=== PATIENT | female | born 1985 ===

== ENCOUNTER 2021-07-24 02:13 | Emergency (ER) | payer OTHER, SELFPAY ==
--- NOTE | ~2021-07-24 | CT_ITS ---
EXAMINATION: CT ABDOMEN AND PELVIS WITH CONTRAST CLINICAL INFORMATION: Abdominal pain. Nausea and vomiting. COMPARISON: None TECHNIQUE: Multidetector volumetric images were obtained from the superior aspect of the liver through the pubic symphysis following administration 85 mL of Omnipaque 350 intravenous contrast. Sagittal and coronal reformatted images were obtained on the technologist's workstation. Oral contrast: No This CT examination was performed using dose optimization techniques as appropriate, variously including the following: *Automated exposure control *Adjustment of mA and/or kV according to patient size (this includes techniques or standardized protocols for targeted exams where dose is matched to indication/reason for exam; i.e. extremities or head) *Use of iterative reconstruction technique DLP: 410 mGy-cm FINDINGS: LUNG BASES: The visualized lung bases are unremarkable. LIVER, GALLBLADDER, AND BILIARY TREE: The liver is normal in size, shape, and attenuation. No biliary ductal dilatation. 0.8 cm hypoattenuating lesion in segment 5 of the liver centrally, too small to fully characterize. The gallbladder is unremarkable with no evidence of radiopaque gallstones, gallbladder wall thickening, or obvious pericholecystic inflammatory changes. PANCREAS: Unremarkable. SPLEEN: Unremarkable. ADRENAL GLANDS: Unremarkable. KIDNEYS AND URETERS: The kidneys are normal in size, shape, and attenuation. No hydronephrosis, hydroureter, or calculi seen. No perinephric stranding. BLADDER: Unremarkable. GASTROINTESTINAL TRACT: The stomach is unremarkable. Normal caliber of the small bowel. There is no obstruction. Normal appendix. No colonic wall thickening or acute inflammation. No free air or free fluid. ABDOMINAL WALL: No significant hernia is appreciated. LYMPH NODES: Normal. VASCULAR: Unremarkable. PELVIC VISCERA: The uterus and adnexa are unremarkable. OSSEOUS STRUCTURES: No acute or suspicious osseous abnormality. CT/CT abdomen pelvis w con IMPRESSION: No acute findings of the abdomen or pelvis. No inflammatory change. Fleischner guidelines were followed.
[2021-07-24 02:15] VITALS: BP 139/85; PULSE 64; RESP 18; TEMP 36.4; O2SAT 100; BMI 21.8
--- NOTE | 2021-07-24 03:08 | ED_ITS ---
HPI - Nausea/Vomiting/Diarrhea General Chief complaint: Nausea/Vomiting/Diarrhea Stated complaint: Vomiting blood, diarrhea Time Seen by Provider: 07/24/21 03:07 Related Data Previous Rx's Medication Instructions Recorded ondansetron 4 mg disintegrating 4 mg PO TID PRN 5 Days #10 tab 07/24/21 tablet pantoprazole 40 mg tablet,delayed 40 mg PO DAILY #14 tab 07/24/21 release (Protonix) Allergies Allergy/AdvReac Type Severity Reaction Status Date / Time acetaminophen [From Allergy Vomiting Verified 07/24/21 02:14 Percocet] oxycodone [From Percocet] Allergy Vomiting Verified 07/24/21 02:14 [facility] Social History Social History Advance Directives: No Advance Directives Information Provided: Yes Patient : No Physical Exam Verdana 4l Vital Signs: Verdana 4d Verdana 4d Vital Signs: Verdana 4d Verdana 4Bd Last Vital Signs Verdana 4d [employer] New 4d [employer] New 4d Temp 97.6 F 07/24/21 02:15 [employer] New 4d Pulse 64 07/24/21 02:15 [employer] New 4d Resp 18 07/24/21 02:15 BP 139/85 07/24/21 02:15 Pulse Ox 100 07/24/21 02:15 BMI result Body Mass Index 21.8 MDM - Nausea/Vomiting/Diarrhea MDM Narrative Medical decision making narrative: Patient given Zofran a droperidol for nausea. test was negative electrolytes unremarkable. CT scan of the abdomen pelvis showed no evidence of obstruction, abscess, perforation. Patient's hemoglobin is normal 13.8 her guaiac was negative. Unlikely she has a major GI bleed question secondary to [place]-Hankins versus from the Gatorade she was ingesting. Will discharge patient home. Will start patient on PPI. In stable condition. Zofran and offered for nausea. Patient's case also referred to the CF secondary to patient having a small child at home. Lab Data Attestation: I reviewed the patient's lab results. Result diagrams: 07/24/21 03:22 07/24/21 03:22 Labs: Lab Results 07/24/21 07/24/21 07/24/21 Range/Units 03:22 03:22 03:22 WBC 15.7 H (4.8-10.8) X10*3/uL RBC 4.55 (4.20-5.50) X10*6/uL Hgb 13.8 (12.0-16.0) g/dl Hct 41.6 (37.0-47.0) % MCV 91.4 (80.0-98.0) fL MCH 30.3 (27.0-33.0) pg MCHC 33.2 (31.0-35.0) g/dl RDW 13.4 (11.0-16.0) % Plt Count 308 (160-400) X10*3/uL MPV 8.7 L (9.4-12.3) fL Immature Gran % (Auto) 0.4 (0.0-0.4) % Neut % (Auto) 87.6 H (45-73) % Lymph % (Auto) 9.1 L (20-40) % Camp % (Auto) 2.8 (2-11) % Eos % (Auto) 0.0 (0-4) % Baso % (Auto) 0.1 (0-2) % Lymph # (Auto) 1.4 (1.2-4.9) X10*3/uL Camp # (Auto) 0.4 (0.1-1.2) X10*3/uL Eos # (Auto) 0.0 (0.0-0.4) X10*3/uL Baso # (Auto) 0.0 (0.0-0.2) X10*3/uL Abs Immat Gran (auto) 0.06 H (0.00-0.03) X10*3/uL Absolute Neuts (auto) 13.8 H (2.0-8.3) x10*3/uL Absolute Nucleated RBC 0.000 (0.0-0.012) X10*3/uL Nucleated RBC % (auto) 0.0 (0.0-0.2) /100WBC Sodium 145 (135-145) mmol/L Potassium 4.0 (3.3-5.1) mmol/L Chloride 108 (96-108) mmol/L Carbon Dioxide 22 (22-29) mmol/L Anion Gap 19 (12-20) BUN 14 (9-16) mg/dL Creatinine 0.83 (0.5-1.4) mg/dL Estim Creat Clear Calc 100.7 Estimated GFR > 60 Random Glucose 127 H (60-115) mg/dL Calcium 9.5 (8.4-10.2) mg/dL Total Bilirubin 0.5 (0.0-1.0) mg/dL Direct Bilirubin 0.2 (0.0-0.5) mg/dL AST 20 (5-31) U/L ALT 14 (0-31) U/L Alkaline Phosphatase 59 (39-117) U/L Total Protein 7.7 (6.5-8.0) g/dL Albumin 4.5 (3.5-5.0) g/dL Lipase 13 (8-78) U/L Beta HCG, Quant < 2 mIU/mL Stool Occult Blood NEGATIVE (NEGATIVE) Ethyl Alcohol mg/dL 07/24/21 Range/Units 03:22 WBC (4.8-10.8) X10*3/uL RBC (4.20-5.50) X10*6/uL Hgb (12.0-16.0) g/dl Hct (37.0-47.0) % MCV (80.0-98.0) fL MCH (27.0-33.0) pg MCHC (31.0-35.0) g/dl RDW (11.0-16.0) % Plt Count (160-400) X10*3/uL MPV (9.4-12.3) fL Immature Gran % (Auto) (0.0-0.4) % Neut % (Auto) (45-73) % Lymph % (Auto) (20-40) % Camp % (Auto) (2-11) % Eos % (Auto) (0-4) % Baso % (Auto) (0-2) % Lymph # (Auto) (1.2-4.9) X10*3/uL Camp # (Auto) (0.1-1.2) X10*3/uL Eos # (Auto) (0.0-0.4) X10*3/uL Baso # (Auto) (0.0-0.2) X10*3/uL Abs Immat Gran (auto) (0.00-0.03) X10*3/uL Absolute Neuts (auto) (2.0-8.3) x10*3/uL Absolute Nucleated RBC (0.0-0.012) X10*3/uL Nucleated RBC % (auto) (0.0-0.2) /100WBC Sodium (135-145) mmol/L Potassium (3.3-5.1) mmol/L Chloride (96-108) mmol/L Carbon Dioxide (22-29) mmol/L Anion Gap (12-20) BUN (9-16) mg/dL Creatinine (0.5-1.4) mg/dL Estim Creat Clear Calc Estimated GFR Random Glucose (60-115) mg/dL Calcium (8.4-10.2) mg/dL Total Bilirubin (0.0-1.0) mg/dL Direct Bilirubin (0.0-0.5) mg/dL AST (5-31) U/L ALT (0-31) U/L Alkaline Phosphatase (39-117) U/L Total Protein (6.5-8.0) g/dL Albumin (3.5-5.0) g/dL Lipase (8-78) U/L Beta HCG, Quant mIU/mL Stool Occult Blood (NEGATIVE) Ethyl Alcohol 55 mg/dL Discharge Plan Discharge Clinical Impression: Alcohol intoxication, Vomiting Patient Disposition: Home, Self-Care Prescriptions: New pantoprazole [Protonix] 40 mg tablet,delayed release (DR/EC) 40 mg PO DAILY Qty: 14 0RF ondansetron 4 mg tablet,disintegrating 4 mg PO TID PRN (Reason: nausea and vomiting) 5 Days Qty: 10 0RF
[2021-07-24] MEDS: 0.9 % Sodium Chloride 1,000 ML 999 ML IV (03:24)
[2021-07-24] MEDS: ondansetron HCL 4 MG/2 ML VIAL IVPUSH (03:24)
[2021-07-24 03:25] LABS: MANUAL DIFF FLAG NO
[2021-07-24 03:26] LABS: Basophils Percent Auto 0.1 % (0-2); Hematocrit 41.6 % (37.0-47.0); Hemoglobin 13.8 g/dl (12.0-16.0); Imm Gran Abs Auto 0.06 X10*3/uL (0.00-0.03); Imm Gran Pct Auto 0.4 % (0.0-0.4); Lymphocytes Absolute Auto 1.4 X10*3/uL (1.2-4.9); Lymphocytes Percent Auto 9.1 % (20-40); Mean Corpuscular HGB Conc 33.2 g/dl (31.0-35.0); Mean Corpuscular Hemoglobin 30.3 pg (27.0-33.0); Mean Corpuscular Volume 91.4 fL (80.0-98.0); Mean Platelet Volume 8.7 fL (9.4-12.3); Monocytes Absolute Auto 0.4 X10*3/uL (0.1-1.2); Monocytes Percent Auto 2.8 % (2-11); Neutrophils Absolute Auto 13.8 x10*3/uL (2.0-8.3); Neutrophils Percent Auto 87.6 % (45-73); OBS Int Ctl Valid YES; OBS1 NEGATIVE (NEGATIVE); Platelet Count 308 X10*3/uL (160-400); Red Blood Count 4.55 X10*6/uL (4.20-5.50); Red Cell Distribution Width 13.4 % (11.0-16.0); White Blood Count 15.7 X10*3/uL (4.8-10.8)
[2021-07-24 03:43] LABS: Ethanol 55 mg/dL
[2021-07-24 03:47] LABS: Alanine Aminotransferase 14 U/L (0-31); Albumin Level 4.5 g/dL (3.5-5.0); Alkaline Phosphatase 59 U/L (39-117); Anion Gap 19 (12-20); Aspartate Amino Transferase 20 U/L (5-31); Bilirubin Direct 0.2 mg/dL (0.0-0.5); Bilirubin Total 0.5 mg/dL (0.0-1.0); Blood Urea Nitrogen 14 mg/dL (9-16); Calcium 9.5 mg/dL (8.4-10.2); Carbon Dioxide 22 mmol/L (22-29); Chloride 108 mmol/L (96-108); Creatinine Clr Calc Pharmacy 100.7; Estimated Glomerular Filt Rate > 60; Glucose Random 127 mg/dL (60-115); Lipase 13 U/L (8-78); Sodium 145 mmol/L (135-145); Total Protein 7.7 g/dL (6.5-8.0)
[2021-07-24 03:53] LABS: HCG Quantitative < 2 mIU/mL
[2021-07-24] MEDS: iohexoL 350 MG/ML 100 ML INFUS..BTL 85 ML IV (04:56)
--- NOTE | 2021-07-24 05:42 | PC.NURSE ---
CONTACTING DCF AND FILING REPORT DUE TO PATIENT REPORTING ALCOHOL ISSUES, IS WILLING TO ACCEPT RESOURCES AND UNDERSTANDING THAT [facility] IS MANDATED REPORTERS. CONTACTING THE PATIENTS BROTHER FOR RHIANNA INFORMATION. PLAN IS FOR DCF TO FOLLOW UP OUT IN THE COMMUNITY.
== END 2021-07-24 06:02 | disposition home or self-care (01) ==
PROVIDERS: Emergency Provider Emergency Medicine Emergency Medical Services
DX: F10.920 Alcohol use, unspecified with intoxication, uncomplicated (principal); Y90.2 Blood alcohol level of 40-59 mg/100 ml; R11.2 Nausea with vomiting, unspecified
CPT/HCPCS: 36415; 74177; 80048; 80076; 82077; 82272; 83690; 84702; 85025; 96361; 96374; 96375; 99283; 99284; J1790; J2405; Q9967

== ENCOUNTER 2022-08-28 13:23 | Emergency (ER) | payer OTHER, SELFPAY ==
--- NOTE | ~2022-08-28 | CT_ITS ---
EXAMINATION: CT ABDOMEN AND PELVIS WITHOUT CONTRAST CLINICAL INFORMATION: Hematuria, dysuria, flank pain, abdominal pain bilaterally. COMPARISON: None TECHNIQUE: Multidetector volumetric imaging was performed from the superior aspect of the liver through the pubic symphysis. Sagittal and coronal reformatted images were obtained on the technologist's workstation. Lack of intravenous and oral contrast limits visceral evaluation. This CT examination was performed using dose optimization techniques as appropriate, variously including the following: *Automated exposure control *Adjustment of mA and/or kV according to patient size (this includes techniques or standardized protocols for targeted exams where dose is matched to indication/reason for exam; i.e. extremities or head) *Use of iterative reconstruction technique DLP: 441 mGy-cm FINDINGS: LUNG BASES: The visualized lung bases are unremarkable. LIVER, GALLBLADDER, AND BILIARY TREE: Unremarkable. PANCREAS: Unremarkable. SPLEEN: Unremarkable. ADRENAL GLANDS: Unremarkable. KIDNEYS AND URETERS: Multiple small calcifications are seen at the medullary level bilaterally. No hydroureteronephrosis bilaterally. BLADDER: Unremarkable. GASTROINTESTINAL TRACT: The stomach, small bowel and appendix are unremarkable. The colon and rectum are unremarkable. ABDOMINAL WALL: Small fat-containing umbilical hernia without surrounding abnormality. LYMPH NODES: No lymphadenopathy. VASCULAR: Unremarkable. PELVIC VISCERA: Unremarkable. OSSEOUS STRUCTURES: Unremarkable. CT/CT abdomen pelvis wo IV con IMPRESSION: 1. Multiple small calcifications at the medullary level bilaterally without associated abnormality. This is nonspecific, but can be seen with medullary nephrocalcinosis. No hydroureteronephrosis. 2. Small fat-containing umbilical hernia without associated abnormality.
--- NOTE | 2022-08-28 13:26 | ED_ITS ---
HPI - Female Genitourinary General Chief complaint: Abdominal Pain <Marry Mariscal CNP - Last Filed: 08/28/22 13:30> Stated complaint: Blood in urine <Marry Mariscal CNP - Last Filed: 08/28/22 13:30> Time Seen by Provider: 08/28/22 15:55 <Marry Mariscal CNP - Last Filed: 08/28/22 13:30> Source: patient <RORY Gerard - Last Filed: 08/28/22 17:45> Mode of arrival: ambulatory <RORY Gerard Last Filed: 08/28/22 17:45> Limitations: no limitations <RORY Gerard Last Filed: 08/28/22 17:45> History of Present Illness HPI Narrative: Patient is a 36 year old assigned female at with no reported medical history presenting to the emergency department today with pain and blood when urinating. Patient states that over the last couple days she has had pain with urination and blood in her urine. Patient denies any dizziness, lightheadedness, abdominal pain, nausea, vomiting, fever, chills, blurry vision, double vision, loss of vision, chest pain, difficulty breathing, shortness of breath, back pain, night sweats, increased urinary frequency, increased urinary urgency, blood in her stool, syncope or a near syncopal episode, recent trauma or falls, bowel incontinence, bladder incontinence, bowel retention, bladder retention, or any other complaints at this time. <RORY Gerard - Last Filed: 08/28/22 17:45> MD elicited complaint: dysuria <RORY Gerard - Last Filed: 08/28/22 17:45> Onset (ago): day(s) <RORY Gerard Last Filed: 08/28/22 17:45> Severity: mild <RORY Gerard Last Filed: 08/28/22 17:45> Severity scale (1-10): 3 <RORY Gerard Last Filed: 08/28/22 17:45> Vaginal discharge: none <RORY Gerard Last Filed: 08/28/22 17:45> Vaginal bleeding: none <RORY Gerard Last Filed: 08/28/22 17:45> Urinary symptoms: Dysuria <RORY Gerard - Last Filed: 08/28/22 17:45> Exacerbating factors: none <RORY Gerard - Last Filed: 08/28/22 17:45> Relieving factors: none <RORY Gerard Last Filed: 08/28/22 17:45> Treatment prior to arrival: none <RORY Gerard Last Filed: 08/28/22 17:45> Related Data Home medications: Previous Rx's Medication Instructions Recorded ondansetron 4 mg disintegrating 4 mg PO TID PRN nausea and 07/24/21 tablet vomiting 5 days #10 tabs pantoprazole 40 mg tablet,delayed 40 mg PO DAILY #14 tabs 07/24/21 release (Protonix) cephalexin 500 mg capsule 500 mg PO Q6H 7 days #28 caps 08/28/22 <Marry Mariscal CNP - Last Filed: 08/28/22 13:30> Allergies/Adverse reactions: Allergies Allergy/AdvReac Type Severity Reaction Status Date / Time acetaminophen [From Percocet] Allergy Vomiting Verified 07/24/21 02:14 oxycodone [From Percocet] Allergy Vomiting Verified 07/24/21 02:14 <Marry Mariscal CNP - Last Filed: 08/28/22 13:30> Review of Systems Constitutional: Constitutional: Reports no additional constitutional complaints, Denies chills, Denies fever(s) and Denies night sweats <RORY Gerard - Last Filed: 08/28/22 17:45> Eyes: Eyes: Reports no additional eye complaints, Denies blurry vision, Denies change in vision, Denies diplopia, Denies eye discharge, Denies loss of vision and Denies eye pain <RORY Gerard Last Filed: 08/28/22 17:45> ENT: Denies dizziness <RORY Gerard - Last Filed: 08/28/22 17:45> Cardiovascular: Cardiovascular: Reports no additional cardiovascular complaints, Denies chest pain, Denies lightheadedness, Denies Loss of Consciousness and Denies dyspnea <RORY Gerard - Last Filed: 08/28/22 17:45> Respiratory: Respiratory: Reports no additional respiratory complaints and Denies dyspnea <RORY Gerard - Last Filed: 08/28/22 17:45> Gastrointestinal: Gastrointestinal: Reports no additional gastrointestinal complaints, Denies abdominal pain, Denies melena, Denies hematochezia, Denies change in bowel habits and Denies change in stool character <RORY Gerard - Last Filed: 08/28/22 17:45> Genitourinary: Genitourinary: Reports hematuria, Denies urinary frequency, Reports dysuria, Denies urinary incontinence, Denies urinary hesitancy and Denies urinary urgency <RORY Gerard - Last Filed: 08/28/22 17:45> Musculoskeletal: Musculoskeletal: Reports no additional musculoskeletal co mplaints, Denies numbness and Denies tingling <RORY Gerard - Last Filed: 08/28/22 17:45> Neurologic: Denies dizziness, Denies loss of vision, Denies numbness and Denies tingling <RORY Gerard - Last Filed: 08/28/22 17:45> Psychiatric: Psychiatric: Reports no additional psychiatric complaints <RORY Gerard - Last Filed: 08/28/22 17:45> Endocrine: Endocrine: Reports no additional endocrine complaints <RORY Gerard - Last Filed: 08/28/22 17:45> Hematologic/Lymphatic: Hematologic/Lymphatic: Reports no additional hematologic/lymphatic complaints <RORY Gerard - Last Filed: 08/28/22 17:45> Allergic/Immunologic: Allergic/Immunologic: Reports no additional allergic/immunologic complaints <RORY Gerard - Last Filed: 08/28/22 17:45> [facility] Past Medical History Attestation statement: The following information was validated with the patient. <RORY Gerard - Last Filed: 08/28/22 17:45> Source: old records reviewed and nursing notes reviewed <RORY Gerard - Last Filed: 08/28/22 17:45> Social History Social History: Social History Advance Directives: No Advance Directives Information Provided: Yes <Marry Mariscal CNP - Last Filed: 08/28/22 13:30> Physical Exam Vital Signs: Vital Signs: Last Vital Signs Temp 98.1 F 08/28/22 13:28 Pulse 84 08/28/22 13:28 Resp 18 08/28/22 13:28 BP 162/99 H 08/28/22 13:28 Pulse Ox 98 08/28/22 13:28 O2 Del Method 08/28/22 13:28 BMI result Body Mass Index 22.0 <Marry Mariscal [facility] - Last Filed: 08/28/22 13:30> Vital Signs: Last Vital Signs Temp 98.1 F 08/28/22 13:28 Pulse 84 08/28/22 13:28 Resp 18 08/28/22 13:28 BP 162/99 H 08/28/22 13:28 Pulse Ox 98 08/28/22 13:28 O2 Del Method 08/28/22 13:28 BMI result Body Mass Index 22.0 <RORY Gerard - Last Filed: 08/28/22 17:45> Const: General: cooperative, no acute distress, alert and awake <RORY Gerard - Last Filed: 08/28/22 17:45> Nutritional Appearance: well nourished <RORY Gerard - Last Filed: 08/28/22 17:45> Orientation/consciousness: patient oriented x3 <RORY Gerard - Last Filed: 08/28/22 17:45> Limitations: no limitations <RORY Gerard - Last Filed: 08/28/22 17:45> HEENT: Head: Yes normal to inspection and Yes atraumatic <RORY Gerard - Last Filed: 08/28/22 17:45> Ears: hearing grossly normal bilaterally and external ears normal <RORY Gerard - Last Filed: 08/28/22 17:45> General nose exam: Normal external nose present, no nasal discharge noted and no epistaxis <RORY Gerard - Last Filed: 08/28/22 17:45> Face and sinus: Yes normal facial exam, No abrasion and No laceration <RORY Gerard - Last Filed: 08/28/22 17:45> Mouth: Normal oral and palatal mucosa present, no drooling and no muffled voice <Barb Stephens NM - Last Filed: 08/28/22 17:45> Eyes: General: appearance normal, both eyes and all related structures <Barb Stephens NM - Last Filed: 08/28/22 17:45> Periorbital: periorbital findings normal <Barb Stephens NM - Last Filed: 08/28/22 17:45> Eyelids: Yes eyelids normal <Barb Stephens NM - Last Filed: 08/28/22 17:45> Conjunctivae: conjunctivae normal <Barb Stephens NM - Last Filed: 08/28/22 17:45> Pupils: Equal, round and reactive pupils present <Barb Stephens NM - Last Filed: 08/28/22 17:45> EOM: EOMs intact bilaterally <Barb Stephens NM - Last Filed: 08/28/22 17:45> Neck: Neck: Yes normal visual inspection, Yes full ROM and Yes no lymphadenopathy <Barb Stephens NM - Last Filed: 08/28/22 17:45> Chest: Chest palpation & inspection: normal inspection of the chest <Barb Stephens NM - Last Filed: 08/28/22 17:45> Resp: Effort & Inspection: normal respiratory effort and able to speak in complete sentences <Barb Stephens NM - Last Filed: 08/28/22 17:45> Auscultation: clear to auscultation bilaterally <Barb Stephens NM - Last Filed: 08/28/22 17:45> Cardio: Rate: regular rate <Barb Stephens NM - Last Filed: 08/28/22 17:45> Rhythm: regular rhythm <Barb Stephens NM - Last Filed: 08/28/22 17:45> GI: Inspection: Yes normal to inspection <Barb MonahanRORY garcia - Last Filed: 08/28/22 17:45> Palpation (GI): Soft to palpation, not firm, nontender, no guarding and not rigid <Barb Stephens PA - Last Filed: 08/28/22 17:45> Neuro: General: patient oriented x3 and moves all extremities <Barb Monahanradha NM - Last Filed: 08/28/22 17:45> Cranial nerves: Yes Equal, round and reactive pupils present <Barb StephensRORY - Last Filed: 08/28/22 17:45> Cognition (Neuro): normal cognition <Barb StephensRORY - Last Filed: 08/28/22 17:45> Motor exam (neuro): 5/5 motor strength present throughout <Barb StephensRORY - Last Filed: 08/28/22 17:45> Sensory Exam: Normal double simultaneous stimulation for sensation <Barb StephensRORY - Last Filed: 08/28/22 17:45> Coordination: [id number] test normal <Barb StephensRORY - Last Filed: 08/28/22 17:45> Extrem: General: Yes normal to inspection, Yes full ROM and Yes capillary refill normal <Barb StephensRORY - Last Filed: 08/28/22 17:45> Psych: Appearance: grossly normal <Barb MonahanRORY garcia - Last Filed: 08/28/22 17:45> Mental Status: mental status grossly normal <Barb StephensRORY - Last Filed: 08/28/22 17:45> Affect: normal affect <Barb MonahanRORY garcia - Last Filed: 08/28/22 17:45> Attitude: cooperative <Barb MonahanRORY garcia - Last Filed: 08/28/22 17:45> Thought process: Normal thought process present <Barb MonahanRORY garcia - Last Filed: 08/28/22 17:45> Thought content: Normal thought content present <Barb MonahanRORY garcia - Last Filed: 08/28/22 17:45> Insight: Good insight present (Psych) <Barb MonahanRORY garcia - Last Filed: 08/28/22 17:45> Course Course Course Narrative: This is an RME: Additional HPI, ROS, PE not included below will be deferred to primary provider. Patient is a 36-year-old female who presents to the emergency department for evaluation of hematuria, dysuria, urinary frequency, diffuse lower abdominal pain, diffuse lower back pain, history of renal calculi. Started yesterday, but symptoms more severe today. Associated nausea, vomiting, diarrhea and chills. Denies fevers. LMP 08/15/22. Plan: labs, urinalysis, hCG, CT abd/pelvis, zofran SL <Marry JeterPIERCE ness - Last Filed: 08/28/22 13:30> Medications Administered Discontinued Medications Generic Name Dose Route Start Last Admin Trade Name Freq PRN Reason Stop Dose Admin Ibuprofen 600 mg 08/28/22 14:33 08/28/22 14:45 Ibuprofen 600 Mg Tablet PO 08/28/22 14:34 600 mg ONCE ONE Administration Ondansetron HCl 4 mg 08/28/22 13:30 08/28/22 13:34 Ondansetron Odt 4 Mg Tab.Rapdis TRANSLINGU 08/28/22 13:31 4 mg ONCE ONE Administration <Marry MariscalPIERCE - Last Filed: 08/28/22 13:30> Medications Administered Discontinued Medications Generic Name Dose Route Start Last Admin Trade Name Freq PRN Reason Stop Dose Admin Ibuprofen 600 mg 08/28/22 14:33 08/28/22 14:45 Ibuprofen 600 Mg Tablet PO 08/28/22 14:34 600 mg ONCE ONE Administration Ondansetron HCl 4 mg 08/28/22 13:30 08/28/22 13:34 Ondansetron Odt 4 Mg Tab.Rapdis TRANSLINGU 08/28/22 13:31 4 mg ONCE ONE Administration <RORY Gerard - Last Filed: 08/28/22 17:45> Medical Decision Making Medical Decision Making MDM Narrative: Patient is a 36 year old assigned female at with no reported medical history presenting to the emergency department today with dysuria and pain her urine. Patient's physical exam was unremarkable. Patient's blood work showed a mildly elevated WBC count but was otherwise unremarkable. Patient's urine showed an acute UTI. Patient's abdomen/pelvis CT showed no acute process. I explained my physical exam findings as well as all test results to the patient. I answered all questions asked by the patient. I stressed the importance of the patient taking her medication as prescribed. I stressed the importance of the patient following up with her primary care provider. I stressed the importance of the patient returning to the emergency department immediately if her symptoms were to worsen or if she were to develop any dizziness, shortness of breath, difficulty breathing, chest pain, blurry vision, loss of vision, nausea, vomiting, abdominal pain, fever, chills, back pain, or any other complaints. Patient verbalized agreement and understanding with this treatment plan and discharge. <RORY Gerard - Last Filed: 08/28/22 17:45> Differential Diagnosis Differential Diagnoses: The differential diagnosis associated with the presentation includes <RORY Gerard - Last Filed: 08/28/22 17:45> UTI <RORY Gerard - Last Filed: 08/28/22 17:45> Lab Data MDM Lab Attestation statement: I reviewed the patient's lab results. <RORY Gerard - Last Filed: 08/28/22 17:45> Result Diagrams: 08/28/22 13:45 08/28/22 13:45 <Marry Mariscal CNP - Last Filed: 08/28/22 13:30> Labs: Lab Results 08/28/22 08/28/22 08/28/22 Range/Units 13:45 13:45 13:45 WBC 13.2 H (4.8-10.8) X10*3/uL RBC 4.29 (4.20-5.50) X10*6/uL Hgb 13.1 (12.0-16.0) g/dl Hct 38.8 (37.0-47.0) % MCV 90.4 (80.0-98.0) fL MCH 30.5 (27.0-33.0) pg MCHC 33.8 (31.0-35.0) g/dl RDW 13.6 (11.0-16.0) % Plt Count 353 (160-400) X10*3/uL MPV 8.6 L (9.4-12.3) fL Immature Gran % (Auto) 0.3 (0.0-0.4) % Neut % (Auto) 73.2 H (45-73) % Lymph % (Auto) 20.3 (20-40) % [place] % (Auto) 5.7 (2-11) % Eos % (Auto) 0.3 (0-4) % Baso % (Auto) 0.2 (0-2) % Lymph # (Auto) 2.7 (1.2-4.9) X10*3/uL [place] # (Auto) 0.8 (0.1-1.2) X10*3/uL Eos # (Auto) 0.0 (0.0-0.4) X10*3/uL Baso # (Auto) 0.0 (0.0-0.2) X10*3/uL Abs Immat Gran (auto) 0.04 H (0.00-0.03) X10*3/uL Absolute Neuts (auto) 9.7 H (2.0-8.3) x10*3/uL Absolute Nucleated RBC 0.000 (0.0-0.012) X10*3/uL Nucleated RBC % (auto) 0.0 (0.0-0.2) /100WBC Sodium 141 (135-145) mmol/L Potassium 4.1 (3.3-5.1) mmol/L Chloride 105 (96-108) mmol/L Carbon Dioxide 27 (22-29) mmol/L Anion Gap 13 (12-20) BUN 9 (9-16) mg/dL Creatinine 0.79 (0.5-1.4) mg/dL Estim Creat Clear Calc 101.2 Estimated GFR > 60 Random Glucose 91 (60-115) mg/dL Calcium 9.0 (8.4-10.2) mg/dL Total Bilirubin 0.5 (0.0-1.0) mg/dL AST 21 (5-31) U/L ALT 16 (0-31) U/L Alkaline Phosphatase 57 (39-117) U/L Total Protein 6.9 (6.5-8.0) g/dL Albumin 4.3 (3.5-5.0) g/dL Lipase 16 (8-78) U/L Urine Color RED Urine Appearance Cloudy Urine pH 6.5 (5.0-9.0) Ur Specific [place] >= 1.030 H (1.005-1.025) Urine Protein 100 (2+) H (Neg-Trace) mg/dL Urine Glucose (UA) Negative (Negative) mg/dL Urine Ketones Negative (Negative) mg/dL Urine Blood Large (3+) H (Negative) Urine Nitrite Negative (Negative) Ur Leukocyte Esterase Small (1+) H (Negative) Urine RBC >20 H (0-2) /HPF Urine WBC >50 H (0-5) /HPF Ur Squamous Epith Cells 11-20 (0-2) /HPF Urine Bacteria 3+ (None Seen) Hyaline Casts 0-2 (0-2) /LPF Urine Test (NEGATIVE) 08/28/22 Range/Units 13:45 WBC (4.8-10.8) X10*3/uL RBC (4.20-5.50) X10*6/uL Hgb (12.0-16.0) g/dl Hct (37.0-47.0) % MCV (80.0-98.0) fL MCH (27.0-33.0) pg MCHC (31.0-35.0) g/dl RDW (11.0-16.0) % Plt Count (160-400) X10*3/uL MPV (9.4-12.3) fL Immature Gran % (Auto) (0.0-0.4) % Neut % (Auto) (45-73) % Lymph % (Auto) (20-40) % [place] % (Auto) (2-11) % Eos % (Auto) (0-4) % Baso % (Auto) (0-2) % Lymph # (Auto) (1.2-4.9) X10*3/uL [place] # (Auto) (0.1-1.2) X10*3/uL Eos # (Auto) (0.0-0.4) X10*3/uL Baso # (Auto) (0.0-0.2) X10*3/uL Abs Immat Gran (auto) (0.00-0.03) X10*3/uL Absolute Neuts (auto) (2.0-8.3) x10*3/uL Absolute Nucleated RBC (0.0-0.012) X10*3/uL Nucleated RBC % (auto) (0.0-0.2) /100WBC Sodium (135-145) mmol/L Potassium (3.3-5.1) mmol/L Chloride (96-108) mmol/L Carbon Dioxide (22-29) mmol/L Anion Gap (12-20) BUN (9-16) mg/dL Creatinine (0.5-1.4) mg/dL Estim Creat Clear Calc Estimated GFR Random Glucose (60-115) mg/dL Calcium (8.4-10.2) mg/dL Total Bilirubin (0.0-1.0) mg/dL AST (5-31) U/L ALT (0-31) U/L Alkaline Phosphatase (39-117) U/L Total Protein (6.5-8.0) g/dL Albumin (3.5-5.0) g/dL Lipase (8-78) U/L Urine Color Urine Appearance Urine pH (5.0-9.0) Ur Specific [place] (1.005-1.025) Urine Protein (Neg-Trace) mg/dL Urine Glucose (UA) (Negative) mg/dL Urine Ketones (Negative) mg/dL Urine Blood (Negative) Urine Nitrite (Negative) Ur Leukocyte Esterase (Negative) Urine RBC (0-2) /HPF Urine WBC (0-5) /HPF Ur Squamous Epith Cells (0-2) /HPF Urine Bacteria (None Seen) Hyaline Casts (0-2) /LPF Urine Test NEGATIVE (NEGATIVE) <Marry Mariscal CNP - Last Filed: 08/28/22 13:30> Lab Results 08/28/22 08/28/22 08/28/22 Range/Units 13:45 13:45 13:45 WBC 13.2 H (4.8-10.8) X10*3/uL RBC 4.29 (4.20-5.50) X10*6/uL Hgb 13.1 (12.0-16.0) g/dl Hct 38.8 (37.0-47.0) % MCV 90.4 (80.0-98.0) fL MCH 30.5 (27.0-33.0) pg MCHC 33.8 (31.0-35.0) g/dl RDW 13.6 (11.0-16.0) % Plt Count 353 (160-400) X10*3/uL MPV 8.6 L (9.4-12.3) fL Immature Gran % (Auto) 0.3 (0.0-0.4) % Neut % (Auto) 73.2 H (45-73) % Lymph % (Auto) 20.3 (20-40) % [place] % (Auto) 5.7 (2-11) % Eos % (Auto) 0.3 (0-4) % Baso % (Auto) 0.2 (0-2) % Lymph # (Auto) 2.7 (1.2-4.9) X10*3/uL [place] # (Auto) 0.8 (0.1-1.2) X10*3/uL Eos # (Auto) 0.0 (0.0-0.4) X10*3/uL Baso # (Auto) 0.0 (0.0-0.2) X10*3/uL Abs Immat Gran (auto) 0.04 H (0.00-0.03) X10*3/uL Absolute Neuts (auto) 9.7 H (2.0-8.3) x10*3/uL Absolute Nucleated RBC 0.000 (0.0-0.012) X10*3/uL Nucleated RBC % (auto) 0.0 (0.0-0.2) /100WBC Sodium 141 (135-145) mmol/L Potassium 4.1 (3.3-5.1) mmol/L Chloride 105 (96-108) mmol/L Carbon Dioxide 27 (22-29) mmol/L Anion Gap 13 (12-20) BUN 9 (9-16) mg/dL Creatinine 0.79 (0.5-1.4) mg/dL Estim Creat Clear Calc 101.2 Estimated GFR > 60 Random Glucose 91 (60-115) mg/dL Calcium 9.0 (8.4-10.2) mg/dL Total Bilirubin 0.5 (0.0-1.0) mg/dL AST 21 (5-31) U/L ALT 16 (0-31) U/L Alkaline Phosphatase 57 (39-117) U/L Total Protein 6.9 (6.5-8.0) g/dL Albumin 4.3 (3.5-5.0) g/dL Lipase 16 (8-78) U/L Urine Color RED Urine Appearance Cloudy Urine pH 6.5 (5.0-9.0) Ur Specific [place] >= 1.030 H (1.005-1.025) Urine Protein 100 (2+) H (Neg-Trace) mg/dL Urine Glucose (UA) Negative (Negative) mg/dL Urine Ketones Negative (Negative) mg/dL Urine Blood Large (3+) H (Negative) Urine Nitrite Negative (Negative) Ur Leukocyte Esterase Small (1+) H (Negative) Urine RBC >20 H (0-2) /HPF Urine WBC >50 H (0-5) /HPF Ur Squamous Epith Cells 11-20 (0-2) /HPF Urine Bacteria 3+ (None Seen) Hyaline Casts 0-2 (0-2) /LPF Urine Test (NEGATIVE) 08/28/22 Range/Units 13:45 WBC (4.8-10.8) X10*3/uL RBC (4.20-5.50) X10*6/uL Hgb (12.0-16.0) g/dl Hct (37.0-47.0) % MCV (80.0-98.0) fL MCH (27.0-33.0) pg MCHC (31.0-35.0) g/dl RDW (11.0-16.0) % Plt Count (160-400) X10*3/uL MPV (9.4-12.3) fL Immature Gran % (Auto) (0.0-0.4) % Neut % (Auto) (45-73) % Lymph % (Auto) (20-40) % [place] % (Auto) (2-11) % Eos % (Auto) (0-4) % Baso % (Auto) (0-2) % Lymph # (Auto) (1.2-4.9) X10*3/uL [place] # (Auto) (0.1-1.2) X10*3/uL Eos # (Auto) (0.0-0.4) X10*3/uL Baso # (Auto) (0.0-0.2) X10*3/uL Abs Immat Gran (auto) (0.00-0.03) X10*3/uL Absolute Neuts (auto) (2.0-8.3) x10*3/uL Absolute Nucleated RBC (0.0-0.012) X10*3/uL Nucleated RBC % (auto) (0.0-0.2) /100WBC Sodium (135-145) mmol/L Potassium (3.3-5.1) mmol/L Chloride (96-108) mmol/L Carbon Dioxide (22-29) mmol/L Anion Gap (12-20) BUN (9-16) mg/dL Creatinine (0.5-1.4) mg/dL Estim Creat Clear Calc Estimated GFR Random Glucose (60-115) mg/dL Calcium (8.4-10.2) mg/dL Total Bilirubin (0.0-1.0) mg/dL AST (5-31) U/L ALT (0-31) U/L Alkaline Phosphatase (39-117) U/L Total Protein (6.5-8.0) g/dL Albumin (3.5-5.0) g/dL Lipase (8-78) U/L Urine Color Urine Appearance Urine pH (5.0-9.0) Ur Specific [place] (1.005-1.025) Urine Protein (Neg-Trace) mg/dL Urine Glucose (UA) (Negative) mg/dL Urine Ketones (Negative) mg/dL Urine Blood (Negative) Urine Nitrite (Negative) Ur Leukocyte Esterase (Negative) Urine RBC (0-2) /HPF Urine WBC (0-5) /HPF Ur Squamous Epith Cells (0-2) /HPF Urine Bacteria (None Seen) Hyaline Casts (0-2) /LPF Urine Test NEGATIVE (NEGATIVE) <RORY Gerard - Last Filed: 08/28/22 17:45> Independent Interpretation I performed an independent interpretation of an: CT Scan <RORY Gerard - Last Filed: 08/28/22 17:45> Interpretation: My interpretation is in agreement with the radiologist's impression of this imaging study. -- EXAMINATION: CT ABDOMEN AND PELVIS WITHOUT CONTRAST? CLINICAL INFORMATION: Hematuria, dysuria, flank pain, abdominal pain bilaterally.? COMPARISON: None? TECHNIQUE: Multidetector volumetric imaging was performed from the superior aspect of the liver through the pubic symphysis. Sagittal and coronal reformatted images were obtained on the technologist's workstation. Lack of intravenous and oral contrast limits visceral evaluation. This CT examination was performed using dose optimization techniques as appropriate, variously including the following: *Automated exposure control *Adjustment of mA and/or kV according to patient size (this includes techniques or standardized protocols for targeted exams where dose is matched to indication/reason for exam; i.e. extremities or head) *Use of iterative reconstruction technique DLP: 441 mGy-cm FINDINGS: LUNG BASES: The visualized lung bases are unremarkable.? LIVER, GALLBLADDER, AND BILIARY TREE: Unremarkable. PANCREAS: Unremarkable.? SPLEEN: Unremarkable.? ADRENAL GLANDS: Unremarkable.? KIDNEYS AND URETERS: Multiple small calcifications are seen at the medullary level bilaterally. No hydroureteronephrosis bilaterally. BLADDER: Unremarkable.? GASTROINTESTINAL TRACT: The stomach, small bowel and appendix are unremarkable. The colon and rectum are unremarkable.? ABDOMINAL WALL: Small fat-containing umbilical hernia without surrounding abnormality.? LYMPH NODES: No lymphadenopathy. VASCULAR: Unremarkable. PELVIC VISCERA: Unremarkable.? OSSEOUS STRUCTURES: Unremarkable.? CT/CT abdomen pelvis wo IV con IMPRESSION: 1.? Multiple small calcifications at the medullary level bilaterally without associated abnormality. This is nonspecific, but can be seen with medullary nephrocalcinosis. No hydroureteronephrosis. 2.? Small fat-containing umbilical hernia without associated abnormality. Dictated By: Coy Pérez MD Signed By: Electronically signed by Coy Pérez MD 08/28/22 1537 <RORY Gerard - Last Filed: 08/28/22 17:45> Discharge Plan Discharge Clinical Impression: Urinary tract infection <Marry Mariscal CNP - Last Filed: 08/28/22 13:30> Patient Disposition: Home, Self-Care <Marry Mariscal CNP - Last Filed: 08/28/22 13:30> Instructions: Urinary Tract Infection in Women (ED) <Marry Mariscal CNP - Last Filed: 08/28/22 13:30> Additional Instructions: Follow up with your primary care provider. Return to the emergency department immediately if your symptoms worsen or if you develop any dizziness, shortness of breath, difficulty breathing, chest pain, blurry vision, loss of vision, nausea, vomiting, abdominal pain, fever, chills, back pain, or any other complaints. <aMrry Mariscal CNP - Last Filed: 08/28/22 13:30> Prescriptions: New cephalexin 500 mg capsule 500 mg PO Q6H 7 Days Qty: 28 0RF No Action pantoprazole [Protonix] 40 mg tablet,delayed release (DR/EC) 40 mg PO DAILY Qty: 14 0RF ondansetron 4 mg tablet,disintegrating 4 mg PO TID PRN (Reason: nausea and vomiting) 5 Days Qty: 10 0RF <Marry Mariscal CNP - Last Filed: 08/28/22 13:30> [place] [facility] [place] (Call to establish and follow up with a primary care provider. If you already have a primary care provider, please follow up with them.) [facility] [place]Provider Group] (Call to establish and follow up with a primary care provider. If you already have a primary care provider, please follow up with them.) [facility]Provider Group] (Call to establish and follow up with a primary care provider. If you already have a primary care provider, please follow up with them.) <Marry Mariscal CNP - Last Filed: 08/28/22 13:30> Stand Alone Forms: Work/School Release <Marry Mariscal CNP - Last Filed: 08/28/22 13:30> Interventions: ED Discharge Assessment Last Done: 08/28/22 16:06 <Marry Mariscal CNP - Last Filed: 08/28/22 13:30> Discharge Date/Time: 08/28/22 16:06 <Marry Mariscal CNP - Last Filed: 08/28/22 13:30> Print Language: Turkmen <Marry Mariscal CNP - Last Filed: 08/28/22 13:30>
[2022-08-28 13:28] VITALS: BP 162/99; PULSE 84; RESP 18; TEMP 36.7; O2SAT 98; BMI 22.0
[2022-08-28] MEDS: Ondansetron ODT 4 MG TAB.RAPDIS TRANSLINGU (13:34)
[2022-08-28 13:56] LABS: MANUAL DIFF FLAG NO
[2022-08-28 13:58] LABS: Appearance Urine Cloudy; Color Urine RED; Glucose Urine UA Negative (Negative); Leukocyte Esterase Urine Small (1+) (Negative); Nitrite Urine Negative (Negative); PH 6.5 (5.0-9.0); Specific Gravity - Urine >= 1.030 (1.005-1.025); UMIC TRIGGER UACC YES; Urine Blood Large (3+) (Negative); Urine Ketones Negative (Negative); Urine Protein 100 (2+) mg/dL (Neg-Trace)
[2022-08-28 13:59] LABS: Basophils Percent Auto 0.2 % (0-2); Eosinophils Percent Auto 0.3 % (0-4); Hematocrit 38.8 % (37.0-47.0); Hemoglobin 13.1 g/dl (12.0-16.0); Imm Gran Abs Auto 0.04 X10*3/uL (0.00-0.03); Imm Gran Pct Auto 0.3 % (0.0-0.4); Lymphocytes Absolute Auto 2.7 X10*3/uL (1.2-4.9); Lymphocytes Percent Auto 20.3 % (20-40); Mean Corpuscular HGB Conc 33.8 g/dl (31.0-35.0); Mean Corpuscular Hemoglobin 30.5 pg (27.0-33.0); Mean Corpuscular Volume 90.4 fL (80.0-98.0); Mean Platelet Volume 8.6 fL (9.4-12.3); Monocytes Absolute Auto 0.8 X10*3/uL (0.1-1.2); Monocytes Percent Auto 5.7 % (2-11); Neutrophils Absolute Auto 9.7 x10*3/uL (2.0-8.3); Neutrophils Percent Auto 73.2 % (45-73); Platelet Count 353 X10*3/uL (160-400); Red Blood Count 4.29 X10*6/uL (4.20-5.50); Red Cell Distribution Width 13.6 % (11.0-16.0); White Blood Count 13.2 X10*3/uL (4.8-10.8)
[2022-08-28 14:03] LABS: UPreg QC Valid YES; Urine Pregnancy NEGATIVE (NEGATIVE)
[2022-08-28 14:14] LABS: Bacteria Urine 3+ (None Seen); Hyaline Casts Urine 0-2 /LPF (0-2); RBC Urine >20 /HPF (0-2); UACC Culture Trigger YES; WBC Urine >50 /HPF (0-5)
[2022-08-28 14:31] LABS: Alanine Aminotransferase 16 U/L (0-31); Albumin Level 4.3 g/dL (3.5-5.0); Alkaline Phosphatase 57 U/L (39-117); Anion Gap 13 (12-20); Aspartate Amino Transferase 21 U/L (5-31); Bilirubin Total 0.5 mg/dL (0.0-1.0); Blood Urea Nitrogen 9 mg/dL (9-16); Carbon Dioxide 27 mmol/L (22-29); Chloride 105 mmol/L (96-108); Creatinine Clr Calc Pharmacy 101.2; Estimated Glomerular Filt Rate > 60; Glucose Random 91 mg/dL (60-115); Lipase 16 U/L (8-78); Potassium 4.1 mmol/L (3.3-5.1); Sodium 141 mmol/L (135-145); Total Protein 6.9 g/dL (6.5-8.0)
[2022-08-28] MEDS: Ibuprofen 600 MG TABLET PO (14:45)
== END 2022-08-28 16:06 | disposition home or self-care (01) ==
LOC: HO.ED 16:05
PROVIDERS: Nurse Practitioner Family; Emergency Provider Student in an Organized Health Care Education/Training Program
DX: N39.0 Urinary tract infection, site not specified (principal); R31.9 Hematuria, unspecified; R30.0 Dysuria; R10.9 Unspecified abdominal pain; Z79.899 Other long term (current) drug therapy
CPT/HCPCS: 36415; 74176; 80053; 81001; 81003; 81025; 83690; 85025; 87086; 87088; 87186; 99283; 99284

== ENCOUNTER 2022-10-07 13:11 | Emergency (ER) | payer OTHER, SELFPAY ==
--- NOTE | ~2022-10-07 | CT_ITS ---
EXAMINATION: CT ABDOMEN AND PELVIS WITHOUT CONTRAST CLINICAL INFORMATION: A 67-year-old female with vaginal bleeding and abdominal pain COMPARISON: Pelvic ultrasound from same day and an abdominal CT scan from 08/28/2022 TECHNIQUE: Multidetector volumetric imaging was performed from the superior aspect of the liver through the pubic symphysis. Sagittal and coronal reformatted images were obtained on the technologist's workstation. This CT examination was performed using dose optimization techniques as appropriate, variously including the following: *Automated exposure control *Adjustment of mA and/or kV according to patient size (this includes techniques or standardized protocols for targeted exams where dose is matched to indication/reason for exam; i.e. extremities or head) *Use of iterative reconstruction technique DLP: 433 mGy-cm FINDINGS: LUNG BASES: The visualized lung bases are unremarkable. LIVER, GALLBLADDER, AND BILIARY TREE: The liver is normal in size, shape, and attenuation. No focal hepatic lesion or biliary ductal dilatation is present. The gallbladder is unremarkable with no evidence of radiopaque gallstones, gallbladder wall thickening, or obvious pericholecystic inflammatory changes. PANCREAS: Unremarkable. SPLEEN: Unremarkable. ADRENAL GLANDS: Unremarkable. KIDNEYS AND URETERS: There is stable punctate calcifications seen in the medullary bilaterally. No evidence of hydroureteronephrosis. The largest calculus seen in the right lower kidney, measured 0.2 cm. BLADDER: Unremarkable. GASTROINTESTINAL TRACT: The small and large bowel are unremarkable. The appendix is unremarkable. ABDOMINAL WALL: No significant hernia is appreciated. LYMPH NODES: Normal. VASCULAR: Unremarkable. PELVIC VISCERA: Unremarkable. OSSEOUS STRUCTURES: Unremarkable. CT/CT abdomen pelvis wo IV con IMPRESSION: Bilateral nephrolithiasis without evidence of hydroureteronephrosis. Fleischner guidelines were followed.
--- NOTE | ~2022-10-07 | US_ITS ---
EXAMINATION: US OBSTETRICAL ULTRASOUND CLINICAL INFORMATION: Positive home test, bleeding and lower abdominal pain. Rule out torsion COMPARISON: None available.. LMP: 09/04/2022. Gestational age by maternal dates is 4 weeks and 5 days. Estimated date of delivery by maternal dates is 06/11/2023. TECHNIQUE: Transabdominal and transvaginal imaging of pelvis is performed. FINDINGS: There is no intrauterine dose sac, pole or heartbeat. MATERNAL ADNEXA: The right maternal ovary measures 2.6 x 1.4 x 1.4 cm. cm. There is normal arterial and venous flow seen on Doppler exam. The left maternal ovary measures 2.5 x 2.1 x 2.2 cm. There is normal arterial and venous flow seen on Doppler exam there is a simple anechoic cyst left adnexa measuring 1.5 x 1.3 x 1.8 cm likely paraovarian cyst. Retrospectively it is visualized on CT abdomen and pelvis exam 08/28/2022. There is no solid adnexal mass seen. No maternal pelvic ascites. US/US OB pelvic and transvaginal IMPRESSION: No extrauterine gestational sac, pole or yolk sac. Left adnexal small simple cysts likely paraovarian measuring 1.8 cm. Retrospectively it is visualized on CT abdomen and pelvis exam.
--- NOTE | ~2022-10-07 | US_ITS ---
EXAMINATION: US OBSTETRICAL ULTRASOUND CLINICAL INFORMATION: Positive home test, bleeding and lower abdominal pain. Rule out torsion COMPARISON: None available.. LMP: 09/04/2022. Gestational age by maternal dates is 4 weeks and 5 days. Estimated date of delivery by maternal dates is 06/11/2023. TECHNIQUE: Transabdominal and transvaginal imaging of pelvis is performed. FINDINGS: There is no intrauterine dose sac, pole or heartbeat. MATERNAL ADNEXA: The right maternal ovary measures 2.6 x 1.4 x 1.4 cm. cm. There is normal arterial and venous flow seen on Doppler exam. The left maternal ovary measures 2.5 x 2.1 x 2.2 cm. There is normal arterial and venous flow seen on Doppler exam there is a simple anechoic cyst left adnexa measuring 1.5 x 1.3 x 1.8 cm likely paraovarian cyst. Retrospectively it is visualized on CT abdomen and pelvis exam 08/28/2022. There is no solid adnexal mass seen. No maternal pelvic ascites. US/US pelvic ovarian doppler IMPRESSION: No extrauterine gestational sac, pole or yolk sac. Left adnexal small simple cysts likely paraovarian measuring 1.8 cm. Retrospectively it is visualized on CT abdomen and pelvis exam.
[2022-10-07 13:31] VITALS: BP 145/95; PULSE 73; RESP 18; TEMP 35.9; O2SAT 98; BMI 21.4
--- NOTE | 2022-10-07 13:35 | ED.PREGNANCY ---
HPI - General Chief complaint: Vaginal Bleeding <RORY Vo - Last Filed: 10/07/22 13:40> Stated complaint: / bleeding / abd pain <RORY Vo - Last Filed: 10/07/22 13:40> Time Seen by Provider: 10/07/22 18:03 <RORY Vo - Last Filed: 10/07/22 13:40> Source: patient, RN notes reviewed and old records reviewed <Estiven Licona - Last Filed: 10/07/22 18:17> Mode of arrival: ambulatory <Estiven Licona - Last Filed: 10/07/22 18:17> Limitations: no limitations <Estiven Licona - Last Filed: 10/07/22 18:17> History of Present Illness HPI Narrative: 37-year-old female presents for evaluation of vaginal bleeding Patient states that she took a home test yesterday that was positive She states that she is very emotional because ?I lost my 17-year-old daughter 2 months ago. ? Denies any lower abdominal pain. She was recently treated for a UTI Patient states her last menstrual cycle was 09/04/2022 and she states that she usually has a quite regular 25 day cycle She is not on control. Patient reports that she has had her cervix surgically removed but still has her uterus and ovaries. She has no other complaints or concerns at this time <Estiven Licona - Last Filed: 10/07/22 18:17> Related Data Home medications: Previous Rx's Medication Instructions Recorded ondansetron 4 mg disintegrating 4 mg PO TID PRN nausea and 07/24/21 tablet vomiting 5 days #10 tabs pantoprazole 40 mg tablet,delayed 40 mg PO DAILY #14 tabs 07/24/21 release (Protonix) cephalexin 500 mg capsule 500 mg PO Q6H 7 days #28 caps 08/28/22 <RORY Vo - Last Filed: 10/07/22 13:40> Allergies/Adverse reactions: Allergies Allergy/AdvReac Type Severity Reaction Status Date / Time acetaminophen [From Percocet] Allergy Vomiting Verified 10/07/22 13:38 oxycodone [From Percocet] Allergy Vomiting Verified 10/07/22 13:38 <RORY Vo - Last Filed: 10/07/22 13:40> Review of Systems Constitutional: Constitutional: Reports as per HPI, Denies chills, Denies fatigue, Denies fever(s) and Denies headache(s) <Estiven Licona - Last Filed: 10/07/22 18:17> ENT: Denies headache(s) <Estiven [place] - Last Filed: 10/07/22 18:17> Cardiovascular: Cardiovascular: Denies chest pain and Denies dyspnea <Estiven Wilksy - Last Filed: 10/07/22 18:17> Respiratory: Respiratory: Denies cough and Denies dyspnea <Estiven OCortes - Last Filed: 10/07/22 18:17> Gastrointestinal: Gastrointestinal: Denies abdominal pain, Denies constipation and Denies vomiting <Estiven [place] - Last Filed: 10/07/22 18:17> Genitourinary: Genitourinary: Reports abnormal vaginal bleeding and Denies dysuria <Estiven Wilksy - Last Filed: 10/07/22 18:17> Neurologic: Denies headache(s) and Denies focal weakness <Estivengildardo Wilksy - Last Filed: 10/07/22 18:17> Endocrine: Endocrine: Denies fatigue <Estiven [place] - Last Filed: 10/07/22 18:17> [facility] Social History Social History: Social History Advance Directives: No Advance Directives Information Provided: No <RORY Vo - Last Filed: 10/07/22 13:40> Physical Exam Vital Signs: Vital Signs: Last Vital Signs Temp 96.7 F L 10/07/22 13:31 Pulse 73 10/07/22 13:31 Resp 18 10/07/22 13:31 BP 145/95 H 10/07/22 13:31 Pulse Ox 98 10/07/22 13:31 O2 Del Method Room Air 10/07/22 13:31 BMI result Body Mass Index 21.4 <RORY Vo - Last Filed: 10/07/22 13:40> Vital Signs: Last Vital Signs Temp 96.7 F L 10/07/22 13:31 Pulse 73 10/07/22 13:31 Resp 18 10/07/22 13:31 BP 145/95 H 10/07/22 13:31 Pulse Ox 98 10/07/22 13:31 O2 Del Method Room Air 10/07/22 13:31 BMI result Body Mass Index 21.4 < - Last Filed: 10/07/22 18:17> Const: General: healthy appearing, comfortable, no acute distress, alert and awake < - Last Filed: 10/07/22 18:17> Nutritional Appearance: well nourished < - Last Filed: 10/07/22 18:17> Orientation/consciousness: patient oriented x3 < - Last Filed: 10/07/22 18:17> HEENT: Head: Yes normocephalic and Yes atraumatic < - Last Filed: 10/07/22 18:17> Throat: Yes posterior oropharynx normal < - Last Filed: 10/07/22 18:17> Eyes: Eyelids: Yes eyelids normal < Last Filed: 10/07/22 18:17> Conjunctivae: conjunctivae normal < Last Filed: 10/07/22 18:17> Sclerae: sclerae normal < - Last Filed: 10/07/22 18:17> Corneas: corneas normal < - Last Filed: 10/07/22 18:17> Pupils: Equal, round and reactive pupils present < - Last Filed: 10/07/22 18:17> EOM: EOMs intact bilaterally < - Last Filed: 10/07/22 18:17> Neck: Neck: Yes full ROM < - Last Filed: 10/07/22 18:17> Resp: Effort & Inspection: normal respiratory effort, able to speak in complete sentences, no audible wheezes and not labored < - Last Filed: 10/07/22 18:17> Auscultation: clear to auscultation bilaterally < - Last Filed: 10/07/22 18:17> Cardio: Rate: regular rate < Last Filed: 10/07/22 18:17> Rhythm: regular rhythm < Last Filed: 10/07/22 18:17> GI: Inspection: No distended < - Last Filed: 10/07/22 18:17> Palpation (GI): Soft to palpation, not firm, nontender, no guarding and not rigid < - Last Filed: 10/07/22 18:17> Auscultation: normoactive bowel sounds <[place] - Last Filed: 10/07/22 18:17> Skin: General skin exam: no rashes or lesions noted and elasticity normal < Last Filed: 10/07/22 18:17> Neuro: General: patient oriented x3 <Estiven Lisbeth - Last Filed: 10/07/22 18:17> Cranial nerves: Yes CN's II-XII intact bilaterally, Yes Equal, round and reactive pupils present and Yes Bilaterally intact EOM present <Estiven Lisbeth - Last Filed: 10/07/22 18:17> Cognition (Neuro): normal cognition <Estiven O Last Filed: 10/07/22 18:17> Course Course Course Narrative: JAYMIE-13:40pm -37yoF [id number] who LMP was September 04, 2022 who took a home test yesterday and came out positive who is presenting to the ER with complaints of 2 episodes of dark blood vaginal bleeding that started last night with lower suprapubic abdominal pain worse on the left. Reports she has never had an ectopic . Reports pain 7/10. Reports that she was diagnosed with UTI recently and when she found out she was she stopped taking the antibiotics and is unsure if this is a UTI. She denies any fevers or chills. Reports the pain is radiating to her back. Denies any other symptoms complaints or concerns at this time. Plan: Labs, UA, UHCG, ultrasound of ovarian and transvaginal/pelvic will be ordered at this time patient will be sent back to the waiting room to be evaluated the ED. <RORY Vo - Last Filed: 10/07/22 13:40> Medical Decision Making Medical Decision Making [facility] Narrative: 37-year-old female presents for evaluation of vaginal bleeding. She had negative test by urine and serum in the ER today. She was not . Ultrasound of the pelvis demonstrates a left ovarian cyst, but no evidence of or ectopic . Patient's labs are without any significant worrisome abnormality. CT scan of the abdomen pelvis showed nonobstructing renal calculi. All this workup was discussed with the patient. She will follow-up with her PCP <Estiven Licona - Last Filed: 10/07/22 18:17> Differential Diagnosis Dysmenorrhea Ectopic Miscarriage Threatened miscarriage UTI <Estiven Licona - Last Filed: 10/07/22 18:17> Lab Data [facility] Lab Attestation statement: I reviewed the patient's lab results. <Estiven Licona - Last Filed: 10/07/22 18:17> Result Diagrams: 10/07/22 16:26 10/07/22 16:26 <RORY Vo - Last Filed: 10/07/22 13:40> Labs: Lab Results 10/07/22 10/07/22 10/07/22 Range/Units 16:26 16:26 16:26 WBC 8.1 (4.8-10.8) X10*3/uL RBC 4.10 L (4.20-5.50) X10*6/uL Hgb 12.7 (12.0-16.0) g/dl Hct 37.9 (37.0-47.0) % MCV 92.4 (80.0-98.0) fL MCH 31.0 (27.0-33.0) pg MCHC 33.5 (31.0-35.0) g/dl RDW 13.1 (11.0-16.0) % Plt Count 270 (160-400) X10*3/uL MPV 8.7 L (9.4-12.3) fL Immature Gran % (Auto) 0.2 (0.0-0.4) % Neut % (Auto) 73.6 H (45-73) % Lymph % (Auto) 19.0 L (20-40) % Larue % (Auto) 5.9 (2-11) % Eos % (Auto) 1.1 (0-4) % Baso % (Auto) 0.2 (0-2) % Lymph # (Auto) 1.6 (1.2-4.9) X10*3/uL Larue # (Auto) 0.5 (0.1-1.2) X10*3/uL Eos # (Auto) 0.1 (0.0-0.4) X10*3/uL Baso # (Auto) 0.0 (0.0-0.2) X10*3/uL Abs Immat Gran (auto) 0.02 (0.00-0.03) X10*3/uL Absolute Neuts (auto) 6.0 (2.0-8.3) x10*3/uL Absolute Nucleated RBC 0.000 (0.0-0.012) X10*3/uL Nucleated RBC % (auto) 0.0 (0.0-0.2) /100WBC PT 11.0 (10.0-13.1) SEC INR 1.0 (0.9-1.1) Sodium 139 (135-145) mmol/L Potassium 3.8 (3.3-5.1) mmol/L Chloride 108 (96-108) mmol/L Carbon Dioxide 26 (22-29) mmol/L Anion Gap 9 L (12-20) BUN 9 (9-16) mg/dL Creatinine 0.82 (0.5-1.4) mg/dL Estim Creat Clear Calc 99.4 Estimated GFR > 60 Random Glucose 117 H (60-115) mg/dL Calcium 8.9 (8.4-10.2) mg/dL Magnesium 2.1 (1.6-2.6) mg/dL Total Bilirubin 0.9 (0.0-1.0) mg/dL AST 16 (5-31) U/L ALT 10 (0-31) U/L Alkaline Phosphatase 47 (39-117) U/L Total Protein 6.1 L (6.5-8.0) g/dL Albumin 3.8 (3.5-5.0) g/dL Lipase 44 (8-78) U/L Beta HCG, Quant < 2 mIU/mL Urine Color Urine Appearance Urine pH (5.0-9.0) Ur Specific [place] (1.005-1.025) Urine Protein (Neg-Trace) mg/dL Urine Glucose (UA) (Negative) mg/dL Urine Ketones (Negative) mg/dL Urine Blood (Negative) Urine Nitrite (Negative) Ur Leukocyte Esterase (Negative) Urine RBC (0-2) /HPF Urine WBC (0-5) /HPF Ur Squamous Epith Cells (0-2) /HPF Urine Bacteria (None Seen) Hyaline Casts (0-2) /LPF Urine Test (NEGATIVE) 10/07/22 10/07/22 Range/Units 16:27 16:27 WBC (4.8-10.8) X10*3/uL RBC (4.20-5.50) X10*6/uL Hgb (12.0-16.0) g/dl Hct (37.0-47.0) % MCV (80.0-98.0) fL MCH (27.0-33.0) pg MCHC (31.0-35.0) g/dl RDW (11.0-16.0) % Plt Count (160-400) X10*3/uL MPV (9.4-12.3) fL Immature Gran % (Auto) (0.0-0.4) % Neut % (Auto) (45-73) % Lymph % (Auto) (20-40) % Larue % (Auto) (2-11) % Eos % (Auto) (0-4) % Baso % (Auto) (0-2) % Lymph # (Auto) (1.2-4.9) X10*3/uL Larue # (Auto) (0.1-1.2) X10*3/uL Eos # (Auto) (0.0-0.4) X10*3/uL Baso # (Auto) (0.0-0.2) X10*3/uL Abs Immat Gran (auto) (0.00-0.03) X10*3/uL Absolute Neuts (auto) (2.0-8.3) x10*3/uL Absolute Nucleated RBC (0.0-0.012) X10*3/uL Nucleated RBC % (auto) (0.0-0.2) /100WBC PT (10.0-13.1) SEC INR (0.9-1.1) Sodium (135-145) mmol/L Potassium (3.3-5.1) mmol/L Chloride (96-108) mmol/L Carbon Dioxide (22-29) mmol/L Anion Gap (12-20) BUN (9-16) mg/dL Creatinine (0.5-1.4) mg/dL Estim Creat Clear Calc Estimated GFR Random Glucose (60-115) mg/dL Calcium (8.4-10.2) mg/dL Magnesium (1.6-2.6) mg/dL Total Bilirubin (0.0-1.0) mg/dL AST (5-31) U/L ALT (0-31) U/L Alkaline Phosphatase (39-117) U/L Total Protein (6.5-8.0) g/dL Albumin (3.5-5.0) g/dL Lipase (8-78) U/L Beta HCG, Quant mIU/mL Urine Color Yellow Urine Appearance Clear Urine pH 6.5 (5.0-9.0) Ur Specific [place] 1.010 (1.005-1.025) Urine Protein Negative (Neg-Trace) mg/dL Urine Glucose (UA) Negative (Negative) mg/dL Urine Ketones Negative (Negative) mg/dL Urine Blood Moderate (2+) H (Negative) Urine Nitrite Negative (Negative) Ur Leukocyte Esterase Negative (Negative) Urine RBC 11-20 H (0-2) /HPF Urine WBC 0-5 (0-5) /HPF Ur Squamous Epith Cells 0-2 (0-2) /HPF Urine Bacteria None Seen (None Seen) Hyaline Casts 0-2 (0-2) /LPF Urine Test NEGATIVE (NEGATIVE) <RORY Vo - Last Filed: 10/07/22 13:40> Lab Results 10/07/22 10/07/22 10/07/22 Range/Units 16:26 16:26 16:26 WBC 8.1 (4.8-10.8) X10*3/uL RBC 4.10 L (4.20-5.50) X10*6/uL Hgb 12.7 (12.0-16.0) g/dl Hct 37.9 (37.0-47.0) % MCV 92.4 (80.0-98.0) fL MCH 31.0 (27.0-33.0) pg MCHC 33.5 (31.0-35.0) g/dl RDW 13.1 (11.0-16.0) % Plt Count 270 (160-400) X10*3/uL MPV 8.7 L (9.4-12.3) fL Immature Gran % (Auto) 0.2 (0.0-0.4) % Neut % (Auto) 73.6 H (45-73) % Lymph % (Auto) 19.0 L (20-40) % Larue % (Auto) 5.9 (2-11) % Eos % (Auto) 1.1 (0-4) % Baso % (Auto) 0.2 (0-2) % Lymph # (Auto) 1.6 (1.2-4.9) X10*3/uL Larue # (Auto) 0.5 (0.1-1.2) X10*3/uL Eos # (Auto) 0.1 (0.0-0.4) X10*3/uL Baso # (Auto) 0.0 (0.0-0.2) X10*3/uL Abs Immat Gran (auto) 0.02 (0.00-0.03) X10*3/uL Absolute Neuts (auto) 6.0 (2.0-8.3) x10*3/uL Absolute Nucleated RBC 0.000 (0.0-0.012) X10*3/uL Nucleated RBC % (auto) 0.0 (0.0-0.2) /100WBC PT 11.0 (10.0-13.1) SEC INR 1.0 (0.9-1.1) Sodium 139 (135-145) mmol/L Potassium 3.8 (3.3-5.1) mmol/L Chloride 108 (96-108) mmol/L Carbon Dioxide 26 (22-29) mmol/L Anion Gap 9 L (12-20) BUN 9 (9-16) mg/dL Creatinine 0.82 (0.5-1.4) mg/dL Estim Creat Clear Calc 99.4 Estimated GFR > 60 Random Glucose 117 H (60-115) mg/dL Calcium 8.9 (8.4-10.2) mg/dL Magnesium 2.1 (1.6-2.6) mg/dL Total Bilirubin 0.9 (0.0-1.0) mg/dL AST 16 (5-31) U/L ALT 10 (0-31) U/L Alkaline Phosphatase 47 (39-117) U/L Total Protein 6.1 L (6.5-8.0) g/dL Albumin 3.8 (3.5-5.0) g/dL Lipase 44 (8-78) U/L Beta HCG, Quant < 2 mIU/mL Urine Color Urine Appearance Urine pH (5.0-9.0) Ur Specific [place] (1.005-1.025) Urine Protein (Neg-Trace) mg/dL Urine Glucose (UA) (Negative) mg/dL Urine Ketones (Negative) mg/dL Urine Blood (Negative) Urine Nitrite (Negative) Ur Leukocyte Esterase (Negative) Urine RBC (0-2) /HPF Urine WBC (0-5) /HPF Ur Squamous Epith Cells (0-2) /HPF Urine Bacteria (None Seen) Hyaline Casts (0-2) /LPF Urine Test (NEGATIVE) 10/07/22 10/07/22 Range/Units 16:27 16:27 WBC (4.8-10.8) X10*3/uL RBC (4.20-5.50) X10*6/uL Hgb (12.0-16.0) g/dl Hct (37.0-47.0) % MCV (80.0-98.0) fL MCH (27.0-33.0) pg MCHC (31.0-35.0) g/dl RDW (11.0-16.0) % Plt Count (160-400) X10*3/uL MPV (9.4-12.3) fL Immature Gran % (Auto) (0.0-0.4) % Neut % (Auto) (45-73) % Lymph % (Auto) (20-40) % Larue % (Auto) (2-11) % Eos % (Auto) (0-4) % Baso % (Auto) (0-2) % Lymph # (Auto) (1.2-4.9) X10*3/uL Larue # (Auto) (0.1-1.2) X10*3/uL Eos # (Auto) (0.0-0.4) X10*3/uL Baso # (Auto) (0.0-0.2) X10*3/uL Abs Immat Gran (auto) (0.00-0.03) X10*3/uL Absolute Neuts (auto) (2.0-8.3) x10*3/uL Absolute Nucleated RBC (0.0-0.012) X10*3/uL Nucleated RBC % (auto) (0.0-0.2) /100WBC PT (10.0-13.1) SEC INR (0.9-1.1) Sodium (135-145) mmol/L Potassium (3.3-5.1) mmol/L Chloride (96-108) mmol/L Carbon Dioxide (22-29) mmol/L Anion Gap (12-20) BUN (9-16) mg/dL Creatinine (0.5-1.4) mg/dL Estim Creat Clear Calc Estimated GFR Random Glucose (60-115) mg/dL Calcium (8.4-10.2) mg/dL Magnesium (1.6-2.6) mg/dL Total Bilirubin (0.0-1.0) mg/dL AST (5-31) U/L ALT (0-31) U/L Alkaline Phosphatase (39-117) U/L Total Protein (6.5-8.0) g/dL Albumin (3.5-5.0) g/dL Lipase (8-78) U/L Beta HCG, Quant mIU/mL Urine Color Yellow Urine Appearance Clear Urine pH 6.5 (5.0-9.0) Ur Specific [place] 1.010 (1.005-1.025) Urine Protein Negative (Neg-Trace) mg/dL Urine Glucose (UA) Negative (Negative) mg/dL Urine Ketones Negative (Negative) mg/dL Urine Blood Moderate (2+) H (Negative) Urine Nitrite Negative (Negative) Ur Leukocyte Esterase Negative (Negative) Urine RBC 11-20 H (0-2) /HPF Urine WBC 0-5 (0-5) /HPF Ur Squamous Epith Cells 0-2 (0-2) /HPF Urine Bacteria None Seen (None Seen) Hyaline Casts 0-2 (0-2) /LPF Urine Test NEGATIVE (NEGATIVE) <Estiven Licona - Last Filed: 10/07/22 18:17> Discharge Plan Discharge Clinical Impression: Vaginal bleeding <RORY Vo - Last Filed: 10/07/22 13:40> Patient Disposition: Home, Self-Care <RORY Vo - Last Filed: 10/07/22 13:40> Instructions: Menorrhagia (ED) <RORY Vo - Last Filed: 10/07/22 13:40> Additional Instructions: Your workup in the emergency department today showed that you are not . Your ultrasound did show a left ovarian cyst You do not have any evidence of a UTI Your CT scan showed nonobstructing kidney stones <RORY Vo - Last Filed: 10/07/22 13:40> Prescriptions: No Action cephalexin 500 mg capsule 500 mg PO Q6H 7 Days Qty: 28 0RF pantoprazole [Protonix] 40 mg tablet,delayed release (DR/EC) 40 mg PO DAILY Qty: 14 0RF ondansetron 4 mg tablet,disintegrating 4 mg PO TID PRN (Reason: nausea and vomiting) 5 Days Qty: 10 0RF <RORY Vo - Last Filed: 10/07/22 13:40>
[2022-10-07 16:41] LABS: Basophils Percent Auto 0.2 % (0-2); Eosinophils Absolute Auto 0.1 X10*3/uL (0.0-0.4); Eosinophils Percent Auto 1.1 % (0-4); Hematocrit 37.9 % (37.0-47.0); Hemoglobin 12.7 g/dl (12.0-16.0); Imm Gran Abs Auto 0.02 X10*3/uL (0.00-0.03); Imm Gran Pct Auto 0.2 % (0.0-0.4); Lymphocytes Absolute Auto 1.6 X10*3/uL (1.2-4.9); MANUAL DIFF FLAG NO; Mean Corpuscular HGB Conc 33.5 g/dl (31.0-35.0); Mean Corpuscular Volume 92.4 fL (80.0-98.0); Mean Platelet Volume 8.7 fL (9.4-12.3); Monocytes Absolute Auto 0.5 X10*3/uL (0.1-1.2); Monocytes Percent Auto 5.9 % (2-11); Neutrophils Percent Auto 73.6 % (45-73); Platelet Count 270 X10*3/uL (160-400); Red Cell Distribution Width 13.1 % (11.0-16.0); White Blood Count 8.1 X10*3/uL (4.8-10.8)
[2022-10-07 16:42] LABS: Appearance Urine Clear; Color Urine Yellow; Glucose Urine UA Negative (Negative); Leukocyte Esterase Urine Negative (Negative); Nitrite Urine Negative (Negative); PH 6.5 (5.0-9.0); UMIC TRIGGER UACC YES; Urine Blood Moderate (2+) (Negative); Urine Ketones Negative (Negative); Urine Protein Negative (Neg-Trace)
[2022-10-07 16:51] LABS: Bacteria Urine None Seen (None Seen); Hyaline Casts Urine 0-2 /LPF (0-2); Squamous Epithelial Cell Urine 0-2 /HPF (0-2); WBC Urine 0-5 /HPF (0-5)
[2022-10-07 17:03] LABS: UPreg QC Valid YES
[2022-10-07 17:04] LABS: Urine Pregnancy NEGATIVE (NEGATIVE)
[2022-10-07 17:06] LABS: Alanine Aminotransferase 10 U/L (0-31); Albumin Level 3.8 g/dL (3.5-5.0); Alkaline Phosphatase 47 U/L (39-117); Anion Gap 9 (12-20); Aspartate Amino Transferase 16 U/L (5-31); Bilirubin Total 0.9 mg/dL (0.0-1.0); Blood Urea Nitrogen 9 mg/dL (9-16); Calcium 8.9 mg/dL (8.4-10.2); Carbon Dioxide 26 mmol/L (22-29); Chloride 108 mmol/L (96-108); Creatinine Clr Calc Pharmacy 99.4; Estimated Glomerular Filt Rate > 60; Glucose Random 117 mg/dL (60-115); Lipase 44 U/L (8-78); Magnesium 2.1 mg/dL (1.6-2.6); Potassium 3.8 mmol/L (3.3-5.1); Sodium 139 mmol/L (135-145); Total Protein 6.1 g/dL (6.5-8.0)
[2022-10-07 17:09] LABS: HCG Quantitative < 2 mIU/mL
== END 2022-10-07 18:32 | disposition home or self-care (01) ==
PROVIDERS: Physician Assistant Medical; Emergency Provider Internal Medicine
DX: N93.9 Abnormal uterine and vaginal bleeding, unspecified (principal); R10.2 Pelvic and perineal pain; R10.30 Lower abdominal pain, unspecified; Z79.899 Other long term (current) drug therapy
CPT/HCPCS: 36415; 74176; 76801; 76817; 80053; 81001; 81025; 83690; 83735; 84702; 85025; 85610; 93975; 99282; 99284

== ENCOUNTER 2022-12-05 23:00 | Emergency (ER) | payer OTHER, SELFPAY ==
[2022-12-05 23:07] VITALS: BP 142/83; PULSE 84; RESP 18; TEMP 36.8; O2SAT 99; BMI 22.0
[2022-12-06] MEDS: dexAMETHasone 2 MG TABLET 10 MG PO (00:45)
[2022-12-06] MEDS: diphenhydrAMINE HCL 25 MG CAPSULE 50 MG PO (00:45)
--- NOTE | 2022-12-06 00:45 | ED_ITS ---
HPI - General Adult General Chief complaint: General Medical Stated complaint: allergic reaction Time Seen by Provider: 12/06/22 00:21 Source: patient Mode of arrival: ambulatory Limitations: no limitations History of Present Illness HPI narrative: Patient allergic to fish when she was young had fish yesterday at 16:00 and since midnight having hives and itching took Benadryl with partial relief no shortness of breath no tongue or lip swelling Related Data Previous Rx's Medication Instructions Recorded ondansetron 4 mg disintegrating 4 mg PO TID PRN nausea and 07/24/21 tablet vomiting 5 days #10 tabs pantoprazole 40 mg tablet,delayed 40 mg PO DAILY #14 tabs 07/24/21 release (Protonix) cephalexin 500 mg capsule 500 mg PO Q6H 7 days #28 caps 08/28/22 diphenhydramine HCl 25 mg capsule 50 mg PO TID PRN allergic reaction 12/06/22 (Benadryl) #20 caps prednisone 20 mg tablet 40 mg PO DAILY #10 tabs 12/06/22 Allergies Allergy/AdvReac Type Severity Reaction Status Date / Time amoxicillin Allergy Rash Verified 12/05/22 23:06 oxycodone [From Percocet] Allergy Vomiting Verified 10/07/22 13:38 Review of Systems Review of Systems: Yes all other systems are reviewed and are negative [facility] Social History Social History Alcohol intake: current Alcohol intake frequency: a few times a week Smoked in Last 30 Days: Yes Use of substances other than those prescribed or required for medical reasons: No Advance Directives: No Advance Directives Information Provided: Yes Physical Exam ED Vital Signs: Vital Signs - 24 hr 12/05/22 23:07 12/06/22 00:46 Temperature 98.2 F Pulse Rate 84 77 Respiratory Rate 18 16 Blood Pressure 142/83 H 127/81 Pulse Oximetry 99 98 Oxygen Delivery Method Room Air Room Air BMI result Body Mass Index 22.0 Appearance: Alert. Oriented X3. No acute distress. Eyes: PERRLA, No Nystagmus ENT: Pharynx normal. Oral Mucosa moist normal uvula normal tongue and lips Neck: Normal inspection. Neck supple. CVS: Normal heart rate and rhythm. Pulses normal. Respiratory: No respiratory distress. Equal air entry bilateral, Abdomen: Soft and nontender. Bowel sounds are present, no mass palpable, no CVA tenderness Skin: Skin warm and dry. Normal skin color. Normal skin turgor. Hives all over the body Neuro: Oriented X 3. Medications Administered Discontinued Medications Generic Name Dose Route Start Last Admin Trade Name Freq PRN Reason Stop Dose Admin Dexamethasone 10 mg 12/06/22 00:30 12/06/22 00:45 Dexamethasone 2 Mg Tablet PO 12/06/22 00:31 10 mg ONCE ONE Administration Diphenhydramine HCl 50 mg 12/06/22 00:30 12/06/22 00:45 Diphenhydramine Hcl 25 Mg Capsule PO 12/06/22 00:31 50 mg ONCE ONE Administration Medical Decision Making Medical Decision Making MDM Narrative: Patient allergic to seafood/fish at same foot last night vitals are stable which are patient home on Benadryl and prednisone Discharge Plan Discharge Clinical Impression: Allergic reaction to food Patient Disposition: Home, Self-Care Instructions: Food Allergy (ED) Additional Instructions: Do not eat food allergic to> seafood and fish Take Benadryl and prednisone as prescribed Report to the ER/PCP if does not get better Prescriptions: New diphenhydramine HCl [Benadryl] 25 mg capsule 50 mg PO TID PRN (Reason: allergic reaction) Qty: 20 0RF prednisone 20 mg tablet 40 mg PO DAILY Qty: 10 0RF No Action cephalexin 500 mg capsule 500 mg PO Q6H 7 Days Qty: 28 0RF pantoprazole [Protonix] 40 mg tablet,delayed release (DR/EC) 40 mg PO DAILY Qty: 14 0RF ondansetron 4 mg tablet,disintegrating 4 mg PO TID PRN (Reason: nausea and vomiting) 5 Days Qty: 10 0RF Interventions: ED Discharge Assessment Last Done: 12/06/22 01:05 Discharge Date/Time: 12/06/22 01:05
[2022-12-06 00:46] VITALS: BP 127/81; PULSE 77; RESP 16; O2SAT 98
== END 2022-12-06 01:05 | disposition home or self-care (01) ==
PROVIDERS: Emergency Provider Internal Medicine
DX: T78.1XXA Other adverse food reactions, not elsewhere classified, initial encounter (principal); T78.49XA Other allergy, initial encounter; X58.XXXA Exposure to other specified factors, initial encounter; Z79.899 Other long term (current) drug therapy
CPT/HCPCS: 99283; 99284; J8540

== ENCOUNTER 2022-12-26 08:19 | Emergency (ER) | payer OTHER, SELFPAY ==
[2022-12-26 08:21] VITALS: BP 133/86; PULSE 85; RESP 20; TEMP 36.8; O2SAT 97; BMI 22.8
--- NOTE | 2022-12-26 08:33 | ED.GENADULT ---
HPI - General Adult General Chief complaint: General Medical Stated complaint: Multiple Complaints Time Seen by Provider: 12/26/22 08:32 Source: patient Mode of arrival: ambulatory Limitations: no limitations History of Present Illness HPI narrative: weakness and chest pain and depression for the past week. Patient had her daughter of suicide and her was murdered. Patient denies suicidal thoughts, she has a daughter and a therapist is coming to her house today. Patient denies . Patient does not feel like she can go back to work. In addition patient has an earlobe infection for 2 days. Onset (ago): week(s) Severity: mild Related Data Previous Rx's Medication Instructions Recorded ondansetron 4 mg disintegrating 4 mg PO TID PRN nausea and 07/24/21 tablet vomiting 5 days #10 tabs pantoprazole 40 mg tablet,delayed 40 mg PO DAILY #14 tabs 07/24/21 release (Protonix) cephalexin 500 mg capsule 500 mg PO Q6H 7 days #28 caps 08/28/22 diphenhydramine HCl 25 mg capsule 50 mg PO TID PRN allergic reaction 12/06/22 (Benadryl) #20 caps prednisone 20 mg tablet 40 mg PO DAILY #10 tabs 12/06/22 cephalexin 500 mg capsule 500 mg PO Q6H 10 days #40 caps 12/26/22 Allergies Allergy/AdvReac Type Severity Reaction Status Date / Time amoxicillin Allergy Rash Verified 12/26/22 08:25 oxycodone [From Percocet] Allergy Vomiting Verified 12/26/22 08:25 Review of Systems Review of Systems: Yes all other systems are reviewed and are negative [facility] Social History Social History Alcohol intake: current Alcohol intake frequency: 0-2 drinks per day Alcohol type: hard liquor Smoked in Last 30 Days: Yes Use of substances other than those prescribed or required for medical reasons: Yes Substance Use Type: Marijuana Advance Directives: No Advance Directives Information Provided: Yes Physical Exam ED Vital Signs: Vital Signs - 24 hr 12/26/22 08:21 12/26/22 08:41 12/26/22 10:21 Temperature 98.2 F 98.1 F 97.4 F Pulse Rate 85 84 71 Respiratory Rate 20 16 16 Blood Pressure 133/86 145/94 H 117/81 Pulse Oximetry 97 98 98 Oxygen Delivery Method Room Air Room Air Room Air BMI result Body Mass Index 22.8 Const Other: tearful sad General: healthy appearing Nutritional Appearance: average body habitus Orientation/consciousness: oriented to person and patient oriented x3 Limitations: no limitations HENMT Other: left earlobe with erythema and swelling Head: Yes normal to inspection Ears: external ears normal General nose exam: Normal external nose present Mouth: Normal oral and palatal mucosa present and oropharynx normal Throat: Yes posterior oropharynx normal Eyes General: appearance normal, both eyes and all related structures Neck Neck: Yes normal visual inspection Chest Chest palpation & inspection: normal inspection of the chest Resp Auscultation: clear to auscultation bilaterally Cardio Jugular venous distension: no JVD Rate: regular rate Rhythm: regular rhythm Heart sounds: S1 normal heart sound present and S2 normal heart sound present GI Inspection: Yes normal to inspection Palpation (GI): Soft to palpation, nontender and No hepatosplenomegaly present Auscultation: normal bowel sounds General: Yes no CVA tenderness Back/Spine/Pelvis Back: no CVA tenderness Skin General skin exam: no rashes or lesions noted Neuro General: oriented to person and patient oriented x3 Cranial nerves: Yes CN's II-XII intact bilaterally Motor exam (neuro): 5/5 motor strength present throughout Extrem General: Yes normal to inspection Psych Appearance: grossly normal Course Reevaluation(s) Reevaluation #1: will treat for cellulitis of earlobe and dc home. Patient is not currently suicidal Time: 10:59 Medical Decision Making Differential Diagnosis Differential Diagnoses: The differential diagnosis associated with the presentation includes (CAD, cellulitis, electrolyte abnormality, suicidal ideation, major depression were all considered) Admission/Observation Consideration of admission/observation: Escalation of care including admission/observation considered (37yo female with multiple complaints, cellulitis of left earlobe and depression was considered for admission) Lab Data MDM Lab Attestation statement: I reviewed the patient's lab results. (labs were significant for anemia, no no UTI) 12/26/22 08:59 12/26/22 08:59 Labs: Lab Results 12/26/22 12/26/22 12/26/22 Range/Units 08:59 08:59 09:08 WBC 3.6 L (4.8-10.8) X10*3/uL RBC 3.75 L (4.20-5.50) X10*6/uL Hgb 11.4 L (12.0-16.0) g/dl Hct 34.4 L (37.0-47.0) % MCV 91.7 (80.0-98.0) fL MCH 30.4 (27.0-33.0) pg MCHC 33.1 (31.0-35.0) g/dl RDW 13.2 (11.0-16.0) % Plt Count 231 (160-400) X10*3/uL MPV 8.7 L (9.4-12.3) fL Immature Gran % (Auto) 0.3 (0.0-0.4) % Neut % (Auto) 40.8 L (45-73) % Lymph % (Auto) 46.1 H (20-40) % [place] % (Auto) 11.1 H (2-11) % Eos % (Auto) 1.4 (0-4) % Baso % (Auto) 0.3 (0-2) % Lymph # (Auto) 1.7 (1.2-4.9) X10*3/uL [place] # (Auto) 0.4 (0.1-1.2) X10*3/uL Eos # (Auto) 0.1 (0.0-0.4) X10*3/uL Baso # (Auto) 0.0 (0.0-0.2) X10*3/uL Abs Immat Gran (auto) 0.01 (0.00-0.03) X10*3/uL Absolute Neuts (auto) 1.5 L (2.0-8.3) x10*3/uL Absolute Nucleated RBC 0.000 (0.0-0.012) X10*3/uL Nucleated RBC % (auto) 0.0 (0.0-0.2) /100WBC Sodium 140 (135-145) mmol/L Potassium 3.9 (3.3-5.1) mmol/L Chloride 110 H (96-108) mmol/L Carbon Dioxide 23 (22-29) mmol/L Anion Gap 11 L (12-20) BUN 11 (9-16) mg/dL Creatinine 0.78 (0.5-1.4) mg/dL Estim Creat Clear Calc 101.5 Estimated GFR > 60 Random Glucose 104 (60-115) mg/dL Calcium 8.4 (8.4-10.2) mg/dL Urine Color Yellow Urine Appearance Clear Urine pH 6.5 (5.0-9.0) Ur Specific [place] 1.025 (1.005-1.025) Urine Protein Trace (Neg-Trace) mg/dL Urine Glucose (UA) Negative (Negative) mg/dL Urine Ketones Negative (Negative) mg/dL Urine Blood Moderate (2+) H (Negative) Urine Nitrite Negative (Negative) Ur Leukocyte Esterase Negative (Negative) Urine RBC 0-2 (0-2) /HPF Urine WBC 0-5 (0-5) /HPF Ur Squamous Epith Cells 11-20 (0-2) /HPF Urine Bacteria 3+ (None Seen) Hyaline Casts 0-2 (0-2) /LPF Urine Test (NEGATIVE) 12/26/22 Range/Units 09:08 WBC (4.8-10.8) X10*3/uL RBC (4.20-5.50) X10*6/uL Hgb (12.0-16.0) g/dl Hct (37.0-47.0) % MCV (80.0-98.0) fL MCH (27.0-33.0) pg MCHC (31.0-35.0) g/dl RDW (11.0-16.0) % Plt Count (160-400) X10*3/uL MPV (9.4-12.3) fL Immature Gran % (Auto) (0.0-0.4) % Neut % (Auto) (45-73) % Lymph % (Auto) (20-40) % [place] % (Auto) (2-11) % Eos % (Auto) (0-4) % Baso % (Auto) (0-2) % Lymph # (Auto) (1.2-4.9) X10*3/uL [place] # (Auto) (0.1-1.2) X10*3/uL Eos # (Auto) (0.0-0.4) X10*3/uL Baso # (Auto) (0.0-0.2) X10*3/uL Abs Immat Gran (auto) (0.00-0.03) X10*3/uL Absolute Neuts (auto) (2.0-8.3) x10*3/uL Absolute Nucleated RBC (0.0-0.012) X10*3/uL Nucleated RBC % (auto) (0.0-0.2) /100WBC Sodium (135-145) mmol/L Potassium (3.3-5.1) mmol/L Chloride (96-108) mmol/L Carbon Dioxide (22-29) mmol/L Anion Gap (12-20) BUN (9-16) mg/dL Creatinine (0.5-1.4) mg/dL Estim Creat Clear Calc Estimated GFR Random Glucose (60-115) mg/dL Calcium (8.4-10.2) mg/dL Urine Color Urine Appearance Urine pH (5.0-9.0) Ur Specific [place] (1.005-1.025) Urine Protein (Neg-Trace) mg/dL Urine Glucose (UA) (Negative) mg/dL Urine Ketones (Negative) mg/dL Urine Blood (Negative) Urine Nitrite (Negative) Ur Leukocyte Esterase (Negative) Urine RBC (0-2) /HPF Urine WBC (0-5) /HPF Ur Squamous Epith Cells (0-2) /HPF Urine Bacteria (None Seen) Hyaline Casts (0-2) /LPF Urine Test NEGATIVE (NEGATIVE) Independent Interpretation I performed an independent interpretation of an: EKG (sinus 70, no st or twave changes) Tests considered The following testing was considered but not selected: Considered getting a CXR but patient with no shortness of breath, normal oxygen Chronic Conditions Patient?s care impacted by: Other (depression) Discharge Plan Discharge Clinical Impression: Cellulitis Patient Disposition: Home, Self-Care Instructions: Cellulitis (ED) Prescriptions: New cephalexin 500 mg capsule 500 mg PO Q6H 10 Days Qty: 40 0RF No Action cephalexin 500 mg capsule 500 mg PO Q6H 7 Days Qty: 28 0RF pantoprazole [Protonix] 40 mg tablet,delayed release (DR/EC) 40 mg PO DAILY Qty: 14 0RF ondansetron 4 mg tablet,disintegrating 4 mg PO TID PRN (Reason: nausea and vomiting) 5 Days Qty: 10 0RF diphenhydramine HCl [Benadryl] 25 mg capsule 50 mg PO TID PRN (Reason: allergic reaction) Qty: 20 0RF prednisone 20 mg tablet 40 mg PO DAILY Qty: 10 0RF Referrals: Physician,Nonstaff [Primary Care Provider] - 5 days
[2022-12-26 08:41] VITALS: BP 145/94; PULSE 84; RESP 16; TEMP 36.7; O2SAT 98
--- NOTE | 2022-12-26 08:56 | PC.NURSE ---
Addendum entered by Anastasiia Braswell 12/26/22 09:00: pt does report increased etoh use; trying to cut back. states sx worsen when cutting back. Original Note: pt axox4, VSS, pt reporting cp/weakness intermittently; pt unsure if related to depression, L. ear lobe appears red and swollen. skin warm and dry, breathing even and unlabored. pt does report persistent depression regarding recent loss of daughter and ; denies SI. pt states therapist support. tearful but calm/cooperative. plan for labs, urine and ekg.
[2022-12-26 10:21] VITALS: BP 117/81; PULSE 71; RESP 16; TEMP 36.3; O2SAT 98
[2022-12-26 11:24] VITALS: BP 131/93; PULSE 75; RESP 16; TEMP 36.8; O2SAT 98
== END 2022-12-26 11:28 | disposition home or self-care (01) ==
PROVIDERS: Emergency Provider Emergency Medicine
DX: H60.12 Cellulitis of left external ear (principal); Z72.89 Other problems related to lifestyle; Z63.4 Disappearance and death of family member; Z79.899 Other long term (current) drug therapy
CPT/HCPCS: 36415; 80048; 81001; 81025; 85025; 93005; 99283; 99284

== ENCOUNTER 2023-03-12 10:01 | Outpatient (REF) | payer MEDICAID, SELFPAY ==
[2023-03-12 12:41] LABS: Folate 14.4 ng/mL (> or = 4.0)
[2023-03-12 13:25] LABS: CT PCR NOT DETECTED (Not Detect.); NG PCR NOT DETECTED (Not Detect.)
[2023-03-13 08:30] LABS: Hepatitis A Antibody IgG Nonreactive (Nonreactive); ~Hepatitis A Antibody IgG 0.31 S/CO (0.00-0.99)
[2023-03-13 08:40] LABS: Syphilis Screen Nonreactive (Nonreactive)
[2023-03-13 09:03] LABS: HBS Num1 > 1000.00 mIU/mL (0-7.99); HBc Num1 0.07 S/CO (0.00-0.79); HBsAGNum1 0.47 S/CO (0.00-0.99); HIV AB/AG Nonreactive (Nonreactive); HIV Num 1 0.05 S/CO (0.00-0.99); Hepatitis B Core Antibody Nonreactive (Nonreactive); Hepatitis B Surface Antigen Negative (Negative); ~HepC Num1 0.08 S/CO (0.00-0.79); ~Hepatitis B Surface Antibody REACTIVE (Nonreactive); ~Hepatitis C Antibody Nonreactive (Nonreactive)
[2023-03-14 20:15] LABS: TS Negative Control Passed; TS Panel A 0; TS Panel B 0; TS Positive Control Passed; TSpotTB Negative (Negative)
[2023-03-18 00:44] LABS: FIB-ALT 12 U/L (6-29); FIB-Alpha-2-Macroglobulin 130 mg/dL (106-279); FIB-Apolipoprotein A1 185 mg/dL (101-198); FIB-GGT 15 U/L (3-50); FIB-Haptoglobin 113 mg/dL (43-212); FIB-Total Bilirubin 0.2 mg/dL (0.2-1.2); Liver Fibrosis Score 0.02; Liver Fibrosis Stage F0; Nec Inflam Act Grade A0; Nec Inflam Act Score 0.02
== END 2023-03-12 10:02 | disposition home or self-care (01) ==
LOC: HO.HHCL 10:01
PROVIDERS: Visit Provider Emergency Medicine
DX: F10.20 Alcohol dependence, uncomplicated (principal)
CPT/HCPCS: 0353U; 81596; 82746; 86481; 86704; 86706; 86708; 86780; 86803; 87340; 87389

== ENCOUNTER 2023-03-13 16:18 | Outpatient (REF) | payer OTHER, SELFPAY ==
[2023-03-22 05:59] LABS: Vitamin B1 15 nmol/L (8-30)
== END 2023-03-13 16:19 | disposition home or self-care (01) ==
LOC: HO.HHCL 16:18
PROVIDERS: Visit Provider Emergency Medicine
DX: F10.20 Alcohol dependence, uncomplicated (principal)
CPT/HCPCS: 36415; 84425

== ENCOUNTER 2023-04-19 18:03 | Outpatient (REF) | payer MEDICAID, SELFPAY ==
[2023-04-20 06:56] LABS: CT PCR NOT DETECTED (Not Detect.); NG PCR NOT DETECTED (Not Detect.)
[2023-04-20 11:23] LABS: BV Int Neg Control Negative (Negative); BV Int Pos Control Positive (Positive)
== END 2023-04-19 18:04 | disposition home or self-care (01) ==
LOC: HO.LNP 18:03
PROVIDERS: Visit Provider Emergency Medicine
DX: N94.9 Unspecified condition associated with female genital organs and menstrual cycle (principal); Z11.3 Encounter for screening for infections with a predominantly sexual mode of transmission
CPT/HCPCS: 0353U; 87480; 87510; 87660

== ENCOUNTER 2023-06-07 10:41 | Outpatient (REF) | payer MEDICAID, SELFPAY ==
[2023-06-07 12:17] LABS: Anion Gap 12 (12-20); Blood Urea Nitrogen 11 mg/dL (9-16); Calcium 9.4 mg/dL (8.4-10.2); Carbon Dioxide 24 mmol/L (22-29); Chloride 106 mmol/L (96-108); Cholesterol 185 mg/dL (<200); Estimated Glomerular Filt Rate > 60; Glucose Random 105 mg/dL (60-115); HDL Cholesterol 55 mg/dL (>40); LDL Cholesterol Calculated 117 mg/dL (<100); Potassium 3.7 mmol/L (3.3-5.1); Sodium 138 mmol/L (135-145); Triglycerides 65 mg/dL (<150)
[2023-06-07 12:34] LABS: TSH reflex Free T4 0.81 uIU/mL (0.32-4.0)
== END 2023-06-07 10:42 | disposition home or self-care (01) ==
LOC: HO.HHCL 10:41
PROVIDERS: Visit Provider Nurse Practitioner Primary Care
DX: Z00.00 Encounter for general adult medical examination without abnormal findings (principal); Z13.220 Encounter for screening for lipoid disorders; R12 Heartburn
CPT/HCPCS: 80048; 80061; 84443; 87338

== ENCOUNTER 2023-07-23 12:31 | Outpatient (REF) | payer MEDICAID, SELFPAY ==
--- NOTE | ~2023-07-23 | CT_ITS ---
EXAMINATION: CT ABDOMEN AND PELVIS WITHOUT CONTRAST CLINICAL INFORMATION: Flank pain. Rule out kidney stones. COMPARISON: CT abdomen pelvis October 07, 2022 TECHNIQUE: Multidetector volumetric imaging was performed from the superior aspect of the liver through the pubic symphysis. Sagittal and coronal reformatted images were obtained on the technologist's workstation. Today's examination is limited secondary to lack of IV contrast and paucity of intra-abdominal fat. This CT examination was performed using dose optimization techniques as appropriate, variously including the following: *Automated exposure control *Adjustment of mA and/or kV according to patient size (this includes techniques or standardized protocols for targeted exams where dose is matched to indication/reason for exam; i.e. extremities or head) *Use of iterative reconstruction technique DLP: 364 mGy-cm FINDINGS: Visualized lung bases are well aerated. The liver is normal in size. The gallbladder is normal in appearance. The pancreas, spleen and adrenal glands are unremarkable. The kidneys are symmetric in size. Tiny 1 to 3 mm nonobstructing renal calculi are noted bilaterally. There is no hydronephrosis of either kidney. Normal caliber loops of small and large bowel. Mild colonic stool burden. There is extensive soft tissue stranding within the right lower quadrant with some associated ill-defined fluid. The appendix is not clearly visualized, however, there is a 4 mm calcification centered within the inflammatory changes concerning for an appendicolith (image [id number], series 6). Normal caliber abdominal aorta. Small fat-containing umbilical hernia. The bladder is underdistended and therefore not accurately evaluated, however, no gross bladder abnormality is identified. Unremarkable CT appearance of the uterus. Small amount of free pelvic fluid, possibly physiologic. No gross inguinal lymphadenopathy. No acute osseous abnormality. Soft tissue stranding with some ill-defined fluid and coarse calcifications are noted within the subcutaneous tissues of the right buttocks, nonspecific but possibly injection related. CT/CT abdomen pelvis wo IV con IMPRESSION: Extensive soft tissue stranding within the right lower quadrant with some associated ill-defined fluid. The appendix is not clearly visualized, however, there is a 4 mm calcification centered within the inflammatory changes concerning for an appendicolith. Findings are concerning for acute appendicitis, with possible appendiceal perforation. Clinical correlation is recommended. Surgical consultation is likely warranted. Fleischner guidelines were followed. This Critical Result was discussed with Ana Garcia RN at 2:41 PM on July 23, 2023 and it was ascertained that the content and urgency of the report was understood at the time of direct communication.
== END 2023-07-23 12:32 | disposition home or self-care (01) ==
LOC: HO.CT 12:31
PROVIDERS: Visit Provider Nurse Practitioner Family
DX: R10.9 Unspecified abdominal pain (principal)
CPT/HCPCS: 74176

== ENCOUNTER 2023-07-23 15:20 | Inpatient (IN) | payer MEDICAID, SELFPAY ==
[2023-07-23] VITALS (11 sets, daily range): BP systolic 112–142; BP diastolic 56–81; PULSE 72–90; RESP 16–20; TEMP 36.6–37.5; O2SAT 96–99; BMI 22.2
--- NOTE | 2023-07-23 15:27 | ECG_ITS ---
Test Reason : pain Blood Pressure : / mmHG Vent. Rate : 080 BPM Atrial Rate : 080 BPM P-R Int : 166 ms QRS Dur : 078 ms QT Int : 370 ms P-R-T Axes : 069 067 046 degrees QTc Int : 426 ms Normal sinus rhythm Possible Left atrial enlargement Borderline ECG When compared with ECG of 26-DEC-2022 08:48, No significant change was found Referred By: Estiven Licona Electronically Signed By:MASON KELLY MD
--- NOTE | 2023-07-23 15:27 | ED.GENADULT ---
HPI - General Adult General Chief complaint: General Medical Stated complaint: pt states ruptured appendix Time Seen by Provider: 07/23/23 15:27 Source: patient and RN notes reviewed Mode of arrival: ambulatory Limitations: no limitations History of Present Illness HPI narrative: This is a 37-year-old female, with no known medical problems, presenting to the emergency department complaints of right lower quadrant pain which started SaturdayJuly 20. Patient states that she felt gassy ?uncomfortable? and had frequent diarrhea Saturday night. She thought this was attributed to the dinner that she ate. She then developed chills, fevers, nausea and worsening abdominal pain starting yesterday. She states that her pain was not as severe until yesterday. She states constant sharp right lower quadrant pain that worsens with palpation. She also endorses nausea and black stool which started yesterday. She was seen by her primary care physician who ordered a CT scan, the CT scan returned revealing a ruptured appendix and was told to report to the emergency room given findings. Denies vomiting, chest pain or shortness of breath. Denies taking any medications at home to treat her current symptoms. Denies any urinary symptoms. No other complaints or concerns at this time. MD complaint: Right lower quadrant pain Onset (ago): day(s) Severity: severe Quality: stabbing and aching Pain Consistency: constant Relieving factors: none Exacerbating factors: none Treatments prior to arrival: none Related Data Home Medications Medication Instructions Recorded Confirmed bupropion HCl 100 mg tablet,12 hr 100 mg PO QAM 07/23/23 07/23/23 sustained-release doxepin 25 mg capsule 25 mg PO BEDTIME 07/23/23 07/23/23 famotidine 20 mg tablet 20 mg PO DAILY acid reflux 07/23/23 07/23/23 multivitamin 1 tab PO QAM 07/23/23 07/23/23 sertraline 50 mg tablet 50 mg PO DAILY 07/23/23 07/23/23 Allergies Allergy/AdvReac Type Severity Reaction Status Date / Time amoxicillin Allergy Rash Verified 12/26/22 08:25 oxycodone [From Percocet] Allergy Vomiting Verified 12/26/22 08:25 Review of Systems Review of Systems: Yes all other systems are reviewed and are negative Constitutional: Constitutional: Reports as per [facility] Social History Social History Household Members: Children Housing: Other Housing Other:: intermediate Do you presently have visiting nurse or other home services: No Alcohol intake: current Alcohol intake frequency: 0-2 drinks per day Alcohol type: hard liquor Patient Tobacco Use Status: Never used Tobacco Substance Use Type: Marijuana Substance Use Frequency: Daily Last Used Substance: Days (ago) Last Used Substance Other:: 1day Currently Displaying Signs/Symptoms of Drug Intoxication Withdrawal: No Any prior treatment program specific to substance use: No Have you been hit, kicked, punched, or otherwise hurt by someone within the past year? If so, by whom?: No Do you feel safe in your current relationship?: No Current Relationship Is there a partner from a previous relationship who is making you feel unsafe now?: No Advance Directives: No Advance Directives Information Provided: No Do you have thoughts of harming others: None Do you have a plan to hurt others: No Plan Nutrition Risks: No Nutritional Risk Patient : No : No Physical Exam ED Vital Signs: Vital Signs - 24 hr 07/23/23 15:22 07/23/23 17:25 07/23/23 17:36 Temperature 98 F 98 F Pulse Rate 90 72 Respiratory Rate 18 16 16 Blood Pressure 142/81 H 117/71 Pulse Oximetry 98 97 Oxygen Delivery Method Room Air Room Air BMI result Body Mass Index 22.2 Const General: cooperative and other (Appears slightly uncomfortable secondary to pain.) Orientation/consciousness: patient oriented x3 Limitations: no limitations [facility] Head: Yes normal to inspection, Yes normocephalic and Yes atraumatic Ears: hearing grossly normal bilaterally General nose exam: Normal external nose present Face and sinus: Yes normal facial exam Mouth: Normal oral and palatal mucosa present, oropharynx normal and moist mucous membranes Throat: Yes posterior oropharynx normal Eyes General: appearance normal, both eyes and all related structures Eyelids: Yes eyelids normal Conjunctivae: conjunctivae normal Sclerae: sclerae normal Pupils: Equal, round and reactive pupils present EOM: EOMs intact bilaterally Neck Neck: Yes normal visual inspection, Yes full ROM and Yes no lymphadenopathy Lymphatic: no lymphadenopathy noted Chest Chest palpation & inspection: normal inspection of the chest Resp Effort & Inspection: normal respiratory effort and able to speak in complete sentences Auscultation: clear to auscultation bilaterally, no crackles, no rales, no rhonchi and no wheezes Cardio Rate: regular rate Rhythm: regular rhythm Heart sounds: S1 normal heart sound present and S2 normal heart sound present GI Other: Exquisite pain overlying McBurney's point. Positive Rovsing's, positive rebound, with guarding. Hyperactive bowel sounds present in all 4 quadrants. Rectal examination performed with ground water pump installer present. No bloody or black stool noted. Normal rectal tone. Brown stool noted at rectum. Inspection: Yes normal to inspection Skin General skin exam: no rashes or lesions noted Trauma: no lacerations or abrasions Wounds: no wounds Neuro General: patient oriented x3 and moves all extremities Cranial nerves: Yes Equal, round and reactive pupils present Extrem General: Yes normal to inspection Right upper extremity: normal to inspection Left upper extremity: normal to inspection Right lower extremity: normal to inspection Left lower extremity: normal to inspection Course Reevaluation(s) Reevaluation #1: Labs return slight leukocytosis at 10.9 with slight left shift, lactic acid 0.6 liver enzymes within normal limits, beta quant less than 2. Urine unremarkable. Rectal examination performed, no black or bloody stool noted. Stool occult sent to lab pending type and screen. Sent message to Dr. Lee who will come and evaluate patient. Time: 17:19 Reevaluation #2: Dr Lee came and evaluated patient will be sent to the OR. Patient's pain is under control after receiving morphine. Will continue to monitor until sent to the operating room. Time: 18:46 Medications Administered Generic Name Dose Route Start Last Admin Trade Name Billyq PRN Reason Stop Dose Admin Bupropion HCl 100 mg 07/24/23 07:30 07/24/23 06:16 Bupropion Hcl 100 Mg Tablet PO 100 mg DAILY@0730 KAYLEY Administration Famotidine 20 mg 07/24/23 09:00 07/24/23 08:11 Famotidine 20 Mg Tablet PO 20 mg DAILY KAYLEY Administration Levofloxacin 500 mg in 100 mls @ 100 mls/hr 07/23/23 23:00 07/24/23 00:22 Levaquin IV Infused Q24H KAYLEY Infusion Metronidazole 500 mg in 100 mls @ 100 mls/hr 07/23/23 23:00 07/24/23 07:38 Flagyl IV Infused Q8H KAYLEY Infusion Sodium Chloride 1,000 mls @ 100 mls/hr 07/23/23 22:30 07/24/23 09:53 Ns IVCONT Not Given .Q10H KAYLEY Morphine Sulfate 3 mg 07/23/23 22:22 07/23/23 23:19 Morphine Sulfate 4 Mg/Ml Cartridge IVPUSH 3 mg Q4H PRN Administration Pain, Severe (Pain Scale 7-10) Protocol Ondansetron HCl 4 mg 07/23/23 22:22 07/24/23 09:51 Ondansetron Hcl 4 Mg/2 Ml Vial IVPUSH 4 mg Q8H PRN Administration Nausea and Vomiting Sertraline HCl 50 mg 07/24/23 09:00 07/24/23 08:10 Sertraline Hcl 50 Mg Tablet PO 50 mg DAILY KAYLEY Administration Sodium Chloride 3 ml 07/24/23 00:00 07/24/23 08:10 0.9 % Sodium Chloride Flush 3 Ml Syringe IVFLUSH Not Given QSHIFT KAYLEY Discontinued Medications Generic Name Dose Route Start Last Admin Trade Name Freq PRN Reason Stop Dose Admin Sodium Chloride 1,000 mls @ 999 mls/hr 07/23/23 15:30 07/23/23 17:44 Ns IV 07/23/23 16:30 Infused .Q1H1M KALYEY Infusion Metronidazole 500 mg in 100 mls @ 100 mls/hr 07/23/23 15:27 07/23/23 17:39 Flagyl IV 07/23/23 16:26 Infused ONCE ONE Infusion Levofloxacin 750 mg in 150 mls @ 100 mls/hr 07/23/23 15:27 07/23/23 19:09 Levaquin IV 07/23/23 16:56 Infused ONCE ONE Infusion Morphine Sulfate 4 mg 07/23/23 17:15 07/23/23 17:36 Morphine Sulfate 4 Mg/Ml Cartridge IVPUSH 07/23/23 17:16 4 mg ONCE ONE Administration Protocol Ondansetron HCl 4 mg 07/23/23 19:40 07/23/23 23:05 Ondansetron Hcl 4 Mg/2 Ml Vial IVPUSH 07/23/23 19:41 Not Given ONCE ONE Medical Decision Making Medical Decision Making MDM Narrative: This is a 37-year-old female presenting to emergency department with complaints of exquisite right lower quadrant pain which started on Saturday. She states that her pain was not as severe until yesterday. She was seen by outpatient clinic where they ordered a CT scan which revealed extensive soft tissue stranding within the right lower quadrant with some associated ill-defined fluid. The appendix is not clearly visualized there is a 4 mm calcification centered within the inflammatory changes, starting for an appendicolith. Findings concerning for acute appendicitis with possible appendiceal perforation. Patient immediately brought back to room, labs, cultures, IV fluids, Levaquin, Flagyl ordered. Type and screen, EKG, lactic, cultures will be obtained, hCG quant also ordered. I paged Dr. Lee at 4:11 p.m. Differential Diagnosis Differential Diagnoses: The differential diagnosis associated with the presentation includes Appendicitis, appendiceal perforation, acute abdomen, ectopic Admission/Observation Consideration of admission/observation: Escalation of care including admission/observation considered Patient requiring higher level of care including surgical intervention. Consult Healthcare Provider Management of the patient was discussed with: Translator And Interpreter Dr. Lee, surgeon Lab Data MDM Lab Attestation statement: I reviewed the patient's lab results. Slight leukocytosis at 10.5k, with slight left shift. stable H&H at 12.6/36.7. Chemistry within normal limits, liver enzymes normal. Negative COVID 07/24/23 06:23 07/23/23 16:25 Labs: Lab Results 07/23/23 07/23/23 07/23/23 Range/Units 16:25 16:33 17:02 WBC 10.9 H (4.8-10.8) X10*3/uL RBC 4.19 L (4.20-5.50) X10*6/uL Hgb 12.6 (12.0-16.0) g/dl Hct 36.7 L (37.0-47.0) % MCV 87.6 (80.0-98.0) fL MCH 30.1 (27.0-33.0) pg MCHC 34.3 (31.0-35.0) g/dl RDW 13.1 (11.0-16.0) % Plt Count 280 (160-400) X10*3/uL MPV 8.9 L (9.4-12.3) fL Immature Gran % (Auto) 0.5 H (0.0-0.4) % Neut % (Auto) 79.2 H (45-73) % Lymph % (Auto) 14.0 L (20-40) % [place] % (Auto) 5.8 (2-11) % Eos % (Auto) 0.4 (0-4) % Baso % (Auto) 0.1 (0-2) % Lymph # (Auto) 1.5 (1.2-4.9) X10*3/uL [place] # (Auto) 0.6 (0.1-1.2) X10*3/uL Eos # (Auto) 0.0 (0.0-0.4) X10*3/uL Baso # (Auto) 0.0 (0.0-0.2) X10*3/uL Abs Immat Gran (auto) 0.06 H (0.00-0.03) X10*3/uL Absolute Neuts (auto) 8.6 H (2.0-8.3) x10*3/uL Absolute Nucleated RBC 0.000 (0.0-0.012) X10*3/uL Nucleated RBC % (auto) 0.0 (0.0-0.2) /100WBC PT 15.1 H (11.1-13.3) SEC INR 1.2 H (0.9-1.1) APTT 36.8 (26.0-36.8) SEC Sodium 138 (135-145) mmol/L Potassium 3.6 (3.3-5.1) mmol/L Chloride 106 (96-108) mmol/L Carbon Dioxide 24 (22-29) mmol/L Anion Gap 12 (12-20) BUN 6 L (9-16) mg/dL Creatinine 0.72 (0.5-1.4) mg/dL Estim Creat Clear Calc 110.0 Estimated GFR > 60 Random Glucose 98 (60-115) mg/dL Lactic Acid 0.6 (0.5-2.0) mmol/L Calcium 9.6 (8.4-10.2) mg/dL Total Bilirubin 0.4 (0.0-1.0) mg/dL AST 11 (5-31) U/L ALT 8 (0-31) U/L Alkaline Phosphatase 64 (39-117) U/L Total Protein 7.6 (6.5-8.0) g/dL Albumin 4.1 (3.5-5.0) g/dL Lipase 10 (8-78) U/L Beta HCG, Quant < 2 mIU/mL Urine Color Yellow Urine Appearance Clear Urine pH 7.0 (5.0-9.0) Ur Specific [place] 1.010 (1.005-1.025) Urine Protein Negative (Neg-Trace) mg/dL Urine Glucose (UA) Negative (Negative) mg/dL Urine Ketones Negative (Negative) mg/dL Urine Blood Negative (Negative) Urine Nitrite Negative (Negative) Ur Leukocyte Esterase Negative (Negative) Urine RBC 0-2 (0-2) /HPF Urine WBC 0-5 (0-5) /HPF Ur Squamous Epith Cells 0-2 (0-2) /HPF Urine Bacteria None Seen (None Seen) Hyaline Casts 0-2 (0-2) /LPF COVID-19 (GABRIEL) Negative (Negative) COVID-19 Clin Com See Note Blood Type O Positive Antibody Screen NEGATIVE Radiology Impression Discussion of test interpretation with radiology: I have reviewed the radiologist's reading. Radiologist Impression: EXAMINATION: CT ABDOMEN AND PELVIS WITHOUT CONTRAST CLINICAL INFORMATION: Flank pain. Rule out kidney stones. COMPARISON: CT abdomen pelvis October 07, 2022 TECHNIQUE: Multidetector volumetric imaging was performed from the superior aspect of the liver through the pubic symphysis. Sagittal and coronal reformatted images were obtained on the technologist's workstation. Today's examination is limited secondary to lack of IV contrast and paucity of intra-abdominal fat. This CT examination was performed using dose optimization techniques as appropriate, variously including the following: *Automated exposure control *Adjustment of mA and/or kV according to patient size (this includes techniques or standardized protocols for targeted exams where dose is matched to indication/reason for exam; i.e. extremities or head) *Use of iterative reconstruction technique DLP: 364 mGy-cm FINDINGS: Visualized lung bases are well aerated. The liver is normal in size. The gallbladder is normal in appearance. The pancreas, spleen and adrenal glands are unremarkable. The kidneys are symmetric in size. Tiny 1 to 3 mm nonobstructing renal calculi are noted bilaterally. There is no hydronephrosis of either kidney. Normal caliber loops of small and large bowel. Mild colonic stool burden. There is extensive soft tissue stranding within the right lower quadrant with some associated ill-defined fluid. The appendix is not clearly visualized, however, there is a 4 mm calcification centered within the inflammatory changes concerning for an appendicolith (image [id number], series 6). Normal caliber abdominal aorta. Small fat-containing umbilical hernia. The bladder is underdistended and therefore not accurately evaluated, however, no gross bladder abnormality is identified. Unremarkable CT appearance of the uterus. Small amount of free pelvic fluid, possibly physiologic. No gross inguinal lymphadenopathy. No acute osseous abnormality. Soft tissue stranding with some ill-defined fluid and coarse calcifications are noted within the subcutaneous tissues of the right buttocks, nonspecific but possibly injection related. CT/CT abdomen pelvis wo IV con IMPRESSION: Extensive soft tissue stranding within the right lower quadrant with some associated ill-defined fluid. The appendix is not clearly visualized, however, there is a 4 mm calcification centered within the inflammatory changes concerning for an appendicolith. Findings are concerning for acute appendicitis, with possible appendiceal perforation. Clinical correlation is recommended. Surgical consultation is likely warranted. Fleischner guidelines were followed. This Critical Result was discussed with Ana Garcia RN at 2:41 PM on July 23, 2023 and it was ascertained that the content and urgency of the report was understood at the time of direct communication. Dictated By: Ahmet Ambrocio MD Critical Care Time Critical Care Time Critical Care Time: Yes Total Critical Care Time: 35 Attestation: I have personally provided critical care time exclusive of time spent on separately billable procedures. Time includes review of lab data, radiology results, discussion with consultants, and monitoring for potential decompensation. Intervention performed as documented. Discharge Plan Discharge Clinical Impression: Acute appendicitis with rupture Patient Disposition: Admitted As Inpatient Interventions: Admission Worksheet (ED) Last Done: 07/23/23 20:31 Discharge Date/Time: 07/23/23 19:40
--- NOTE | 2023-07-23 16:31 | PC.NURSE ---
2 sets bc's obtained by mariano and rn. sending to lab. pt walked well to bathroom w/o issues. breathing well.
[2023-07-23] MEDS: metroNIDAZOLE/NS 500 MG/100 ML PIGGYBACK 100 MG IV (16:39)
[2023-07-23] MEDS: 0.9 % Sodium Chloride 1,000 ML 999 ML IV (16:40)
[2023-07-23 16:41] LABS: MANUAL DIFF FLAG NO
[2023-07-23 16:44] LABS: Basophils Percent Auto 0.1 % (0-2); Eosinophils Percent Auto 0.4 % (0-4); Hematocrit 36.7 % (37.0-47.0); Hemoglobin 12.6 g/dl (12.0-16.0); Imm Gran Abs Auto 0.06 X10*3/uL (0.00-0.03); Imm Gran Pct Auto 0.5 % (0.0-0.4); Lymphocytes Absolute Auto 1.5 X10*3/uL (1.2-4.9); Mean Corpuscular HGB Conc 34.3 g/dl (31.0-35.0); Mean Corpuscular Hemoglobin 30.1 pg (27.0-33.0); Mean Corpuscular Volume 87.6 fL (80.0-98.0); Mean Platelet Volume 8.9 fL (9.4-12.3); Monocytes Absolute Auto 0.6 X10*3/uL (0.1-1.2); Monocytes Percent Auto 5.8 % (2-11); Neutrophils Absolute Auto 8.6 x10*3/uL (2.0-8.3); Neutrophils Percent Auto 79.2 % (45-73); Platelet Count 280 X10*3/uL (160-400); Red Blood Count 4.19 X10*6/uL (4.20-5.50); Red Cell Distribution Width 13.1 % (11.0-16.0); White Blood Count 10.9 X10*3/uL (4.8-10.8)
[2023-07-23 16:45] LABS: Appearance Urine Clear; Color Urine Yellow; Glucose Urine UA Negative (Negative); Leukocyte Esterase Urine Negative (Negative); Nitrite Urine Negative (Negative); Urine Blood Negative (Negative); Urine Ketones Negative (Negative); Urine Protein Negative (Neg-Trace)
[2023-07-23 16:51] LABS: INTERNATIONAL NORM RATIO 1.2 (0.9-1.1); Prothrombin Time 15.1 SEC (11.1-13.3)
[2023-07-23 16:51] LABS: Bacteria Urine None Seen (None Seen); Hyaline Casts Urine 0-2 /LPF (0-2); RBC Urine 0-2 /HPF (0-2); Squamous Epithelial Cell Urine 0-2 /HPF (0-2); WBC Urine 0-5 /HPF (0-5)
[2023-07-23 16:52] LABS: Lactic Acid 0.6 mmol/L (0.5-2.0)
[2023-07-23 16:53] LABS: Partial Thromboplastin Time 36.8 SEC (26.0-36.8)
[2023-07-23 16:56] LABS: Alanine Aminotransferase 8 U/L (0-31); Albumin Level 4.1 g/dL (3.5-5.0); Alkaline Phosphatase 64 U/L (39-117); Anion Gap 12 (12-20); Aspartate Amino Transferase 11 U/L (5-31); Bilirubin Total 0.4 mg/dL (0.0-1.0); Blood Urea Nitrogen 6 mg/dL (9-16); Calcium 9.6 mg/dL (8.4-10.2); Carbon Dioxide 24 mmol/L (22-29); Chloride 106 mmol/L (96-108); Estimated Glomerular Filt Rate > 60; Glucose Random 98 mg/dL (60-115); Lipase 10 U/L (8-78); Potassium 3.6 mmol/L (3.3-5.1); Sodium 138 mmol/L (135-145); Total Protein 7.6 g/dL (6.5-8.0)
[2023-07-23 17:07] LABS: COVID-19 Test Negative (Negative); IDNOW Serial# 08D9AD1C
[2023-07-23 17:10] LABS: HCG Quantitative < 2 mIU/mL
--- NOTE | 2023-07-23 17:20 | PHA.MEDREC ---
Pharmacy Consult ? Medication Reconciliation Pharmacy has completed the medication reconciliation. Patient confirmed medications based on claim history. Reports not taking acamprosate or getting vivtrol injection as she no longer drinks. Reports not using nicotine since she quit smoking and no longer needs. Ann Marie Santana, PharmD
[2023-07-23] MEDS: Morphine Sulfate 4 MG/ML CARTRIDGE IVPUSH (17:36)
[2023-07-23] MEDS: levoFLOXacin/D5W 750 MG/150 ML PIGGYBACK 100 MG IV (17:36)
--- NOTE | 2023-07-23 19:00 | PC.NURSE ---
tenzin maher to d/c extra blood culture order- it is a duplicate- lab confirmed on phone that they already received the two sets of bc's.
--- NOTE | 2023-07-23 19:01 | P.HPGS_ITS ---
History of Present Illness History of Present Illness Date of Service: 07/23/23 Chief complaint: pt states ruptured appendix Narrative: Evonne Zapata is a 37 year old female who has for the last 3 days been having abdominal pain nausea vomiting and some diarrhea and then fevers and chills. The pain was generalized but now isolated to the right lower quadrant and she came to the emergency room where workup revealed inflammatory changes in the right lower quadrant consistent with appendicitis maybe perforated appendicitis with appendicolith present. White count is normal at 10 but she is very tender in the right lower quadrant. She has never had pain like this before no sick contacts. Generally she has been relatively healthy. Her previous surgery has consisted of some cervical procedure of her uterus. She has had issues with alcohol abuse in the past but has been sober now for the last 5 months she says. Review of Systems Review of Systems: Yes all other systems are reviewed and are negative [facility] Social History Social History Alcohol intake: current Alcohol intake frequency: 0-2 drinks per day Alcohol type: hard liquor Substance Use Type: Marijuana Advance Directives: No Advance Directives Information Provided: No Meds Allergies Allergy/AdvReac Type Severity Reaction Status Date / Time amoxicillin Allergy Rash Verified 12/26/22 08:25 oxycodone [From Percocet] Allergy Vomiting Verified 12/26/22 08:25 Home Medications Medication Instructions Recorded Confirmed Last Taken Type bupropion HCl 100 mg tablet,12 hr 100 mg PO QAM 07/23/23 07/23/23 07/23/23 History sustained-release doxepin 25 mg capsule 25 mg PO BEDTIME 07/23/23 07/23/23 07/22/23 History famotidine 20 mg tablet 20 mg PO DAILY acid reflux 07/23/23 07/23/23 07/23/23 History multivitamin 1 tab PO QAM 07/23/23 07/23/23 07/23/23 History sertraline 50 mg tablet 50 mg PO DAILY 07/23/23 07/23/23 07/23/23 History Physical Exam Vital Signs: Vital Signs: Last Vital Signs Temp 98 F 07/23/23 17:25 Pulse 72 07/23/23 17:25 Resp 16 07/23/23 17:36 BP 117/71 07/23/23 17:25 Pulse Ox 97 07/23/23 17:25 O2 Del Method Room Air 07/23/23 17:25 BMI result Body Mass Index 22.2 Const: General: cooperative, healthy appearing and acute distress mild Nutritional Appearance: average body habitus Orientation/consciousness: oriented to person, oriented to place and oriented to time HEENT: Head: Yes normal to inspection Resp: Effort & Inspection: normal respiratory effort and able to speak in complete sentences Auscultation: clear to auscultation bilaterally Cardio: Rate: regular rate Rhythm: regular rhythm GI: Other: Abdomen is soft tender in the right lower quadrant with guarding and rebound no peritoneal signs active bowel sounds Inspection: Yes normal to inspection Skin: Other: Nonicteric Neuro: General: oriented to person, oriented to place and oriented to time Extrem: General: Yes normal to inspection Psych: Appearance: grossly normal Mental Status: mental status grossly normal Speech and movement: Normal speech and movement present Affect: normal affect Attitude: cooperative Thought process: Normal thought process present Thought content: Normal thought content present Insight: Good insight present (Psych) Results Results Labs: Short CBC 07/23/23 Range/Units 16:25 WBC 10.9 H (4.8-10.8) X10*3/uL Hgb 12.6 (12.0-16.0) g/dl Hct 36.7 L (37.0-47.0) % Plt Count 280 (160-400) X10*3/uL BMP 07/23/23 16:25 Sodium 138 Potassium 3.6 Chloride 106 Carbon Dioxide 24 BUN 6 L Creatinine 0.72 Calcium 9.6 Liver Function 07/23/23 Range/Units 16:25 Total Bilirubin 0.4 (0.0-1.0) mg/dL AST 11 (5-31) U/L ALT 8 (0-31) U/L Alkaline Phosphatase 64 (39-117) U/L Albumin 4.1 (3.5-5.0) g/dL Urine 07/23/23 Range/Units 16:33 Urine Color Yellow Urine Appearance Clear Urine pH 7.0 (5.0-9.0) Ur Specific [place] 1.010 (1.005-1.025) Urine Protein Negative (Neg-Trace) mg/dL Urine Glucose (UA) Negative (Negative) mg/dL Abdomen CT scan report/results: report reviewed and image reviewed CT scan - pelvis: report reviewed and image reviewed Assessment and Plan (1) Acute appendicitis with rupture: Status: Acute Plan 37-year-old female with acute appendicitis potentially ruptured. Stable. Plan to go to the OR and carry out laparoscopic possible open procedure. Risks benefits discussed with the patient including but not limited to bleeding infection possible bowel injury possible stump leak possible open procedure possible bowel resection and despite this she wishes to proceed. She is already received antibiotics and will take her to the OR tonight. Quality Stroke Does the patient have a stroke diagnosis?: No VTE Prior VTE?: No VTE Risk Level:: Surgical - low VTE Device Contraindication: N/A - Device Ordered VTE Drug Contraindication: Treatment Not Indicated Procedures Date of Service Date of Service: 07/23/23
[2023-07-23 19:13] LABS: OBS Int Ctl Valid YES; OBS1 NEGATIVE (NEGATIVE)
--- NOTE | 2023-07-23 19:40 | PC.NURSE ---
OR staff in room, bringing pt. OR staff states will do belongings sheet and emc not need to do. OR nurse in person notified c/o nausea and md was ordering zofran if needed. calling charge account authorizer to see if she is coming back after OR.
--- NOTE | 2023-07-23 22:21 | HO.ANESPROP2 ---
[facility] Active Problems Active Problems: All Active Problems (Updated 07/23/23 @ 15:31 by Estiven Licona) Acute appendicitis with rupture (Acute) Family History Family history of problems with anesthesia: No Surgical History History of Problems with Anesthesia: No Social History Social History Alcohol intake: current Alcohol intake frequency: 0-2 drinks per day Alcohol type: hard liquor Substance Use Type: Marijuana Advance Directives: No Advance Directives Information Provided: No Meds Allergies Allergy/AdvReac Type Severity Reaction Status Date / Time amoxicillin Allergy Rash Verified 12/26/22 08:25 oxycodone [From Percocet] Allergy Vomiting Verified 12/26/22 08:25 Home Medications Medication Instructions Recorded Confirmed Last Taken Type bupropion HCl 100 mg tablet,12 hr 100 mg PO QAM 07/23/23 07/23/23 07/23/23 History sustained-release doxepin 25 mg capsule 25 mg PO BEDTIME 07/23/23 07/23/23 07/22/23 History famotidine 20 mg tablet 20 mg PO DAILY acid reflux 07/23/23 07/23/23 07/23/23 History multivitamin 1 tab PO QAM 07/23/23 07/23/23 07/23/23 History sertraline 50 mg tablet 50 mg PO DAILY 07/23/23 07/23/23 07/23/23 History Exam Height,Weight and Vital Signs: Height 5 ft 8 in Weight 66.3 kg Last Vital Signs Temp 99.5 F 07/23/23 20:03 Pulse 73 07/23/23 20:03 Resp 20 07/23/23 20:03 BP 125/72 07/23/23 20:03 Pulse Ox 99 07/23/23 20:03 O2 Del Method Room Air 07/23/23 20:03 Pertinent Lab Results Pertinent Lab Results: Laboratory Tests 07/23/23 07/23/23 07/23/23 16:25 16:33 17:02 WBC 10.9 H RBC 4.19 L Hgb 12.6 Hct 36.7 L MCV 87.6 MCH 30.1 MCHC 34.3 RDW 13.1 Plt Count 280 MPV 8.9 L Immature Gran % (Auto) 0.5 H Neut % (Auto) 79.2 H Lymph % (Auto) 14.[address] [place] % (Auto) 5.8 Eos % (Auto) 0.4 Baso % (Auto) 0.1 Lymph # (Auto) 1.5 [place] # (Auto) 0.6 Eos # (Auto) 0.0 Baso # (Auto) 0.0 Abs Immat Gran (auto) 0.06 H Absolute Neuts (auto) 8.6 H Absolute Nucleated RBC 0.000 Nucleated RBC % (auto) 0.0 PT 15.1 H INR 1.2 H APTT 36.8 Sodium 138 Potassium 3.6 Chloride 106 Carbon Dioxide 24 Anion Gap 12 BUN 6 L Creatinine 0.72 Estim Creat Clear Calc 110.0 Estimated GFR > 60 Random Glucose 98 Lactic Acid 0.6 Calcium 9.6 Total Bilirubin 0.4 AST 11 ALT 8 Alkaline Phosphatase 64 Total Protein 7.6 Albumin 4.1 Lipase 10 Beta HCG, Quant < 2 Urine Color Yellow Urine Appearance Clear Urine pH 7.0 Ur Specific [place] 1.010 Urine Protein Negative Urine Glucose (UA) Negative Urine Ketones Negative Urine Blood Negative Urine Nitrite Negative Ur Leukocyte Esterase Negative Urine RBC 0-2 Urine WBC 0-5 Ur Squamous Epith Cells 0-2 Urine Bacteria None Seen Hyaline Casts 0-2 Stool Occult Blood COVID-19 (GABREIL) Negative COVID-19 Clin Com See Note Blood Type O Positive Antibody Screen NEGATIVE 07/23/23 19:01 WBC RBC Hgb Hct MCV MCH MCHC RDW Plt Count MPV Immature Gran % (Auto) Neut % (Auto) Lymph % (Auto) [place] % (Auto) Eos % (Auto) Baso % (Auto) Lymph # (Auto) [place] # (Auto) Eos # (Auto) Baso # (Auto) Abs Immat Gran (auto) Absolute Neuts (auto) Absolute Nucleated RBC Nucleated RBC % (auto) PT INR APTT Sodium Potassium Chloride Carbon Dioxide Anion Gap BUN Creatinine Estim Creat Clear Calc Estimated GFR Random Glucose Lactic Acid Calcium Total Bilirubin AST ALT Alkaline Phosphatase Total Protein Albumin Lipase Beta HCG, Quant Urine Color Urine Appearance Urine pH Ur Specific [place] Urine Protein Urine Glucose (UA) Urine Ketones Urine Blood Urine Nitrite Ur Leukocyte Esterase Urine RBC Urine WBC Ur Squamous Epith Cells Urine Bacteria Hyaline Casts Stool Occult Blood NEGATIVE COVID-19 (GABRIEL) COVID-19 Clin Com Blood Type Antibody Screen Airway Mallampati Class: I TM Dist: >3cm Neck ROM: Full Assessment and Plan Assessment Anesthesia Assessment: Anesthesia Plan Discussed and Chart Reviewed Final Anesthetic Review Family History of Problems with Anesthesia: No History of Problems with Anesthesia: No NPO: Yes ASA Class: II and Emergency Final Preanesthetic Review: No Changes in Pt Med Stat, Meds/Allgs Chart Reviewed, Consent Obtained/Reviewed and Anes Risks/Benef Reviewed Patient Risk: Intermediate Procedure Risk: Intermediate Anesthetic Plan Anesthetic Plan: GA Disposition: Standard PACU
--- NOTE | 2023-07-23 22:37 | P.OP_ITS ---
Operative Note Operative Note Date of Service: 07/23/23 Narrative: Preop diagnosis-- acute perforated appendicitis Postop diagnosis-- appendicitis perforated Procedure- laparoscopic appendectomy Surgeon-- Rosa Anesthesia-- general endotracheal tube anesthesia The patient is a 37-year-old female who presents to the emergency room after a 3 4 day history of right lower quadrant pain which got worse and having fevers and chills. White count was relatively normal but CT scan revealed significant inflammatory changes in the right lower quadrant appendix not well visualized but calcification noted in this central area of inflammatory changes. Patient was tender in the right lower quadrant and as a result plan was to carry out laparoscopic appendectomy Findings-- the appendix was noted to be in a retrocecal location surrounded with significant inflammatory fibrous changes of the lateral abdominal wall and surrounding tissue. It was carefully dissected out to the base of the cecum which also had some moderate inflammation and stapler fired across some softer tissue at the base. The appendix itself did not seem very inflamed just long and not very dilated. It was examined extracorporeally and possible small slit was noted near the base. The appendicolith that was described in the CT scan was not confidently identified. Procedure-- patient was brought to the operative room under Anesthesia guidance was intubated. She had compression stockings placed before induction received preoperative antibiotics when she was in the emergency room. Her abdomen was prepped and draped in standard surgical fashion and a [place] catheter was placed. Patient had a small umbilical hernia and local was used in the infraumbilical area and the infraumbilical incision carried out. She did not have a lot of fat in her anterior abdominal wall and the umbilical stalk was circumferentially isolated and transected such that we were able to see the hernia defect which just had some fat in it. Some of this fat was dissected off and removed and then a 5 mm ports placed snugly. Pneumoperitoneum was established in the camera placed 5 mm 0 camera. Then a suprapubic 5 mm port was then placed using local and under direct visualization. The camera was then positioned here and the infraumbilical port area examined. Now the incision was made little bit bigger here to get into the peritoneal cavity and a 10 Garner trocar introduced. Camera was then brought back up to the infraumbilical port and then a left lower quadrant 5 mm port was placed under direct visualization using local. Patient was then positioned with the head up left side down and dissection was carried out in the right lower quadrant. The small bowel going to terminal ileum and into the cecum was well identified and looked fine. The lateral wall and attachments of the cecum and a little bit of the small bowel were taken down using the LigaSure so that we were able to rotate the cecum a little more medially and work on the dissection here. Here was where the inflammatory changes were noted and we were expecting to find the appendix. It was difficult actually finding the true appendix as it was lot of fibrous and scarring changes here. There was no note of any purulent material. Dissection was also taken from the entrance of the terminal ileum into the cecum and then working directly on the cecum laterally such that we were going from known to more unknown tissue. Slow dissection was carried out using the [place] dissector will suction irrigation and the LigaSure. Eventually we were able to find the appendix tubular structure. This was encased in some surrounding significant fibrous tissue and scar tissue of the lateral wall going towards the lateral cecum. From here we were able to bluntly dissect out the appendix as it traversed retrocecal course going up towards the kidney area here it also was noted to not be very inflamed. There were finally able to get to the tip of it and elevate this. Then using more blunt dissection little bit of the LigaSure we were able to trace it down to the base of the cecum. The LigaSure was used to come across what probably was the appendiceal artery aspect. Now with elevating the long tubular structure of the appendix variable to discern its entrance into the cecum which actually looked pretty good. The terminal ileum was once again noted and traced and this was observed to be significantly more medial. The Endo SOPHIA stapler was then placed into the intra-abdominal cavity and 45 load was used to fire across the base of the appendix onto the cecum. The area was suctioned and irrigated and hemostasis was good. The appendix was then brought out in the 10 mm infraumbilical port and removed from in the port and sent off for pathology. This was examined and it did not look terribly inflamed are dilated but there was a small opening close to the base of the appendix. Pneumoperitoneum was then reestablished and the area suctioned and irrigated. The small bowel was run proximally there was no evidence of any infl ammatory changes no Meckel's diverticulum. The left ovary and right ovary in particular and fallopian tube was examined and this all looked within normal limits. The cecum itself looked fine the transverse colon looked fine. There was significant inflammatory changes in the retrocecal area but the appendix itself did not look as remarkable. Question of whether the patient has been having some degree of chronic appendicitis and with a localized perforation and now improved acute inflammation but old chronic scarring here. The staple line looked good and the tissue surrounding it healthy. The ports were then removed under direct visualization and the infraumbilical hernia and port site closed with a 0 Vicryl [id number] pursestring suture the umbilical skin was then imbricated and then 5 0 Monocryl was used in an interrupted subcuticular fashion to approximate all skin edges and Steri-Strips placed At the end of the case all sponge instrument needle counts were correct. Estim ated blood loss was about 20 cc. Specimen sent was the appendix. Patient was extubated returned stable to recovery room.
[2023-07-23] MEDS: levoFLOXacin/D5W 500 MG/100 ML PIGGYBACK 100 MG IV (23:07)
[2023-07-23] MEDS: 0.9 % Sodium Chloride 1,000 ML 100 ML IVCONT (23:07)
[2023-07-23] MEDS: 0.9 % Sodium Chloride Flush 3 ML SYRINGE IVFLUSH (23:12)
[2023-07-23] MEDS: Morphine Sulfate 4 MG/ML CARTRIDGE 3 MG IVPUSH (23:19)
[2023-07-24] MEDS: metroNIDAZOLE/NS 500 MG/100 ML PIGGYBACK 100 MG IV ×2 (00:18→06:16)
[2023-07-24 03:24] VITALS: BP 105/60; PULSE 70; RESP 18; TEMP 35.9; O2SAT 96
[2023-07-24] MEDS: buPROPion HCL 100 MG TABLET PO (06:16)
[2023-07-24 06:53] LABS: Basophils Percent Auto 0.2 % (0-2); Hematocrit 35.1 % (37.0-47.0); Hemoglobin 11.6 g/dl (12.0-16.0); Imm Gran Abs Auto 0.04 X10*3/uL (0.00-0.03); Imm Gran Pct Auto 0.3 % (0.0-0.4); Lymphocytes Absolute Auto 0.5 X10*3/uL (1.2-4.9); Lymphocytes Percent Auto 4.4 % (20-40); MANUAL DIFF FLAG SCAN; Mean Corpuscular Hemoglobin 29.7 pg (27.0-33.0); Mean Platelet Volume 8.9 fL (9.4-12.3); Monocytes Absolute Auto 0.6 X10*3/uL (0.1-1.2); Monocytes Percent Auto 4.9 % (2-11); Neutrophils Percent Auto 90.2 % (45-73); Platelet Count 242 X10*3/uL (160-400); Red Cell Distribution Width 13.2 % (11.0-16.0); SCAN SMEAR FLAG 1; White Blood Count 12.2 X10*3/uL (4.8-10.8)
[2023-07-24 07:24] VITALS: BP 126/67; PULSE 67; RESP 18; TEMP 36.1; O2SAT 97
[2023-07-24 07:51] LABS: SLIDE REVIEW VERIFIED
[2023-07-24] MEDS: Sertraline HCL 50 MG TABLET PO (08:10)
[2023-07-24] MEDS: Famotidine 20 MG TABLET PO (08:11)
--- NOTE | 2023-07-24 09:05 | P.PNGS_ITS ---
Subjective Subjective Date of Service: 07/24/23 Interval history: Feels well this morning Seems to have adequate pain control No events reported Physical Exam 2 Vital Signs: Vital Signs: Last Vital Signs Temp 96.9 F 07/24/23 07:24 Pulse 67 07/24/23 07:24 Resp 18 07/24/23 07:24 BP 126/67 07/24/23 07:24 Pulse Ox 97 07/24/23 07:24 O2 Del Method Room Air 07/24/23 07:24 BMI result Body Mass Index 22.2 Const: General: comfortable and no acute distress O rientation/consciousness: patient oriented x3 Neck: Neck: Yes no lymphadenopathy Resp: Auscultation: clear to auscultation bilaterally Cardio: Rhythm: regular rhythm GI: Other: Dressings dry on all incisions Palpation (GI): Soft to palpation, Tenderness to palpation present (GI) (Tenderness appropriate to postop course) and no guarding Neuro: General: patient oriented x3 Objective Data Active Medications Acetaminophen/Codeine Phosphate (Acetaminophen With Codeine # 3 Tablet) 2 tab PO Q4H PRN PRN Reason: Pain, Moderate(Pain Scale 4-6) Bupropion HCl (Bupropion Hcl 100 Mg Tablet) 100 mg PO DAILY@0730 [facility] Last Admin: 07/24/23 06:16 Dose: 100 mg Documented By: DANNA Famotidine (Famotidine 20 Mg Tablet) 20 mg PO DAILY [facility] Last Admin: 07/24/23 08:11 Dose: 20 mg Documented By: LEANNE Fentanyl (Fentanyl Citrate/Pf 100 Mcg/2 Ml Vial) 50 mcg IVPUSH Q5M PRN; Protocol PRN Reason: Pain, Severe (Pain Scale 7-10) Levofloxacin (Levaquin) 500 mg in 100 mls @ 100 mls/hr IV Q24H [facility] Last Infusion: 07/24/23 00:22 Dose: Infused Documented By: DANNA Metronidazole (Flagyl) 500 mg in 100 mls @ 100 mls/hr IV Q8H [facility] Last Infusion: 07/24/23 07:38 Dose: Infused Documented By: LEANNE Sodium Chloride (Ns) 1,000 mls @ 100 mls/hr IVCONT .Q10H [facility] Last Admin: 07/23/23 23:07 Dose: 100 mls/hr Documented By: DANNA Morphine Sulfate (Morphine Sulfate 4 Mg/Ml Cartridge) 3 mg IVPUSH Q4H PRN; Protocol PRN Reason: Pain, Severe (Pain Scale 7-10) Last Admin: 07/23/23 23:19 Dose: 3 mg Documented By: DANNA Ondansetron HCl (Ondansetron Hcl 4 Mg/2 Ml Vial) 4 mg IVPUSH ONCE PRN PRN Reason: Nausea and Vomiting Ondansetron HCl (Ondansetron Hcl 4 Mg/2 Ml Vial) 4 mg IVPUSH Q8H PRN PRN Reason: Nausea and Vomiting Sertraline HCl (Sertraline Hcl 50 Mg Tablet) 50 mg PO DAILY [facility] Last Admin: 07/24/23 08:10 Dose: 50 mg Documented By: LEANNE Sodium Chloride (0.9 % Sodium Chloride Flush 3 Ml Syringe) 3 ml IVFLUSH QSHIFT [facility] Last Admin: 07/24/23 08:10 Dose: Not Given Documented By: LEANNE Non-Admin Reason: IV Running Labs 07/24/23 06:23 07/23/23 16:25 Labs: Laboratory Results - last 24 hr 07/23/23 07/23/23 07/23/23 16:25 16:33 17:02 MCV 87.6 MCH 30.1 MCHC 34.3 RDW 13.1 Plt Count 280 MPV 8.9 L Immature Gran % (Auto) 0.5 H Neut % (Auto) 79.2 H Lymph % (Auto) 14.0 L [place] % (Auto) 5.8 Eos % (Auto) 0.4 Baso % (Auto) 0.1 Lymph # (Auto) 1.5 [place] # (Auto) 0.6 Eos # (Auto) 0.0 Baso # (Auto) 0.0 Abs Immat Gran (auto) 0.06 H Absolute Neuts (auto) 8.6 H Absolute Nucleated RBC 0.000 Nucleated RBC % (auto) 0.0 Smear Tech's Comments PT 15.1 H INR 1.2 H APTT 36.8 Anion Gap 12 Estim Creat Clear Calc 110.0 Estimated GFR > 60 Random Glucose 98 Lactic Acid 0.6 Calcium 9.6 Total Bilirubin 0.4 AST 11 ALT 8 Alkaline Phosphatase 64 Total Protein 7.6 Albumin 4.1 Lipase 10 Beta HCG, Quant < 2 Urine Color Yellow Urine Appearance Clear Urine pH 7.0 Ur Specific [place] 1.010 Urine Protein Negative Urine Glucose (UA) Negative Urine Ketones Negative Urine Blood Negative Urine Nitrite Negative Ur Leukocyte Esterase Negative Urine RBC 0-2 Urine WBC 0-5 Ur Squamous Epith Cells 0-2 Urine Bacteria None Seen Hyaline Casts 0-2 Stool Occult Blood COVID-19 (GABRIEL) Negative COVID-19 Clin Com See Note Blood Type O Positive Antibody Screen NEGATIVE 07/23/23 07/24/23 19:01 06:23 MCV 90.0 MCH 29.7 MCHC 33.0 RDW 13.2 Plt Count 242 MPV 8.9 L Immature Gran % (Auto) 0.3 Neut % (Auto) 90.2 H Lymph % (Auto) 4.4 L [place] % (Auto) 4.9 Eos % (Auto) 0.0 Baso % (Auto) 0.2 Lymph # (Auto) 0.5 L [place] # (Auto) 0.6 Eos # (Auto) 0.0 Baso # (Auto) 0.0 Abs Immat Gran (auto) 0.04 H Absolute Neuts (auto) 11.0 H Absolute Nucleated RBC 0.000 Nucleated RBC % (auto) 0.0 Smear Tech's Comments VERIFIED PT INR APTT Anion Gap Estim Creat Clear Calc Estimated GFR Random Glucose Lactic Acid Calcium Total Bilirubin AST ALT Alkaline Phosphatase Total Protein Albumin Lipase Beta HCG, Quant Urine Color Urine Appearance Urine pH Ur Specific [place] Urine Protein Urine Glucose (UA) Urine Ketones Urine Blood Urine Nitrite Ur Leukocyte Esterase Urine RBC Urine WBC Ur Squamous Epith Cells Urine Bacteria Hyaline Casts Stool Occult Blood NEGATIVE COVID-19 (GABRIEL) COVID-19 Clin Com Blood Type Antibody Screen Microbiology Microbiology Results: Microbiology 07/23/23 11:22 Urine Culture - Preliminary Urine clean catch Culture too young to evaluate. 07/23/23 16:25 Blood Culture - Final Blood - Venous Procedures Date of Service Date of Service: 07/24/23 Progress Note: A&P Assessment and plan (1) Acute appendicitis with rupture: Status: Acute Assessment and Plan: Status post laparoscopic appendectomy Clinically doing well No fever WBC elevated, likely postop physiologic stress Diet advanced Possible DC home later today once tolerating diet Will get immigration case worker involved - patient apparently homeless Time Spent With Patient Time: Total time managing care of this patient today ____ minutes. Quality Stroke Does the patient have a stroke diagnosis?: No VTE Prior VTE?: No VTE Risk Level:: Surgical - low VTE Device Contraindication: N/A - Device Ordered VTE Drug Contraindication: Treatment Not Indicated
[2023-07-24] MEDS: ondansetron HCL 4 MG/2 ML VIAL IVPUSH (09:51)
--- NOTE | 2023-07-24 11:28 | MHC.CM.PN ---
Addendum entered by Anjali oS RN 07/24/23 15:02: Correction - ride was not accepted by any screw driver operator. Patient will take shuttle home at 3:20pm. Addendum entered by Anjali So RN 07/24/23 14:39: Patient is medically cleared for dc home self care. Lyft ride scheduled for transportation home. Addendum entered by Anjali So RN 07/24/23 11:34: +[employer] - resource guide provided Original Note: CM met with patient at bedside. Patient's girlfriend present, verbal consent received to speak in front of girlfriend. Patient reports she resides at [facility] in [place] with her 4 year old daughter, where she has her own apartment and a case consultant is available to her. Functionally independent. No DME. PCP: [facility], cannot recall provider's name HCP: CM provided education and assisted in completing. Patient named agents 1) Syed Winston (brother) [phone] 2) Chary Mcdaniel (mother) [phone] Patient requesting note from surgery allowing her girlfriend to stay in alf with her to assist while recovering from lap appy. Per Dr. Fisher only restriction is no lifting > 30lbs, and does not feel this is necessary. Patient informed. DP: Home self care, likely later today. Patient will need Lyft home. CM will continue to follow.
--- NOTE | 2023-07-24 14:37 | HO.POSTANES ---
Post Anesthesia Evaluation Post Anesthesia Evaluation Date of Service: 07/24/23 Vital Signs: Vital Signs Temp Pulse Resp BP Pulse Ox O2 Del Method 07/24/23 07:24 96.9 F 67 18 126/67 97 Room Air 07/24/23 03:24 96.6 F L 70 18 105/60 96 Room Air Anesthesia: General Endotracheal-GETA Mental Status: Awake Pain Control: Satisfactory Nausea/Vomiting: None Hydration: Adequate Anesthesia-Related Issues: No Anes. Related Issues
--- NOTE | 2023-07-25 13:18 | P.DS_ITS ---
DS: Providers Provider Date of Service: 07/23/23 Date of admission: 07/23/23 18:59 Date of discharge: 07/24/23 Primary care physician: Fani Calloway NP Attending physician on admission: Luna Lee Attending physician on discharge: Benji Fisher DS: Diagnosis Discharge Diagnosis (1) Acute appendicitis with rupture: Status: Acute DS: Summary Hospital Course Hospital Course: HPI AT ADMISSION: Evonne Zapata is a 37 year old female who has for the last 3 days been having abdominal pain nausea vomiting and some diarrhea and then fevers and chills. The pain was generalized but now isolated to the right lower quadrant and she came to the emergency room where workup revealed inflammatory changes in the right lower quadrant consistent with appendicitis maybe perforated appendicitis with appendicolith present. White count is normal at 10 but she is very tender in the right lower quadrant. She has never had pain like this before no sick contacts. Generally she has been relatively healthy. Her previous surgery has consisted of some cervical procedure of her uterus. She has had issues with alcohol abuse in the past but has been sober now for the last 5 months she says. HOSPITAL COURSE: She was admitted to the surgical service for further treatment of the acute appendicitis. It was recommended to proceed with laparoscopic possible open appendectomy. She was added onto the OR schedule for that day. On 07/23/23, a laparoscopic appendectomy was performed by Dr. Lee without immediate complication. There was significant inflammatory fibrous changes of the lateral abdominal wall and surrounding tissue. She was continued on IV levaquin and flagyl post operatively given the concern for perforation. The patient had an uncomplicated recovery course. On POD #1, she felt well with good pain control. She was tolerating a solid diet. Her abdomen was benign with clean dressings and appropriate post op tenderness. She was ambulating without difficulty. She was reassessed later in the day and felt ready for discharge to home. She was discharged to home on 07/24/23 in stable condition on a PO levaquin/flagyl course. She is to follow up in the office in [address] Harvey galvin. Status at Discharge Functional status at discharge: independent ambulation Time Attestation Discharge coordination time: Less than 30 minutes Quality: Safe Use of Opioids Does Pt have an Active Cancer Diagnosis on the Problem List?: No Quality: Stroke Does the patient have a stroke diagnosis?: No Physical Exam Vital Signs: Vital Signs: Last Vital Signs Temp 96.9 F 07/24/23 07:24 Pulse 67 07/24/23 07:24 Resp 18 07/24/23 07:24 BP 126/67 07/24/23 07:24 Pulse Ox 97 07/24/23 07:24 O2 Del Method Room Air 07/24/23 07:24 BMI result Body Mass Index 22.2 Const: General: comfortable, no acute distress and alert Orientation/c onsciousness: patient oriented x3 GI: Inspection: No distended and Yes incision (dressings intact) Palpation (GI): Soft to palpation and not firm Skin: General skin exam: no rashes or lesions noted Neuro: General: patient oriented x3 DS: Data Data Completed and Pending Pending studies at discharge: Pending at discharge 07/23/23 21:56 Surgical [PTH] Routine Labs on day of discharge: Preliminary micro results at discharge 07/24/23 06:23 Blood Culture - Preliminary Blood - Venous No growth after 24 hours. 07/23/23 16:25 Blood Culture - Preliminary Blood - Venous No growth after 24 hours. 07/23/23 16:25 Blood Culture - Preliminary Blood - Venous No growth after 24 hours. Discharge Plan Discharge Anticipated Discharge Date/Time: 07/24/23 15:01 Patient Disposition: Home, Self-Care Discharge Diagnosis: s/p laparoscopic appendectomy Referrals: [facility] [Physician] - 1 Week Benji Fisher MD [Physician] - 2 Weeks Discharge Medications: New metronidazole 500 mg tablet 500 mg PO TID Qty: 21 0RF levofloxacin 500 mg tablet 500 mg PO DAILY Qty: 7 0RF tramadol 50 mg tablet 50 mg PO Q6H PRN (Reason: pain) Qty: 30 0RF Rx Instructions: 1-2 tabs every 6 hours as needed for pain Continued multivitamin Tablet 1 tab PO QAM doxepin 25 mg capsule 25 mg PO BEDTIME bupropion HCl 100 mg tablet sustained-release 12 hr 100 mg PO QAM famotidine 20 mg tablet 20 mg PO DAILY sertraline 50 mg tablet 50 mg PO DAILY Discharge Orders: Discharge Order (Routine); Ordered 07/24/23 Ordered By: Benji Fisher Diet: Advance to usual diet Activity on Discharge: No heavy lifting Stand Alone Forms: Patient Portal Discharge page Activity Restrictions/Additional Instructions: If the incision area is tender, you may apply an ice pack for short intervals (No more than 20 minutes on, followed by at least 20 minutes off). Do not apply heat. Do not use creams, lotions, or topical antibiotics. These can cause infection or allergic reaction. Ok to shower. Remove clear dressings 3 days following your procedure. You have steri strips (small white cloth strips) covering your incision- these will fall off ~1 week. No heavy lifting (>10lbs) or strenuous activity! Follow up in office with Dr. Fisher in 2 weeks. ([phone]) Call Your Doctor If: -Your temperature exceeds 101.5? F -You experience excessive pain or swelling -You have an unexpected reaction to medication -You have excessive bleeding -You experience continued vomiting/nausea -Your incision begins to separate -Your incision shows signs of infection such as increased redness, swell ing, excessive pain, drainage (light blood or clear fluid is normal) or heat Care Plan Goals: Return to baseline health and resume normal activities following recovery period. Health Concerns: acute perforated appendicitis Plan of Treatment: s/p lap jaimey f/u in office in 2 weeks Assessment: Doing well post op. Discharge Date/Time: 07/24/23 15:00
== END 2023-07-24 15:00 | disposition home or self-care (01) | DRG 233 ==
LOC: HO.ED 18:48 → HO.SSS 19:03 → HO.EDOVER 19:07 → HO.S3 22:19
PROVIDERS: Physician Assistant; Absent Provider Surgery; Admitting Provider Surgery; Emergency Provider Emergency Medicine Emergency Medical Services; PCP Nurse Practitioner Family; Visit Provider Physician Assistant Medical
PROC: 0DTJ4ZZ Resection of Appendix, Percutaneous Endoscopic Approach (ICD-10-PCS; CPT 44970; principal; 2023-07-23 19:30)
DX: K35.32 Acute appendicitis with perforation, localized peritonitis, and gangrene, without abscess (principal); F10.11 Alcohol abuse, in remission; K38.1 Appendicular concretions; Z20.822 Contact with and (suspected) exposure to COVID-19; Z59.01 Sheltered homelessness; Z79.899 Other long term (current) drug therapy
CPT/HCPCS: 44970; 36415; 80053; 81001; 82272; 83605; 83690; 84702; 85025; 85610; 85730; 86850; 86900; 86901; 87040; 87086; 87635; 88304; 93005; 99285; J0131; J1100; J1836; J1885; J1956; J2250; J2270; J2405; J2704; J3010

== ENCOUNTER → 2023-07-23 15:27 | Outpatient (BNV) | payer MEDICAID, SELFPAY | PROVIDERS: Absent Provider Surgery; Admitting Provider Surgery; Emergency Provider Emergency Medicine Emergency Medical Services; Visit Provider Internal Medicine Cardiovascular Disease | DX: K35.32 Acute appendicitis with perforation, localized peritonitis, and gangrene, without abscess (principal); R10.84 Generalized abdominal pain | CPT/HCPCS: 93010 ==

== ENCOUNTER → 2023-07-23 18:46 | Outpatient (BNV) | payer MEDICAID, SELFPAY | PROVIDERS: Emergency Provider Emergency Medicine Emergency Medical Services; Visit Provider Surgery | DX: K35.32 Acute appendicitis with perforation, localized peritonitis, and gangrene, without abscess (principal) | CPT/HCPCS: 44970; 99024; 99222 ==

== ENCOUNTER 2023-08-06 12:47 | Outpatient (AMB) | payer MEDICAID, SELFPAY ==
--- NOTE | 2023-08-06 12:50 | A.OFFVIS_ITS ---
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 She states numbness and pain has been present for years with her left hand being the worse. Her pain is worse at night and difficulty with lifting items, states her hands go numb. 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 Hx of arthritis in hands. No previous tx. 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 While in the office today the patient reports her numbness and pain have been present for years. She states her left hand is worse then her right hand. She reports the pain is worse at night. She states difficultly lifting items and reports this causes her hands to go numb. 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 She confirms a history of arthritis. She denies any prior treatment. [facility] Medical History (Updated 08/06/23 @ 13:12 by Marizol Phelps PA-C) Acute appendicitis with rupture (07/23/23) Surgical History (Updated 08/06/23 @ 12:55 by DILIA Carroll) Hx of appendectomy Social History (Updated 08/06/23 @ 12:57 by DILIA Carroll) Household Members: Children Housing: Other Housing Other:: long-term Do you presently have visiting nurse or other home services: No Alcohol intake: current Alcohol intake frequency: 0-2 drinks per day Alcohol type: hard liquor Patient Tobacco Use Status: Never used Tobacco Substance Use Type: Marijuana service: No Current occupational status: unemployed Current occupation: right hand dominant Review of Systems Const All systems reviewed & are unremarkable except as noted in HPI and below Physical Exam Const General: cooperative and no acute distress Orientation/consciousness: patient oriented x3 Resp Effort & Inspection: normal respiratory effort and able to speak in complete sentences Cardio Peripheral pulses: Peripheral pulses 2+ throughout Skin General skin exam: no rashes or lesions noted Neuro General: patient oriented x3 Extrem Other: Bilateral hands: Normal to inspection. No ecchymosis, erythema, or edema. Able to perform full finger flexion, extension, abduction, adduction, finger cross, okay sign, and thumbs up without deficit. Able to make a closed fist. Negative Tinel?s at the carpal tunnel. Positive Phalen?s. Sensation intact. Capillary refill is brisk. Radial pulse intact. Assessment & Plan Assessment & Plan (1) Bilateral carpal tunnel syndrome: Code(s): G56.03 - Carpal tunnel syndrome, bilateral upper limbs Plan Ms. Zapata is a 37-year-old right hand dominant female who presents in the office today, as a new patient, for an evaluation of bilateral hand numbness. While in the office today the patient reports her numbness and pain have been present for years. She states her left hand is worse then her right hand. She reports the pain is worse at night. She states difficultly lifting items and reports this causes her hands to go numb. 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 She confirms a history of arthritis. She denies any prior treatment. The patient will be referred for an EMG study to further evaluate the numbness in her bilateral hands. Follow up will be after the EMG is obtained with Dr. Evy mcgee to discuss possible surgical intervention, or sooner if needed. Orders: Orders NE electromyogram (EMG) Today G56.03 - Carpal tunnel syndrome, bilateral upper limbs Patient Instructions: Scribed by Dena Pal medical advisor, for Marizol Phelps PA-C on 08/06/2023 at 12:50 pm, EST. Coding Level of Care Code New Pt Level 4 (66108) Diagnoses Bilateral carpal tunnel syndrome G56.03
== END 2023-08-06 13:09 | disposition home or self-care (01) ==
PROVIDERS: Visit Provider Physician Assistant
DX: G56.03 Carpal tunnel syndrome, bilateral upper limbs (principal)
CPT/HCPCS: 99204

== ENCOUNTER → 2023-08-06 12:47 | Outpatient (BNVA) | payer MEDICAID, SELFPAY | PROVIDERS: Visit Provider Physician Assistant | DX: G56.03 Carpal tunnel syndrome, bilateral upper limbs (principal) | CPT/HCPCS: 99212 ==

== ENCOUNTER 2023-08-14 13:58 | Outpatient (AMB) | payer MEDICAID, SELFPAY ==
[2023-08-14 14:06] VITALS: BP 139/79; PULSE 72
--- NOTE | 2023-08-14 14:06 | A.OFFVIS_ITS ---
Intake Vital Signs 08/14/23 14:06 Weight 148 lb BP 139/79 Blood Pressure Location Rt brachial Position Sitting Pulse 72 Intake Visit Reasons: S/p appendectomy-Dr. Lee pt Intake Note: Patient here s/p appendectomy by Dr. Lee on 07-23-23. Reports incisions healing well. Patient c/o: bad odor from right axilla that started after surgery. No longer taking rx pain meds. Store Stock Help Required: No Accompanied by: Self / Same As Patient Allergies amoxicillin Allergy (Verified 08/14/23 14:07) Rash oxycodone [From Percocet] Allergy (Verified 08/14/23 14:07) Vomiting HPI HPI Comments History of Present Illness Details Status post appendectomy by Dr. Lee approximately 2 weeks ago. Patient is tolerating a diet. Having regular bowel habits. She is increasing her activity level. She is minimal incisional discomfort. [facility] Medical History Acute appendicitis with rupture (07/23/23) Surgical History Hx of appendectomy Social History Household Members: Children Housing: Other Housing Other:: [facility]dc Do you presently have visiting nurse or other home services: No Alcohol intake: current Alcohol intake frequency: 0-2 drinks per day Alcohol type: hard liquor Patient Tobacco Use Status: Never used Tobacco Substance Use Type: Marijuana service: No Current occupational status: unemployed Current occupation: right hand dominant Physical Exam Vital Signs: Last Vital Signs Pulse 72 08/14/23 14:06 BP 139/79 08/14/23 14:06 GI Other: Abdomen soft. All wounds clean dry and intact healing uneventfully. Benign abdomen. Assessment & Plan Assessment & Plan (1) Status post appendectomy: Code(s): Z90.49 - Acquired absence of other specified parts of digestive tract Plan Patient has been given local instructions, and will follow-up p.r.n.. All questions answered. Coding Level of Care Code New Pt Level 4 (88805) Diagnoses Status post appendectomy Z90.49
== END 2023-08-14 14:09 | disposition home or self-care (01) ==
PROVIDERS: PCP Nurse Practitioner Family; Visit Provider Surgery
DX: Z90.49 Acquired absence of other specified parts of digestive tract (principal)
CPT/HCPCS: 99024

== ENCOUNTER → 2023-08-14 13:58 | Outpatient (BNVA) | payer MEDICAID, SELFPAY | PROVIDERS: PCP Nurse Practitioner Family; Visit Provider Surgery | DX: Z90.49 Acquired absence of other specified parts of digestive tract (principal) | CPT/HCPCS: 99212 ==

== ENCOUNTER 2023-09-13 14:26 | Outpatient (REF) | payer MEDICAID, SELFPAY ==
--- NOTE | 2023-09-13 14:28 | EMG_ITS ---
Chief complaint: Right worse than left hand numbness, affecting smaller fingers more Reason for referral: Evaluate for ulnar neuropathy versus Carpal Tunnel Syndrome Referred by: Marizol VALADEZ Procedure done: Bilateral upper extremities NCS/EMG Precautions and/or limitations: None The limb temperature was monitored continuously and remained between 32-36 degrees C during the performance of the NCS. Ulnar motor NCS was performed with moderate elbow flexion between 70-90 degrees, with across-elbow distance of 10 cm. Nerve Conduction Studies Anti Sensory Summary Table ?Stim Site NR Onset (ms) Norm Onset (ms) Peak (ms) Norm Peak (ms) O-P Amp (?V) Norm O-P Amp Site1 Site2 Delta-0 (ms) Dist (cm) Aryan (m/s) Norm Aryan (m/s) Left Median Anti Sensory (2nd Digit) Wrist ? 2.2 2.7 <3.6 34.5 >10 Wrist 2nd Digit 2.2 14.0 64 Right Median Anti Sensory (2nd Digit) Wrist ? 2.4 3.3 <3.6 15.1 >10 Wrist 2nd Digit 2.4 14.0 58 Right Radial Anti Sensory (Thumb) Forearm ? 1.5 2.2 <3.1 29.2 Forearm Thumb 1.5 0.0 Left Ulnar Anti Sensory (5th Digit) Wrist ? 2.6 3.2 <3.7 26.1 >15.0 Wrist 5th Digit 2.6 14.0 54 Right Ulnar Anti Sensory (5th Digit) Wrist ? 2.7 3.3 <3.7 17.1 >15.0 Wrist 5th Digit 2.7 14.0 52 Motor Summary Table ?Stim Site NR Onset (ms) Norm Onset (ms) O-P Amp (mV) Norm O-P Amp iAmp (mV) Amp (1st) (%) Site1 Site2 Delta-0 (ms) Dist (cm) Aryan (m/s) Norm Aryan (m/s) Left Median Motor (Abd Poll Brev) Wrist ? 2.9 <3.9 9.1 >4.5 10.6 100.0 Elbow Wrist 3.7 20.0 54 >45 Elbow ? 6.6 8.0 9.3 87.9 Right Median Motor (Abd Poll Brev) Wrist ? 3.4 <3.9 7.6 >4.5 9.4 100.0 Elbow Wrist 3.6 20.0 56 >45 Elbow ? 7.0 7.7 9.6 101.3 Left Ulnar Motor (Abd Dig Minimi) Wrist ? 2.6 <3.0 10.5 >5 12.7 100.0 B Elbow Wrist 3.0 20.0 67 >45 B Elbow ? 5.6 10.5 12.8 100.0 A Elbow B Elbow 1.7 10.0 59 >45 A Elbow ? 7.3 10.3 12.6 98.1 Right Ulnar Motor (Abd Dig Minimi) Wrist ? 3.0 <3.0 12.8 >5 17.4 100.0 B Elbow Wrist 3.4 18.5 54 >45 B Elbow ? 6.4 12.4 17.1 96.9 A Elbow B Elbow 1.3 10.0 77 >45 A Elbow ? 7.7 12.5 16.8 97.7 EMG ?Side Muscle Nerve Root Ins Act Fibs Psw Amp Dur Poly Recrt Int Pat Comment Right 1stDorInt Ulnar C8-T1 Nml Nml Nml Nml Nml 0 Nml Complete Right FlexCarRad Median C6-7 Nml Nml Nml Nml Nml 0 Nml Complete Right Biceps Musculocut C5-6 Nml Nml Nml Nml Nml 0 Nml Complete Right Triceps Radial C6-7-8 Nml Nml Nml Nml Nml 0 Nml Complete Right Deltoid Axillary C5-6 Nml Nml Nml Nml Nml 0 Nml Complete Left 1stDorInt Ulnar C8-T1 Nml Nml Nml Nml Nml 0 Nml Complete Left FlexCarRad Median C6-7 Nml Nml Nml Nml Nml 0 Nml Complete Left Biceps Musculocut C5-6 Nml Nml Nml Nml Nml 0 Nml Complete Left Triceps Radial C6-7-8 Nml Nml Nml Nml Nml 0 Nml Complete Left Deltoid Axillary C5-6 Nml Nml Nml Nml Nml 0 Nml Complete FINDINGS: All motor and sensory nerves tested showed normal latencies, amplitudes and conduction velocities. Concentric needle EMG was performed in selected muscles of the upper extremity. Study did not reveal signs of electric abnormalities as shown in the table below. IMPRESSION: 1. This is a normal study. 2. There is no electrodiagnostic evidence for median neuropathy, ulnar neuropathy, brachial plexopathy, or cervical radiculopathy. Thank you for your kind referral. Linda Venegas MD, ZOE Board Certified, [place] [employer] and Rehabilitation (ABPMR) Board Certified, [place] Board of Electrodiagnostic Medicine (ABEM) CODIN 94648 x 2 MTDD
== END 2023-09-13 14:27 | disposition home or self-care (01) ==
LOC: HO.NEURO 14:26
PROVIDERS: PCP Nurse Practitioner Family; Visit Provider Physician Assistant
DX: G56.03 Carpal tunnel syndrome, bilateral upper limbs (principal)
CPT/HCPCS: 95886; 95911

== ENCOUNTER → 2023-09-13 14:28 | Outpatient (BNV) | payer MEDICAID, SELFPAY | PROVIDERS: PCP Nurse Practitioner Family; Visit Provider Physical Medicine & Rehabilitation | DX: M79.641 Pain in right hand (principal); M79.642 Pain in left hand; R20.2 Paresthesia of skin | CPT/HCPCS: 95886; 95911 ==

== ENCOUNTER 2023-10-18 14:25 | Outpatient (REF) | payer MEDICAID, SELFPAY ==
[2023-10-18 16:10] LABS: MANUAL DIFF FLAG NO
[2023-10-18 16:22] LABS: Basophils Percent Auto 0.3 % (0-2); Eosinophils Absolute Auto 0.1 X10*3/uL (0.0-0.4); Eosinophils Percent Auto 1.2 % (0-4); Hematocrit 41.3 % (37.0-47.0); Hemoglobin 13.9 g/dl (12.0-16.0); Imm Gran Abs Auto 0.02 X10*3/uL (0.00-0.03); Imm Gran Pct Auto 0.3 % (0.0-0.4); Lymphocytes Absolute Auto 2.3 X10*3/uL (1.2-4.9); Lymphocytes Percent Auto 28.8 % (20-40); Mean Corpuscular HGB Conc 33.7 g/dl (31.0-35.0); Mean Platelet Volume 9.3 fL (9.4-12.3); Monocytes Absolute Auto 0.5 X10*3/uL (0.1-1.2); Neutrophils Percent Auto 63.4 % (45-73); Platelet Count 333 X10*3/uL (160-400); Red Blood Count 4.49 X10*6/uL (4.20-5.50); Red Cell Distribution Width 14.1 % (11.0-16.0); White Blood Count 7.8 X10*3/uL (4.8-10.8)
[2023-10-18 17:08] LABS: Ferritin 17 ng/mL (10-122)
== END 2023-10-18 14:26 | disposition home or self-care (01) ==
LOC: HO.HHCL 14:25
PROVIDERS: Visit Provider Registered Nurse
DX: R42 Dizziness and giddiness (principal)
CPT/HCPCS: 36415; 82728; 85025

== ENCOUNTER 2023-11-19 13:41 | Outpatient (REF) | payer MEDICAID, SELFPAY ==
[2023-11-19 16:34] LABS: Anion Gap 10 (12-20); Blood Urea Nitrogen 12 mg/dL (9-16); Calcium 9.6 mg/dL (8.4-10.2); Carbon Dioxide 27 mmol/L (22-29); Chloride 106 mmol/L (96-108); Estimated Glomerular Filt Rate > 60; Glucose Random 95 mg/dL (60-115); Potassium 3.8 mmol/L (3.3-5.1); Sodium 139 mmol/L (135-145)
[2023-11-19 16:44] LABS: HCG Quantitative < 2 mIU/mL; TSH reflex Free T4 0.72 uIU/mL (0.32-4.0)
== END 2023-11-19 13:42 | disposition home or self-care (01) ==
LOC: HO.HHCL 13:41
PROVIDERS: Visit Provider Nurse Practitioner Primary Care
DX: R42 Dizziness and giddiness (principal)
CPT/HCPCS: 36415; 80048; 84443; 84702

== ENCOUNTER 2024-03-16 14:00 | Outpatient (REF) | payer MEDICAID, SELFPAY ==
[2024-03-16 17:36] LABS: HCG Quantitative < 2 mIU/mL
[2024-03-16 18:20] LABS: CT PCR NOT DETECTED (Not Detect.); NG PCR NOT DETECTED (Not Detect.)
[2024-03-17 08:20] LABS: HIV AB/AG Nonreactive (Nonreactive); HIV Num 1 0.04 S/CO (0.00-0.99); ~HepC Num1 0.16 S/CO (0.00-0.79); ~Hepatitis C Antibody Nonreactive (Nonreactive)
[2024-03-17 13:12] LABS: Bacterial Vaginosis PCR POSITIVE (Negative); Candida Group PCR NOT DETECTED (Not Detect); Candida glab krusei PCR NOT DETECTED (Not Detect); Trichomonas vaginalis PCR NOT DETECTED (Not Detect)
[2024-03-18 11:14] LABS: RPR Rapid Plasma Reagin NON-REACTIVE (NON-REACTIVE)
== END 2024-03-16 14:01 | disposition home or self-care (01) ==
LOC: HO.HHCL 14:00
PROVIDERS: Visit Provider Nurse Practitioner Family
DX: N89.8 Other specified noninflammatory disorders of vagina (principal)
CPT/HCPCS: 0352U; 36415; 84702; 86592; 86803; 87389; 87491; 87591

== ENCOUNTER 2024-03-24 16:29 | Outpatient (REF) | payer MEDICAID, SELFPAY ==
[2024-03-27 07:38] LABS: HPV mRNA E6/E7 Not Detected (Not Detected)
== END 2024-03-24 16:30 | disposition home or self-care (01) ==
LOC: HO.HHCLNP 16:29
PROVIDERS: Visit Provider Advanced Practice Midwife
DX: Z12.4 Encounter for screening for malignant neoplasm of cervix (principal)
CPT/HCPCS: 36415; 87624; 88175

== ENCOUNTER 2024-04-09 07:41 | Emergency (ER) | payer MEDICAID, SELFPAY ==
[2024-04-09 07:49] VITALS: BP 106/74; PULSE 83; RESP 16; TEMP 36.5; O2SAT 99; BMI 22.0
--- NOTE | 2024-04-09 08:28 | PC.NURSE ---
Patient reports has been sick x1 week. Reports cough, sob, nasal congestion, coughing up green sputum. Reports body aches, nausea, and chills, and diarrhea
[2024-04-09 08:38] LABS: IDNOW Serial# 08D9AD1C; Strep A Nucleic Acid Negative (Negative)
--- NOTE | 2024-04-09 08:45 | ED.GENADULT ---
HPI - General Adult General Chief complaint: General Medical Stated complaint: Asthma/Fever/Cough/R eye issue Time Seen by Provider: 04/09/24 08:19 Source: patient Mode of arrival: ambulatory Limitations: no limitations History of Present Illness ED Provider: [place] narrative: 38 yo female with PMH of asthma, ETOH disorder in recovery here with c/o cough, congestions, fevers, headaches x 1 week. No travel, no known sick contacts has been using her friends INH with some relief. She has not been on any therapy other than cold medications. MD complaint: URI Onset (ago): week(s) (1) Location: chest Radiation: non-radiation Severity: moderate Pain Consistency: constant Relieving factors: none Exacerbating factors: other (exertion) Associated symptoms: cough, fever/chills, headaches and loss of appetite Related Data Home Medications ?Medication ?Instructions ?Recorded ?Confirmed bupropion HCl 100 mg tablet,12 hr 100 mg PO QAM 07/23/23 07/23/23 sustained-release doxepin 25 mg capsule 25 mg PO BEDTIME 07/23/23 07/23/23 famotidine 20 mg tablet 20 mg PO DAILY acid reflux 07/23/23 07/23/23 multivitamin 1 tab PO QAM 07/23/23 07/23/23 sertraline 50 mg tablet 50 mg PO DAILY 07/23/23 07/23/23 Previous Rx's ?Medication ?Instructions ?Recorded albuterol sulfate 90 mcg/actuation 2 puff inhalation QID PRN 04/09/24 aerosol inhaler shortness of breath or wheezing #6.7 grams azithromycin 250 mg tablet See Rx Instructions PO .COMPLEX #6 04/09/24 tabs prednisone 20 mg tablet 40 mg (2 x 20 mg) PO DAILY 4 days 04/09/24 #8 tabs Allergies Allergy/AdvReac Type Severity Reaction Status Date / Time amoxicillin Allergy Rash Verified 04/09/24 07:51 oxycodone [From Percocet] Allergy Vomiting Verified 04/09/24 07:51 Review of Systems Review of Systems: Constitutional : pos Fever, No Chills ENT/Mouth : No Hoarseness, pos sore throat, pos Rhinorrhea Eyes: No Redness, No Discharge, No Vision Changes Cardiovascular : No Chest Pain, positive SOB, positive Dyspnea on Exertion Respiratory : positive Cough, No Sputum, positive Wheezing, Gastrointestinal : No Nausea, No Vomiting, No Diarrhea, No abdominal Pain Genitourinary : No Dysuria, No Hematuria Musculoskeletal : No joint pain, No Myalgias Skin : No rash Neuro : No Weakness, No Numbness, No Headache Psych : No anxiety, depression All other systems reviewed and are negative [facility] Past Medical History Attestation statement: The following information was validated with the patient. Source: old records reviewed Medical History Acute appendicitis with rupture (07/23/23) Surgical History Hx of appendectomy Social History Social History Household Members: Children Housing: Other Housing Other:: [facility] Do you presently have visiting nurse or other home services: No Alcohol intake: former Patient Tobacco Use Status: Never used Tobacco Smoked in Last 30 Days: Yes Use of substances other than those prescribed or required for medical reasons: No Substance Use Type: Marijuana Advance Directives: No Advance Directives Information Provided: No Do you have a plan to hurt others: No Plan service: No Current occupational status: unemployed Current occupation: right hand dominant Physical Exam ED Vital Signs: Vital Signs - 24 hr 04/09/24 07:49 Temperature 97.7 F Pulse Rate 83 Respiratory Rate 16 Blood Pressure 106/74 Pulse Oximetry 99 Oxygen Delivery Method Room Air BMI result Body Mass Index 22.0 Appearance: Alert. Oriented X3. No acute distress. Eyes: Pupils equal, round and reactive to light. ENT: Pharynx normal. rhonchi noted on exam anteriorly Neck: Normal inspection. Neck supple. CVS: Normal heart rate and rhythm. Pulses normal. Respiratory: No respiratory distress. Breath sounds normal. Abdomen: Soft and nontender. Skin: Skin warm and dry. Normal skin color. Normal skin turgor. Extremities: No lower extremity edema. No calf ttp Neuro: Oriented X 3. No motor deficit. No sensory deficit. Course Course Course Narrative: offered CXR but then patient told radiography technician she might be and then asked for US declined UPT and serum HCG she can follow up with her OBGYN for US this is not necessary today she has not reported pain or vag bleeding she is refusing CXR will have to treat as presumptive with PO abx and steroids/INH Medications Administered Discontinued Medications Generic Name Dose Route Start Last Admin Trade Name Antonella PRN Reason Stop Dose Admin Albuterol Sulfate 2 puff 04/09/24 08:35 04/09/24 08:50 Albuterol Sulfate 90 Mcg 8 Gm Inhaler INHALE 04/09/24 08:36 2 puff ONCE ONE Administration Prednisone 40 mg 04/09/24 08:35 04/09/24 08:49 Prednisone 20 Mg Tablet PO 04/09/24 08:36 40 mg ONCE ONE Administration Medical Decision Making Medical Decision Making [facility] Narrative: 38 yo female with PMH of asthma, ETOH use disorder here with c/o URI symptoms x 1 week just not getting better at this time will obtain viral panel, strep swab, CXR for pneumonia although likely bronchitis - given INH, start on steroids and possible zpak given chronicity of the illness and suspicion of bronchitis Differential Diagnosis Differential Diagnoses: The differential diagnosis associated with the presentation includes URI, bronchitis, viral syndrome, pneumonia Admission/Observation Consideration of admission/observation: Escalation of care including admission/observation considered no hypoxia tolerating PO stable for DC Lab Data [facility] Lab Attestation statement: I reviewed the patient's lab results. Labs: Lab Results 04/09/24 Range/Units 08:07 Influenza Type A (PCR) NEGATIVE (Negative) Influenza Type B (PCR) NEGATIVE (Negative) RSV RNA Qual (PCR) NEGATIVE (Negative) SARS-CoV-2 RNA (RT-PCR) NEGATIVE (Negative) S. pyogenes GrpA WARNER Negative (Negative) Prescription Management I considered prescription management with: Antibiotic and Other Discharge Plan Discharge Clinical Impression: Bronchitis Patient Disposition: Home, Self-Care Instructions: Acute Bronchitis (ED) Additional Instructions: negative for flu, covid, rsv negative for strep will treat as presumed bronchitis start next dose of prednisone tomorrow return for any worsening symptoms or concerns please folllow up with your OBGYN Prescriptions: New azithromycin 250 mg tablet See Rx Instructions .ROUTE .COMPLEX Qty: 6 0RF Rx Instructions: For 250 mg dose pack: take 500 mg today (day 1), then 250 mg for 4 days (days 2-5) prednisone 20 mg tablet 40 mg PO DAILY 4 Days Qty: 8 0RF albuterol sulfate 90 mcg/actuation HFA aerosol inhaler 2 puff inhalation QID PRN (Reason: shortness of breath or wheezing) Qty: 6.7 0RF No Action multivitamin Tablet 1 tab PO QAM doxepin 25 mg capsule 25 mg PO BEDTIME bupropion HCl 100 mg tablet sustained-release 12 hr 100 mg PO QAM famotidine 20 mg tablet 20 mg PO DAILY sertraline 50 mg tablet 50 mg PO DAILY Referrals: [facility] Women's Services [Provider Group] Print Language: Georgian
[2024-04-09] MEDS: predniSONE 20 MG TABLET 40 MG PO (08:49)
[2024-04-09] MEDS: Albuterol Sulfate 90 MCG 8 GM INHALER 2 PUFF INHALE (08:50)
[2024-04-09 08:59] LABS: Influenza A PCR NEGATIVE (Negative); Influenza B PCR NEGATIVE (Negative); Resp Syncy Virus RNA Qual PCR NEGATIVE (Negative); SARS COV2 PCR INHOUSE NEGATIVE (Negative)
[2024-04-09 09:22] VITALS: BP 106/74; PULSE 83; RESP 18; TEMP 36.5; O2SAT 99
== END 2024-04-09 09:22 | disposition home or self-care (01) ==
PROVIDERS: Emergency Provider Emergency Medicine; PCP Nurse Practitioner Family
DX: J40 Bronchitis, not specified as acute or chronic (principal); R50.9 Fever, unspecified; R05.9 Cough, unspecified; R51.9 Headache, unspecified; Z20.818 Contact with and (suspected) exposure to other bacterial communicable diseases
CPT/HCPCS: 0241U; 87651; 99284

== ENCOUNTER 2024-04-24 13:25 | Outpatient (REF) | payer MEDICAID, SELFPAY ==
--- NOTE | ~2024-04-24 | US_ITS ---
EXAMINATION: US PELVIS CLINICAL INFORMATION: Right lower quadrant pain. Ovarian cysts. COMPARISON: Most recent CT abdomen/pelvis dated 07/23/2023 and pelvic ultrasound dated 10/07/2022. TECHNIQUE: Ultrasound of the pelvis is performed using both transabdominal and transvaginal transducers along with Doppler. Transvaginal imaging is performed due to inadequate visualization transabdominally. FINDINGS: UTERUS: The uterus is anteverted and measures 7.2 x 3.1 x 4.6 cm. The double wall endometrial thickness is 0.7 cm. The uterus is smooth in contour and has normal myometrial echogenicity. No visible fibroid. ADNEXA: Both ovaries are visualized. There is normal color flow to the adnexa. There is no ovarian torsion. There is no pelvic ascites or fluid collection. Right ovary measures 2.9 x 1.7 x 1.9 cm. Volume of 5 mL. Left ovary measures 3.3 x 1.6 x 1.6 cm. Volume of 4.3 mL. Simple left ovarian cyst measuring up to 1.8 cm, consistent with a dominant follicle. Findings are not clinically significant and no dedicated follow-up imaging is recommended. US/US pelvic and transvaginal IMPRESSION: Unremarkable examination. Electronically signed by: Rufino Moreno MD 04/24/2024 05:14 PM EDT
== END 2024-04-24 13:26 | disposition home or self-care (01) ==
LOC: HO.US 13:25
PROVIDERS: PCP Nurse Practitioner Family; Visit Provider Advanced Practice Midwife
DX: R10.2 Pelvic and perineal pain (principal)
CPT/HCPCS: 76830; 76856

== ENCOUNTER 2024-05-27 07:01 | Emergency (ER) | payer MEDICAID, SELFPAY ==
--- NOTE | ~2024-05-27 | XR_ITS ---
EXAMINATION: XR CHEST CLINICAL INFORMATION: chest pain COMPARISON: None available. TECHNIQUE: 2 views of the chest were obtained. FINDINGS: No consolidation, pleural effusion or pneumothorax. Hyperinflated lungs. Cardiomediastinal silhouette is normal. Osseous structures are intact. Mild multilevel thoracic spondylosis. XR/XR chest 2V IMPRESSION: No acute airspace disease. Electronically signed by: Miguel Boyer MD 05/27/2024 12:50 PM [facility] [place]
--- NOTE | 2024-05-27 07:02 | ECG_ITS ---
Test Reason : CHEST PAIN Blood Pressure : / mmHG Vent. Rate : 074 BPM Atrial Rate : 074 BPM P-R Int : 160 ms QRS Dur : 084 ms QT Int : 404 ms P-R-T Axes : 074 068 051 degrees QTc Int : 448 ms Normal sinus rhythm with sinus arrhythmia Normal ECG When compared with ECG of 23-JUL-2023 16:10, No significant change was found Referred By: Generic ED Physician Electronically Signed By:Ryan Mishra
[2024-05-27 07:08] VITALS: BP 139/75; PULSE 77; RESP 22; TEMP 35.4; O2SAT 100; BMI 22.2
--- NOTE | 2024-05-27 07:47 | ED_ITS ---
HPI - Chest Pain General Chief Complaint: Chest Pain Stated Complaint: chest pain Time Seen by Provider: 05/27/24 07:40 Source: patient, RN notes reviewed and old records reviewed History of Present Illness ED Provider: Yanira Solorio PA-C HPI narrative: 38-year-old female with a past medical history of ETOH abuse, previously on Vivitrol however self stopped a few weeks ago, presenting to the ED complaining of abdominal pain, nausea, chest burning and inability to tolerate p.o. since last night. Admits to drinking about 7 nips last night, last drink around 22:00. Admits to history of ETOH withdrawal, denies withdrawal seizures. Denies other illicit substance use. Denies diarrhea, fever. patient is not interested in detox at this time Related Data Home Medications ?Medication ?Instructions ?Recorded ?Confirmed bupropion HCl 100 mg tablet,12 hr 100 mg PO QAM 07/23/23 07/23/23 sustained-release doxepin 25 mg capsule 25 mg PO BEDTIME 07/23/23 07/23/23 famotidine 20 mg tablet 20 mg PO DAILY acid reflux 07/23/23 07/23/23 multivitamin 1 tab PO QAM 07/23/23 07/23/23 sertraline 50 mg tablet 50 mg PO DAILY 07/23/23 07/23/23 Previous Rx's ?Medication ?Instructions ?Recorded albuterol sulfate 90 mcg/actuation 2 puff inhalation QID PRN 04/09/24 aerosol inhaler shortness of breath or wheezing #6.7 grams azithromycin 250 mg tablet See Rx Instructions PO .COMPLEX #6 04/09/24 tabs prednisone 20 mg tablet 40 mg (2 x 20 mg) PO DAILY 4 days 04/09/24 #8 tabs ondansetron 4 mg disintegrating 4 mg PO Q8H PRN nausea and 05/27/24 tablet vomiting #10 tabs Allergies Allergy/AdvReac Type Severity Reaction Status Date / Time amoxicillin Allergy Rash Verified 05/27/24 07:14 oxycodone [From Percocet] Allergy Vomiting Verified 05/27/24 07:14 Review of Systems 2 Review of Systems: Yes all other systems are reviewed and are negative Constitutional: Constitutional: Reports as per [facility] Past Medical History Attestation statement: The following information was validated with the patient. Source: old records reviewed Medical History Acute appendicitis with rupture (07/23/23) Surgical History Hx of appendectomy Social History Social History Household Members: Children Housing: Other Housing Other:: residential Do you presently have visiting nurse or other home services: No Alcohol intake: former Patient Tobacco Use Status: Never used Tobacco Substance Use Type: Marijuana Advance Directives: No Advance Directives Information Provided: Yes Do you have a plan to hurt others: No Plan service: No Current occupational status: unemployed Current occupation: right hand dominant Physical Exam 2 Vital Signs: Vital Signs: Last Vital Signs Temp 97.7 F 05/27/24 12:42 Pulse 69 05/27/24 12:42 Resp 16 05/27/24 12:42 BP 147/82 H 05/27/24 12:42 Pulse Ox 100 05/27/24 12:42 O2 Del Method Room Air 05/27/24 12:42 BMI result Body Mass Index 22.2 Const: Other: writhing around in stretcher General: cooperative and no acute distress Orientation/consciousness: p atient oriented x3 Limitations: no limitations HEENT: Head: Yes normal to inspection and Yes atraumatic Ears: hearing grossly normal bilaterally General nose exam: Normal external nose present Face and sinus: Yes normal facial exam Eyes: General: appearance normal, both eyes and all related structures EOM: EOMs intact bilaterally Neck: Neck: Yes normal visual inspection and Yes no meningeal signs Resp: Effort & Inspection: normal respiratory effort and no respiratory distress Auscultation: clear to auscultation bilaterally Cardio: Rate: regular rate Heart sounds: S1 normal heart sound present and S2 normal heart sound present GI: Inspection: Yes normal to inspection Palpation (GI): Soft to palpation, nontender, no guarding and not rigid : General: Yes no CVA tenderness Back/Spine/Pelvis: Back: no CVA tenderness Skin: Rashes: no rashes Wounds: no wounds Neuro: General: patient oriented x3, tone normal, moves all extremities and no meningeal signs Cranial nerves: Yes CN's II-XII intact bilaterally Gait exam (Neuro): Normal gait present Extrem: General: Yes normal to inspection Course Course Course Narrative: - mild leukocytosis of 12.4 > likely reactive from nausea/vomiting. Low suspicion for severe sepsis - labs otherwise reassuring including negative troponin and hCG - tox screen positive for THC. Ethanol negative XR chest 2V IMPRESSION: No acute airspace disease. > patient tolerating p.o. in the ED without difficulty -1309-- on this underwriter's re-evaluation patient was caught with fingers down her throat inducing vomiting. Discussed unremarkable labs/ imaging and plan for discharge home. Recommended / discussed cessation of ETOH and illicit substance use. Patient does not need admission for ETOH withdrawal at this time Results discussed with patient including worrisome signs and symptoms and strict return precautions, and when to return to the emergency department. They verbalized understanding and feel safe for discharge at this time. Medications Administered Discontinued Medications Generic Name Dose Route Start Last Admin Trade Name Freq PRN Reason Stop Dose Admin Sodium Chloride 1,000 mls @ 999 mls/hr 05/27/24 08:00 05/27/24 09:33 Ns IV 05/27/24 09:00 Infused .Q1H1M KAYLEY Infusion Ketorolac Tromethamine 15 mg 05/27/24 12:30 05/27/24 12:37 Ketorolac Tromethamine 15 Mg/Ml Vial IVPUSH 05/27/24 12:31 15 mg ONCE ONE Administration Lorazepam 1 mg 05/27/24 07:52 05/27/24 08:13 Lorazepam 2 Mg/Ml Vial IVPUSH 05/27/24 07:53 1 mg ONCE ONE Administration Ondansetron HCl 4 mg 05/27/24 07:46 05/27/24 07:51 Ondansetron Hcl 4 Mg/2 Ml Vial IVPUSH 05/27/24 07:47 4 mg ONCE ONE Administration Medical Decision Making Medical Decision Making MDM Narrative: 38-year-old female with a past medical history of ETOH abuse, previously on Vivitrol however self stopped a few weeks ago, presenting to the ED complaining of abdominal pain, nausea, chest burning and inability to tolerate p.o. since last night. Admits to drinking about 7 nips last night, last drink around 22:00. On exam tachypneic, writhing on stretcher, appears uncomfortable, abdomen soft /nontender. Concern for ETOH abuse vs dependence vs withdrawal. Concern for metabolic abnormalities vs pancreatitis. Lower suspicion for appendicitis /diverticulitis without tenderness on exam. Plan: Labs, UA, tox screen, CIWA, IV Zofran/Ativan, re-evaluate Please refer to course for remaining clinical decision making, interpretation of labs/imaging results, and discussions with consultants and/or family members. Differential Diagnosis Differential Diagnoses: The differential diagnosis associated with the presentation includes As above Admission/Observation Consideration of admission/observation: Escalation of care including admission/observation considered Lab Data MDM Lab Attestation statement: I reviewed the patient's lab results. 05/27/24 07:50 05/27/24 07:50 Labs: Lab Results 05/27/24 05/27/24 Range/Units 07:50 10:00 WBC 12.4 H (4.8-10.8) X10*3/uL RBC 4.31 (4.20-5.50) X10*6/uL Hgb 13.5 (12.0-16.0) g/dl Hct 39.0 (37.0-47.0) % MCV 90.5 (80.0-98.0) fL MCH 31.3 (27.0-33.0) pg MCHC 34.6 (31.0-35.0) g/dl RDW 14.1 (11.0-16.0) % Plt Count 334 (160-400) X10*3/uL MPV 8.5 L (9.4-12.3) fL Immature Gran % (Auto) 0.4 (0.0-0.4) % Neut % (Auto) 84.6 H (45-73) % Lymph % (Auto) 12.3 L (20-40) % [place] % (Auto) 2.3 (2-11) % Eos % (Auto) 0.2 (0-4) % Baso % (Auto) 0.2 (0-2) % Lymph # (Auto) 1.5 (1.2-4.9) X10*3/uL [place] # (Auto) 0.3 (0.1-1.2) X10*3/uL Eos # (Auto) 0.0 (0.0-0.4) X10*3/uL Baso # (Auto) 0.0 (0.0-0.2) X10*3/uL Abs Immat Gran (auto) 0.05 H (0.00-0.03) X10*3/uL Absolute Neuts (auto) 10.5 H (2.0-8.3) x10*3/uL Absolute Nucleated RBC 0.000 (0.0-0.012) X10*3/uL Nucleated RBC % (auto) 0.0 (0.0-0.2) /100WBC Sodium 142 (135-145) mmol/L Potassium 4.0 (3.3-5.1) mmol/L Chloride 109 H (96-108) mmol/L Carbon Dioxide 20 L (22-29) mmol/L Anion Gap 17 (12-20) BUN 15 (9-16) mg/dL Creatinine 0.81 (0.5-1.4) mg/dL Estim Creat Clear Calc 96.8 Estimated GFR > 60 Random Glucose 167 H (60-115) mg/dL Calcium 9.3 (8.4-10.2) mg/dL Magnesium 2.1 (1.6-2.6) mg/dL Total Bilirubin 0.4 (0.0-1.0) mg/dL Direct Bilirubin 0.1 (0.0-0.5) mg/dL AST 27 (5-31) U/L ALT 10 (0-31) U/L Alkaline Phosphatase 59 (39-117) U/L Troponin I High Sens < 2.7 (<3.5-17.0) ng/L Total Protein 7.4 (6.5-8.0) g/dL Albumin 4.3 (3.5-5.0) g/dL Lipase 16 (8-78) U/L Beta HCG, Quant < 2 mIU/mL Urine Test NEGATIVE (NEGATIVE) Urine Opiates Screen Not Detected (Not Detect) Ur Buprenorphine Scrn Not Detected (Not Detect) ng/mL Ur Oxycodone Screen Not Detected (Not Detect) ng/mL Urine Methadone Screen Not Detected (Not Detect) ng/mL Urine Fentanyl Screen Not Detected (Not Detect) Ur Barbiturates Screen Not Detected (Not Detect) Ur Phencyclidine Scrn Not Detected (Not Detect) Ur Amphetamines Screen Not Detected (Not Detect) U Benzodiazepines Scrn Not Detected (Not Detect) Urine Cocaine Screen Not Detected (Not Detect) U Marijuana (THC) Screen POSITIVE H (Not Detect) Ethyl Alcohol < 10 mg/dL Radiology Impression Discussion of test interpretation with radiology: I have reviewed the radiologist's reading. External Record Review External record reviewed: Inpatient record, Office record, Outpatient record, Prior outpatient labs, Prior outpatient radiology, Primary care record and Outside ED record Tests considered The following testing was considered but not selected: As above Prescription Management I considered prescription management with: Pain Medication Chronic Conditions Patient?s care impacted by: Other Social Determinants Patient?s care significantly limited by Social Determinants of Health including: Inadequate housing, Low income, Alcoholism and drug addiction in family, Problems related to primary support group, Unemployment, Problems related to employment and Other Social Determinant of Health Discharge Plan Discharge Clinical Impression: Nausea & vomiting, Alcohol abuse Patient Disposition: Home, Self-Care Instructions: Abuse of Alcohol (DC), Acute Nausea and Vomiting (ED) Additional Instructions: your blood work and imaging studies are reassuring Please stop alcohol use Please avoid drug use Zofran as an antinausea medication, please take as needed If her symptoms persist or worsen return to the emergency department Prescriptions: New ondansetron 4 mg tablet,disintegrating 4 mg PO Q8H PRN (Reason: nausea and vomiting) Qty: 10 0RF No Action multivitamin Tablet 1 tab PO QAM doxepin 25 mg capsule 25 mg PO BEDTIME bupropion HCl 100 mg tablet sustained-release 12 hr 100 mg PO QAM famotidine 20 mg tablet 20 mg PO DAILY sertraline 50 mg tablet 50 mg PO DAILY azithromycin 250 mg tablet See Rx Instructions .ROUTE .COMPLEX Qty: 6 0RF Rx Instructions: For 250 mg dose pack: take 500 mg today (day 1), then 250 mg for 4 days (days 2-5) prednisone 20 mg tablet 40 mg PO DAILY 4 Days Qty: 8 0RF albuterol sulfate 90 mcg/actuation HFA aerosol inhaler 2 puff inhalation QID PRN (Reason: shortness of breath or wheezing) Qty: 6.7 0RF Referrals: Fani Calloway NP [Primary Care Provider] - Ailyn Borrero CNP [Nurse Practitioner] - Print Language: Bruneian
[2024-05-27] MEDS: ondansetron HCL 4 MG/2 ML VIAL IVPUSH (07:51)
[2024-05-27] MEDS: 0.9 % Sodium Chloride 1,000 ML 999 ML IV (07:56)
[2024-05-27 07:59] LABS: MANUAL DIFF FLAG NO
[2024-05-27 08:00] LABS: Basophils Percent Auto 0.2 % (0-2); Eosinophils Percent Auto 0.2 % (0-4); Hemoglobin 13.5 g/dl (12.0-16.0); Imm Gran Abs Auto 0.05 X10*3/uL (0.00-0.03); Imm Gran Pct Auto 0.4 % (0.0-0.4); Lymphocytes Absolute Auto 1.5 X10*3/uL (1.2-4.9); Lymphocytes Percent Auto 12.3 % (20-40); Mean Corpuscular HGB Conc 34.6 g/dl (31.0-35.0); Mean Corpuscular Hemoglobin 31.3 pg (27.0-33.0); Mean Corpuscular Volume 90.5 fL (80.0-98.0); Mean Platelet Volume 8.5 fL (9.4-12.3); Monocytes Absolute Auto 0.3 X10*3/uL (0.1-1.2); Monocytes Percent Auto 2.3 % (2-11); Neutrophils Absolute Auto 10.5 x10*3/uL (2.0-8.3); Neutrophils Percent Auto 84.6 % (45-73); Platelet Count 334 X10*3/uL (160-400); Red Blood Count 4.31 X10*6/uL (4.20-5.50); Red Cell Distribution Width 14.1 % (11.0-16.0); White Blood Count 12.4 X10*3/uL (4.8-10.8)
[2024-05-27] MEDS: LORazepam 2 MG/ML VIAL 1 MG IVPUSH (08:13)
--- NOTE | 2024-05-27 08:18 | PC.NURSE ---
IV established, medicated per the MAR. patient continues to shove fingers down throat even after multiple times being told not to do so. patient continues to cry out. encouraged to allow the medications time to work and to try to lay still in the bed.
[2024-05-27 08:19] VITALS: PULSE 77
[2024-05-27 08:21] LABS: Alanine Aminotransferase 10 U/L (0-31); Albumin Level 4.3 g/dL (3.5-5.0); Alkaline Phosphatase 59 U/L (39-117); Anion Gap 17 (12-20); Aspartate Amino Transferase 27 U/L (5-31); Bilirubin Direct 0.1 mg/dL (0.0-0.5); Bilirubin Total 0.4 mg/dL (0.0-1.0); Blood Urea Nitrogen 15 mg/dL (9-16); Calcium 9.3 mg/dL (8.4-10.2); Carbon Dioxide 20 mmol/L (22-29); Chloride 109 mmol/L (96-108); Creatinine Clr Calc Pharmacy 96.8; Estimated Glomerular Filt Rate > 60; Ethanol < 10 mg/dL; Glucose Random 167 mg/dL (60-115); Lipase 16 U/L (8-78); Magnesium 2.1 mg/dL (1.6-2.6); Sodium 142 mmol/L (135-145); Total Protein 7.4 g/dL (6.5-8.0)
[2024-05-27 08:27] LABS: Troponin-I High Sensitivity < 2.7 ng/L (<3.5-17.0)
--- NOTE | 2024-05-27 08:34 | PC.NURSE ---
patient appearing much more comfortable at this time with even and unlabored respirations
[2024-05-27 09:53] LABS: HCG Quantitative < 2 mIU/mL
[2024-05-27 10:04] VITALS: BP 131/85; PULSE 73; RESP 16; TEMP 36; O2SAT 99
[2024-05-27 10:12] LABS: UPreg QC Valid YES; Urine Pregnancy NEGATIVE (NEGATIVE)
[2024-05-27 10:16] LABS: Amphetamine Screen Urine Not Detected (Not Detect); Barbiturates, Urine Not Detected (Not Detect); Benzodiazepines Screen Urine Not Detected (Not Detect); Buprenorphine Scr Not Detected (Not Detect); Cannabinoid Screen Urine POSITIVE (Not Detect); Cocaine Screen Urine Not Detected (Not Detect); Fentanyl, urine Not Detected (Not Detect); Methadone Screen, Urine Not Detected (Not Detect); Opiate Screen Urine Not Detected (Not Detect); Oxycodone Screen Urine Not Detected (Not Detect); Phencyclidine Screen Urine Not Detected (Not Detect)
--- NOTE | 2024-05-27 10:38 | PC.NURSE ---
continues to ambulate independently to the bathroom
[2024-05-27] MEDS: Ketorolac Tromethamine 15 MG/ML VIAL IVPUSH (12:37)
[2024-05-27 12:42] VITALS: BP 147/82; PULSE 69; RESP 16; TEMP 36.5; O2SAT 100
[2024-05-27 13:31] VITALS: BP 147/82; PULSE 69; RESP 16; TEMP 36.5; O2SAT 100
== END 2024-05-27 13:32 | disposition home or self-care (01) ==
PROVIDERS: Physician Assistant; Emergency Provider Emergency Medicine; PCP Nurse Practitioner Family
DX: R11.2 Nausea with vomiting, unspecified (principal); F10.10 Alcohol abuse, uncomplicated; Y90.9 Presence of alcohol in blood, level not specified
CPT/HCPCS: 36415; 71046; 80048; 80076; 80307; 81025; 83690; 83735; 84484; 84702; 85025; 93005; 96361; 96374; 96375; 99285; J1885; J2060; J2405

== ENCOUNTER → 2024-05-27 07:02 | Outpatient (BNV) | payer MEDICAID, SELFPAY | PROVIDERS: Emergency Provider Emergency Medicine; PCP Nurse Practitioner Family; Visit Provider Internal Medicine Cardiovascular Disease | DX: R07.9 Chest pain, unspecified (principal) | CPT/HCPCS: 93010 ==

== ENCOUNTER → 2024-05-27 07:17 | Outpatient (BNV) | payer MEDICAID, SELFPAY | PROVIDERS: Emergency Provider Emergency Medicine; PCP Nurse Practitioner Family; Visit Provider Radiology Diagnostic Radiology | DX: R07.9 Chest pain, unspecified (principal) | CPT/HCPCS: 71046 ==

== ENCOUNTER → 2024-07-29 12:51 | Outpatient (REF) | payer MEDICAID, SELFPAY ==
--- NOTE | ~2024-07-29 | MM_ITS ---
EXAMINATION: MM DIAGNOSTIC DIGITAL BREAST TOMOSYNTHESIS, BILATERAL Limited left breast ultrasound. CLINICAL INFORMATION: Left breast pain and of for a year. COMPARISON: Mammography: Comparison is made with relevant prior exams. TECHNIQUE: Digital breast mammography with tomosynthesis is performed in both the craniocaudal and mediolateral oblique views along with computer-aided detection (CAD). Limited left breast ultrasound. FINDINGS: The breasts are heterogeneously dense, which may obscure small masses (ACR BI-RADS breast composition Category c). [place] marker at the site of pain in the central outer left breast without underlying abnormality. There are no significant masses, abnormal calcifications, or other abnormalities. Targeted color Doppler ultrasound scanning in the area of the patient's pain in the left breast from 12-5 o'clock demonstrates normal fibronodular breast tissue. Results are provided to the patient at time of visit by the technologist. MM/MM tomosynthesis diagnostic BI IMPRESSION: Left: No mammographic or sonographic abnormality to account for the patient's left breast pain. Recommend clinical evaluation and follow-up. Recommend yearly mammographic screening at age 40. Right: Negative. ASSESSMENT: BI-RADS BI-RADS 1 - Negative RECOMMENDATION: 1 year F/U This patient's information was entered into a reminder system with a target due date for their next mammogram. Electronically signed by: Wendy Okeefe DO 07/29/2024 01:32 PM SATYA
--- OUTSIDE RECORDS SUMMARY | 2024-07-29 14:14 | XMS_ITS | Encounter Summary ---
Author Organization [employer] Address [address] [place] [address] Care Team Providers Care Windrower Operator Name Role Phone Lucía Crawford Primary Care Provider [phone] Encounter Details Date Type Department Care Team ([facility] st Contact Info) Description 12/24/2023 Orders Only [facility] MEDICINE [address] [place], [place] [phone] Dunia Gee MD [address] [place], [place] [phone] Social History Tobacco Use Types Packs/Day Years Used Date Smoking Tobacco: Every Day Cigarettes Smokeless Tobacco: Never Alcohol Use Standard Drinks/Week Comments Yes 0 (1 standard drink = 0.6 oz pure alcohol) 6-10 Nips daily recently cut down to 3 nips a day Depression Answer Date Recorded Patient Health Questionnaire-9 Score 23 04/05/2023 Housing Stability Answer Date Recorded What is your housing situation today? I have erlin rondon 04/02/[address] you li ve. Do you have problems with any of the following? Pests such as bugs, ants, or mice 04/02/2023 Food Insecurity Answer Date Recorded Within the past 12 months, y ou worried that your food would run out before you got money to buy more: Sometimes True 2022 Within the past 12 months,th e food you bought just didn't last and you didn't have enough money to get more: Sometimes True 04/08/2023 Transportation Answer Date Recorded In the past 12 months, has l ack of transportation kept you from medical appts, meetings, work or from getting things needed for daily living? Yes, it has kept me from medical appointments or getting medications. 04/02/2023 Utilities Answer Date Recorded In the past 12 months, has t he electric, gas, oil or water company threatened to shut off services in your home? Yes 04/02/2023 Depression Answer Date Recorded Patient Health Questionnaire-2 Score 6 04/05/2023 Comments No Sex and Gender Information Value Date Recorded Sex Assigned at Female 03/08/2023 11:33 AM EDT Legal Sex Female 1:42 PM EDT Gender Identity Female 03/08/2023 11:33 AM EDT Sexual Orientation Bisexual 03/08/2023 11 :33 AM EDT documented as of this encounter Plan of Treatment Upcoming Encounters Date Type Department Care Team (Late st Contact Info) Description 08/31/2024 2:30 PM EDT Office Visit [facility] MEDICINE [address] [place] [phone] Lucía Crawford ANP [address] [place] [address] documented as of this encounter Visit Diagnoses Not on filedocumented in this encounter Additional Health Concerns Assessment Noted Time PHQ-9 Depression Total Score: 23 023 1:35 PM EDT documented as of this encounter Care Teams Windrower Operator Relationship Specialty Start Date End Date Lucía Crawford ANP [address] [place] [id number] PCP - General Family Medicine 06/12/23 documented as of this encounter
--- OUTSIDE RECORDS SUMMARY | 2024-07-29 14:14 | XMS_ITS | Clinical Summary ---
Author Organization [employer] Address [address] [facility] [address] [place] [address] Care Team Providers Care Psychologists Name Role Phone Lucía Crawford Primary Care Provider [phone] Allergies Active Allergy Reactions Criticality Noted Date Comments Oxycodone-Acetaminophen 03/08/2023 Nausea, Vomiting Medications * This document contains information received from the source organization and may not represent a complete record from that organization. naltrexone ER (Vivitrol) injection Inject 4 mL (380 mg) into the shoulder, thigh, or buttocks every 28 (twenty-eight ) days for 180 doses. 1.2 each 5 3 11/28/19 37 Active acetaminophen (Tylenol) 500 MG tablet Take 2 tablets (1,000 mg) by mouth every 6 (six) hours if needed for moderate pain or fever for up to 25 doses. 50 tablet 3 Active Multiple Vitamin (multivitamin) tablet Take 1 tablet by mouth in the morning. 90 tablet 3 3 Active nicotine polacrilex (Nicorette) 2 MG gumIndications:Sm oking Chew 1 each (2 mg) if needed for smoking cessation. 100 each 3 3 Active Blood Pressure kitIndications:El evated blood pressure reading without diagnosis of hypertension 1 kit in the morning. 1 kit 3 Active lidocaine (Lidoderm) 5 % patch APPLY 1 PATCH TOPICALLY TO SKIN IN THE MORNING. LEAVE ON FOR 12 HOURS AND OFF FOR 12 HOURS DIRECTED 30 patch 2 4 Active naltrexone (Depade) 50 MG tabletIndications :Alcohol use disorder, severe, in early remission (CMS/HCC) One tablet PO q a.m. May take with food. 30 tablet 5 4 Active sertraline (Zoloft) 50 MG tablet Take 50 mg by mouth Once per day. 4 Active nicotine (Nicoderm CQ) 21 MG/24HR patchIndications: Tobacco use disorder Place 1 patch on the skin 1 (one) time each day at the same time. As reviewed. 42 patch 4 Active ulipristal (Maryam) 30 mg tablet Take one tablet by mouth up to five days after sex. Do not use more than once per menstrual cycle. If repeat dose is needed in same cycle, please contact prescriber. 1 tablet 11 4 Active Drospirenone (Slynd) 4 MG tabletIndications :Family planning Take 1 tab po daily 84 tablet 3 4 Active acetaminophen (Tylenol) 325 MG capsuleIndication s:Other migraine without status migrainosus, not intractable Take 1 capsule (325 mg) by mouth every 8 (eight) hours if needed for moderate pain or fever (headache). 30 capsule 4 07/11/19 25 Active Problems Problem Noted Date Diagnosed Date Bipolar disorder, unspecified 07/07/2024 Cannabis use disorder 06/15/2024 Vaginal discharge 03/16/2024 Assessment & Plan (03/17/2024 6:26 PM EDT): History suggestive of BV. Pt opts for self swab and to treat presumptively. Rx sent, pt is scheduled for nexplanon removal tomorrow. Tobacco dependence 04/19/2023 Cocaine use, unspecified, in remission 3 Alcohol dependence with intoxication 03/08/2023 Assessment & Plan (03/26/2023 10:58 AM EDT): Assessment: Patient with crying spells, racing thoughts, low mood, anxiousness, persistent worry, irritability, intrusive thoughts, stress related to financial as she lost her [place] benefits. (Factors contributing to her sxs are financial struggle, Hx of trauma, alcohol use and homelessness. Patient will benefit from Keeping Ind. Therapy appts. At this time Evonne Zapata meets criteria for Visit Diagnoses: Problem List Items Addressed This Visit Other Alcohol dependence with intoxication (CMS/HCC) Moderate major depression (CMS/HCC) Severe anxiety Cocaine use, unspecified, in remission Patient ready to address current needs Yes Strengths include willing to seek support PLAN: 1. Follow up with [facility]: Recommended for follow-up: during Obat appts 2. Patient goal is improve mental health, and become sober 3. Behavioral Recommendations a. Keeping Ind. Therapy with [facility] b. Keeping AUD appt with Dr. Misty stevenson. Connecting with -[facility] robert. [facility] contact number for extra support Assessment & Plan (03/11/2023 8:36 AM EDT): Assessment: Patient with anhedonia, hopelessness, irritability, poor appetite, fatigue, insomnia, diminished ability to concentrate, anxiousness, persistent worry, irritability, and fearfulness. Started drinking alcohol at 15 y/o, drinking 20 nips per day, withdrawals sxs, last used was 03/03/23. Hx of cocaine used, sniffed, last use 1 year ago. Factors contributing to her symptoms are family deaths, homelessness, alcohol abuse, and Hx of trauma in childhood. Patient will benefit from Ind. therapy (modality/interventions). At this time Evonne Zapata meets criteria for Visit Diagnoses: Problem List Items Addressed This Visit Other Alcohol dependence with intoxication (CMS/HCC) Moderate major depression (CMS/HCC) Severe anxiety Cocaine use, uncomplicated Patient ready to address current needs Yes Strengths include understand the importance of MH and is willing to engage. PLAN: 1. Follow up with [facility]: Recommended for follow-up: during AUD appts 2. Patient goal is to become sober and improve mental health 3. Behavioral Recommendations a. Ind. Therapy, referral will be submitted b. [facility], referral will be submitted c. Use of coping skills as provide d. Engage in AA meetings for support Moderate major depression 03/08/2023 Assessment & Plan (04/09/2023 8:55 AM EDT): Evonne reports anhedonia, depressed mood, sleep disturbances, lack of energy, poor appetite, guilt, trouble concentration, moving or speaking slowly, passive SI. Evonne also reports feeling anxious, not being able to control worry, worrying a lot, trouble relazing, restlessness, irritability, feeling afraid. Evonne is a interested in referral for psychiatric medication. I will discuss with [facility], and make referral. Evonne agrees to follow up with [facility], and continue attending groups. PHQ9: 23 GA7: 21 At this time Evonne Zapata meets criteria for Visit Diagnoses: Problem List Items Addressed This Visit Other Alcohol dependence with intoxication (CMS/HCC) Moderate major depression (CMS/HCC) Severe anxiety Cocaine use, unspecified, in remission Patient ready to address current needs Yes Strengths include willingness to engage, insight PLAN: 1. Follow up with [facility]: Recommended for follow-up: with [facility] for support when needed 2. Patient goal is to manage symptoms of grief, and alcohol use. 3. Behavioral Recommendations a. Keep AUD appointments b. Reach out for support as needed Assessment & Plan (03/12/2023 12:45 PM EDT): Assessment: Patient with low mood, fatigue, anxiousness, persistent worry, irritability, guilt, shame and fearfulness of hurting herself with the amount of alcohol she was consuming. Factors contributing to her symptoms include, recent family member loss, alcohol abuse, Hx of trauma and homelessness. Patient will benefit from Ind. Therapy. At this time Evonne Zapata meets criteria for Visit Diagnoses: Problem List Items Addressed This Visit Other Alcohol dependence with intoxication (CMS/HCC) Moderate major depression (CMS/HCC) Severe anxiety Cocaine use, unspecified, in remission Patient ready to address current needs Yes Strengths include willing to engage in treatment PLAN: 1. Follow up with [facility]: Recommended for follow-up: during OBAT appts 2. Patient goal is become sober and improve mental health 3. Behavioral Recommendations a. Ind. Therapy, referral submitted on 03/08/23 b. Use of coping skills provided as recommended c. Maintain engagement with -[facility]amante [facility] contact number for support Assessment & Plan (03/11/2023 8:36 AM EDT): Assessment: Patient with anhedonia, hopelessness, irritability, poor appetite, fatigue, insomnia, diminished ability to concentrate, anxiousness, persistent worry, irritability, and fearfulness. Started drinking alcohol at 15 y/o, drinking 20 nips per day, withdrawals sxs, last used was 03/03/23. Hx of cocaine used, sniffed, last use 1 year ago. Factors contributing to her symptoms are family deaths, homelessness, alcohol abuse, and Hx of trauma in childhood. Patient will benefit from Ind. therapy (modality/interventions). At this time Evonne Zapata meets criteria for Visit Diagnoses: Problem List Items Addressed This Visit Other Alcohol dependence with intoxication (CMS/HCC) Moderate major depression (CMS/HCC) Severe anxiety Cocaine use, uncomplicated Patient ready to address current needs Yes Strengths include understand the importance of MH and is willing to engage. PLAN: 1. Follow up with [facility]: Recommended for follow-up: during AUD appts 2. Patient goal is to become sober and improve mental health 3. Behavioral Recommendations a. Ind. Therapy, referral will be submitted b. [facility], referral will be submitted c. Use of coping skills as provide d. Engage in AA meetings for support Severe anxiety 03/08/2023 Encounters * This document contains information received from the source organization and may not represent a complete record from that organization. Date Type Department Care Team Description 07/17/2024 Patient Outreach [address] [address] Jamin Montes Recovery Supports 07/16/2024 Patient Outreach [address] [address] Ernesto Romero Recovery Supports 07/14/2024 9:45 AM EST Office Visit [address] [address] Gary Jay MD Alcohol use disorder, severe, dependence (CMS/HCC) (Primary Dx); Tobacco use disorder 07/14/2024 Patient Outreach [address] [address] Williams Fisher Recovery Supports 07/14/2024 Travel 07/07/2024 Patient Outreach [address] [address] Darien Floyd Recovery Supports 07/07/2024 Patient Outreach [address] [address] Jamin Montes Recovery Supports 07/06/2024 Patient Outreach [address] [address] Jamin Montes RC Recovery Supports 06/29/2024 Patient Outreach [address] [address] Darien Floyd RC Recovery Supports 06/22/2024 Patient Outreach [address] [address] Williams Fisher Recovery Supports 06/22/2024 Orders Only [address] [address] Dunia Gee MD Breast pain, left (Primary Dx) 06/22/[address] [address] Charley Bucio MA chart prep 06/22/2024 Telephone [facility] [address] [place] [id number] Dunia Gee MD 06/19/2024 Patient Outreach [address] [address] Walter Prasad Recovery Supports 06/19/2024 Patient Outreach [address] [address] Williams Fisher Recovery Supports 06/18/2024 Travel 06/16/2024 8:30 AM EST Office Visit [address] [address] Gary Jay MD Alcohol use disorder, severe, dependence (CMS/HCC) (Primary Dx); Tobacco use disorder 06/16/2024 Patient Outreach [address] [address] Walter Prasad RC Recovery Supports 06/16/2024 Patient Outreach [address] [address] Williams Fisher RC Recovery Supports 06/16/2024 Travel 06/11/2024 2:00 PM EST Office Visit [facility] [address] [place] [id number] Dunia Gee MD Other migraine without status migrainosus, not intractable (Primary Dx); Family planning; Nausea; Breast pain, left; Other social stressor 06/10/2024 3:00 PM EST Office Visit [address] [address] Gary Jay MD Alcohol use disorder, severe, dependence (CMS/HCC) (Primary Dx); Tobacco use disorder 06/10/2024 Travel 06/09/2024 Patient Outreach [address] [address] Darien Floyd Recovery Supports 05/29/2024 Patient Outreach [address] [address] Ernesto Romero Recovery Supports 05/28/2024 Patient Outreach [address] [address] Jamin Montes Recovery Supports 05/27/2024 Orders Only GENERIC EXTERNAL DATA DEPARTMENT Provider, Generic External Data 05/08/2024 11:15 AM EST Office Visit [address] [address] Gary Jay MD Alcohol use disorder, severe, dependence (CMS/HCC) (Primary Dx); Tobacco use disorder 05/08/2024 Travel 04/29/2024 10:00 AM EST Office Visit [address] [address] Keon Wolf MD Alcohol use disorder, severe, dependence (CMS/HCC) (Primary Dx) 04/29/2024 Travel from Last 3 Months Immunizations Name Administration Dates Next Due Hep A, Adult 03/26/2023 Tdap 06/06/2023 Family History Medical History Relation Name Comments Amblyopia Brother Heart disease Father Hypertension Father Thyroid disease Father Rheum arthritis Maternal Grandmother Amblyopia Mother Hypertension Mother Thyroid disease Mother Breast cancer Other Thyroid cancer Paternal Grandmother Relation Name Status Comments Brother Daughter Father Maternal Grandmother Mother Other Unknown Maternal great aunt Paternal Grandmother Social History Tobacco Use Types Packs/Day Years Used Date Smoking Tobacco: Every Day Cigarettes Smokeless Tobacco: Never Tobacco Cessation:Ready to Q uit: Not Asked; Counseling Given: Not Answered Alcohol Use Standard Drinks/Week Comments Not Currently 0 (1 standard drink = 0.6 oz pure alcohol) 6-10 Nips daily recently cut down to 3 nips a day Alcohol Answer Date Recorded How often do you have a drink containing alcohol ? 4 03/06/2024 How many drinks containing a lcohol do you have on a typical day when you are drinking? 4 03/06/2024 How often do you have six or more drinks on one occasion? 4 03/06/2024 Depression Answer Date Recorded Patient Health Questionnaire-9 Score 17 07/07/2024 Patient Health Questionnaire-9 Score 17 07/07/2024 Last PHQ-9: Questionnaire Data Not on file 0 07/07/2024 Housing Stability Answer Date Recorded What is your housing situation today? I have erlinalex rondon 04/02/[address] you [...] Answer Date Recorded Patient Health Questionnaire-2 Score 5 07/07/2024 Comments No Sex and Gender Information Value Date Recorded Sex Assigned at Female 03/08/2023 11:33 AM EDT Legal Sex Female 1:42 PM EDT Gender Identity Female 03/08/2023 11:33 AM EDT Sexual Orientation Bisexual 03/08/2023 11 :33 AM EDT Last Filed Vital Signs Vital Sign Reading Time Taken Comments Blood Pressure 151/93 06/16/2024 9:36 AM EST Pulse 99 06/16/2024 9:36 AM EST Temperature 36.7 ??C (98.1 ??F) 06/16/2024 9:36 AM ES T Respiratory Rate 20 06/16/2024 9:36 AM EST Oxygen Saturation 98% 06/11/2024 2:04 PM EST Inhaled Oxygen Concentration - - Weight 67.6 kg (149 lb 0.8 oz) 06/16/2024 9:36 A M EST Height 172.7 cm (5' 8 ) 03/24/2024 11:16 AM EDT Body Mass Index 22.66 03/24/2024 11:16 AM EDT Plan of Treatment Upcoming Encounters Date Type Department Care Team (Late st Contact Info) Description 08/31/2024 2:30 PM EDT Office Visit [facility] [address] [place], [place] [phone] Lucía Crawford ANP [address] [place], [place] [phone] Health Maintenance Due Date Last Done Comments Hepatitis B Vaccines (1 of 3 - 19+ 3-dose series) 09/19/2006 Pneumococcal Vaccine: Pediatrics (0 to 5 Years) and At-Risk Patients (6 to 49) Years) (1 of 2 - PCV) 09/19/2006 Hepatitis A Vaccines (2 of 2 - Risk 2-dose series) 09/25/2023 03/26/2023 COVID-19 Vaccine (1 - 2023-2 5 season) 2024 Influenza Vaccine (#1) 2024 SDOH Screening 03/08/2024 03/08/2023 Depression Monitoring (PHQ-9) 01/04/2025, 07/07/2024 Alcohol/Substance Use Screening 03/06/2025 03/06/2024 Cervical Cancer Screening 03/24/2025 Family Planning (PISQ) 03/24/2025 03/24/2024 HPV/Cotest 03/24/2025 03/24/2024 Pap Smear 03/24/2025 03/24/2024 Tobacco Screening 06/11/2025 06/11/2024 Depression Screening 07/07/2025 07/07/2024, 07/07/2024 Lipid Panel 06/07/2028 06/07/2023 DTaP/Tdap/Td Vaccines (2 - T d or Tdap) 06/06/2033 06/06/2023 Zoster Vaccines (1 of 2) 09/19/2037 RSV Patients and Patients Aged 60 years or older (1 - 1-dose 75+ series) 09/19/2062 HIV Screening Completed 03/16/2024, 03/12/2023 Hepatitis C Screening Completed 03/16/2024 , 03/12/2023 HIB Vaccines Aged Out No longer eligi ble based on patient's age to complete this topic HPV Vaccines Aged Out No longer eligi ble based on patient's age to complete this topic IPV Vaccines Aged Out No longer eligi ble based on patient's age to complete this topic Meningococcal Vaccine Aged Out No nilson hitesh eligible based on patient's age to complete this topic RSV under 20 months Aged Out No longe r eligible based on patient's age to complete this topic Rotavirus Vaccines Aged Out No longer eligible based on patient's age to complete this topic Procedures Procedure Name Priority Date/Time Associated Diagnosis Comments BI US BREAST LIMITED LEFT Routine 07/29/2024 1:30 PM EST BI MAMMOGRAM DIAGNOSTIC TOMOSYNTHESIS BILATERAL Routine 07/29/2024 1:00 PM EST Breast pain, left POCT ALCOHOL BREATH TEST Routine 07/14/2024 10:25 AM EST Alcohol use disorder, severe, dependence (CMS/HCC) POCT BHAKTI-14 URINE DRUG SCREEN Routine 07/14/2024 10:25 AM EST Alcohol use disorder, severe, dependence (CMS/HCC) POCT ALCOHOL BREATH TEST Routine 06/16/2024 9:38 AM EST Alcohol use disorder, severe, dependence (CMS/HCC) POCT BHAKTI-14 URINE DRUG SCREEN Routine 06/16/2024 9:37 AM EST Alcohol use disorder, severe, dependence (CMS/HCC) POCT , URINE Routine 06/11/2024 2:37 PM EST Nausea POCT INFLUENZA B (ID NOW RAPID MOLECULAR) Routine 06/11/2024 2:37 PM EST Nausea POCT INFLUENZA A (ID NOW RAPID MOLECULAR) Routine 06/11/2024 2:37 PM EST Nausea POCT RAPID COVID ANTIGEN Routine 06/11/2024 2:37 PM EST Nausea POCT BHAKTI-14 URINE DRUG SCREEN Routine 06/10/2024 3:12 PM EST Alcohol use disorder, severe, dependence (CMS/HCC) POCT ALCOHOL BREATH TEST Routine 06/10/2024 3:12 PM EST Alcohol use disorder, severe, dependence (CMS/HCC) XR CHEST 2 VIEWS Routine 05/27/2024 10:1 0 AM EST DRUG MONITOR, PANEL 1, SCREEN, URINE Routine 05/27/2024 10:00 AM EST HCG, QL, URINE Routine 05/27/2024 10:00 AM EST HCG, TOTAL, QN Routine 05/27/2024 7:50 AM EST HIGH SENSITIVITY TROPONIN I Routine 05/27/2024 7:50 AM EST ETHANOL Routine 05/27/2024 7:50 AM EST LIPASE Routine 05/27/2024 7:50 AM EST MAGNESIUM Routine 05/27/2024 7:50 AM EST BASIC METABOLIC PANEL Routine 05/27/2024 7:50 AM EST HEPATIC FUNCTION PANEL Routine 7:50 AM EST CBC WITH AUTO DIFFERENTIAL Routine 05/27/2024 7:50 AM EST POCT ALCOHOL BREATH TEST Routine 05/08/2024 12:18 PM EST Alcohol use disorder, severe, dependence (CMS/HCC) POCT BHAKTI-14 URINE DRUG SCREEN Routine 05/08/2024 12:17 PM EST Alcohol use disorder, severe, dependence (CMS/HCC) THINPREP IMAGING PAP AND HPV MRNA E6/E7 Routine 03/24/2024 11:39 AM EDT HEPATITIS C AB W/REFL TO HCV RNA, QN, PCR Routine 03/16/2024 2:04 PM EDT Vaginal discharge HIV 1/2 ANTIGEN/ANTIBODY, FOURTH GENERATION W/RFL Routine 03/16/2024 2:04 PM EDT Vaginal discharge LIPID PANEL, STANDARD Routine 06/07/2023 10:45 AM EST Lipid screening from Last 3 Months or Most Recently Relevant to Health Maintenance Results * BI US Breast Limited Left (07/29/2024 1:30 PM EST) Anatomical Region Laterality Modality Breast Left Ultrasound 07/29/2024 1:30 PM EST Narrative 07/29/2024 1:36 PM EST ? [facility] ? [address] ?[place] [address] ? Ultrasound Report ? Signed ? Patient: Evonne Zapata ?MR#: [id number] ? : 1985 ?Acct:[id number] ? Age/Sex: 38 / F ?ADM Date: 07/29/24 ? Loc: HO.MAMMO ? Attending Dr: Dunia Gee MD ? Ordering Physician: Dunia Gee MD ?? Date of Service: 07/29/24 ?? Procedure(s): US breast LT limited mamm only ?? Accession Number(s): [id number] ? cc: Dunia Gee MD ? EXAMINATION: ?? MM DIAGNOSTIC DIGITAL BREAST TOMOSYNTHESIS, BILATERAL ? Limited left breast ultrasound. ? CLINICAL INFORMATION: ? Left breast pain and of for a year. ? COMPARISON: ?? Mammography: Comparison is made with relevant prior exams. ? TECHNIQUE: ?? Digital breast mammography with tomosynthesis is performed in both the ?? craniocaudal and mediolateral oblique views along with computer-aided ?? detection (CAD). ?? Limited left breast ultrasound. ? FINDINGS: ?? The breasts are heterogeneously dense, which may obscure small masses ?? (ACR BI-RADS breast composition Category c). ?? [place] marker at the site of pain in the central outer left breast ?? without underlying abnormality. ?? There are no significant masses, abnormal calcifications, or other ?? abnormalities. ? Targeted color Doppler ultrasound scanning in the area of the patient's ?? pain in the left breast from 12-5 o'clock demonstrates normal ?? fibronodular breast tissue. ? Results are provided to the patient at time of visit by the ?? technologist. ? US/US breast LT limited mamm only ?? IMPRESSION: ?? Left: ?? No mammographic or sonographic abnormality to account for the patient's ?? left breast pain. Recommend clinical evaluation and follow-up. ?? Recommend yearly mammographic screening at age 40. ? Right: Negative. ? ASSESSMENT: ? BI-RADS BI-RADS 1 - Negative ? RECOMMENDATION: ?? 1 year F/U ? This patient's information was entered into a reminder system with a ?? target due date for their next mammogram. ? Electronically signed by: ??Wendy Okeefe DO ??07/29/2024 01:32 PM EST ? Dictated By: ?Wendy Okeefe DO ? Signed By: ?<Electronically signed by Wendy Okeefe, DO in OV> ? 07/29/24 1332 ? DD/ 1330 ? TD/TT: 07/29/24 1331 ? Hr Systems Analyst: ? Procedure Note Ke Mary - 07/29/2024 [facility] [address] [place] [address] [place] [address] Ultrasound Report Signed Patient: Fawad Zapata#: [id number] : 1985Acct:[id number] Age/Sex: 38 / FADM Date: 07/29/24 Loc: HO.MAMMO Attending Dr: Dunia Gee MD Ordering Physician: Dunia Gee MD Date of Service: 07/29/24 Procedure(s): US breast LT limited mamm only Accession Number(s): [id number] cc: Dunia Gee MD EXAMINATION: MM DIAGNOSTIC DIGITAL BREAST TOMOSYNTHESIS, BILATERAL Limited left breast ultrasound. CLINICAL INFORMATION: Left breast pain and of for a year. COMPARISON: Mammography: Comparison is made with relevant prior exams. TECHNIQUE: Digital breast mammography with tomosynthesis is performed in both the craniocaudal and mediolateral oblique views along with computer-aided detection (CAD). Limited left breast ultrasound. FINDINGS: The breasts are heterogeneously dense, which may obscure small masses (ACR BI-RADS breast composition Category c). [place] marker at the site of pain in the central outer left breast without underlying abnormality. There are no significant masses, abnormal calcifications, or other abnormalities. Targeted color Doppler ultrasound scanning in the area of the patient's pain in the left breast from 12-5 o'clock demonstrates normal fibronodular breast tissue. Results are provided to the patient at time of visit by the technologist. US/US breast LT limited mamm only IMPRESSION: Left: No mammographic or sonographic abnormality to account for the patient's left breast pain. Recommend clinical evaluation and follow-up. Recommend yearly mammographic screening at age 40. Right: Negative. ASSESSMENT: BI-RADS BI-RADS 1 - Negative RECOMMENDATION: 1 year F/U This patient's information was entered into a reminder system with a target due date for their next mammogram. Electronically signed by: Wendy Okeefe DO 07/29/2024 01:32 PM EST Dictated By: Wendy Okeefe DO Signed By: <Electronically signed by Wendy Okeefe DO in OV> 07/29/24 1332 DD/ 1330 TD/TT: 07/29/24 1331 Hr Systems Analyst: us Dunia Gee MD IMG US PROCEDURES Edited R esult - Final * BI Mammogram Diagnostic Tomosynthesis Bilateral (07/29/2024 1:00 PM EST) Anatomical Region Laterality Modality Breast Bilateral Mammography 07/29/2024 1:00 PM EST Narrative 07/29/2024 1:36 PM EST ? [facility] ? [address] ?[place] [address] ? Mammography Report ? Signed ? Patient: Jodi,Evonne ?MR#: [id number] ? : 1985 ?Acct:[id number] ? Age/Sex: 38 / F ?ADM Date: 07/29/24 ? Loc: HO.MAMMO ? Attending Dr: Dunia Gee MD ? Ordering Physician: Dunia Gee MD ?Results: 1N ?? egative ? Date of Service: 07/29/24 ?Follow Up: 1 Year From Orig ?? inal Mammogram ? Procedure(s): MM tomosynthesis diagnostic BI ?? Accession Number(s): [id number] ? cc: Dunia Gee MD ? EXAMINATION: ?? MM DIAGNOSTIC DIGITAL BREAST TOMOSYNTHESIS, BILATERAL ? Limited left breast ultrasound. ? CLINICAL INFORMATION: ? Left breast pain and of for a year. ? COMPARISON: ?? Mammography: Comparison is made with relevant prior exams. ? TECHNIQUE: ?? Digital breast mammography with tomosynthesis is performed in both the ?? craniocaudal and mediolateral oblique views along with computer-aided ?? detection (CAD). ?? Limited left breast ultrasound. ? FINDINGS: ?? The breasts are heterogeneously dense, which may obscure small masses ?? (ACR BI-RADS breast composition Category c). ?? [place] marker at the site of pain in the central outer left breast ?? without underlying abnormality. ?? There are no significant masses, abnormal calcifications, or other ?? abnormalities. ? Targeted color Doppler ultrasound scanning in the area of the patient's ?? pain in the left breast from 12-5 o'clock demonstrates normal ?? fibronodular breast tissue. ? Results are provided to the patient at time of visit by the ?? technologist. ? MM/MM tomosynthesis diagnostic BI ?? IMPRESSION: ?? Left: ?? No mammographic or sonographic abnormality to account for the patient's ?? left breast pain. Recommend clinical evaluation and follow-up. ?? Recommend yearly mammographic screening at age 40. ? Right: Negative. ? ASSESSMENT: ? BI-RADS BI-RADS 1 - Negative ? RECOMMENDATION: ?? 1 year F/U ? This patient's information was entered into a reminder system with a ?? target due date for their next mammogram. ? Electronically signed by: ??Wendy Okeefe DO ??07/29/2024 01:32 PM EST ? Dictated By: ?Wendy Okeefe DO ? Signed By: ?<Electronically signed by Wendy Okeefe, DO in OV> ? 07/29/24 1332 ? DD/ 1300 ? TD/TT: 07/29/24 1322 ? Hr Systems Analyst: ? Procedure Note Donann, Image - 07/29/2024 [facility] [address] [place] [address] Mammography Report Signed Patient: Fawad Zapata#: [id number] : 1985Acct:[id number] Age/Sex: 38 / FADM Date: 07/29/24 Loc: [facility] Attending Dr: Dunia Gee MD Ordering Physician: Dunia Gee MDResults: 1N egative Date of Service: 07/29/24Follow Up: 1 Year From Orig inal Mammogram Procedure(s): MM tomosynthesis diagnostic BI Accession Number(s): [id number] cc: Dunia Gee MD EXAMINATION: MM DIAGNOSTIC DIGITAL BREAST TOMOSYNTHESIS, BILATERAL Limited left breast ultrasound. CLINICAL INFORMATION: Left breast pain and of for a year. COMPARISON: Mammography: Comparison is made with relevant prior exams. TECHNIQUE: Digital breast mammography with tomosynthesis is performed in both the craniocaudal and mediolateral oblique views along with computer-aided detection (CAD). Limited left breast ultrasound. FINDINGS: The breasts are heterogeneously dense, which may obscure small masses (ACR BI-RADS breast composition Category c). [place] marker at the site of pain in the central outer left breast without underlying abnormality. There are no significant masses, abnormal calcifications, or other abnormalities. Targeted color Doppler ultrasound scanning in the area of the patient's pain in the left breast from 12-5 o'clock demonstrates normal fibronodular breast tissue. Results are provided to the patient at time of visit by the technologist. MM/MM tomosynthesis diagnostic BI IMPRESSION: Left: No mammographic or sonographic abnormality to account for the patient's left breast pain. Recommend clinical evaluation and follow-up. Recommend yearly mammographic screening at age 42. Right: Negative. ASSESSMENT: BI-RADS BI-RADS 1 - Negative RECOMMENDATION: 1 year F/U This patient's information was entered into a reminder system with a target due date for their next mammogram. Electronically signed by: Wendy Okeefe DO 07/29/2024 01:32 PM EST Dictated By: Wendy Okeefe DO Signed By: <Electronically signed by Wendy Okeefe DO in OV> 07/29/24 1332 DD/ 1300 TD/TT: 07/29/24 1322 Hr Systems Analyst: us Dunia Gee MD [facility] BI PROCEDURES Edited R esult - Final * POCT BHAKTI-14 Urine Drug Screen (07/14/2024 10:25 AM EST) Only the most recent of4 resultswithin the time period is included. THC Positive Cocaine Screen, Urine Negative Opiate Screen, Urine Negative Methamphetamine Screen Urine Negative Amphetamine Screen, Urine Negative Benzodiazepines Screen, Urine Negative Barbiturate Screen, Urine Negative Methadone Screen, Urine Negative Buprenophine Screen, Urine Negative TCA, Urine Negative MDMA Urine Negative ng/mL Oxycodone Screen, Urine Negative Phencyclidine (PCP), Urine Negative Propoxyphene, Urine Negative Fentanyl, Urine Negative Urine Urine specimen obtained by clean catch procedure / Unknown 07/14/2024 10:25 AM EST Result [facility] Gary Jay MD POINT OF CARE TEST ENTER/EDIT ORDERABLES Final Result * POCT alcohol breath test manually resulted (07/14/2024 10:25 AM EST) Only the most recent of4 resultswithin the time period is included. Breath Alcohol 0.00 Breath 07/14/2024 10:2 5 AM EST us Gary Jay MD POINT OF CARE TEST ENTER/EDIT ORDERABLES Final Result * Influenza B (ID NOW Rapid Molecular) (06/11/2024 2:37 PM EST) Influenza B Negative Negative, Indeterminate [facility] Swab 06/11/2024 2:37 PM EST Result [facility] us Dunia Gee MD POINT OF CARE TEST ENTER/E DIT ORDERABLES Final Result Performing Organization Address [facility] Co de Phone Number [facility] [address] [place] [phone] * Influenza A (ID NOW Rapid Molecular) (06/11/2024 2:37 PM EST) Influenza A Negative Negative, Indeterminate [facility] Swab 06/11/2024 2:37 PM EST us Dunia Gee MD POINT OF CARE TEST ENTER/E DIT ORDERABLES Final Result Performing Organization Address [facility] Co de Phone Number [facility] [address] [place] [phone] * POCT Rapid COVID Ag (06/11/2024 2:37 PM EST) Rapid COVID Ag Negative [facility] Swab 06/11/2024 2:37 PM EST us Dunia Gee MD POINT OF CARE TEST ENTER/E DIT ORDERABLES Final Result [facility] [address] [place] [address] [phone] * POCT , urine manually resulted (06/11/2024 2:37 PM EST) Preg Test, Ur Negative Negative, Indeterminate, None Detected, Invalid, Specimen unsatisfactory for evaluation, Weakly Positive Urine 06/11/2024 2:37 PM EST us Dunia Gee MD POINT OF CARE TEST ENTER/E DIT ORDERABLES Final Result * XR Chest 2 Views (05/27/2024 10:10 AM EST) Anatomical Region Laterality Modality Chest Radiographic Bridget ging 05/27/2024 10:1 0 AM EST Narrative 05/27/2024 12:53 PM EST ? [facility] ?[address] ?[place] [address] ?XRay Report ? Signed ? Patient: Evonne Zapata ?MR#: [id number] ? : 1985 ?Acct:[id number] ? Age/Sex: 38 / F ?ADM Date: 05/27/24 ? Loc: HO.ED ? Attending Dr: ? Ordering Physician: Jean Donnelly MD ?? Date of Service: 05/27/24 ?? Procedure(s): XR chest 2V ?? Accession Number(s): [id number] ? cc: Fani Calloway ADVERTISING ACCOUNT MANAGER; Jean Donnelly MD ? EXAMINATION: ?? XR CHEST ? CLINICAL INFORMATION: ?? chest pain ? COMPARISON: ?? None available. ? TECHNIQUE: ?? 2 views of the chest were obtained. ? FINDINGS: ?? No consolidation, pleural effusion or pneumothorax. Hyperinflated lungs. ?? Cardiomediastinal silhouette is normal. ?? Osseous structures are intact. Mild multilevel thoracic spondylosis. ? XR/XR chest 2V ?? IMPRESSION: ?? No acute airspace disease. ? Electronically signed by: ??Miguel Boyer MD ??05/27/2024 12:50 PM ?? EST RP ? Dictated By: ?Miguel Arnett MD ? Signed By: ?<Electronically signed by Miguel Garcia MD in OV> ? 05/27/24 1250 ? DD/ 1010 ? TD/TT: 05/27/24 1015 ? Hr Systems Analyst: ? Procedure Note Donjoseter, Image - 05/27/2024 [place] [address] XRay Report Signed Patient: Evonne ZapataMR#: [id number] : 1985Acct:[id number] Age/Sex: 38 / FADM Date: 05/27/24 Loc: HO.ED Attending Dr: Ordering Physician: Jean Donnelly MD Date of Service: 05/27/24 Procedure(s): XR chest 2V Accession Number(s): [id number] cc: Fani Calloway ADVERTISING ACCOUNT MANAGER; Jean Donnelly MD EXAMINATION: XR CHEST CLINICAL INFORMATION: chest pain COMPARISON: None available. TECHNIQUE: 2 views of the chest were obtained. FINDINGS: No consolidation, pleural effusion or pneumothorax. Hyperinflated lungs. Cardiomediastinal silhouette is normal. Osseous structures are intact. Mild multilevel thoracic spondylosis. XR/XR chest 2V IMPRESSION: No acute airspace disease. Electronically signed by: Miguel Boyer MD 05/27/2024 12:50 PM EST Dictated By: Miguel Arnett MD Signed By: <Electronically signed by Miguel Garcia MDin OV> 05/27/24 1250 DD/ 1010 TD/TT: 05/27/24 1015 Hr Systems Analyst: [facility] External Provider IMG XR PROCEDURES Edited Result - Final * (ABNORMAL) Drug Monitoring, Panel 1, Screen, Urine (05/27/2024 10:00 AM EST) Opiate Screen Urine Not Detected Not Detect [facility] Comment:Opiate cut-off is 30 0 ng/mL.Positive results are unconfirmed and should not be used fornon-medical purposes. Barbiturates, Urine Not Detected Not Detect [facility] Comment:Barbiturate cut-off is 200 ng/mL.Positive results are unconfirmed and should not be used fornon-medical purposes. Phencyclidine Screen Urine Not Detected Not Detect [facility] Comment:Phencyclidine cut-of f is 25 ng/mL.Positive results are unconfirmed and should not be used fornon-medical purposes. Amphetamine Screen Urine Not Detected Not Detect [facility] Comment:Amphetamine cut-off is 1000 ng/mL.Positive results are unconfirmed and should not be used fornon-medical purposes. Benzodiazepines Screen Urine Not Detected Not Detect [facility] Comment:Benzodiazepine cut-o ff is 200 ng/mL.Positive results are unconfirmed and should not be used fornon-medical purposes. Cocaine Screen Urine Not Detected Not Detect [facility] Comment:Cocaine cut-off is 3 00 ng/mL.Positive results are unconfirmed and should not be used fornon-medical purposes. Cannabinoid Screen Urine POSITIVE(A) Not Detect [facility] Comment:Cannabinoid cut-off is 50 ng/mL.Positive results are unconfirmed and should not be used fornon-medical purposes. Methadone Screen, Urine Not Detected Not Detect ng/mL [facility] Comment:Methadone cut-off is 300 ng/mL.Positive results are unconfirmed and should not be used fornon-medical purposes. FENTANYL URINE Not Detected Not Detect [facility] Comment:Fentanyl cut-off is 1 ng/mL.Positive results are unconfirmed and should not be used fornon-medical purposes. Oxycodone Urine Screen Not Detected Not Detect ng/mL [facility] Comment:Oxycodone cut-off is 100 ng/mL.Positive results are unconfirmed and should not be used fornon-medical purposes. Buprenorphine Screen Not Detected Not Detect ng/mL [facility] Comment:Buprenorphine cut-of f is 5 ng/mL.Positive results are unconfirmed and should not be used fornon-medical purposes. 05/27/2024 10:0 0 AM EST 05/27/2024 10:04 AM EST Generic External Data Provider LAB URINE ORDERAB LES Final Result Performing Organization Address [facility] Phone Number [facility] [address] [place] [phone] * HCG, Qualitative, Urine (05/27/2024 10:00 AM EST) Urine NEGATIVE NEGATIVE [facility] Comment:This test was develo ped to detect early . Falsenegative results may occur after the 5th - 7th week ofpregnancy when using this test method. If clinicallyindicated, consider a serum hCG. 05/27/2024 10:0 0 AM EST 05/27/2024 10:04 AM EST Generic External Data Provider LAB URINE ORDERAB LES Final Result Performing Organization Address [facility] Number [facility] [address] [place] [address] [phone] * High Sensitivity Troponin I (05/27/2024 7:50 AM EST) Pathologist [facility] TROPONIN I HIGH SENSITIVITY <2.7 <3.5 - 17.0 ng/L [facility] Comment:The [place] high sens itivity Troponin-I results should beused in conjunction with other diagnostic information suchas ECG, clinical observations and information, and patientsymptoms to aid in the diagnosis of [place]. 05/27/2024 7:50 AM EST 05/27/2024 7:57 AM EST Generic External Data Provider LAB BLOOD ORDERAB LES Final Result Performing Organization Address [facility] Phone Number [facility] [address] [place] [address] [phone] * Ethanol (05/27/2024 7:50 AM EST) ETHANOL (MG/DL) IN SER/PLAS <10 mg/dL [facility] Comment:Serum/plasma ethanol results are to be used formedical/treatment purposes only. 05/27/2024 7:50 AM EST 05/27/2024 7:57 AM EST us Generic External Data Provider LAB BLOOD ORDERAB LES Final Result [facility] [address] [place] [phone] * (ABNORMAL) CBC auto differential (05/27/2024 7:50 AM EST) Pathologist [facility] White Blood Count 12.4(H) 4.8 - 10.8 X10*3/uL [facility] Red Blood Count 4.31 4.20 - 5.50 X10*6/uL [facility] Hemoglobin 13.5 12.0 - 16.0 g/dl [facility] Hematocrit 39.0 37.0 - 47.0 % [facility] Mean Corpuscular Volume 90.5 80.0 - 98.0 fL [facility] Mean Corpuscular Hemoglobin 31.3 27.0 - 33.0 pg [facility] Mean Corpuscular HGB Conc 34.6 31.0 - 35.0 g/dl [facility] Red Cell Distribution Width 14.1 11.0 - 16.0 % [facility] Platelet Count 334 160 - 400 X10*3/uL [facility] Mean Platelet Volume 8.5(L) 9.4 - 12.3 fL [facility] Neutrophils Percent Auto 84.6(H) 45 - 73 % [facility] Imm Gran Pct Auto 0.4 0.0 - 0.4 % [facility] Lymphocytes Percent Auto 12.3(L) 20 - 40 % [facility] Monocytes Percent Auto 2.3 2 - 11 % [facility] Eosinophils Percent Auto 0.2 0 - 4 % [facility] Basophils Percent Auto 0.2 0 - 2 % [facility] NRBC Pct Auto 0.0 0.0 - 0.2 /100WBC [facility] Neutrophils Absolute Auto 10.5(H) 2.0 - 8.3 x10*3/uL [facility] Imm Gran Abs Auto 0.05(H) 0.00 - 0.03 X10*3/uL [facility] Lymphocytes Absolute Auto 1.5 1.2 - 4.9 X10*3/uL [facility] Monocytes Absolute Auto 0.3 0.1 - 1.2 X10*3/uL [facility] Eosinophils Absolute Auto 0.0 0.0 - 0.4 X10*3/uL [facility] Basophils Absolute Auto 0.0 0.0 - 0.2 X10*3/uL [facility] NRBC Abs Auto 0.000 0.0 - 0.012 X10*3/uL [facility] 05/27/2024 7:50 AM EST 05/27/2024 7:57 AM EST us Generic External Data Provider LAB BLOOD ORDERAB LES Final Result [facility] [address] [place] [address] [phone] * hCG, Total, Quantitative (05/27/2024 7:50 AM EST) HCG Quantitative <2 mIU/mL [facility] Comment:Weeks post LMP Appro ximate hCG(Last Menstrual Period) Range (mIU/ml)3 - 4 weeks 9 - 1304 - 5 weeks 75 - 2,6005 - 6 weeks 850 - 20,8006 - 7 weeks 4000 - 100,2007 - 12 weeks 11,500 - 289,54748 - 16 weeks 18,300 - 137,46005 - 29 weeks (2nd trimester) 1,400 - 53,21365 - 41 weeks (3rd trimester) 940 - 60,000The [place]o B- hCG assay is used for the early detection ofpregnancy; it cannot be used to diagnose any conditionunrelated to . If a B-hCG level is not supportedby the clinical evidence, results should be confirmed by analternative method (qualitative urine hCG, for example). 05/27/2024 7:50 AM EST 05/27/2024 7:57 AM EST Generic External Data Provider LAB BLOOD ORDERAB LES Final Result Performing Organization Address [facility] Co ut Phone Number [facility] [address] [place] [address] [phone] * Magnesium (05/27/2024 7:50 AM EST) [facility] Magnesium 2.1 1.6 - 2.6 mg/dL [facility] 05/27/2024 7:50 AM EST 05/27/2024 7:57 AM EST Generic External Data Provider LAB BLOOD ORDERAB LES Final Result Performing Organization Address [facility] Phone Number [facility] [address] [place] [address] [phone] * Lipase (05/27/2024 7:50 AM EST) Lipase 16 8 - 78 U/L [facility] 05/27/2024 7:50 AM EST 05/27/2024 7:57 AM EST Generic External Data Provider LAB BLOOD ORDERAB LES Final Result Performing Organization Address [facility] Phone Number [facility] [address] [place] [address] [phone] * Hepatic Function Panel (05/27/2024 7:50 AM EST) Bilirubin, Total 0.4 0.0 - 1.0 mg/dL [facility] Bilirubin, Direct 0.1 0.0 - 0.5 mg/dL [facility] Aspartate Amino Transferase 27 5 - 31 U/L [facility] Alanine Aminotransferase 10 0 - 31 U/L [facility] Total Protein 7.4 6.5 - 8.0 g/dL [facility] Albumin Level 4.3 3.5 - 5.0 g/dL [facility] Alkaline Phosphatase 59 39 - 117 U/L [facility] 05/27/2024 7:50 AM EST 05/27/2024 7:57 AM EST us Generic External Data Provider LAB BLOOD ORDERAB LES Final Result [facility] [address] [place] [address] [phone] * (ABNORMAL) Basic Metabolic Panel (05/27/2024 7:50 AM EST) Sodium 142 135 - 145 mmol/L [facility] Potassium 4.0 3.3 - 5.1 mmol/L [facility] Chloride 109(H) 96 - 108 mmol/L [facility] Carbon Dioxide 20(L) 22 - 29 mmol/L [facility] Anion Gap 17 12 - 20 [facility] Urea Nitrogen (BUN) 15 9 - 16 mg/dL [facility] Creatinine, Serum 0.81 0.5 - 1.4 mg/dL [facility] Creatinine Clr Calc Pharmacy 96.8 [facility] Comment:Provided height and weight: 172.72 cm,66.2 kg.eGFR (calculated from the MDRD study equation) and eCrCl(calculated from the Cockcroft-Gault equation) are based ondifferent parameters and may not yield comparable results.If eCrCl result is absurd, please check patient'sheight/weight. Estimated Glomerular Filt Rate >60 [facility] Comment:Chronic Kidney Disea se: Estimated GFR < 60 mL/min/1.53b4Sbizvs Kidney Disease: Estimated GFR < 15 mL/min/1.73m2 Glucose 167(H) 60 - 115 mg/dL [facility] Calcium 9.3 8.4 - 10.2 mg/dL [facility] 05/27/2024 7:50 AM EST 05/27/2024 7:57 AM EST us Generic External Data Provider LAB BLOOD ORDERAB LES Final Result [facility] [address] [place] [phone] * ThinPrep Imaging Pap and HPV mRNA E6/E7 (03/24/2024 11:39 AM EDT) HPV nRNA E6/E7 Not Detected Not Detected [facility] Comment:Methodology: Transcr iption-Mediated AmplificationThis assay detects E6/E7 viral messenger RNA (mRNA) from 14high-risk HPV types (16,18,31,33,35,39,45,51,52,56,58,59,66,68).Cervical sources are required for HPV testing.If a vaginal source from a patient who has had atotal hysterectomy with removal of cervix wassubmitted, please contact the testing laboratoryfor alternative testing options.For additional information, please refer [email or web address]/faq/GFJ920d8(This link if provided for information/educational purposes only.)THIS TEST WAS PERFORMED AT:[facility] [place] [phone] REYNOSO MD SOURCE: SEE NOTE [facility] Comment:Cervix Report Status: [facility] Clinical Information: SEE NOTE [facility] Comment:None given LMP: SEE NOTE [facility] Comment:NONE GIVEN Prev. PAP: SEE NOTE [facility] Comment:NONE GIVEN Prev. BX: SEE NOTE [facility] Comment:NONE GIVEN Statement Of Adequacy: SEE NOTE [facility] Comment:Satisfactory for juanita luation.Endocervical/transformation zone component absent. General Categorization: [facility] Interpretation/Result: SEE NOTE [facility] Comment:Cytology Results: Ne gative for intraepitheliallesion or malignancy. Cytology Comment SEE NOTE [facility] Comment:This Pap test has be en evaluated with computerassisted technology. Optical Sales Associate: SEE NOTE [facility] Comment:MSM, CT(ASCP)CT scre ening location: [place] [address] Review Optical Sales Associate: [facility] Pathologist [facility] PAP Infection [facility] See Note SEE NOTE [facility] Comment:EXPLANATORY NOTE:The Pap is a screening test for cervical cancer. It isnot a diagnostic test and is subject to false negativeand false positive results. It is most reliable when asatisfactory sample, regularly obtained, is submittedwith relevant clinical findings and history, and whenthe Pap result is evaluated along with historic andcurrent clinical information. 03/24/2024 11:3 9 AM EDT 03/24/2024 4:30 PM EDT Narrative [facility] - 03/27/2024 2:06 PM EDT SEE SCANNED RESULTS IN EMRCERVIX us Jada PATRICIA LAB PATHOLOGY ORDERABLES Final Result Performing Organization Address [facility]/ZIP Co de Phone Number [facility] [address] [place] [address] [phone] * Hepatitis C Antibody with Reflex to HCV, RNA, Quantitative, Real-Time PCR (03/16/2024 2:04 PM EDT) Hepatitis C Antibody Nonreactive Nonreactive [facility] Comment:Antibodies to HCV no t detected; does not exclude early acuteHCV infection. Blood Venous blood specimen / Unknown 03/16/2024 2:04 PM EDT 03/16/2024 4:53 PM EDT us Martha Sellers NP LAB BLOOD ORDERABLES Final Resul t Performing Organization Address [facility]/ZIP Co de Phone Number [facility] [address] [place] [phone] * HIV-1/2 Antigen and Antibodies, Fourth Generation, with Reflexes (03/16/2024 2:04 PM EDT) HIV AB/AG Nonreactive Nonreactive [facility] Comment:HIV-1 p24 Ag and/or HIV-1/HIV-2 Ab not detected.A test result that is nonreactive does not exclude thepossibility of exposure to or infection with HIV-1 and/orHIV-2. Nonreactive results in this assay for individualswith prior exposure to HIV-1 and/or HIV-2 may be due toantigen and antibody levels that are below the limit ofdetection of this assay.The [employer] HIV Ag/Ab Combo assay result andsupplemental assay results should be interpreted inconjunction with the patient's clinical presentation,history and other laboratory results. If the results areinconsistent with clinical evidence, additional testing issuggested to confirm the result. Blood Venous blood specimen / Unknown 03/16/2024 2:04 PM EDT 03/16/2024 4:53 PM EDT us Martha Sellers ADVERTISING ACCOUNT MANAGER LAB BLOOD ORDERABLES Final Resul t [facility] [address] [place] [address] [phone] * (ABNORMAL) Lipid Panel, Standard (06/07/2023 10:45 AM EST) Triglycerides 65 <150 mg/dL [facility] Comment:Desirable Triglyceri de: less than 150 mg/dLBorderline High Triglyceride 150-199 mg/dLHigh Triglyceride: 200-499 mg/dLVery High Triglyceride: greater than or equal to 5OO mg/dL Cholesterol 185 <200 mg/dL [facility] Comment:Desirable Cholestero l: less than 200 mg/dLBorderline High Cholesterol: 200-239 mg/dLHigh Cholesterol: greater than 239 mg/dL LDL Cholesterol Calculated 117(H) <100 mg/dL [facility] Comment:Desirable LDL: less than 100 mg/dLNear Optimal/Above Optimal LDL: 110- 129 mg/dLBorderline High LDL: 130-159 mg/dLHigh LDL: 160-189 mg/dLVery High LDL: greater than or equal to 190 mg/dL HDL Cholesterol 55 >40 mg/dL [facility] Comment:Desirable HDL: great er than 40 mg/dL Note: This HDL assay may give artificially low results in patients with liver disease. Blood Venous blood specimen / Unknown 06/07/2023 10:45 AM EST 06/07/2023 11:13 AM EST us Lucía SEALS LAB BLOOD ORDERABLES Final Resul t [facility] [address] [place] [address] [phone] from Last 3 Months or Most Recently Relevant to Health Maintenance Insurance [facility] C3 Care Teams Psychologists Relationship Specialty Start Date End Date Lucía Crawford ANP [address] [place] [phone] PCP - General Family Medicine 06/12/23
--- OUTSIDE RECORDS SUMMARY | 2024-07-29 14:14 | XMS_ITS | Encounter Summary ---
Author Organization [employer] Address 75 [facility] 7t [place] [address] Care Team Providers Care Election Judge Name Role Phone Ty Lucía SEALS Primary Care Provider [phone] Reason for Visit * Reason Comments aud f/u Encounter Details Date Type Department Care Team ([facility] st Contact Info) Description 07/14/2024 9:45 AM EST Office Visit [facility] [address] [place], [place] [phone] Gary Jay MD [address] [place], [place] [phone] Alcohol use disorder, severe, dependence (CMS/HCC) (Primary Dx); Tobacco use disorder Social History Tobacco Use Types Packs/Day Years Used Date Smoking Tobacco: Every Day Cigarettes Smokeless Tobacco: Never Alcohol Use Standard Drinks/Week Comments Not Currently [...] AM EDT documented as of this encounter Progress Notes * Gary Jay MD - 07/14/2024 9:45 AM EST Patient ID: Evonne Elizabeth is a 38 year old female here for f/u for AUD. 06/16/24 Utox Benzo, TCA, THC BAL 0 Overall, doing ok. Continues to abstain from alcohol. Daily naltrexone without ADRs-no cravings. Has decided not to start Vivitrol. Did not contact legal services (reviewed last visit) to help with housing and DCF. Keeping up with her goals and organizing herself. Caodaism last Saturday and Saturday, 3 days each. Group @ [facility] which was very good. Reading the bible and got the book, How to Love Yourself Feels things are different this time. Incentive to get her daughter back (now with family members per DCF). Lots of support from her brothers and niece. Stopped lorazepam after last week' visit. Increased sweating x 1 day. Sleep is getting better. Agrees to Hep A # 2. ---- As above. Congratulated on her effort. Reviewed BP-to schedule appointment with PCP, Lucía Crawford. I will also message him (done). Encouraged to contact legal services. Hep A # 2 Met with Jamin Daley, head coach. To call Salomón Jones team therapist, from here. They has an appointment scheduled today-changed to tele-visit. F/U 2 weeks. Tobacco use disorder Today 07/10/24 Utox BUP, THC BAL 0 Overall, doing ok. Taking it a day at a time. Finishing IOP, 3 days left. It's been good. Has made new friends there. Continues naltrexone without ADRs. No alcohol! Appetite is better. Has been checking BP at home, states it's been running ~135/80. F/U with Lucía Crawford, PCP, in August. F/U with a surgeon on Saturday related to her hand pain. She's not sure what it is. Mammogram has been scheduled. She got her 5 y.o. daughter back. DCF involved. Smoking a lot less marijuana. Two inhalations in the evening. Helps her sleep. Smoking down to 1 cigarette daily! Was to meet with Salomón Jones team therapist today. However, Salomón is out and will reschedule. State [facility]om[facility] is helping with referral to a psych Rxer. Objective Physical Exam Constitutional: Appearance: Normal appearance. Neurological: Mental Status: She is alert and oriented to person, place, and time. Psychiatric: Mood and Affect: Mood normal. Behavior: Behavior normal. Thought Content: Thought content normal. Assessment/Plan Alcohol use disorder, severe, dependence (CMS/HCC) Utox BUP, THC BAL 0 Overall, doing ok. Taking it a day at a time. Finishing IOP, 3 days left. It's been good. Has made new friends there. Continues naltrexone without ADRs. No alcohol! Appetite is better. Has been checking BP at home-states it's been running ~135/80. F/U with Lucía Crawford PCP, in August. F/U with a surgeon on Saturday related to her hand pain. She's not sure what it is. Mammogram has been scheduled. She got her 5 y.o. daughter back. DCF involved. Smoking a lot less marijuana. Two inhalations in the evening. Helps her sleep. Smoking down to 1 cigarette daily! Was to meet with Salomón Jones, team therapist today. However, Salomón is out and will reschedule. State Salom[facility] is helping with referral to a psych Rxer. As above. Congratulated on her effort. States she will come to today's support group. Will f/u with Salomón Rowell. F/U 2 weeks. Tobacco use disorder Congratulated on decreasing to 1 cigarette daily. Continue to inquire. F/U 2 weeks. Diagnoses and all orders for this visit: Alcohol use disorder, severe, dependence (CMS/HCC) - POCT BHAKTI-14 Urine Drug Screen - POCT alcohol breath test manually resulted Tobacco use disorder This information has been disclosed to you from records protected by federal confidentiality rules(42 CFR Part 2). The federal rules prohibit you from making any further disclosure of information in this record that identifies a patient as having or having had a substance use disorder either directly, by reference to publicly available information, or through verification of such identificationby another person unless further disclosure is expressly permitted by the written consent of the individual whose information is being disclosed or as otherwise permitted by (see 2.3.1). The federal rules restrict any use of the information to investigate or prosecute with regard to a crime any patient with a substance use disorder, except as provided at 2.12??(5) and 2.65. documented in this encounter Plan of Treatment Upcoming Encounters Date Type Department Care Team (Late st Contact Info) Description 08/31/2024 2:30 PM EDT Office Visit [facility] [address] [place], [place] [phone] Lucía Crawford ANP [address] [place], [place] [phone] documented as of this encounter Procedures Procedure Name Priority Date/Time Associated Diagnosis Comments POCT BHAKTI-14 URINE DRUG SCREEN Routine 07/14/2024 10:25 AM EST Alcohol use disorder, severe, dependence (CMS/HCC) POCT ALCOHOL BREATH TEST Routine 07/14/2024 10:25 AM EST Alcohol use disorder, severe, dependence (CMS/HCC) documented in this encounter Results * POCT alcohol breath test manually resulted (07/14/2024 10:25 AM EST) Breath Alcohol 0.00 Breath 07/14/2024 10:2 5 AM EST Gary Jay MD POINT OF CARE TEST ENTER/EDIT ORDERABLES Final Result * POCT BHAKTI-14 Urine Drug Screen (07/14/2024 10:25 AM EST) THC Positive Cocaine Screen, Urine Negative Opiate [...] procedure / Unknown 07/14/2024 10:25 AM EST us Gary Jay MD POINT OF CARE TEST ENTER/EDIT ORDERABLES Final Result documented in this encounter Visit Diagnoses Diagnosis Alcohol use disorder, severe, dependence (CMS/HCC)- Primary Tobacco use disorder documented in this encounter Additional Health Concerns Assessment Noted Time PHQ-9 Depression Total Score: 17 07/07/ 025 3:06 PM EST documented as of this encounter Care Teams Election Judge Relationship Specialty Start Date End Date Lucía Crawford ANP [address] [place] [id number] PCP - General Family Medicine 06/12/23 documented as of this encounter
--- OUTSIDE RECORDS SUMMARY | 2024-07-29 14:14 | XMS_ITS | Encounter Summary ---
Author Organization [employer] Address [address] [facility] 7t [place] [address] Care Team Providers Care Retread Builder Name Role Phone Ty Lucía SEALS Primary Care Provider [phone] Reason for Visit * Reason Comments Recovery Supports Encounter Details Date Type Department Care Team ([facility] st Contact Info) Description 07/06/2024 Patient Outreach [facility] MED[facility]INE [address] [place], [place] [phone] Jamin Montes Recovery Supports Social History Tobacco Use Types Packs/Day Years [...] got money to buy more: Sometimes True 10/16/ 2023 Within the past 12 months,th e food [...] as of this encounter Progress Notes * Jamin Montes - 07/06/2024 2:13 PM EST I met with Evonne today. Setting: by phone Recovery Wellness Goals worked on: Social Stability Action taken/next steps: Enrolled in educational courses and Offered person centered recovery support Additional comments: I called Evonne to remind her to complete the scholarship application for financial assistance to pay for the college coach training no Answer I left a message. Jamin Montes documented in this encounter Plan of Treatment Upcoming Encounters Date Type Department Care Team (Late st Contact Info) Description 08/31/2024 2:30 PM EDT Office Visit [facility] [address] [place] [address] Lucía Crawford ANP [address] [place] [address] documented as of this encounter Visit Diagnoses Not on filedocumented in this encounter Additional Health Concerns Assessment Noted Time PHQ-9 Depression Total Score: 18 06/15/ 024 9:13 AM EST documented as of this encounter Care Teams Retread Builder Relationship Specialty Start Date End Date Lucía Crawford ANP [address] [place] [id number] PCP - General Family Medicine 06/12/23 documented as of this encounter
--- OUTSIDE RECORDS SUMMARY | 2024-07-29 14:14 | XMS_ITS | Encounter Summary ---
Author Organization [employer] Address 75 [facility] 7t [place] [address] Care Team Providers Care Custody Officer Name Role Phone Ty Lucía SEALS Primary Care Provider [phone] Reason for Visit * Reason Comments Recovery Supports Encounter Details Date Type Department Care Team ([facility] st Contact Info) Description 07/07/2024 Patient Outreach [facility] MEDICINE [address] [place], [place] [phone] Jamin Montes Recovery Supports Social History Tobacco [...] encounter Progress Notes * Jamin Montes - 07/07/2024 11:30 AM EST I met with Evonne today. Setting: in person at [facility] Recovery Wellness Goals worked on: Social Stability Action taken/next steps: Enrolled in educational courses, Offered person centered recovery support, and Attended alcohol anddrug free activity Additional comments: Today we were able to complete the scholarship for the Recovery Training ([facility]). Jamin Montes documented in this encounter Plan of Treatment Upcoming Encounters Date Type Department Care Team (Late st Contact Info) Description 08/31/2024 2:30 PM EDT Office Visit [facility] [address] [place] [address] Lucía Crawford ANP [address] [place] [address] documented as of this encounter Visit Diagnoses Not on filedocumented in this encounter Additional Health Concerns Assessment Noted Time PHQ-9 Depression Total Score: 17 025 3:06 PM EST documented as of this encounter Care Teams Custody Officer Relationship Specialty Start Date End Date Lucía Crawford ANP [address] [place] [id number] PCP - General Family Medicine 06/12/23 documented as of this encounter
--- OUTSIDE RECORDS SUMMARY | 2024-07-29 14:14 | XMS_ITS | Encounter Summary ---
Author Organization [employer] Address 75 [facility] 7t [place] [address] Care Team Providers Care Chef Head Name Role Phone Lucía Crawford Primary Care Provider [phone] Reason for Visit * Reason Comments Med Refill Encounter Details Date Type Department Care Team ([facility] st Contact Info) Description 05/30/2023 Refill [facility] [address] [place], [place] [phone] Gary Jay MD [address] [place], [place] [phone] Social History Tobacco Use Types Packs/Day Years [...] Patient Health Questionnaire-2 Score 6 04/05/2023 Comments Unknown Sex and Gender Information Value Date Recorded Sex Assigned at Female 03/08/2023 11:33 AM EDT Legal Sex Female 1:42 PM EDT Gender Identity Female 03/08/2023 11:33 AM EDT Sexual Orientation Bisexual 03/08/2023 11 :33 AM EDT documented as of this encounter Miscellaneous Notes * Telephone Encounter - Gary Jay MD - 06/14/2023 2:41 PM EST No longer on B1 and Folic acid. Rx was sent for MV. documented in this encounter Plan of Treatment Upcoming Encounters Date Type Department Care Team (Late st Contact Info) Description 08/31/2024 2:30 PM EDT Office Visit [facility]INE [address] [place] [address] Lucía Crawford ANP [address] [place] [address] documented as of this encounter Visit Diagnoses Not on filedocumented in this encounter Additional Health Concerns Assessment Noted Time PHQ-9 Depression Total Score: 23 023 1:35 PM EDT documented as of this encounter Care Teams Chef Head Relationship Specialty Start Date End Date Lucía Crawford ANP [address] [place] [address] PCP - General Family Medicine 06/12/23 documented as of this encounter
--- OUTSIDE RECORDS SUMMARY | 2024-07-29 14:14 | XMS_ITS | Encounter Summary ---
Author Organization [employer] Address [address] [facility] 7t [place] [address] Care Team Providers Care Milk Tester Name Role Phone Ty Lucía SEALS Primary Care Provider Reason for Visit * Reason Comments RC Recovery Supports Encounter Details Date Type Department Care Team ([facility] st Contact Info) Description 07/14/2024 Patient Outreach [facility] MED[facility]INE [address] [place], [place] [phone] Williams Fisher Recovery Supports Social History Tobacco Use Types [...] as of this encounter Progress Notes * Williams Fisher - 07/14/2024 2:45 PM EST I met with Evonne today. Setting: in person at [facility] Recovery Wellness Goals worked on: Social Stability Action taken/next steps: Offered person centered recovery support and Attended alcohol and drug free activity Additional comments: Today, the participant Evonne Zapata was present at the center and engaged in social activities. Williams Fisher documented in this encounter Plan of Treatment Upcoming Encounters Date Type Department Care Team (Late st Contact Info) Description 08/31/2024 2:30 PM EDT Office Visit [facility] MEDICINE [address] [place] [address] Lucía Crawford ANP [address] [place] [address] documented as of this encounter Visit Diagnoses Not on filedocumented in this encounter Additional Health Concerns Assessment Noted Time PHQ-9 Depression Total Score: 17 025 3:06 PM EST documented as of this encounter Care Teams Milk Tester Relationship Specialty Start Date End Date Lucía Crawford ANP [address] [place] [address] PCP - General Family Medicine 06/12/23 documented as of this encounter
--- OUTSIDE RECORDS SUMMARY | 2024-07-29 14:14 | XMS_ITS | Encounter Summary ---
Author Organization [employer] Address 75 [facility] 7t [place] [address] Care Team Providers Care Can Striper Name Role Phone Ty Lucía SEALS Primary Care Provider [phone] Reason for Visit * Reason Comments Recovery Supports Encounter Details Date Type Department Care Team ([facility] st Contact Info) Description 07/17/2024 Patient Outreach [facility] [address] [place], [place] [phone] Jamin Montes Recovery Supports Social History Tobacco [...] encounter Progress Notes * Jamin Montes - 07/17/2024 2:17 PM EST I met with Evonne tillman. Setting: in person at [facility] Recovery Wellness Goals worked on: Personal/Professional Development (Education/Employment) and Social Stability Action taken/next steps: Enrolled in educational courses, Facilitated access to technology resources (computer support), Offered person centered recovery support, and Attended alcohol and drug free activity Additional comments: The participant came to collect the book for the Synthetic Filament Extruder training, which begins on Saturday, July 20, 2024. Jamin Montes documented in this encounter Plan of Treatment Upcoming Encounters Date Type Department Care Team (Late st Contact Info) Description 08/31/2024 2:30 PM EDT Office Visit [facility] [address] [place] [address] Lucía Crawford ANP [address] [place] [address] documented as of this encounter Visit Diagnoses Not on filedocumented in this encounter Additional Health Concerns Assessment Noted Time PHQ-9 Depression Total Score: 17 025 3:06 PM EST documented as of this encounter Care Teams Can Striper Relationship Specialty Start Date End Date Lucía Crawford ANP [address] [place] [address] PCP - General Family Medicine 06/12/23 documented as of this encounter
--- OUTSIDE RECORDS SUMMARY | 2024-07-29 14:14 | XMS_ITS | Encounter Summary ---
Author Organization [employer] Address 75 [facility] 7t [place] [address] Care Team Providers Care Classics Teacher Name Role Phone Ty Lucía SEALS Primary Care Provider [phone] Reason for Visit * Reason Comments RC Recovery Supports Encounter Details Date Type Department Care Team ([facility] st Contact Info) Description 07/07/2024 Patient Outreach [facility] MEDICINE [address] [place], [place] [phone] Darien Floyd [address] [place] [address] Recovery Supports Social History Tobacco Use Types [...] as of this encounter Progress Notes * Darien Floyd - 07/07/2024 4:03 PM EST I met with Evonne today. Setting: in person at [facility] Recovery Wellness Goals worked on: Physical Health/Mental Health and Social Stability Action taken/next steps: Attended recovery support group Additional comments: Participant attended a group session centered on recovery topics, where members engaged in open discussion and offered mutual support Darien Floyd documented in this encounter Plan of Treatment Upcoming Encounters Date Type Department Care Team (Late st Contact Info) Description 08/31/2024 2:30 PM EDT Office Visit [facility] MED[facility]INE [address] [place] [address] Lucía Crawford ANP [address] [place] [address] documented as of this encounter Visit Diagnoses Not on filedocumented in this encounter Additional Health Concerns Assessment Noted Time PHQ-9 Depression Total Score: 17 025 3:06 PM EST documented as of this encounter Care Teams Classics Teacher Relationship Specialty Start Date End Date Lucía Crawford ANP [address] [place] [address] PCP - General Family Medicine 06/12/23 documented as of this encounter
--- OUTSIDE RECORDS SUMMARY | 2024-07-29 14:14 | XMS_ITS | Encounter Summary ---
Author Organization [employer] Address 75 [facility] 7t [place] [address] Care Team Providers Care Anodize Machine Operator Name Role Phone Ty Lucía SEALS Primary Care Provider [phone] Encounter Details Date Type Department Care Team (Latest Contact Info) Description 07/14/2024 Travel Social History Tobacco Use Types Packs/Day Years [...] Description 08/31/2024 2:30 PM EDT Office Visit [facility] [address] [place] [address] Lucía Crawford ANP [address] [place] [address] documented as of this encounter Visit Diagnoses Not on filedocumented in this encounter Additional Health Concerns Assessment Noted Time PHQ-9 Depression Total Score: 17 025 3:06 PM EST documented as of this encounter Care Teams Anodize Machine Operator Relationship Specialty Start Date End Date Lucía Crawford ANP [address] [place] [address] PCP - General Family Medicine 06/12/23 documented as of this encounter
--- OUTSIDE RECORDS SUMMARY | 2024-07-29 14:14 | XMS_ITS | Encounter Summary ---
Author Organization [employer] Address [address] [facility] 7t [place] [address] Care Team Providers Care Manager Audio Name Role Phone Lucía Crawford Primary Care Provider [phone] Reason for Visit * Reason Onset Date Comments Results 07/23/2023 Encounter Details Date Type Department Care Team ([facility] Contact Info) Description 07/23/2023 Telephone [facility] [address] [place], [place] [phone] Lucía Crawford ANP [address] [place], [place] [phone] Results Social History Tobacco Use Types Packs/Day Years [...] t he electric, gas, oil or water [employer] threatened to shut off services in your [...] encounter Miscellaneous Notes * Telephone Encounter - Ana Garcia RN - 07/23/2023 2:51 PM EST Telephone call returned to [place] [facility]. Spoke with Dr Ambrocio, radiologist. He reports pt hadSTAT CT today and it appears that she has a ruptured appendix. Reports diffuse free fluid and that he is unable to see the appendix d/t the changes. Requested they fax results to [facility] team MAIKEL. Tele phone call placed to pt. Informed of possible appendix rupture and that I advise she go to the hospital now. Pt states is currently in CRS for an appt. Will have her brother take her son so she can go. Pt walked up to [facility] corbin a few minutes later requesting uber to [facility] ED. Booked transportation and gave pt a copy of the report to give to the ED. Telephone call placed to [facility] ED to give expect. They stated they can see the CT report in their system. Results scanned in under media * Telephone Encounter - Judy Ybarra - 07/23/2023 2:29 PM EST Tc from [facility]re[facility] with [facility] requesting to speak to PCP engine monitor in regards to STAT clinical results. States radiologist advised pt needs immediate care. Please contact [phone] documented in this encounter Plan of Treatment Upcoming Encounters Date Type Department Care Team (Late st Contact Info) Description 08/31/2024 2:30 PM EDT Office Visit [facility] [address] [place] [address] Lucía Crawford ANP [address] [place] [address] documented as of this encounter Visit Diagnoses Not on filedocumented in this encounter Additional Health Concerns Assessment Noted Time PHQ-9 Depression Total Score: 23 023 1:35 PM EDT documented as of this encounter Care Teams Manager Audio Relationship Specialty Start Date End Date Lucía Crawford ANP [address] [place] [address] PCP - General Family Medicine 06/12/23 documented as of this encounter
--- OUTSIDE RECORDS SUMMARY | 2024-07-29 14:14 | XMS_ITS | Encounter Summary ---
Author Organization [employer] Address 75 [facility] 7t [place] [address] Care Team Providers Care Clinic Assistant Name Role Phone CrawfordLucía Primary Care Provider [phone] Reason for Visit * Reason Comments Recovery Supports Encounter Details Date Type Department Care Team ([facility] st Contact Info) Description 07/16/2024 Patient Outreach [facility] MEDICINE [address] [place], [place] [phone] Ernesto Romero [address] [place], [place] [phone] Recovery Supports Social History Tobacco Use Types [...] the past 12 months, has t he [employer], gas, oil or water [employer] threatened to shut off services in your [...] as of this encounter Progress Notes * Ernesto Romero - 07/16/2024 2:12 PM EST I met with Evonne today. Setting: in person at [facility] Recovery Wellness Goals worked on: Social Stability Action taken/next steps: Offered person centered recovery support, Assisted with relapse prevention planning, and Attended alcohol and drug free activity Additional comments: Ernesto Rmoero documented in this encounter Plan of Treatment Upcoming Encounters Date Type Department Care Team (Late st Contact Info) Description 08/31/2024 2:30 PM EDT Office Visit [facility] MEDICINE [address] [place] [address] Lucía Crawford ANP [address] [place] [address] documented as of this encounter Visit Diagnoses Not on filedocumented in this encounter Additional Health Concerns Assessment Noted Time PHQ-9 Depression Total Score: 17 025 3:06 PM EST documented as of this encounter Care Teams Clinic Assistant Relationship Specialty Start Date End Date Lucía Crawford ANP [address] [place] [address] PCP - General Family Medicine 06/12/23 documented as of this encounter
--- OUTSIDE RECORDS SUMMARY | 2024-07-29 14:14 | XMS_ITS | Encounter Summary ---
Author Organization [employer] Address [address] [place] [address] Care Team Providers Care Pickers Material Handlers Name Role Phone Ty Lucía SEALS Primary Care Provider [phone] Reason for Visit * Reason Comments RC Recovery Supports Encounter Details Date Type Department Care Team ([facility] st Contact Info) Description 06/29/2024 Patient Outreach [facility] MEDICINE [address] [place], [place] [phone] Darien Floyd [address] [place] [address] Recovery Supports Social History Tobacco Use Types [...] Answer Date Recorded Patient Health Questionnaire-9 Score 18 06/15/2024 Patient Health Questionnaire-9 Score 18 06/15/2024 Last PHQ-9: Questionnaire Data Not on file 1 08/16/2023 Housing Stability Answer Date Recorded What is [...] Answer Date Recorded Patient Health Questionnaire-2 Score 3 06/15/2024 Comments No Sex and Gender Information Value Date Recorded Sex Assigned at Female 03/08/2023 11:33 AM EDT Legal Sex Female 1:42 PM EDT Gender Identity Female 03/08/2023 11:33 AM EDT Sexual Orientation Bisexual 03/08/2023 11 :33 AM EDT documented as of this encounter Progress Notes * Darien Floyd - 06/29/2024 4:21 PM EST I met with Evonne today. Setting: in person at [facility] Recovery Wellness Goals worked on: Physical Health/Mental Health, Social Stability, and Spiritual Wellness Action taken/next steps: Attended recovery support group Additional comments: Attended 12-step support group focused on introducing Steps 1, 2, and 3, and discussing their application in our recovery journey. Darien Floyd documented in this encounter Plan of Treatment Upcoming Encounters Date Type Department Care Team (Late st Contact Info) Description 08/31/2024 2:30 PM EDT Office Visit [facility] MEDICINE [address] [place], [place] [phone] Lucía Crawford ANP [address] [place] [address] documented as of this encounter Visit Diagnoses Not on filedocumented in this encounter Additional Health Concerns Assessment Noted Time PHQ-9 Depression Total Score: 18 06/15/ 024 9:13 AM EST documented as of this encounter Care Teams Pickers Material Handlers Relationship Specialty Start Date End Date Lucía Crawford ANP [address] [place] [address] PCP - General Family Medicine 06/12/23 documented as of this encounter
--- OUTSIDE RECORDS SUMMARY | 2024-07-29 14:14 | XMS_ITS | Encounter Summary ---
Author Organization [employer] Address [address] [place] [address] Care Team Providers Care Software Specialist Name Role Phone CrawfordLucía Primary Care Provider [phone] Reason for Visit * Reason Onset Date Comments New Patient 04/23/2023 Encounter Details Date Type Department Care Team ([facility] st Contact Info) Description 04/23/2023 Telephone [facility] MEDICINE [address] [place], [place] [phone] Santo Leon MD [address] [place] [address] New Patient Social History Tobacco Use Types Packs/Day Years [...] encounter Miscellaneous Notes * Telephone Encounter - Chris Mcknight - 04/23/2023 1:10 PM EDT ERNESTO Bain called pt to Offer NEPHROLOGIST appt. Pt demographics and insurance information were verified. Pt states following medical conditions: YES Pt reports taking medications: Yes ( Would speak with provider) Pt given NEPHROLOGIST appt with NEPHROLOGIST Lucía Crawford on 06/06/2023 @ 10:30 am. Pt will be sent appt reminder card and medical release form and agrees to complete and to return to medical records prior to NEPHROLOGIST appt. documented in this encounter Plan of Treatment Upcoming Encounters Date Type Department Care Team (Late st Contact Info) Description 08/31/2024 2:30 PM EDT Office Visit [facility] MEDICINE [address] [place] [address] Lucía Crawford ANP [address] [place] [address] documented as of this encounter Visit Diagnoses Not on filedocumented in this encounter Additional Health Concerns Assessment Noted Time PHQ-9 Depression Total Score: 23 023 1:35 PM EDT documented as of this encounter Care Teams Software Specialist Relationship Specialty Start Date End Date Lucía Crawford ANP [address] [place] [id number] PCP - General Family Medicine 06/12/23 documented as of this encounter
== END | disposition home or self-care (01) ==
LOC: HO.MAMMO 12:51
PROVIDERS: PCP Family Medicine; Visit Provider Family Medicine
DX: N64.4 Mastodynia (principal)
CPT/HCPCS: 76642; 77062; 77066

== ENCOUNTER → 2024-07-29 13:00 | Outpatient (BNV) | payer MEDICAID, SELFPAY | PROVIDERS: PCP Family Medicine; Visit Provider Internal Medicine | DX: N64.4 Mastodynia (principal); R92.333 Mammographic heterogeneous density, bilateral breasts | CPT/HCPCS: 76642; 77062; 77066 ==

== ENCOUNTER 2024-09-15 13:40 | Outpatient (REF) | payer MEDICAID, SELFPAY ==
[2024-09-15 17:18] LABS: TSH reflex Free T4 0.53 uIU/mL (0.32-4.0)
== END 2024-09-15 13:41 | disposition home or self-care (01) ==
LOC: HO.HHCL 13:40
PROVIDERS: Visit Provider Family Medicine
DX: E07.0 Hypersecretion of calcitonin (principal)
CPT/HCPCS: 36415; 84443

== ENCOUNTER 2024-10-17 12:22 | Emergency (ER) | payer MEDICAID, SELFPAY ==
--- NOTE | ~2024-10-17 | CT_ITS ---
CLINICAL HISTORY: back pain AP, hematuria, h.o colic CT ABDOMEN AND PELVIS WITHOUT CONTRAST Comparison: CT/REG/SR - CT ABDOMEN PELVIS WO IV CON - 07/23/23 12:55 EST Findings: No consolidation or effusion. No hydronephrosis or obstructing calculus. Multiple 1-2 mm nonobstructing intrarenal calculi bilaterally. No acute abnormalities in the remaining unenhanced solid organs, gallbladder or abdominal aorta. No bowel obstruction, pneumoperitoneum, or pneumatosis. Appendectomy changes. CT appearance of the uterus and ovaries unremarkable. Mild diffuse wall thickening in the urinary bladder which is incompletely distended. Multiple pelvic phleboliths. No acute fracture. IMPRESSION: 1. No acute obstructive uropathy. Nonobstructing bilateral nephrolithiasis. 2. Wall thickening in the urinary bladder secondary to underdistention versus cystitis. 3. No bowel obstruction or ascites. This document has been electronically signed by: Patricia Schofield DO on 10/17/2024 15:57:19
--- NOTE | ~2024-10-17 | XR_ITS ---
CLINICAL HISTORY: chest pain 2 view chest x-ray Comparison: CR/MO/SR - XR CHEST 2V - 05/27/24 07:34 EST Findings: There is mild bronchial wall thickening. No consolidation, pleural effusion or pneumothorax. Normal size heart. No acute fracture. IMPRESSION: 1. Mild central bronchial wall thickening, which can be seen with asthma, reactive airways process or viral illness. 2. No superimposed infiltrate or consolidation. This document has been electronically signed by: Patricia Schofield DO on 10/17/2024 16:15:08
[2024-10-17 12:39] VITALS: BP 135/91; PULSE 87; RESP 18; TEMP 36.8; O2SAT 98; BMI 22.2
--- NOTE | 2024-10-17 12:45 | ECG_ITS ---
Test Reason : PAIN Blood Pressure : */* mmHG Vent. Rate : 79 BPM Atrial Rate : 79 BPM P-R Int : 150 ms QRS Dur : 84 ms QT Int : 358 ms P-R-T Axes : 75 67 40 degrees QTcB Int : 410 ms Normal sinus rhythm Normal ECG When compared with ECG of 27-May-2024 07:00, No significant change was found Referred By: Estiven Licona Electronically Signed By: REJI VELA
--- NOTE | 2024-10-17 12:45 | ED.GENADULT ---
HPI - General Adult General Chief complaint: Anxiety Stated complaint: chest pain, blood in urine Time Seen by Provider: 10/17/24 13:35 Source: patient Mode of arrival: ambulatory Limitations: no limitations History of Present Illness ED Provider: Jennifer Mccoy APRN HPI narrative: 39 year-old female with PMHx of kidney stones, anxiety, alcohol use disorder in recovery since may 2024 presents to the ED due to concerns of chest pain and painful urination. She states her chest pain has been chronic over the past 2 years and explains it is worsened by anxiety and when she is feeling over emotional due to increased life stressors. She describes the chest pain as a pressure and tightness over the right chest wall and can last for hours. She states she has been seeing a PCP and her next appointment is in november to follow up for chest pain concerns. She states she is sexually active at this time and does have some concerns for STI due to increased milky white vaginal discharge. She denies SOB, fever, cough, nausea, vomiting, diarrhea, Related Data Home Medications ?Medication ?Instructions ?Recorded ?Confirmed bupropion HCl 100 mg tablet,12 hr 100 mg PO QAM 07/23/23 07/23/23 sustained-release doxepin 25 mg capsule 25 mg PO BEDTIME 07/23/23 07/23/23 famotidine 20 mg tablet 20 mg PO DAILY acid reflux 07/23/23 07/23/23 multivitamin 1 tab PO QAM 07/23/23 07/23/23 sertraline 50 mg tablet 50 mg PO DAILY 07/23/23 07/23/23 Previous Rx's ?Medication ?Instructions ?Recorded albuterol sulfate 90 mcg/actuation 2 puff inhalation QID PRN 04/09/24 aerosol inhaler shortness of breath or wheezing #6.7 grams azithromycin 250 mg tablet See Rx Instructions PO .COMPLEX #6 04/09/24 tabs prednisone 20 mg tablet 40 mg (2 x 20 mg) PO DAILY 4 days 04/09/24 #8 tabs ondansetron 4 mg disintegrating 4 mg PO Q8H PRN nausea and 05/27/24 tablet vomiting #10 tabs doxycycline hyclate 100 mg capsule 100 mg PO BID #14 caps 10/17/24 nitrofurantoin 100 mg PO Q12H 5 days #10 caps 10/17/24 monohydrate/macrocrystals 100 mg capsule (Macrobid) Allergies Allergy/AdvReac Type Severity Reaction Status Date / Time amoxicillin Allergy Rash Verified 10/17/24 12:43 oxycodone [From Percocet] Allergy Vomiting Verified 10/17/24 12:43 Review of Systems Review of Systems: Yes all other systems are reviewed and are negative Constitutional: Constitutional: Reports no additional constitutional complaints, Denies body ache(s), Denies chills, Denies fever(s), Denies headache(s) and Denies weakness Eyes: Eyes: Reports no additional eye complaints and Denies change in vision ENT: Reports system reviewed and no additional complaints, except as documented, Denies dizziness, Denies headache(s), Denies nasal congestion, Denies nasal discharge and Denies neck pain Cardiovascular: Cardiovascular: Reports no additional cardiovascular complaints, Reports chest pain, Denies leg edema and Denies dyspnea Respiratory: Respiratory: Reports no additional respiratory complaints, Denies cough and Denies dyspnea Gastrointestinal: Gastrointestinal: Reports no additional gastrointestinal complaints, Denies abdominal pain, Denies diarrhea, Denies nausea and Denies vomiting Genitourinary: Genitourinary: Reports no additional female genitourinary complaints, Reports hematuria, Reports dysuria, Reports pelvic pain, Denies urinary incontinence, Reports urinary urgency, Reports vaginal discharge and Reports vaginal odor Musculoskeletal: Musculoskeletal: Reports no additional musculoskeletal complaints, Reports back pain, Denies arthralgias, Denies joint swelling, Denies neck pain, Denies numbness and Denies tingling Integumentary/Breasts: Skin/Breast: Reports system reviewed and no additional complaints, except as docu and Denies rash Neurologic: Reports system reviewed and no additional complaints, except as documented, Denies Abnormal speech present, Denies dizziness, Denies headache(s), Denies numbness, Denies tingling and Denies weakness PMFSH Past Medical History Attestation statement: The following information was validated with the patient. Source: old records reviewed and nursing notes reviewed Medical History Acute appendicitis with rupture (07/23/23) Surgical History Hx of appendectomy Social History Social History Household Members: Children Housing: Other Housing Other:: senior living Do you presently have visiting nurse or other home services: No Alcohol intake: former Patient Tobacco Use Status: Never used Tobacco Substance Use Type: Marijuana service: No Current occupational status: unemployed Current occupation: right hand dominant Physical Exam ED Vital Signs: Vital Signs - 24 hr 10/17/24 12:39 10/17/24 14:21 10/17/24 16:23 Temperature 98.3 F 98.6 F 97.5 F Pulse Rate 87 71 73 Respiratory Rate 18 18 18 Blood Pressure 135/91 H 149/91 H 140/95 H Pulse Oximetry 98 98 98 Oxygen Delivery Method Room Air Room Air Room Air 10/17/24 16:25 Temperature 97.5 F Pulse Rate 73 Respiratory Rate 18 Blood Pressure 140/95 H Pulse Oximetry 98 Oxygen Delivery Method Room Air BMI result Body Mass Index 22.2 Const General: cooperative, comfortable and no acute distress Orientation/consciousness: patient oriented x3 Limitations: no limitations HENMT Head: Yes normal to inspection Ears: hearing grossly normal bilaterally General nose exam: Normal external nose present Face and sinus: Yes normal facial exam Mouth: Normal oral and palatal mucosa present Throat: Yes posterior oropharynx normal Eyes General: appearance normal, both eyes and all related structures Pupils: Equal, round and reactive pupils present Neck Neck: Yes normal visual inspection Chest Chest palpation & inspection: normal inspection of the chest Resp Effort & Inspection: normal respiratory effort Auscultation: clear to auscultation bilaterally Cardio Rate: regular rate Rhythm: regular rhythm Peripheral pulses: Peripheral pulses 2+ throughout GI Inspection: Yes normal to inspection Palpation (GI): Soft to palpation, nontender, no guarding and No Rebound tenderness present Auscultation: normal bowel sounds 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 General: No CVA tenderness External Female Exam: normal external appearance Speculum Exam - Vagina: normal appearance of the vagina and abnormal vaginal discharge (thin, creamy, white in color) Speculum Exam - Cervix: normal appearance of the cervix Bimanual exam- vagina & uterus: no cervical motion tenderness Bimanual Exam- Adnexa, other: normal adnexae and no tenderness Back/Spine/Pelvis Back: No CVA tenderness Thoracic/Lumbar Spine: thoracic and lumbar spine normal to inspection Skin General skin exam: no rashes or lesions noted Neuro General: patient oriented x3, no focal motor deficits and normal sensation to monofilament Cranial nerves: Yes Equal, round and reactive pupils present Cognition (Neuro): normal cognition Speech: No Abnormal speech present Gait exam (Neuro): Normal gait present Motor exam (neuro): 5/5 motor strength present throughout Extrem General: Yes normal to inspection Course Course Course Narrative: RME, this is a rapid medical exam performed by Darius Licona please refer to primary provider for complete H&P- 39-year-old female presents for evaluation of chest pain and anxiety. She reports history of anxiety and depression and increased life stressors over last few days. The patient is anxious but denies any suicidal ideation. Plan for medical workup. Reevaluation(s) Reevaluation #1: CT shows cystitis with no evidence of pyelo/renal colic. CXR normal. Labs re-assuring. STI panel pending. Patient will be treated with macrobid/doxycycline at home. Reviewed worrisome signs/symptoms with patient and when to seek additional care. Comfortable with plan for discharge home. Medications Administered Discontinued Medications Generic Name Dose Route Start Last Admin Trade Name Billyq PRN Reason Stop Dose Admin Ceftriaxone Sodium 500 mg/ 0 mg 10/17/24 14:20 10/17/24 14:41 Lidocaine HCl 1 ml IM 10/17/24 14:21 1 kit ONCE ONE Administration Doxycycline Monohydrate 100 mg 10/17/24 14:20 10/17/24 14:41 Doxycycline Monohydrate 100 Mg Capsule PO 10/17/24 14:21 100 mg ONCE ONE Administration Metronidazole 2,000 mg 10/17/24 14:20 10/17/24 14:40 Metronidazole 500 Mg Tablet PO 10/17/24 14:21 2,000 mg ONCE ONE Administration Medical Decision Making Medical Decision Making [facility] Narrative: 39 year-old female with PMHx of kidney stones, anxiety, alcohol use disorder in recovery since may 2024 presents to the ED due to concerns of chest pain and painful urination. She states her chest pain has been chronic over the past 2 years and explains it is worsened by anxiety and when she is feeling over emotional due to increased life stressors. She describes the chest pain as a pressure and tightness over the right chest wall and can last for hours. She states she has been seeing a PCP and her next appointment is in november to follow up for chest pain concerns. She states she is sexually active at this time and does have some concerns for STI due to increased milky white vaginal discharge. She denies SOB, fever, cough, nausea, vomiting, diarrhea, Patients vital signs stable, patient in no acute distress and non-toxic appearing. During physical exam copious thin, white milky discharge seen around cervix and in vaginal vault. No CMT, no adnexel tenderness, no suprapubic tenderness. No focal abdominal pain or CVA tenderness. Will obtain CT scan due to history of renal calculi and hematuria. Will obtain labs, UA, chest x-ray, EKG, troponin. Will obtain viral swabs. Sent STI panel due to concerns. Due to transportation issues, patient will be treated emperically with 500mg Ceftriaxone IM, 2G P.O flagyl, and 100mg doxycycline P.O to cover for STI. Differential Diagnosis Differential Diagnoses: The differential diagnosis associated with the presentation includes chest pain- ACS, aortic dissection, PE, pneumothorax-less likely ACS with symptoms intermittent for years, not exertional in nature with negative troponin and non ischemic EKG. Less likely aortic dissection with symptoms intermittent for years, gradual onset. Less likely PE with no risk factors, no hypoxia/tachypnea, clinical findings concerning for DVT, PERC negative. - Vaginits, STI, PID, TOA, ovarian cyst, UTI, renal colic, pyelonephritis-less likely TOA/PID with no focal pain on exam Admission/Observation Consideration of admission/observation: Escalation of care including admission/observation considered Lab Data MDM Lab Attestation statement: I reviewed the patient's lab results. 10/17/24 12:59 10/17/24 12:59 Labs: Lab Results 10/17/24 Range/Units 12:59 WBC 10.3 (4.8-10.8) X10*3/uL RBC 4.41 (4.20-5.50) X10*6/uL Hgb 13.5 (12.0-16.0) g/dl Hct 39.4 (37.0-47.0) % MCV 89.3 (80.0-98.0) fL MCH 30.6 (27.0-33.0) pg MCHC 34.3 (31.0-35.0) g/dl RDW 13.9 (11.0-16.0) % Plt Count 295 (160-400) X10*3/uL MPV 8.4 L (9.4-12.3) fL Immature Gran % (Auto) 0.4 (0.0-0.4) % Neut % (Auto) 79.2 H (45-73) % Lymph % (Auto) 14.7 L (20-40) % [place] % (Auto) 5.3 (2-11) % Eos % (Auto) 0.2 (0-4) % Baso % (Auto) 0.2 (0-2) % Lymph # (Auto) 1.5 (1.2-4.9) X10*3/uL [place] # (Auto) 0.5 (0.1-1.2) X10*3/uL Eos # (Auto) 0.0 (0.0-0.4) X10*3/uL Baso # (Auto) 0.0 (0.0-0.2) X10*3/uL Abs Immat Gran (auto) 0.04 H (0.00-0.03) X10*3/uL Absolute Neuts (auto) 8.1 (2.0-8.3) x10*3/uL Absolute Nucleated RBC 0.000 (0.0-0.012) X10*3/uL Nucleated RBC % (auto) 0.0 (0.0-0.2) /100WBC Sodium 138 (135-145) mmol/L Potassium 3.6 (3.3-5.1) mmol/L Chloride 108 (96-108) mmol/L Carbon Dioxide 24 (22-29) mmol/L Anion Gap 10 L (12-20) BUN 8 L (9-16) mg/dL Creatinine 0.78 (0.5-1.4) mg/dL Estim Creat Clear Calc 99.5 Estimated GFR > 60 Random Glucose 102 (60-115) mg/dL Calcium 9.3 (8.4-10.2) mg/dL Total Bilirubin 0.8 (0.0-1.0) mg/dL AST 20 (5-31) U/L ALT 15 (0-31) U/L Alkaline Phosphatase 69 (39-117) U/L Troponin I High Sens < 2.7 (<3.5-17.0) ng/L Total Protein 6.8 (6.5-8.0) g/dL Albumin 4.1 (3.5-5.0) g/dL Lipase 10 (8-78) U/L TSH 0.47 (0.32-4.0) uIU/mL Beta HCG, Quant < 2 mIU/mL Urine Color Yellow Urine Appearance Clear Urine pH 7.5 (5.0-9.0) Ur Specific [place] <= 1.005 (1.005-1.025) Urine Protein Negative (Neg-Trace) mg/dL Urine Glucose (UA) Negative (Negative) mg/dL Urine Ketones Negative (Negative) mg/dL Urine Blood Large (3+) H (Negative) Urine Nitrite Negative (Negative) Ur Leukocyte Esterase Large (3+) H (Negative) Urine RBC 0-2 (0-2) /HPF Urine WBC 21-50 (0-5) /HPF Ur Squamous Epith Cells 0-2 (0-2) /HPF Urine Bacteria None Seen (None Seen) Hyaline Casts 0-2 (0-2) /LPF Urine Opiates Screen Not Detected (Not Detect) Ur Buprenorphine Scrn Not Detected (Not Detect) ng/mL Ur Oxycodone Screen Not Detected (Not Detect) ng/mL Urine Methadone Screen Not Detected (Not Detect) ng/mL Urine Fentanyl Screen Not Detected (Not Detect) Ur Barbiturates Screen Not Detected (Not Detect) Ur Phencyclidine Scrn Not Detected (Not Detect) Ur Amphetamines Screen Not Detected (Not Detect) U Benzodiazepines Scrn Not Detected (Not Detect) Urine Cocaine Screen Not Detected (Not Detect) U Marijuana (THC) Screen POSITIVE H (Not Detect) Influenza Type A (PCR) NEGATIVE (Negative) Influenza Type B (PCR) NEGATIVE (Negative) RSV RNA Qual (PCR) NEGATIVE (Negative) SARS-CoV-2 RNA (RT-PCR) NEGATIVE (Negative) Independent Interpretation I performed an independent interpretation of an: EKG, Plain X-Ray and CT Scan Interpretation: I independently reviewed EKG which shows normal sinus rhythm with rate of 79 BPM, normal OH, normal QT/QTC. I independetely reviewed the CXR/ CT A/P and agree with the rad report Radiology Impression Discussion of test interpretation with radiology: I have reviewed the radiologist's reading. Radiologist Impression: [address] [address] XRay Report Signed Patient: Evonne Zapata MR#: [id number] : 1985 Acct:[id number] Age/Sex: 39 / F ADM Date: 10/17/24 Loc: .ED Attending Dr: Ordering Physician: Jennifer Mccoy NP Date of Service: 10/17/24 Procedure(s): XR chest 2V Accession Number(s): [id number] cc: Jennifer Mccoy NP; Physician,Unknown ~ CLINICAL HISTORY: chest pain 2 view chest x-ray Comparison: CR/OH/SR - XR CHEST 2V - 05/27/24 07:34 EST Findings: There is mild bronchial wall thickening. No consolidation, pleural effusion or pneumothorax. Normal size heart. No acute fracture. IMPRESSION: 1. Mild central bronchial wall thickening, which can be seen with asthma, reactive airways process or viral illness. 2. No superimposed infiltrate or consolidation. This document has been electronically signed by: Patricia Schofield DO on 10/17/2024 16:15:[address] [address] [address] Scan Report Signed Patient: Evonne Zapata MR#: [id number] : 1985 Acct:[id number] Age/Sex: 39 / F ADM Date: 10/17/24 Loc: .ED Attending Dr: Ordering Physician: Jennifer Mccoy NP Date of Service: 10/17/24 Procedure(s): CT abdomen pelvis wo IV con Accession Number(s): [id number] cc: Jennifer Mccoy NP; Physician,Unknown ~ Report Number: [id number]: Total DLP = 380.00 mGy-cm CLINICAL HISTORY: back pain AP, hematuria, h.o colic CT ABDOMEN AND PELVIS WITHOUT CONTRAST Comparison: CT/REG/SR - CT ABDOMEN PELVIS WO IV CON - 07/23/23 12:55 EST Findings: No consolidation or effusion. No hydronephrosis or obstructing calculus. Multiple 1-2 mm nonobstructing intrarenal calculi bilaterally. No acute abnormalities in the remaining unenhanced solid organs, gallbladder or abdominal aorta. No bowel obstruction, pneumoperitoneum, or pneumatosis. Appendectomy changes. CT appearance of the uterus and ovaries unremarkable. Mild diffuse wall thickening in the urinary bladder which is incompletely distended. Multiple pelvic phleboliths. No acute fracture. IMPRESSION: 1. No acute obstructive uropathy. Nonobstructing bilateral nephrolithiasis. 2. Wall thickening in the urinary bladder secondary to underdistention versus cystitis. 3. No bowel obstruction or ascites. This document has been electronically signed by: Patricia Schofield DO on 10/17/2024 15:57:19 Prescription Management I considered prescription management with: Pain Medication and Antibiotic Social Determinants Patient?s care significantly limited by Social Determinants of Health including: Inadequate housing, Problems related to primary support group and Other Social Determinant of Health Discharge Plan Discharge Clinical Impression: Chest pain, Cystitis, Vaginitis Patient Disposition: Home, Self-Care Instructions: Chest Pain (ED), Vaginal Discharge (ED), Interstitial Cystitis (ED) Additional Instructions: Your blood work, chest x-ray, CT scan, and EKG are re-assuring You do have some inflammation in your bladder which can be seen with cystitis We did sent testing for vaginal infections and sexually transmitted disease. These results take 1-2 days to come back and we will notify you if they are positive. We are treating you empirically. Please use condoms. Continue to follow-up with your PCP Prescriptions: New nitrofurantoin monohyd/m-cryst [Macrobid] 100 mg capsule 100 mg PO Q12H 5 Days Qty: 10 0RF Rx Instructions: must administer with a meal/food doxycycline hyclate 100 mg capsule 100 mg PO BID Qty: 14 0RF No Action ondansetron 4 mg tablet,disintegrating 4 mg PO Q8H PRN (Reason: nausea and vomiting) Qty: 10 0RF multivitamin Tablet 1 tab PO QAM doxepin 25 mg capsule 25 mg PO BEDTIME bupropion HCl 100 mg tablet sustained-release 12 hr 100 mg PO QAM famotidine 20 mg tablet 20 mg PO DAILY sertraline 50 mg tablet 50 mg PO DAILY azithromycin 250 mg tablet See Rx Instructions .ROUTE .COMPLEX Qty: 6 0RF Rx Instructions: For 250 mg dose pack: take 500 mg today (day 1), then 250 mg for 4 days (days 2-5) prednisone 20 mg tablet 40 mg PO DAILY 4 Days Qty: 8 0RF albuterol sulfate 90 mcg/actuation HFA aerosol inhaler 2 puff inhalation QID PRN (Reason: shortness of breath or wheezing) Qty: 6.7 0RF Referrals: Physician,Unknown J [Primary Care Provider] - 1 week Interventions: ED Discharge Assessment Last Done: 10/17/24 16:25 Discharge Date/Time: 10/17/24 16:28 Print Language: Tunisian
[2024-10-17 13:07] LABS: MANUAL DIFF FLAG NO
[2024-10-17 13:09] LABS: Appearance Urine Clear; Color Urine Yellow; Glucose Urine UA Negative (Negative); Leukocyte Esterase Urine Large (3+) (Negative); Nitrite Urine Negative (Negative); PH 7.5 (5.0-9.0); Specific Gravity - Urine <= 1.005 (1.005-1.025); UMIC TRIGGER UACC YES; Urine Blood Large (3+) (Negative); Urine Ketones Negative (Negative); Urine Protein Negative (Neg-Trace)
[2024-10-17 13:10] LABS: Basophils Percent Auto 0.2 % (0-2); Eosinophils Percent Auto 0.2 % (0-4); Hematocrit 39.4 % (37.0-47.0); Hemoglobin 13.5 g/dl (12.0-16.0); Imm Gran Abs Auto 0.04 X10*3/uL (0.00-0.03); Imm Gran Pct Auto 0.4 % (0.0-0.4); Lymphocytes Absolute Auto 1.5 X10*3/uL (1.2-4.9); Lymphocytes Percent Auto 14.7 % (20-40); Mean Corpuscular HGB Conc 34.3 g/dl (31.0-35.0); Mean Corpuscular Hemoglobin 30.6 pg (27.0-33.0); Mean Corpuscular Volume 89.3 fL (80.0-98.0); Mean Platelet Volume 8.4 fL (9.4-12.3); Monocytes Absolute Auto 0.5 X10*3/uL (0.1-1.2); Monocytes Percent Auto 5.3 % (2-11); Neutrophils Absolute Auto 8.1 x10*3/uL (2.0-8.3); Neutrophils Percent Auto 79.2 % (45-73); Platelet Count 295 X10*3/uL (160-400); Red Blood Count 4.41 X10*6/uL (4.20-5.50); Red Cell Distribution Width 13.9 % (11.0-16.0); White Blood Count 10.3 X10*3/uL (4.8-10.8)
--- OUTSIDE RECORDS SUMMARY | 2024-10-17 13:14 | XMS_ITS | Clinical Summary ---
Author Organization [employer] Address [address] [facility] 7[address] [place] [address] Care Team Providers Care Professional Housing Consultant Name Role Phone Lucía Crawford ARNEL Primary Care Provider [phone] Allergies Active Allergy Reactions Criticality Noted Date Comments Oxycodone-Acetaminophen 03/08/2023 Nausea, Vomiting Medications * This document contains information received from the source organization and may not represent a complete record from that organization. acetaminophen (Tylenol) 500 MG tablet Take 2 tablets (1,000 mg) by mouth every 6 (six) hours if needed for moderate pain or fever for up to 25 doses. 50 tablet 04/26/20 23 Active Multiple Vitamin (multivitamin) tablet Take 1 tablet by mouth in the morning. 90 tablet 3 05/31/20 23 Active nicotine polacrilex (Nicorette) 2 MG gumIndications: Smoking Chew 1 each (2 mg) if needed for smoking cessation. 100 each 3 06/06/20 23 Active Blood Pressure kitIndications: Elevated blood pressure reading without diagnosis of hypertension 1 kit in the morning. 1 kit 06/06/20 23 Active lidocaine (Lidoderm) 5 % patch APPLY 1 PATCH TOPICALLY TO SKIN IN THE MORNING. LEAVE ON FOR 12 HOURS AND OFF FOR 12 HOURS DIRECTED 30 patch 2 09/26/19 24 Active sertraline (Zoloft) 50 MG tablet Take 50 mg by mouth Once per day. 09/03/19 24 Active nicotine (Nicoderm CQ) 21 MG/24HR patchIndication s:Tobacco use disorder Place 1 patch on the skin 1 (one) time each day at the same time. As reviewed. 42 patch 09/24/20 24 Active ulipristal (Maryam) 30 mg tablet Take one tablet by mouth up to five days after sex. Do not use more than once per menstrual cycle. If repeat dose is needed in same cycle, please contact prescriber. 1 tablet 11 03/17/20 24 Active Drospirenone (Slynd) 4 MG tabletIndicatio ns:Family planning Take 1 tab po daily 84 tablet 3 06/11/20 24 Active amoxicillin (Amoxil) 500 MG capsule Take 1 tab po bid for 10 days 20 capsule 09/16/19 25 Active naltrexone (Depade) 50 MG tabletIndicatio ns:Alcohol use disorder, severe, in early remission (CMS/HCC) TAKE 1 TABLET BY MOUTH EVERY DAY IN THE MORNING WITH FOOD 30 tablet 5 10/03/19 25 Active naltrexone ER (Vivitrol) injection Inject 4 mL (380 mg) into the shoulder, thigh, or buttocks every 28 (twenty-eigh t) days for 180 doses. 1.2 each 5 03/08/20 23 025 Discontinued(Me d list cleanup (will not trigger notification to Pharmacy)) naltrexone (Depade) 50 MG tabletIndicatio ns:Alcohol use disorder, severe, in early remission (CMS/HCC) One tablet PO q a.m. May take with food. 30 tablet 5 10/29/19 24 025 Discontinued Active Problems Problem Noted Date Diagnosed Date Streptococcal pharyngitis 09/15/2024 Assessment & Plan (09/15/2024 1:47 PM EDT): -rapid strep positive -amoxicillin 500mg bid for 10 days -droplet precautions discussed -supportive care discussed Throat discomfort 09/15/2024 Assessment & Plan (09/15/2024 1:47 PM EDT): Reports throat discomfort , dysphagia and change in voice ongoing for many years. Family history of thyroid disease. -referred to ENT 09/15/24 Family history of thyroid disease 09/15/2024 Assessment & Plan (09/15/2024 1:47 PM EDT): Reports throat discomfort , dysphagia and change in voice ongoing for many years. Family history of thyroid disease. -referred to ENT 09/15/24 Folliculitis 09/15/2024 Assessment & Plan (09/15/2024 1:49 PM EDT): On exam appreciated a well healing, almost resolved lesion on right outer labia. See exam. No sign of active infection. No treatment indicated at this time. -encouraged warm compresses, soaking in hot water and supportive care. Change in voice 09/15/2024 Assessment & Plan (09/15/2024 1:47 PM EDT): Reports throat discomfort , dysphagia and change in voice ongoing for many years. Family history of thyroid disease. -referred to ENT 09/15/24 Dysphagia 09/15/2024 Assessment & Plan (09/15/2024 1:47 PM EDT): Reports throat discomfort , dysphagia and change in voice ongoing for many years. Family history of thyroid disease. -referred to ENT 09/15/24 Bipolar disorder, in partial remission, most recent episode mixed 07/07/2024 Cannabis use disorder 06/15/2024 Vaginal discharge 03/16/2024 Assessment & Plan (03/17/2024 6:26 PM EDT): History suggestive of BV. Pt opts for self swab and to treat presumptively. Rx sent, pt is scheduled for nexplanon removal tomorrow. Tobacco dependence 04/19/2023 Cocaine use, unspecified, in remission Alcohol dependence with intoxication 03/08/2023 Assessment & [...] seek support PLAN: 1. Follow up with [facility]: Recommended for follow-up: during Obat appts 2. Patient goal is improve mental health, and become sober 3. Behavioral Recommendations a. Keeping Ind. Therapy with [facility] b. Keeping AUD appt with Dr. Jay c. Connecting with -[facility] d. [facility] contact number for extra support Assessment [...] to engage. PLAN: 1. Follow up with [facility]: Recommended for follow-up: during AUD appts 2. Patient goal is to become sober and improve mental health 3. Behavioral Recommendations a. Ind. Therapy, referral will be submitted b. Transportation Mechanic, referral will be submitted c. Use of coping skills as provide d. Engage in AA meetings for support Severe anxiety 03/08/2023 Resolved Problems Problem Noted Date Diagnosed Date Resolved Date Moderate major depression 03/08/2023 Assessment & Plan [...] engage, insight PLAN: 1. Follow up with [facility]: Recommended for follow-up: with [place] for support [...] in treatment PLAN: 1. Follow up with [facility]: Recommended for follow-up: during OBAT appts 2. Patient goal is become sober and improve mental health 3. Behavioral Recommendations a. Ind. Therapy, referral submitted on 03/08/23 b. Use of coping skills provided as recommended c. Maintain engagement with -MR bustamante [facility] contact number for support Assessment & [...] to engage. PLAN: 1. Follow up with [facility]: Recommended for follow-up: during AUD appts 2. Patient goal is to become sober and improve mental health 3. Behavioral Recommendations a. Ind. Therapy, referral will be submitted b. Transportation Mechanic, referral will be submitted c. Use of coping skills as provide d. Engage in AA meetings for support Encounters * This document contains information received from the source organization and may not represent a complete record from that organization. Date Type Department Care Team Description 10/02/2024 Refill [facility] [address] [place] [phone] Gary Jay MD Alcohol use disorder, severe, in early remission (CMS/HCC) 09/15/2024 1:00 PM EDT Office Visit [facility] [address] [place] [phone] Dunia Gee MD Throat discomfort (Primary Dx); Dysphagia, unspecified type; Change in voice; Family history of thyroid disease; Streptococcal pharyngitis; Folliculitis 09/04/2024 Population Health Risk Score [facility] Department [address] [place] [phone] Provider, Population Health Generic 08/31/2024 Telephone [facility] [address] [place] [phone] Lucía Crawford ANP 08/31/2024 Telephone [facility] [address] [place] [phone] Lucía Crawford ANP Chart Prep 08/21/2024 Patient Outreach [address] [address] Lucía Crawford ANP Pre-visit Planning (Pre-visit planning - PHONE NUMBERS not working ) 07/31/2024 10:45 AM EST Office Visit [facility] [address] [place] [address] Gary Jay MD Alcohol use disorder, severe, dependence (CMS/HCC) (Primary Dx); Tobacco use disorder 07/31/2024 Patient Outreach [facility] [address] [place] [address] Ernesto Romero 07/31/2024 Travel from Last 3 Months Immunizations Name [...] Answer Date Recorded Patient Health Questionnaire-9 Score 10 09/15/2024 Patient Health Questionnaire-9 Score 10 09/15/2024 Last PHQ-9: Questionnaire Data Not on file 0 09/15/2024 Housing Stability Answer Date Recorded What is your housing situation today? I have erlin nela 04/02/[address] you li [...] Answer Date Recorded Patient Health Questionnaire-2 Score 1 09/15/2024 Comments No Sex and Gender Information Value Date Recorded Sex Assigned at Female 03/08/2023 11:33 AM EDT Legal Sex Female 1:42 PM EDT Gender Identity Female 03/08/2023 11:33 AM EDT Sexual Orientation Bisexual 03/08/2023 11 :33 AM EDT Last Filed Vital Signs Vital Sign Reading Time Taken Comments Blood Pressure 146/86 09/15/2024 12:52 PM EDT Pulse 78 09/15/2024 12:52 PM EDT Temperature 36.7 ??C (98.1 ??F) 09/15/2024 12:52 PM E DT Respiratory Rate 16 09/15/2024 12:52 PM EDT Oxygen Saturation 98% 06/11/2024 2:04 PM EST Inhaled Oxygen Concentration - - Weight 67.1 kg (148 lb) 09/15/2024 12:52 PM EDT Height 172.7 cm (5' 8 ) 03/24/2024 11:16 AM EDT Body Mass Index 22.5 03/24/2024 11:16 AM EDT Plan of Treatment Upcoming Encounters Date Type Department Care Team (Late st Contact Info) Description 11/26/2024 9:30 AM EDT Office Visit [facility] [address] [place], [place] [phone] Lucía Crawford ANP [address] [place], [place] [phone] 12/24/2024 1:00 PM EDT Office Visit [facility] [address] [place] [address] Tiera Pearce, YOJANA [address] [place] [address] Health Maintenance Due Date Last Done Comments Hepatitis B Vaccines (1 of 3 - 19+ 3-dose series) 09/19/2006 Pneumococcal Vaccine: Pediatrics (0 to 5 Years) and At-Risk Patients (6 to 49) Years) (1 of 2 - PCV) 09/19/2006 COVID-19 Vaccine (1 - 2023-2 5 season) 2024 Influenza Vaccine (#1) 2024 SDOH Screening 03/08/2024 03/08/2023 Alcohol/Substance Use Screening 03/06/2025 03/06/2024 Depression Monitoring 03/18/2025 09/15/2024 , 09/15/2024 Cervical Cancer Screening 03/24/2025 Family Planning (PISQ) 03/24/2025 03/24/2024 HPV/Cotest 03/24/2025 03/24/2024 Pap Smear 03/24/2025 03/24/2024 Tobacco Screening 06/11/2025 06/11/2024 Depression Screening 09/15/2025 09/15/2024, 09/15/2024 Lipid Panel 06/07/2028 06/07/2023 DTaP/Tdap/Td Vaccines (2 - T d or Tdap) 06/06/2033 06/06/2023 Zoster Vaccines (1 of 2) 09/19/2037 RSV Patients and Patients Aged 60 years or older (1 - 1-dose 75+ series) 09/19/2062 Hepatitis A Vaccines Aged Out 03/26/2023 No long er eligible based on patient's age to complete this topic HIV Screening Completed 03/16/2024, 03/12/2023 Hepatitis C [...] Procedure Name Priority Date/Time Associated Diagnosis Comments TSH W/REFLEX TO FT4 Routine 09/15/2024 1 :43 PM EDT Throat discomfort POCT RAPID STREP A Routine 09/15/2024 1: 10 PM EDT Streptococcal pharyngitis POCT ALCOHOL BREATH TEST Routine 07/31/2024 10:39 AM EST Alcohol use disorder, severe, dependence (CMS/HCC) POCT BHAKTI-14 URINE DRUG SCREEN Routine 07/31/2024 10:38 AM EST Alcohol use disorder, severe, dependence (CMS/HCC) BI US BREAST LIMITED LEFT Routine 07/29/2024 1:30 PM EST BI MAMMOGRAM DIAGNOSTIC TOMOSYNTHESIS BILATERAL Routine 07/29/2024 1:00 PM EST Breast pain, left THINPREP IMAGING PAP AND HPV MRNA E6/E7 [...] Recently Relevant to Health Maintenance Results * TSH W/Reflex to FT4 (09/15/2024 1:43 PM EDT) TSH reflex Free T4 0.53 0.32 - 4.0 uIU/mL [facility] Blood Venous blood specimen / Unknown 09/15/2024 1:43 PM EDT 09/15/2024 4:06 PM EDT Dunia Gee MD LAB BLOOD ORDERABLES Final Result [facility] [address] [place] [phone] * (ABNORMAL) POCT rapid strep A manually resulted (09/15/2024 1:10 PM EDT) Rapid Strep A Screen Positive( A) Negative, None Detected Swab 09/15/2024 1:10 PM EDT Dunia Gee MD POINT OF CARE TEST ENTER/E DIT ORDERABLES Final Result * POCT alcohol breath test manually resulted (07/31/2024 10:39 AM EST) Breath Alcohol 0.00 Breath 07/31/2024 10:3 9 AM EST Gary Jay MD POINT OF CARE TEST ENTER/EDIT ORDERABLES Final Result * POCT BHAKTI-14 Urine Drug Screen (07/31/2024 10:38 AM EST) Pathologist [facility] THC Positive Cocaine Screen, Urine Negative Opiate [...] obtained by clean catch procedure / Unknown 07/31/2024 10:38 AM EST us Gary Jay MD POINT OF CARE TEST ENTER/EDIT ORDERABLES Final Result * BI US Breast Limited Left (07/29/2024 1:30 PM EST) Anatomical Region Laterality Modality Breast Left Ultrasound 07/29/2024 1:30 PM EST Narrative 07/29/2024 1:36 PM EST ? [facility] ? [address] ?[place] [address] ? Ultrasound Report ? Signed ? Patient: Jodi,Evonne ?MR#: [id number] ? : 1985 ?Acct:[id number] ? Age/Sex: 38 / F ?ADM Date: 07/29/24 ? Loc: HO.MAMMO ? Attending Dr: Dunia Gee MD ? Ordering Physician: Dunia Gee MD ?? Date of Service: 07/29/24 ?? Procedure(s): US breast LT limited mamm only ?? Accession Number(s): [id number] ? cc: Dunia Gee MD ? EXAMINATION: [...] (ACR BI-RADS breast composition Category c). ?? [place] marker at the site of pain in [...] ??Wendy Okeefe DO ??07/29/2024 01:32 PM EST ?? RP ? Dictated By: ?Wendy Okeefe DO ? Signed By: ?<Electronically signed by Wendy Okeefe, DO in OV> ? 07/29/24 1332 ? DD/ 1330 ? TD/TT: 07/29/24 1331 ? News Correspondent: ? Procedure Note Donotuseinterpreter, Image - 07/29/2024 [facility] [address] [place], [place] [address] Ultrasound Report Signed Patient: Evonne ZapataMR#: [id number] : 1985Acct:[id number] Age/Sex: 38 / FADM Date: 07/29/24 Loc: HO.MAMMO Attending Dr: Dunia Gee MD Ordering Physician: Dunia eGe MD Date of Service: 07/29/24 Procedure(s): US breast LT limited mamm only Accession Number(s): [id number] cc: Dunia Gee MD EXAMINATION: MM DIAGNOSTIC [...] masses (ACR BI-RADS breast composition Category c). [place] marker at the site of pain in [...] 07/29/24 1332 DD/ 1330 TD/TT: 07/29/24 1331 News Correspondent: us Dunia Gee MD [facility] PROCEDURES Edited R esult - Final * BI Mammogram Diagnostic Tomosynthesis Bilateral (07/29/2024 1:00 PM EST) Anatomical Region Laterality Modality Breast Bilateral Mammography 07/29/2024 1:00 PM EST Narrative 07/29/2024 1:36 PM EST ? [facility] [place] ? [address] ?[place] [address] ? Mammography Report ? Signed ? Patient: Evonne Zapata ?MR#: [id number] ? : 1985 ?Acct:[id number] ? Age/Sex: 38 / F ?ADM Date: 02/05/25 ? Loc: HO.MAMMO ? Attending Dr: Dunia Gee MD ? Ordering Physician: Dunia Gee MD ?Results: 1N ?? egative ? Date of Service: 07/29/24 ?Follow Up: 1 Year From Orig ?? inal Mammogram ? Procedure(s): MM tomosynthesis diagnostic BI ?? Accession Number(s): [id number] ? cc: Dunia Gee MD ? EXAMINATION: [...] (ACR BI-RADS breast composition Category c). ?? [place] marker at the site of pain in [...] ??Wendy Okeefe DO ??07/29/2024 01:32 PM EST ?? RP ? Dictated By: ?Wendy Okeefe DO ? Signed By: ?<Electronically signed by Wendy Okeefe, DO in OV> ? 07/29/24 1332 ? DD/ 1300 ? TD/TT: 07/29/24 1322 ? News Correspondent: ? Procedure Note Donotuseinterpreter, Image - 07/29/2024 [facility] [address] [place] [address] Mammography Report Signed Patient: Fawad Zapata#: [id number] : 1985Acct:[id number] Age/Sex: 38 / FADM Date: 07/29/24 Loc: HO.MAMMO Attending Dr: Dunia Gee MD Ordering Physician: Dunia Gee MDResults: 1N egative Date of Service: 07/29/24Follow Up: 1 Year From [facility] ina Mammogram Procedure(s): MM tomosynthesis diagnostic BI Accession Number(s): [id number] cc: Dunia Gee MD EXAMINATION: MM DIAGNOSTIC [...] masses (ACR BI-RADS breast composition Category c). [place] marker at the site of pain in [...] Wendy Okeefe DO 07/29/2024 01:32 PM EST RP Dictated By: Wendy Okeefe DO Signed By: <Electronically signed by Wendy Okeefe DO in OV> 07/29/24 1332 DD/ 1300 TD/TT: 07/29/24 1322 News Correspondent: us Dunia Gee MD IMG BI PROCEDURES Edited R esult - Final * ThinPrep Imaging Pap and HPV mRNA E6/E7 (03/24/2024 11:39 AM EDT) HPV nRNA E6/E7 Not Detected Not Detected [facility] Comment:Methodology: Transcr iption-Mediated AmplificationThis assay detects E6/E7 viral messenger RNA (mRNA) from 14high-risk HPV types (16,18,31,33,35,39,45,51,52,56,58,59,66,68).Cervical sources are required for HPV testing.If a vaginal source from a patient who has had atotal hysterectomy with removal of cervix wassubmitted, please contact the testing laboratoryfor alternative testing options.For additional information, please refer [email or web address]/KDX853b6(This link if provided for information/educational purposes only.)THIS TEST WAS PERFORMED AT:[employer] [place] [phone] REYNOSO MD SOURCE: SEE NOTE [facility] Comment:Cervix Report Status: TNP [facility] Clinical Information: SEE NOTE [facility] Comment:None given LMP: SEE NOTE [facility] Comment:NONE GIVEN Prev. PAP: SEE NOTE [facility] Comment:NONE GIVEN Prev. BX: SEE NOTE [facility] Comment:NONE GIVEN Statement Of Adequacy: SEE NOTE [facility] Comment:Satisfactory for juanita luation.Endocervical/transformation zone component absent. General Categorization: [facility] Interpretation/Result: SEE NOTE [facility] Comment:Cytology Results: Ne gative for intraepitheliallesion or malignancy. Cytology Comment SEE NOTE [facility] Comment:This Pap test has be en evaluated with computerassisted technology. Farm Service Adviser: SEE NOTE [facility] Comment:MSM, CT(ASCP)CT scre ening location: [place] [address] Review Farm Service Adviser: [facility] Pathologist [facility] PAP Infection [facility] See Note SEE NOTE [facility] Comment:EXPLANATORY NOTE:The Pap is a [...] AM EDT 03/24/2024 4:30 PM EDT Narrative [facility] - 03/27/2024 2:06 PM EDT SEE SCANNED RESULTS IN EMRCERVIX us Jada Collins CNM LAB PATHOLOGY ORDERABLES Final Result [facility] [address] [place] [phone] [phone] * Hepatitis C Antibody with Reflex to HCV, RNA, Quantitative, Real-Time PCR (03/16/2024 2:04 PM EDT) Hepatitis C Antibody Nonreactive Nonreactive [facility] Comment:Antibodies to HCV no t detected; does not exclude early acuteHCV infection. Blood Venous blood specimen / Unknown 03/16/2024 2:04 PM EDT 03/16/2024 4:53 PM EDT us Martha Graef [employer] LAB BLOOD ORDERABLES Final Resul t Performing Organization Address [place]/ZIP Co de Phone Number [facility] [address] [place] [address] [phone] * HIV-1/2 Antigen and Antibodies, Fourth Generation, with Reflexes (03/16/2024 2:04 PM EDT) HIV AB/AG Nonreactive Nonreactive [facility] Comment:HIV-1 p24 Ag and/or HIV-1/HIV-2 Ab not detected.A test result that is nonreactive does not exclude thepossibility of exposure to or infection with HIV-1 and/orHIV-2. Nonreactive results in this assay for individualswith prior exposure to HIV-1 and/or HIV-2 may be due toantigen and antibody levels that are below the limit ofdetection of this assay.The [employer] HIV Ag/Ab Combo assay result andsupplemental assay results should be interpreted inconjunction with the patient's clinical presentation,history and other laboratory results. If the results areinconsistent with clinical evidence, additional testing issuggested to confirm the result. Blood Venous blood specimen / Unknown 03/16/2024 2:04 PM EDT 03/16/2024 4:53 PM EDT us Martha Sellers [employer] LAB BLOOD ORDERABLES Final Resul t Performing Organization Address [facility] Co de Phone Number [facility] [address] [place] [address] [phone] * (ABNORMAL) Lipid Panel, Standard (06/07/2023 10:45 AM EST) Triglycerides 65 <150 mg/dL [facility] Comment:Desirable Triglyceri de: less than 150 mg/dLBorderline High Triglyceride 150-199 mg/dLHigh Triglyceride: 200-499 mg/dLVery High Triglyceride: greater than or equal to 5OO mg/dL Cholesterol 185 <200 mg/dL [facility] Comment:Desirable Cholestero l: less than 200 mg/dLBorderline High Cholesterol: 200-239 mg/dLHigh Cholesterol: greater than 239 mg/dL LDL Cholesterol Calculated 117(H) <100 mg/dL [facility] Comment:Desirable LDL: less than 100 mg/dLNear Optimal/Above Optimal LDL: 110- 129 mg/dLBorderline High LDL: 130-159 mg/dLHigh LDL: 160-189 mg/dLVery High LDL: greater than or equal to 190 mg/dL HDL Cholesterol 55 >40 mg/dL [facility] Comment:Desirable HDL: great er than 40 mg/dL Note: This HDL assay may give artificially low results in patients with liver disease. Blood Venous blood specimen / Unknown 06/07/2023 10:45 AM EST 06/07/2023 11:13 AM EST us Lucía SEALS LAB BLOOD ORDERABLES Final Resul t [facility] [address] [place] [address] [phone] from Last 3 Months or Most Recently Relevant to Health Maintenance Insurance [facility] C3 Care Teams Professional Housing Consultant Relationship Specialty Start Date End Date Lucía Crawford ANP [address] [place] [phone] PCP - General Family Medicine 06/12/23
--- OUTSIDE RECORDS SUMMARY | 2024-10-17 13:14 | XMS_ITS | Encounter Summary ---
Author Organization [employer] Address [address] [facility] [address] [place] [address] Care Team Providers Care Medical Billing And Coding Specialist Name Role Phone Lucía Crawford ARNEL Primary Care Provider [phone] Encounter Details Date Type Department Care Team (Late st Contact Info) Description 12/24/2023 Orders Only [facility] [address] [place], [place] [phone] Dunia Gee MD [address] [place], [place] [phone] Social History Tobacco Use Types Packs/Day Years [...] Description 11/26/2024 9:30 AM EDT Office Visit [facility] [address] [place] [address] Lucía Crawford ANP [address] [place] [address] 12/24/2024 1:00 PM EDT Office Visit [facility] [address] [place], [place] [phone] Tiera Pearce, OD [address] [place] [address] documented as of this encounter Visit Diagnoses Not on filedocumented in this encounter Additional Health Concerns Assessment Noted Time PHQ-9 Depression Total Score: 23 023 1:35 PM EDT documented as of this encounter Care Teams Medical Billing And Coding Specialist Relationship Specialty Start Date End Date Lucía Crafword ANP [address] [place] [address] PCP - General Family Medicine 06/12/23 documented as of this encounter
--- OUTSIDE RECORDS SUMMARY | 2024-10-17 13:14 | XMS_ITS | Encounter Summary ---
Author Organization [employer] Address [address] [facility] 7t [place] [address] Care Team Providers Care Day Care Worker Name Role Phone Lucía Crawford ARNEL Primary Care Provider [phone] Reason for Visit * Reason Comments Med Refill Encounter Details Date Type Department Care Team ([facility] st Contact Info) Description 05/30/2023 Refill [facility] [address] [place], [place] [phone] Gary Jay MD [address] [place] [address] Social History Tobacco Use Types Packs/Day Years [...] Description 11/26/2024 9:30 AM EDT Office Visit [facility] [address] [place] [address] Lucía Crawford ANP [address] [place] [address] 12/24/2024 1:00 PM EDT Office Visit [facility] [address] [place] [address] Tiera Pearce, OD [address] [place] [address] documented as of this encounter Visit Diagnoses Not on filedocumented in this encounter Additional Health Concerns Assessment Noted Time PHQ-9 Depression Total Score: 23 023 1:35 PM EDT documented as of this encounter Care Teams Day Care Worker Relationship Specialty Start Date End Date Lucía Crawford ANP [address] [place] [address] PCP - General Family Medicine 06/12/23 documented as of this encounter
[2024-10-17 13:17] LABS: Amphetamine Screen Urine Not Detected (Not Detect); Barbiturates, Urine Not Detected (Not Detect); Benzodiazepines Screen Urine Not Detected (Not Detect); Buprenorphine Scr Not Detected (Not Detect); Cannabinoid Screen Urine POSITIVE (Not Detect); Cocaine Screen Urine Not Detected (Not Detect); Fentanyl, urine Not Detected (Not Detect); Methadone Screen, Urine Not Detected (Not Detect); Opiate Screen Urine Not Detected (Not Detect); Oxycodone Screen Urine Not Detected (Not Detect); Phencyclidine Screen Urine Not Detected (Not Detect)
[2024-10-17 13:22] LABS: Alanine Aminotransferase 15 U/L (0-31); Albumin Level 4.1 g/dL (3.5-5.0); Alkaline Phosphatase 69 U/L (39-117); Anion Gap 10 (12-20); Aspartate Amino Transferase 20 U/L (5-31); Bilirubin Total 0.8 mg/dL (0.0-1.0); Blood Urea Nitrogen 8 mg/dL (9-16); Calcium 9.3 mg/dL (8.4-10.2); Carbon Dioxide 24 mmol/L (22-29); Chloride 108 mmol/L (96-108); Creatinine Clr Calc Pharmacy 99.5; Estimated Glomerular Filt Rate > 60; Glucose Random 102 mg/dL (60-115); Lipase 10 U/L (8-78); Potassium 3.6 mmol/L (3.3-5.1); Sodium 138 mmol/L (135-145); Total Protein 6.8 g/dL (6.5-8.0)
[2024-10-17 13:24] LABS: Bacteria Urine None Seen (None Seen); Hyaline Casts Urine 0-2 /LPF (0-2); RBC Urine 0-2 /HPF (0-2); Squamous Epithelial Cell Urine 0-2 /HPF (0-2); UACC Culture Trigger YES; WBC Urine 21-50 /HPF (0-5)
[2024-10-17 13:36] LABS: Troponin-I High Sensitivity < 2.7 ng/L (<3.5-17.0)
[2024-10-17 13:54] LABS: HCG Quantitative < 2 mIU/mL; TSH reflex Free T4 0.47 uIU/mL (0.32-4.0)
[2024-10-17 14:03] LABS: Influenza A PCR NEGATIVE (Negative); Influenza B PCR NEGATIVE (Negative); Resp Syncy Virus RNA Qual PCR NEGATIVE (Negative); SARS COV2 PCR INHOUSE NEGATIVE (Negative)
[2024-10-17 14:21] VITALS: BP 149/91; PULSE 71; RESP 18; TEMP 37; O2SAT 98
--- NOTE | 2024-10-17 14:33 | PC.NURSE ---
Provider at bedside for pelvic exam. Swabs collected as ordered
[2024-10-17] MEDS: metroNIDAZOLE 500 MG TABLET 2000 MG PO (14:40)
[2024-10-17] MEDS: Doxycycline Monohydrate 100 MG CAPSULE PO (14:41)
[2024-10-17] MEDS: cefTRIAXone sodium 500 MG, Lidocaine HCl 1 % MPF 1 ML IM (14:41)
[2024-10-17 16:23] VITALS: BP 140/95; PULSE 73; RESP 18; TEMP 36.4; O2SAT 98
[2024-10-17 16:25] VITALS: BP 140/95; PULSE 73; RESP 18; TEMP 36.4; O2SAT 98
[2024-10-18 01:02] LABS: CT PCR NOT DETECTED (Not Detect.); NG PCR NOT DETECTED (Not Detect.)
[2024-10-18 09:17] LABS: Bacterial Vaginosis PCR POSITIVE (Negative); Candida Group PCR NOT DETECTED (Not Detect); Candida glab krusei PCR NOT DETECTED (Not Detect); Trichomonas vaginalis PCR NOT DETECTED (Not Detect)
== END 2024-10-17 16:28 | disposition home or self-care (01) ==
PROVIDERS: Nurse Practitioner Family; Physician Assistant; Emergency Provider Emergency Medicine
DX: R07.89 Other chest pain (principal); R31.9 Hematuria, unspecified; F41.9 Anxiety disorder, unspecified; R30.0 Dysuria; F43.9 Reaction to severe stress, unspecified; Z79.899 Other long term (current) drug therapy; Z03.818 Encounter for observation for suspected exposure to other biological agents ruled out
CPT/HCPCS: 0241U; 36415; 71046; 74176; 80053; 80307; 81001; 81515; 83690; 84443; 84484; 84702; 85025; 87086; 87088; 87186; 87491; 87591; 93005; 96372; 99284; 99285; J0696; J2003

== ENCOUNTER → 2024-10-17 12:45 | Outpatient (BNV) | payer MEDICAID, SELFPAY | PROVIDERS: Emergency Provider Emergency Medicine; Visit Provider Internal Medicine | DX: R07.9 Chest pain, unspecified (principal) | CPT/HCPCS: 93010 ==

== ENCOUNTER → 2024-10-17 14:20 | Outpatient (BNV) | payer MEDICAID, SELFPAY | PROVIDERS: Emergency Provider Emergency Medicine; Visit Provider Radiology Diagnostic Radiology | DX: N20.0 Calculus of kidney (principal); N32.89 Other specified disorders of bladder; R07.9 Chest pain, unspecified | CPT/HCPCS: 71046; 74176 ==

== ENCOUNTER 2024-10-27 18:03 | Emergency (ER) | payer MEDICAID, SELFPAY ==
[2024-10-27 18:17] VITALS: BP 155/94; PULSE 62; O2SAT 98
[2024-10-27 18:18] VITALS: BP 152/67; PULSE 61; RESP 19; TEMP 36.8; O2SAT 98; BMI 22.0
[2024-10-27 19:07] VITALS: BP 138/79; PULSE 60; RESP 20; TEMP 36.8; O2SAT 97
--- NOTE | 2024-10-27 19:20 | ED.ABDPAIN ---
HPI - Abdominal Pain General Chief Complaint: Abdominal Pain Stated Complaint: N/V, abd pain Time Seen by Provider: 10/27/24 19:19 Source: patient Mode of arrival: ambulatory Limitations: no limitations History of Present Illness ED Provider: HPI narrative: Patient alcoholic comes here for nausea vomiting for last 2 days last drink was 2 days ago been vomiting multiple times more than 15 also had loose bowels very anxious on arrival no fever no chills does have diffuse abdominal cramping patient is status post appendectomy patient also smoke marijuana Related Data Home Medications ?Medication ?Instructions ?Recorded ?Confirmed bupropion HCl 100 mg tablet,12 hr 100 mg PO QAM 07/23/23 07/23/23 sustained-release doxepin 25 mg capsule 25 mg PO BEDTIME 07/23/23 07/23/23 famotidine 20 mg tablet 20 mg PO DAILY acid reflux 07/23/23 07/23/23 multivitamin 1 tab PO QAM 07/23/23 07/23/23 sertraline 50 mg tablet 50 mg PO DAILY 07/23/23 07/23/23 Previous Rx's ?Medication ?Instructions ?Recorded albuterol sulfate 90 mcg/actuation 2 puff inhalation QID PRN 04/09/24 aerosol inhaler shortness of breath or wheezing #6.7 grams azithromycin 250 mg tablet See Rx Instructions PO .COMPLEX #6 04/09/24 tabs prednisone 20 mg tablet 40 mg (2 x 20 mg) PO DAILY 4 days 04/09/24 #8 tabs ondansetron 4 mg disintegrating 4 mg PO Q8H PRN nausea and 05/27/24 tablet vomiting #10 tabs doxycycline hyclate 100 mg capsule 100 mg PO BID #14 caps 10/17/24 nitrofurantoin 100 mg PO Q12H 5 days #10 caps 10/17/24 monohydrate/macrocrystals 100 mg capsule (Macrobid) Allergies Allergy/AdvReac Type Severity Reaction Status Date / Time amoxicillin Allergy Rash Verified 10/27/24 18:21 oxycodone [From Percocet] Allergy Vomiting Verified 10/27/24 18:21 Review of Systems Review of Systems Yes all other systems are reviewed and are negative PMFSH Past Medical History Medical History Acute appendicitis with rupture (07/23/23) Surgical History Hx of appendectomy Social History Social History Household Members: Children Housing: Other Housing Other:: nursing home Do you presently have visiting nurse or other home services: No Alcohol intake: current Alcohol intake frequency: 0-2 drinks per day Alcohol type: hard liquor Patient Tobacco Use Status: Never used Tobacco Smoked in Last 30 Days: Yes Use of substances other than those prescribed or required for medical reasons: Yes Substance Use Type: Marijuana Advance Directives: Yes Advance Directives on File: Yes Advance Directives Date on File: 07/29/23 Do you have a plan to hurt others: No Plan Patient : No service: No Current occupational status: unemployed Current occupation: right hand dominant Physical Exam ED Vital Signs: Vital Signs - 24 hr 10/28/24 06:47 10/28/24 08:03 10/28/24 12:16 Temperature 98.3 F 98.1 F 98.7 F Pulse Rate 73 76 67 Respiratory Rate 16 18 16 Blood Pressure 116/60 117/56 L 117/76 Pulse Oximetry 97 97 98 Oxygen Delivery Method Room Air Room Air Room Air 10/28/24 14:17 Temperature 98.0 F Pulse Rate 71 Respiratory Rate 16 Blood Pressure 117/76 Pulse Oximetry 97 Oxygen Delivery Method Room Air BMI result Body Mass Index 22.0 Appearance: Alert. Oriented X3. Anxious Eyes: PERRLA, No Nystagmus no pallor or icterus ENT: Pharynx normal. Oral Mucosa Dry Neck: Normal inspection. Neck supple. CVS: Normal heart rate and rhythm. Pulses normal. Respiratory: No respiratory distress. Equal air entry bilateral, no wheezing/rales/rhonchi Abdomen: Soft and nontender. Bowel sounds are present, no mass palpable, no CVA tenderness Skin: Skin warm and dry. Normal skin color. Normal skin turgor. Extremities: No lower extremity edema. No calf tenderness Neuro: Oriented X 3. No motor deficit. No sensory deficit.No cerebellar signs , cranial nerves II-XII intact Course Reevaluation(s) Reevaluation #1: The patient was signed out to me by the overnight physician. The the patient has been using alcohol fairly heavily and has had nausea and vomiting. The patient seemed to have ongoing vomiting during my shift and so she was given 10 mg of IV diazepam. After receiving this medication she fell asleep for several hours. I re-interviewed her at the end of my shift. She seemed to be feeling much better. She was not having any ongoing nausea or vomiting. She is interested in talking to someone from the care team. A care team consult is pending. I have also placed a recovery team consult given her alcohol use. The patient will be signed out to the on-call emergency physician at change of shift this morning. Time: 08:08 Medical Decision Making Medical Decision Making [facility] Narrative: Patient's came here for nausea vomiting for last 2 days patient's family members came and told us that patient is alcoholic and last drink was 2 days ago likely the cause for vomiting patient also smokes marijuana at this time patient is feeling much better taking p.o. fluids patient has leukocytosis likely from leukemoid reaction /dehydration from vomiting patient is requesting detox or help from alcohol use Differential Diagnosis Differential Diagnoses: The differential diagnosis associated with the presentation includes Lab Data [facility] Lab Attestation statement: I reviewed the patient's lab results. 10/27/24 19:45 10/27/24 19:45 Labs: Lab Results 10/27/24 10/28/24 10/28/24 Range/Units 19:45 00:45 00:49 WBC 20.1 H (4.8-10.8) X10*3/uL RBC 4.93 (4.20-5.50) X10*6/uL Hgb 15.1 (12.0-16.0) g/dl Hct 43.6 (37.0-47.0) % MCV 88.4 (80.0-98.0) fL MCH 30.6 (27.0-33.0) pg MCHC 34.6 (31.0-35.0) g/dl RDW 13.8 (11.0-16.0) % Plt Count 328 (160-400) X10*3/uL MPV 8.5 L (9.4-12.3) fL Immature Gran % (Auto) 0.4 (0.0-0.4) % Neut % (Auto) 91.8 H (45-73) % Lymph % (Auto) 4.2 L (20-40) % [place] % (Auto) 3.2 (2-11) % Eos % (Auto) 0.2 (0-4) % Baso % (Auto) 0.2 (0-2) % Lymph # (Auto) 0.8 L (1.2-4.9) X10*3/uL [place] # (Auto) 0.7 (0.1-1.2) X10*3/uL Eos # (Auto) 0.0 (0.0-0.4) X10*3/uL Baso # (Auto) 0.0 (0.0-0.2) X10*3/uL Abs Immat Gran (auto) 0.08 H (0.00-0.03) X10*3/uL Absolute Neuts (auto) 18.5 H (2.0-8.3) x10*3/uL Absolute Nucleated RBC 0.000 (0.0-0.012) X10*3/uL Nucleated RBC % (auto) 0.0 (0.0-0.2) /100WBC Smear Tech's Comments VERIFIED Sodium 140 (135-145) mmol/L Potassium 3.9 (3.3-5.1) mmol/L Chloride 108 (96-108) mmol/L Carbon Dioxide 20 L (22-29) mmol/L Anion Gap 16 (12-20) BUN 10 (9-16) mg/dL Creatinine 0.86 (0.5-1.4) mg/dL Estim Creat Clear Calc 90.3 Estimated GFR > 60 Random Glucose 175 H (60-115) mg/dL Calcium 9.3 (8.4-10.2) mg/dL Magnesium 1.8 (1.6-2.6) mg/dL Total Bilirubin 1.4 H (0.0-1.0) mg/dL AST 22 (5-31) U/L ALT 12 (0-31) U/L Alkaline Phosphatase 64 (39-117) U/L C-Reactive Protein 0.13 (< or = 0.50) mg/dL Total Protein 7.6 (6.5-8.0) g/dL Albumin 4.5 (3.5-5.0) g/dL Lipase 11 (8-78) U/L Urine Color Yellow Urine Appearance Clear Urine pH 5.5 (5.0-9.0) Ur Specific [place] 1.020 (1.005-1.025) Urine Protein Negative (Neg-Trace) mg/dL Urine Glucose (UA) Negative (Negative) mg/dL Urine Ketones 40 (Negative) mg/dL Urine Blood Negative (Negative) Urine Nitrite Negative (Negative) Ur Leukocyte Esterase Negative (Negative) Urine Opiates Screen Not Detected (Not Detect) Ur Buprenorphine Scrn Not Detected (Not Detect) ng/mL Ur Oxycodone Screen Not Detected (Not Detect) ng/mL Urine Methadone Screen Not Detected (Not Detect) ng/mL Urine Fentanyl Screen Not Detected (Not Detect) Ur Barbiturates Screen Not Detected (Not Detect) Ur Phencyclidine Scrn Not Detected (Not Detect) Ur Amphetamines Screen Not Detected (Not Detect) U Benzodiazepines Scrn POSITIVE H (Not Detect) Urine Cocaine Screen Not Detected (Not Detect) U Marijuana (THC) Screen POSITIVE H (Not Detect) Medications Administered Discontinued Medications Generic Name Dose Route Start Last Admin Trade Name Freq PRN Reason Stop Dose Admin Diazepam 10 mg 10/28/24 02:12 10/28/24 02:17 Diazepam 10 Mg/2 Ml Cartridge IVPUSH 10/28/24 02:13 10 mg STAT STA Administration Sodium Chloride 1,000 mls @ 999 mls/hr 10/27/24 19:34 10/27/24 21:14 Ns IV 10/27/24 20:34 Infused .Q1H1M ONE Infusion Sodium Chloride 1,000 mls @ 999 mls/hr 10/27/24 22:09 10/27/24 23:58 Ns IV 10/27/24 23:09 Infused .Q1H1M ONE Infusion Melatonin 6 mg 10/28/24 01:21 10/28/24 01:28 Melatonin 3 Mg Tablet PO 10/28/24 01:22 6 mg ONCE ONE Administration Midazolam HCl 2 mg 10/27/24 19:34 10/27/24 19:53 Midazolam Hcl 2 Mg/2 Ml Vial IVPUSH 10/27/24 19:35 2 mg ONCE ONE Administration Ondansetron HCl 4 mg 10/28/24 01:58 10/28/24 02:17 Ondansetron Hcl 4 Mg/2 Ml Vial IVPUSH 10/28/24 01:59 4 mg ONCE ONE Administration Prochlorperazine Edisylate 10 mg 10/27/24 19:34 10/27/24 19:52 Prochlorperazine Edisylate 10 Mg/2 Ml Vial IVPUSH 10/27/24 19:35 10 mg ONCE ONE Administration Discharge Plan Discharge Clinical Impression: Vomiting, Alcohol abuse Patient Disposition: Home, Self-Care Prescriptions: No Action ondansetron 4 mg tablet,disintegrating 4 mg PO Q8H PRN (Reason: nausea and vomiting) Qty: 10 0RF multivitamin Tablet 1 tab PO QAM doxepin 25 mg capsule 25 mg PO BEDTIME bupropion HCl 100 mg tablet sustained-release 12 hr 100 mg PO QAM famotidine 20 mg tablet 20 mg PO DAILY sertraline 50 mg tablet 50 mg PO DAILY azithromycin 250 mg tablet See Rx Instructions .ROUTE .COMPLEX Qty: 6 0RF Rx Instructions: For 250 mg dose pack: take 500 mg today (day 1), then 250 mg for 4 days (days 2-5) prednisone 20 mg tablet 40 mg PO DAILY 4 Days Qty: 8 0RF albuterol sulfate 90 mcg/actuation HFA aerosol inhaler 2 puff inhalation QID PRN (Reason: shortness of breath or wheezing) Qty: 6.7 0RF nitrofurantoin monohyd/m-cryst [Macrobid] 100 mg capsule 100 mg PO Q12H 5 Days Qty: 10 0RF Rx Instructions: must administer with a meal/food doxycycline hyclate 100 mg capsule 100 mg PO BID Qty: 14 0RF Interventions: ED Discharge Assessment Last Done: 10/28/24 14:17 Discharge Date/Time: 10/28/24 14:43 Print Language: Gambian
[2024-10-27] MEDS: Prochlorperazine Edisylate 10 MG/2 ML VIAL IVPUSH (19:52)
[2024-10-27] MEDS: 0.9 % Sodium Chloride 1,000 ML 999 ML IV ×2 (19:52→22:13)
[2024-10-27] MEDS: Midazolam HCl 2 MG/2 ML VIAL IVPUSH (19:53)
[2024-10-27 19:58] LABS: Basophils Percent Auto 0.2 % (0-2); Eosinophils Percent Auto 0.2 % (0-4); Hematocrit 43.6 % (37.0-47.0); Hemoglobin 15.1 g/dl (12.0-16.0); Imm Gran Abs Auto 0.08 X10*3/uL (0.00-0.03); Imm Gran Pct Auto 0.4 % (0.0-0.4); Lymphocytes Absolute Auto 0.8 X10*3/uL (1.2-4.9); Lymphocytes Percent Auto 4.2 % (20-40); MANUAL DIFF FLAG SCAN; Mean Corpuscular HGB Conc 34.6 g/dl (31.0-35.0); Mean Corpuscular Hemoglobin 30.6 pg (27.0-33.0); Mean Corpuscular Volume 88.4 fL (80.0-98.0); Mean Platelet Volume 8.5 fL (9.4-12.3); Monocytes Absolute Auto 0.7 X10*3/uL (0.1-1.2); Monocytes Percent Auto 3.2 % (2-11); Neutrophils Absolute Auto 18.5 x10*3/uL (2.0-8.3); Neutrophils Percent Auto 91.8 % (45-73); Platelet Count 328 X10*3/uL (160-400); Red Blood Count 4.93 X10*6/uL (4.20-5.50); Red Cell Distribution Width 13.8 % (11.0-16.0); SCAN SMEAR FLAG 1; White Blood Count 20.1 X10*3/uL (4.8-10.8)
[2024-10-27 20:13] LABS: Alanine Aminotransferase 12 U/L (0-31); Albumin Level 4.5 g/dL (3.5-5.0); Alkaline Phosphatase 64 U/L (39-117); Anion Gap 16 (12-20); Aspartate Amino Transferase 22 U/L (5-31); Bilirubin Total 1.4 mg/dL (0.0-1.0); Blood Urea Nitrogen 10 mg/dL (9-16); Calcium 9.3 mg/dL (8.4-10.2); Carbon Dioxide 20 mmol/L (22-29); Chloride 108 mmol/L (96-108); Creatinine Clr Calc Pharmacy 90.3; Estimated Glomerular Filt Rate > 60; Glucose Random 175 mg/dL (60-115); Lipase 11 U/L (8-78); Magnesium 1.8 mg/dL (1.6-2.6); Potassium 3.9 mmol/L (3.3-5.1); Sodium 140 mmol/L (135-145); Total Protein 7.6 g/dL (6.5-8.0)
[2024-10-27 20:17] LABS: SLIDE REVIEW VERIFIED
--- OUTSIDE RECORDS SUMMARY | 2024-10-27 21:28 | XMS_ITS | Encounter Summary ---
Author Organization [employer] Address [address] [facility] [address] [place] [address] Care Team Providers Care Care Coordination Manager Name Role Phone Ty Lucía SEALS Primary Care Provider [phone] Reason for Visit * Reason Comments Med Refill Encounter Details Date Type Department Care Team ([facility] st Contact Info) Description 05/30/2023 Refill [facility] [address] [place], [place] [phone] Gary Jay MD [address] [place] [address] Social History Tobacco Use Types Packs/Day Years [...] Description 11/26/2024 9:30 AM EDT Office Visit [facility] [address] [place] [address] Lucía Crawford ANP [address] [place] [address] 12/24/2024 1:00 PM EDT Office Visit [facility] [address] [place] [address] Tiera Pearce, OD [address] [place] [address] documented as of this encounter Visit Diagnoses Not on filedocumented in this encounter Additional Health Concerns Assessment Noted Time PHQ-9 Depression Total Score: 23 023 1:35 PM EDT documented as of this encounter Care Teams Care Coordination Manager Relationship Specialty Start Date End Date Lucía Crawford ANP [address] [place] [address] PCP - General Family Medicine 06/12/23 documented as of this encounter
--- OUTSIDE RECORDS SUMMARY | 2024-10-27 21:28 | XMS_ITS | Clinical Summary ---
Author Organization [employer] Address [address] [facility] [address] [place] [address] Care Team Providers Care Manager Operating Name Role Phone Lucía Crawford ARNEL Primary Care Provider [phone] Allergies Active Allergy Reactions Criticality Noted Date [...] the same time. As reviewed. 42 patch 03/17/20 24 Active ulipristal (Maryam) 30 mg tablet [...] seek support PLAN: 1. Follow up with [facility]: Recommended for follow-up: during Obat appts 2. Patient goal is improve mental health, and become sober 3. Behavioral Recommendations a. Keeping Ind. Therapy with LWALBERTO b. Keeping AUD appt with Dr. Jay c. Connecting with -[place] d. [facility] contact number for extra support Assessment [...] to engage. PLAN: 1. Follow up with [facility]: Recommended for follow-up: during AUD appts 2. Patient goal is to become sober and improve mental health 3. Behavioral Recommendations a. Ind. Therapy, referral will be submitted b. [employer] Specialist, referral will be submitted c. Use of coping skills as provide d. Engage in meetings for support Severe anxiety 03/08/2023 Resolved [...] engage, insight PLAN: 1. Follow up with [facility]: Recommended for follow-up: with Salom[place] for support [...] in treatment PLAN: 1. Follow up with [facility]: Recommended for follow-up: during OBAT appts 2. Patient goal is become sober and improve mental health 3. Behavioral Recommendations a. Ind. Therapy, referral submitted on 03/08/23 b. Use of coping skills provided as recommended c. Maintain engagement with -MR robby [facility] contact number for support Assessment & [...] to engage. PLAN: 1. Follow up with [facility]: Recommended for follow-up: during AUD appts 2. Patient goal is to become sober and improve mental health 3. Behavioral Recommendations a. Ind. Therapy, referral will be submitted b. Seafood Technology Specialist, referral will be submitted c. Use of coping skills as provide d. Engage in AA meetings for support Encounters * This document contains information received from the source organization and may not represent a complete record from that organization. Date Type Department Care Team Description 10/02/2024 Refill [facility] [address] [place] [phone] Gary Jay MD Alcohol use disorder, severe, in early remission (CMS/HCC) 09/15/2024 1:00 PM EDT Office Visit [facility] [address] [place] [phone] Dunia Gee MD Throat discomfort (Primary Dx); Dysphagia, unspecified type; Change in voice; Family history of thyroid disease; Streptococcal pharyngitis; Folliculitis 09/04/2024 Population Health Risk Score [facility] () Department [address] [place] [phone] Provider, Population Health Generic 08/31/2024 Telephone [facility] [address] [place] [phone] Lucía Crawford ANP 08/31/2024 Telephone [facility] [address] [place] [phone] Lucía Crawford ANP Chart Prep 08/21/2024 Patient Outreach [address] [phone] Lucía Crawford ANP Pre-visit Planning (Pre-visit planning - PHONE NUMBERS not working ) 07/31/2024 10:45 AM EST Office Visit [facility] [address] [place] [address] Gary Jay MD Alcohol use disorder, severe, dependence (CMS/HCC) (Primary Dx); Tobacco use disorder 07/31/2024 Patient Outreach [facility] [address] [place] [address] Ernesto Romero 07/31/2024 Travel from Last 3 [...] Description 11/26/2024 9:30 AM EDT Office Visit [facility] [address] [place], [place] [phone] Lucía Crawford ANP [address] [place], [place] [phone] 12/24/2024 1:00 PM EDT Office Visit [facility] [address] [place] [address] Tiera Pearce, YOJANA [address] [place] [address] Health Maintenance Due Date Last Done Comments Hepatitis B Vaccines (1 of 3 - 19+ 3-dose series) 09/19/2006 Pneumococcal Vaccine: Pediatrics (0 to 5 Years) and At-Risk Patients (6 to 49) Years) (1 of 2 - PCV) 09/19/2006 COVID-19 Vaccine ( - 2023-2 5 season) 2024 Influenza Vaccine (#1) 2024 SDOH Screening 03/08/2024 03/08/2023 Alcohol/Substance Use Screening 03/06/2025 03/06/2024 Cervical Cancer [...] Free T4 0.53 0.32 - 4.0 uIU/mL [facility] Blood Venous blood specimen / Unknown 09/15/2024 1:43 PM EDT 09/15/2024 4:06 PM EDT us Dunia Gee MD LAB BLOOD ORDERABLES Final Result [facility] [address] [place] [phone] * (ABNORMAL) POCT rapid strep A manually resulted (09/15/2024 1:10 PM EDT) Rapid Strep A Screen Positive( A) Negative, None Detected Swab 09/15/2024 1:10 PM EDT Dunia Gee MD POINT OF CARE TEST ENTER/E DIT ORDERABLES Final Result * POCT alcohol breath test manually resulted (07/31/2024 10:39 AM EST) Pathologist [facility] Breath Alcohol 0.00 Breath 07/31/2024 10:3 9 AM EST us Gary Jay MD POINT OF CARE TEST ENTER/EDIT ORDERABLES Final Result * POCT BHAKTI-14 Urine Drug Screen (07/31/2024 10:38 AM EST) Pathologist [facility] THC Positive Cocaine Screen, Urine Negative Opiate [...] CARE TEST ENTER/EDIT ORDERABLES Final Result * [facility] Pap and HPV mRNA E6/E7 (03/24/2024 11:39 AM EDT) Pathologist [facility] HPV nRNA E6/E7 Not Detected Not Detected [facility] Comment:Methodology: Transcr iption-Mediated AmplificationThis assay detects E6/E7 viral messenger RNA (mRNA) from 14high-risk HPV types (16,18,31,33,35,39,45,51,52,56,58,59,66,68).Cervical sources are required for HPV testing.If a vaginal source from a patient who has had atotal hysterectomy with removal of cervix wassubmitted, please contact the testing laboratoryfor alternative testing options.For additional information, please refer [email or web address]/[email or web address](This link if provided for information/educational purposes only.)THIS TEST WAS PERFORMED AT:[facility] [address] [id number] REYNSOO MD SOURCE: SEE NOTE [facility] Comment:Cervix Report Status: [facility] Clinical Information: SEE NOTE [facility] Comment:None given LMP: SEE NOTE [facility] Comment:NONE GIVEN Prev. PAP: SEE NOTE [facility] Comment:NONE GIVEN Prev. BX: SEE NOTE [facility] Comment:NONE GIVEN Statement Of Adequacy: SEE NOTE [facility] Comment:Satisfactory for juanita luation.Endocervical/transformation zone component absent. General Categorization: [facility] Interpretation/Result: SEE NOTE [facility] Comment:Cytology Results: Ne gative for intraepitheliallesion or malignancy. Cytology Comment SEE NOTE [facility] Comment:This Pap test has be en evaluated with computerassisted technology. Welding Machine Operator Plasma Arc: SEE NOTE [facility] Comment:MSM, CT(ASCP)CT scre ening location: [address] [address] Review Welding Machine Operator Plasma Arc: [facility] Pathologist [facility] PAP Infection [facility] See Note SEE [facility] Comment:EXPLANATORY NOTE:The Pap is a [...] AM EDT 03/24/2024 4:30 PM EDT Narrative [facility] - 03/27/2024 2:06 PM EDT SEE SCANNED RESULTS IN EMRCERVIX us Jada PATRICIA LAB PATHOLOGY ORDERABLES Final Result Performing Organization Address [facility]/ZIP Co de Phone Number [facility] [address] [place] [phone] * Hepatitis C Antibody with Reflex to HCV, RNA, Quantitative, Real-Time PCR (03/16/2024 2:04 PM EDT) Hepatitis C Antibody Nonreactive Nonreactive [facility] Comment:Antibodies to HCV no t detected; does not exclude early acuteHCV infection. Blood Venous blood specimen / Unknown 03/16/2024 2:04 PM EDT 03/16/2024 4:53 PM EDT Martha Sellers NP LAB BLOOD ORDERABLES Final Resul t Performing Organization Address [facility] Co de Phone Number [facility] [address] [place] [phone] * HIV-1/2 Antigen and Antibodies, Fourth Generation, with Reflexes (03/16/2024 2:04 PM EDT) HIV AB/AG Nonreactive Nonreactive [facility] Comment:HIV-1 p24 Ag and/or HIV-1/HIV-2 Ab not detected.A test result that is nonreactive does not exclude thepossibility of exposure to or infection with HIV-1 and/orHIV-2. Nonreactive results in this assay for individualswith prior exposure to HIV-1 and/or HIV-2 may be due toantigen and antibody levels that are below the limit ofdetection of this assay.The [employer] HIV Ag/Ab Combo assay result andsupplemental assay results should be interpreted inconjunction with the patient's clinical presentation,history and other laboratory results. If the results areinconsistent with clinical evidence, additional testing issuggested to confirm the result. Blood Venous blood specimen / Unknown 03/16/2024 2:04 PM EDT 03/16/2024 4:53 PM EDT Martha Marlo ANIMAL SHELTER SUPERVISOR LAB BLOOD ORDERABLES Final Resul t Performing Organization Address [facility] Co de Phone Number [facility] [address] [place] [phone] [phone] * (ABNORMAL) Lipid Panel, Standard (06/07/2023 10:45 AM EST) Triglycerides 65 <150 mg/dL [facility] Comment:Desirable Triglyceri de: less than 150 mg/dLBorderline High Triglyceride 150-199 mg/dLHigh Triglyceride: 200-499 mg/dLVery High Triglyceride: greater than or equal to 5OO mg/dL Cholesterol 185 <200 mg/dL [facility] Comment:Desirable Cholestero l: less than 200 mg/dLBorderline High Cholesterol: 200-239 mg/dLHigh Cholesterol: greater than 239 mg/dL LDL Cholesterol Calculated 117(H) <100 mg/dL [facility] Comment:Desirable LDL: less than 100 mg/dLNear Optimal/Above Optimal LDL: 110- 129 mg/dLBorderline High LDL: 130-159 mg/dLHigh LDL: 160-189 mg/dLVery High LDL: greater than or equal to 190 mg/dL HDL Cholesterol 55 >40 mg/dL [facility] Comment:Desirable HDL: great er than 40 mg/dL Note: This HDL assay may give artificially low results in patients with liver disease. Blood Venous blood specimen / Unknown 06/07/2023 10:45 AM EST 06/07/2023 11:13 AM EST us Lucía Crawford ANP LAB BLOOD ORDERABLES Final Resul t Performing Organization Address [facility]/ZIP Co de Phone Number [facility] [address] [place] [address] [phone] from Last 3 Months or Most Recently Relevant to Health Maintenance Insurance [facility] C3 Care Teams Manager Operating Relationship Specialty Start Date End Date Lucía Crawford ANP [address] [place] [phone] PCP - General Family Medicine 06/12/23
--- OUTSIDE RECORDS SUMMARY | 2024-10-27 21:28 | XMS_ITS | Encounter Summary ---
Author Organization [employer] Address [address] [facility] [address]t [place] [address] Care Team Providers Care Morning Babysitter Name Role Phone Ty Lucía SEALS Primary Care Provider [phone] Encounter Details Date Type Department Care Team (Late st Contact Info) Description 12/24/2023 Orders Only [facility] [address] [place], [place] [phone] Dunia Gee MD [address] [place], [place] [phone] Social History Tobacco Use Types Packs/Day Years [...] Description 11/26/2024 9:30 AM EDT Office Visit [facility] [address] [place] [address] Lucía Crawford ANP [address] [place] [address] 12/24/2024 1:00 PM EDT Office Visit [facility] OPTOMETRY [address] [place] [address] Tiera Pearce, OD [address] [place] [address] documented as of this encounter Visit Diagnoses Not on filedocumented in this encounter Additional Health Concerns Assessment Noted Time PHQ-9 Depression Total Score: 23 023 1:35 PM EDT documented as of this encounter Care Teams Morning Babysitter Relationship Specialty Start Date End Date Lucía Crawford ANP [address] [place] [address] PCP - General Family Medicine 06/12/23 documented as of this encounter
[2024-10-27 22:15] VITALS: BP 143/69; PULSE 60; RESP 16; TEMP 36.5; O2SAT 100
[2024-10-28 00:37] VITALS: BP 106/53; PULSE 68; RESP 18; TEMP 36.9; O2SAT 99
[2024-10-28 00:58] LABS: Appearance Urine Clear; Color Urine Yellow; Glucose Urine UA Negative (Negative); Leukocyte Esterase Urine Negative (Negative); Nitrite Urine Negative (Negative); PH 5.5 (5.0-9.0); Urine Blood Negative (Negative); Urine Ketones 40 mg/dL (Negative); Urine Protein Negative (Neg-Trace)
--- NOTE | 2024-10-28 01:03 | PC.NURSE ---
brother at bedside, pulled RN away to inform of pt's alcohol use. believes she is in withdrawals as she is trying to detox, pt had not conveyed this to staff. pt looks and feels better at this time. UA/QUESADA sent to lab. pt does now admit to drinking nips daily since she was 15, has been sober at times. daughter committed suicide 2 years ago, her birthday is approaching. pt states she is trying to stop drinking and smoking marijuana, last drink was 2 days ago per pt. would like help to detox.
[2024-10-28 01:15] LABS: Amphetamine Screen Urine Not Detected (Not Detect); Barbiturates, Urine Not Detected (Not Detect); Benzodiazepines Screen Urine POSITIVE (Not Detect); Buprenorphine Scr Not Detected (Not Detect); Cannabinoid Screen Urine POSITIVE (Not Detect); Cocaine Screen Urine Not Detected (Not Detect); Fentanyl, urine Not Detected (Not Detect); Methadone Screen, Urine Not Detected (Not Detect); Opiate Screen Urine Not Detected (Not Detect); Oxycodone Screen Urine Not Detected (Not Detect); Phencyclidine Screen Urine Not Detected (Not Detect)
[2024-10-28] MEDS: Melatonin 3 MG TABLET 6 MG PO (01:28)
--- NOTE | 2024-10-28 01:56 | PC.NURSE ---
pt rang to alert RN that she was tremulous, chills, and vomited. was drinking hieu andres earlier. pt medicated per MAR
[2024-10-28] MEDS: ondansetron HCL 4 MG/2 ML VIAL IVPUSH (02:17)
[2024-10-28] MEDS: diazePAM 10 MG/2 ML CARTRIDGE IVPUSH (02:17)
[2024-10-28 02:30] LABS: C Reactive Protein 0.13 mg/dL (< or = 0.50)
--- NOTE | 2024-10-28 02:30 | PC.NURSE ---
pt now resting at this time after emergency medicine
[2024-10-28 03:47] VITALS: BP 153/80; PULSE 56; RESP 13; O2SAT 98
[2024-10-28 06:47] VITALS: BP 116/60; PULSE 73; RESP 16; TEMP 36.8; O2SAT 97
[2024-10-28 08:03] VITALS: BP 117/56; PULSE 76; RESP 18; TEMP 36.7; O2SAT 97
--- NOTE | 2024-10-28 08:43 | PC.NURSE ---
Assumed care of pt at 0700. Pt resting in bed quietly, a/ox3, respirations even and unlabored, no increased wob/sob noted, nsr on surveillance monitor, HR 70s, denies sob/cp. Vitals updated in worklist. Pt requesting gingerale- tolerating okay. CIWAs 0- no tremors/anxiety/n/v at this time. Pt updated on plan of care. Call morocho within reach, all needs met at this time.
--- NOTE | 2024-10-28 11:20 | PC.NURSE ---
Pt able to keep PO fluids/crackers down.
[2024-10-28 12:16] VITALS: BP 117/76; PULSE 67; RESP 16; TEMP 37.1; O2SAT 98
[2024-10-28 14:17] VITALS: BP 117/76; PULSE 71; RESP 16; TEMP 36.7; O2SAT 97
== END 2024-10-28 14:43 | disposition home or self-care (01) ==
PROVIDERS: Emergency Medicine; Internal Medicine; Emergency Provider Emergency Medicine; PCP Nurse Practitioner Primary Care
DX: F10.10 Alcohol abuse, uncomplicated (principal); Y90.9 Presence of alcohol in blood, level not specified; R11.2 Nausea with vomiting, unspecified; F12.90 Cannabis use, unspecified, uncomplicated; Z79.899 Other long term (current) drug therapy
CPT/HCPCS: 36415; 80053; 80307; 81003; 83690; 83735; 85025; 86140; 96361; 96374; 96375; 99285; J0737; J2250; J2405; J3360; S9485

== ENCOUNTER 2024-11-04 15:15 | Outpatient (REF) | payer MEDICAID, SELFPAY ==
--- OUTSIDE RECORDS SUMMARY | 2024-11-04 15:19 | XMS_ITS | Encounter Summary ---
Author Organization [employer] Address [address] [facility] [address] 7[address] [place] [address] Care Team Providers Care Police Cadet Name Role Phone Ty Lucía SEALS Primary Care Provider [phone] Reason for Visit * Reason Comments Foot Pain Encounter Details Date Type Department Care Team ([facility] st Contact Info) Description 11/04/2024 3:00 PM EDT Office Visit [facility] [address] [address] Arthritis of both hands (Primary Dx); Ingrown toenail of both feet Social History Tobacco Use Types Packs/Day Years [...] AM EDT documented as of this encounter Last Filed Vital Signs Vital Sign Reading Time Taken Comments Blood Pressure 120/76 11/04/2024 2:42 PM EDT Pulse 76 11/04/2024 2:42 PM EDT Temperature 36 ??C (96.8 ??F) 11/04/2024 2:42 PM EDT Respiratory Rate - - Oxygen Saturation 97% 11/04/2024 2:42 PM EDT Inhaled Oxygen Concentration - - Weight 68.9 kg (152 lb) 11/04/2024 2:42 PM EDT Height 172.7 cm (5' 8 ) 11/04/2024 2:42 PM EDT Body Mass Index 23.11 11/04/2024 2:42 PM EDT documented in this encounter Plan of Treatment Upcoming Encounters Date Type Department Care Team (Late st Contact Info) Description 11/26/2024 9:30 AM EDT Office Visit [facility] [address] [place] [address] Lucía Crawford, ANP [address] [place], [place] [phone] 12/24/2024 1:00 PM EDT Office Visit [facility] [address] [place], [place] [address] Tiera Pearce, YOJANA [address] [place] [address] Scheduled Orders Name Type Priority Associated Diagnoses Orde r Schedule VENESSA Screen,IFA, with Reflex to Titer and Pattern Lab Routine Arthritis of both hands Expected: 11/04/2024 (Approximate), Expires: 11/04/2025 Sed Rate by Modified [place] Lab Routine Arthritis of both hands Expected: 11/04/2024 (Approximate), Expires: 11/04/2025 C-reactive Protein Lab Routine Arthritis of both hands Expected: 11/04/2024 (Approximate), Expires: 11/04/2025 Rheumatoid Factor Lab Routine Arthritis of both hands Expected: 11/04/2024, Expires: 11/04/2025 Uric acid Lab Routine Arthritis of both hands Expected: 11/04/2024 (Approximate), Expires: 11/04/2025 CBC auto differential Lab Routine Arthritis of both hands Expected: 11/04/2024 (Approximate), Expires: 11/04/2025 Hepatitis Panel, General Lab Routine Arthritis of both hands Expected: 11/04/2024 (Approximate), Expires: 11/04/2025 documented as of this encounter Visit Diagnoses Diagnosis Arthritis of both hands- Primary Ingrown toenail of both feet documented in this encounter Additional Health Concerns Assessment Noted Time PHQ-9 Depression Total Score: 10 025 1:08 PM EDT documented as of this encounter Care Teams Police Cadet Relationship Specialty Start Date End Date Lucía Crawford ANP [address] [place], [place] [phone] PCP - General Family Medicine 06/12/23 documented as of this encounter
--- OUTSIDE RECORDS SUMMARY | 2024-11-04 15:19 | XMS_ITS | Clinical Summary ---
Author Organization [employer] Address [address] [facility] 7t [place] [address] Care Team Providers Care Category Specialist Name Role Phone Lucía Crawford ARNEL Primary Care Provider [phone] Allergies Active Allergy Reactions Criticality Noted Date [...] HOURS DIRECTED 30 patch 2 4 Active sertraline (Zoloft) 50 MG tablet [...] po daily 84 tablet 3 4 Active amoxicillin (Amoxil) 500 MG capsule Take 1 tab po bid for 10 days 20 capsule 5 Active naltrexone (Depade) 50 MG tabletIndications :Alcohol use disorder, severe, in early remission (CMS/HCC) TAKE 1 TABLET BY MOUTH EVERY DAY IN THE MORNING WITH FOOD 30 tablet 5 5 Active meloxicam (Mobic) 15 MG tablet Take 1 tablet (15 mg) by mouth Once per day. 30 tablet 5 11/05/19 26 Active neomycin-bacitrac in-polymyxin (Neosporin) 5-400-5000 ointment Apply topically 2 times daily. 14.2 g 5 Active Active Problems Problem Noted Date Diagnosed Date Arthritis of both hands 11/04/2024 Ingrown toenail of both feet 11/04/2024 Streptococcal pharyngitis 09/15/2024 Assessment & Plan (09/15/2024 [...] seek support PLAN: 1. Follow up with [facility] [place]: Recommended for follow-up: during Obat appts 2. Patient goal is improve mental health, and become sober 3. Behavioral Recommendations a. Keeping Ind. Therapy with LW b. Keeping AUD appt with Dr. Misty valenzuela Connecting with -[facility] d. [facility] contact number for extra support Assessment & [...] to engage. PLAN: 1. Follow up with [facility]: Recommended for follow-up: during AUD appts 2. Patient goal is to become sober and improve mental health 3. Behavioral Recommendations a. Ind. Therapy, referral will be submitted b. Family Nurse, referral will be submitted c. Use of [...] engage, insight PLAN: 1. Follow up with [facility]: [facility] for follow-up: [facility] needed 2. Patient goal [...] in treatment PLAN: 1. Follow up with [facility]: Recommended for follow-up: during OBAT appts 2. Patient goal is become sober and improve mental health 3. Behavioral Recommendations a. Ind. Therapy, referral submitted on 03/08/23 b. Use of coping skills provided as recommended c. Maintain engagement with - robby [facility] contact number for support Assessment & Plan [...] to engage. PLAN: 1. Follow up with [facility]: Recommended for follow-up: during AUD appts 2. Patient goal is to become sober and improve mental health 3. Behavioral Recommendations a. Ind. Therapy, referral will be submitted b. Family Nurse, referral will be submitted c. Use of coping skills as provide d. Engage in AA meetings for support Encounters * This document contains information received from the source organization and may not represent a complete record from that organization. Date Type Department Care Team Description 11/04/2024 3:00 PM EDT [facility] [address] [address] Arthritis of both hands (Primary Dx); Ingrown toenail of both feet 10/28/2024 Orders Only GENERIC EXTERNAL DATA DEPARTMENT Provider, Generic External Data 10/02/[address] [address] Gary Jay MD Alcohol use disorder, severe, in early remission (CMS/HCC) 09/15/2024 1:00 PM EDT [facility] [address] [address] Dunia Gee MD Throat discomfort (Primary Dx); Dysphagia, unspecified type; Change in voice; Family history of thyroid disease; Streptococcal pharyngitis; Folliculitis 09/04/2024 Population Health Risk Score [facility] Department [address] [place] [address] Provider, Population Health Generic 08/31/2024 Telephone [facility] MEDICINE [address] [place] [phone] Lucía Crawford ANP 08/31/[address] [address] Lucía Crawford ANP Chart Prep 08/21/2024 Patient Outreach [address] [place] [address] Lucía Crawford ANP Pre-visit Planning (Pre-visit planning - PHONE NUMBERS not working ) from Last 3 Months Immunizations Immunization Administration Dates Next Due Hep Sen, Adult 03/26/2023 Tdap 06/06/2023 Family History Medical [...] ??F) 11/04/2024 2:42 PM EDT Respiratory Rate 16 09/15/2024 12:52 PM EDT Oxygen Saturation 97% 11/04/2024 2:42 PM EDT Inhaled Oxygen Concentration - - Weight 68.9 kg (152 lb) 11/04/2024 2:42 PM EDT Height 172.7 cm (5' 8 ) 11/04/2024 2:42 PM EDT Body Mass Index 23.11 11/04/2024 2:42 PM EDT Plan of Treatment Upcoming Encounters Date Type Department Care Team (Late st Contact Info) Description 11/26/2024 9:30 AM EDT Office Visit [facility] MEDICINE [address] [place] [address] Lucía Crawford ANP [address] [place] [address] 12/24/2024 1:00 PM EDT Office Visit [facility] OPTOMETRY [address] [place] [address] Tiera Pearce OD [address] [place] [address] Health Maintenance Due Date Last Done Comments [...] HPV/Cotest 03/24/2025 03/24/2024 Pap Smear 03/24/2025 03/24/2024 Depression Screening 09/15/2025 09/15/2024, 09/15/2024 Tobacco Screening 11/04/2025 11/04/2024 Lipid Panel 06/07/2028 06/07/2023 DTaP/Tdap/Td Vaccines (2 [...] patient's age to complete this topic Meningococcal B Vaccine Aged Out No l onger eligible based on patient's age to complete [...] Procedure Name Priority Date/Time Associated Diagnosis Comments DRUG MONITOR, PANEL 1, SCREEN, URINE Routine 10/28/2024 12:49 AM EDT URINALYSIS WITH REFLEX MICROSCOPIC Routine 10/28/2024 12:45 AM EDT TSH W/REFLEX TO FT4 Routine 09/15/2024 1 :43 PM EDT Throat discomfort POCT RAPID STREP A Routine 09/15/2024 1: 10 PM EDT Streptococcal pharyngitis THINPREP IMAGING PAP AND HPV MRNA E6/E7 [...] Recently Relevant to Health Maintenance Results * (ABNORMAL) Drug Monitoring, Panel 1, Screen, Urine (10/28/2024 12:49 AM EDT) Opiate Screen Urine Not Detected Not Detect [facility] Comment:Opiate cut-off is 30 0 ng/mL.Positive results are unconfirmed and should not be used fornon-medical purposes. Barbiturates, Urine Not Detected Not Detect [facility] Comment:Barbiturate cut-off is 200 ng/mL.Positive results are unconfirmed and should not be used fornon-medical purposes. Phencyclidine Screen Urine Not Detected Not Detect [facility] Comment:Phencyclidine cut-of f is 25 ng/mL.Positive results are unconfirmed and should not be used fornon-medical purposes. Amphetamine Screen Urine Not Detected Not Detect [facility] Comment:Amphetamine cut-off is 1000 ng/mL.Positive results are unconfirmed and should not be used fornon-medical purposes. Benzodiazepines Screen Urine POSITIVE(A) Not Detect [facility] Comment:Benzodiazepine cut-o ff is 200 ng/mL.Positive results are unconfirmed and should not be used fornon-medical purposes. Cocaine Screen Urine Not Detected Not Detect [facility] Comment:Cocaine cut-off is 3 00 ng/mL.Positive results are unconfirmed and should not be used fornon-medical purposes. Cannabinoid Screen Urine POSITIVE(A) Not Detect [facility] Comment:Cannabinoid cut-off is 50 ng/mL.Positive results are unconfirmed and should not be used fornon-medical purposes. Methadone Screen, Urine Not Detected Not Detect ng/mL [facility] Comment:Methadone cut-off is 300 ng/mL.Positive results are unconfirmed and should not be used fornon-medical purposes. FENTANYL URINE Not Detected Not Detect [facility] Comment:Fentanyl cut-off is 1 ng/mL.Positive results are unconfirmed and should not be used fornon-medical purposes. Oxycodone Urine Screen Not Detected Not Detect ng/mL [facility] Comment:Oxycodone cut-off is 100 ng/mL.Positive results are unconfirmed and should not be used fornon-medical purposes. Buprenorphine Screen Not Detected Not Detect ng/mL [facility] Comment:Buprenorphine cut-of f is 5 ng/mL.Positive results are unconfirmed and should not be used fornon-medical purposes. 10/28/2024 12:4 9 AM EDT 10/28/2024 12:52 AM EDT us Generic External Data Provider LAB URINE ORDERAB LES Final Result [facility] [address] [place] [phone] * Urinalysis w/reflex microscopic (10/28/2024 12:45 AM EDT) Color Urine Yellow [facility] Appearance Urine Clear [facility] PH 5.5 5.0 - 9.0 [facility] Glucose Urine UA Negative Negative mg/dL [facility] Urine Blood Negative Negative [facility] Specific Peshtigo - Urine 1.020 1.005 - 1.025 [facility] Urine Protein Negative Neg-Trace mg/dL [facility] Urine Ketones 40 Negative mg/dL [facility] Nitrite Urine Negative Negative [facility] Leukocyte Esterase Urine Negative Negative [facility] 10/28/2024 12:4 5 AM EDT 10/28/2024 12:52 AM EDT Narrative [facility] - 10/28/2024 12:59 AM EDT Urine, Clean Catch Generic External Data Provider LAB URINE ORDERAB LES Final Result Performing Organization Address [facility] Co de Phone Number [facility] [address] [place] [phone] * TSH W/Reflex to FT4 (09/15/2024 1:43 PM EDT) [facility] TSH reflex Free T4 0.53 0.32 - 4.0 uIU/mL [facility] Blood Venous blood specimen / Unknown 09/15/2024 1:43 PM EDT 09/15/2024 4:06 PM EDT Result [facility] Dunia Gee MD LAB BLOOD ORDERABLES Final Result Performing Organization Address [facility] Co de Phone Number [facility] [address] [place] [phone] * (ABNORMAL) POCT rapid strep A manually resulted (09/15/2024 1:10 PM EDT) [facility] Rapid Strep A Screen Positive( A) Negative, None Detected Swab 09/15/2024 1:10 PM EDT Dunia Gee MD POINT OF CARE TEST ENTER/E DIT ORDERABLES Final Result * [facility] Pap and HPV mRNA E6/E7 (03/24/2024 11:39 AM EDT) [facility] HPV nRNA E6/E7 Not Detected Not Detected [facility] Comment:Methodology: Transcr iption-Mediated AmplificationThis assay detects E6/E7 viral messenger RNA (mRNA) from 14high-risk HPV types (16,18,31,33,35,39,45,51,52,56,58,59,66,68).Cervical sources are required for HPV testing.If a vaginal source from a patient who has had atotal hysterectomy with removal of cervix wassubmitted, please contact the testing laboratoryfor alternative testing options.For additional information, please refer [email or web address].PoshVine/faq/UBB689p5(This link if provided for information/educational purposes only.)THIS TEST WAS PERFORMED AT:[facility] [address] [id number] REYNOSO MD SOURCE: SEE NOTE [facility] Comment:Cervix Report Status: [facility] Clinical Information: SEE NOTE [facility] Comment:None given LMP: SEE NOTE [facility] Comment:NONE GIVEN Prev. PAP: SEE NOTE [facility] Comment:NONE GIVEN Prev. BX: SEE NOTE [facility] Comment:NONE GIVEN Statement Of Adequacy: SEE NOTE [facility] Comment:Satisfactory for juanita luation.Endocervical/transformation zone component absent. General Categorization: [facility] Interpretation/Result: SEE NOTE [facility] Comment:Cytology Results: Ne gative for intraepitheliallesion or malignancy. Cytology Comment SEE NOTE [facility] Comment:This Pap test has be en evaluated with computerassisted technology. Appraisal Technician: SEE NOTE [facility] Comment:MSM, CT(ASCP)CT scre ening location: [address] [address] Review Appraisal Technician: [facility] Pathologist [facility] PAP Infection [facility] See Note SEE [facility] Comment:EXPLANATORY NOTE:The Pap is a [...] AM EDT 03/24/2024 4:30 PM EDT Narrative [facility] - 03/27/2024 2:06 PM EDT SEE SCANNED RESULTS IN EMRCERVIX us Jada PATRICIAM LAB PATHOLOGY ORDERABLES Final Result Performing Organization Address City/[facility]/ZIP Co de Phone Number [facility] [address] [place] [phone] * Hepatitis C Antibody with Reflex to HCV, RNA, Quantitative, Real-Time PCR (03/16/2024 2:04 PM EDT) Pathologist [facility] Hepatitis C Antibody Nonreactive Nonreactive [facility] Comment:Antibodies to HCV no t detected; does not exclude early acuteHCV infection. Blood Venous blood specimen / Unknown 03/16/2024 2:04 PM EDT 03/16/2024 4:53 PM EDT us Martha Sellers SOCIAL SCIENCES PROFESSOR LAB BLOOD ORDERABLES Final Resul t Performing Organization Address [facility] Co de Phone Number [facility] [address] [place] [phone] * HIV-1/2 Antigen and Antibodies, Fourth Generation, with Reflexes (03/16/2024 2:04 PM EDT) HIV AB/AG Nonreactive Nonreactive [facility] Comment:HIV-1 p24 Ag and/or HIV-1/HIV-2 Ab not detected.A test result that is nonreactive does not exclude thepossibility of exposure to or infection with HIV-1 and/orHIV-2. Nonreactive results in this assay for individualswith prior exposure to HIV-1 and/or HIV-2 may be due toantigen and antibody levels that are below the limit ofdetection of this assay.The [employer] HIV Ag/Ab Combo assay result andsupplemental assay results should be interpreted inconjunction with the patient's clinical presentation,history and other laboratory results. If the results areinconsistent with clinical evidence, additional testing issuggested to confirm the result. Blood Venous blood specimen / Unknown 03/16/2024 2:04 PM EDT 03/16/2024 4:53 PM EDT us Martha Marlo SOCIAL SCIENCES PROFESSOR LAB BLOOD ORDERABLES Final Resul t Performing Organization Address City/[facility]/ZIP Co de Phone Number [facility] [address] [place] [phone] * (ABNORMAL) Lipid Panel, Standard (06/07/2023 10:45 AM EST) Triglycerides 65 <150 mg/dL [facility] Comment:Desirable Triglyceri de: less than 150 mg/dLBorderline High Triglyceride 150-199 mg/dLHigh Triglyceride: 200-499 mg/dLVery High Triglyceride: greater than or equal to 5OO mg/dL Cholesterol 185 <200 mg/dL [facility] Comment:Desirable Cholestero l: less than 200 mg/dLBorderline High Cholesterol: 200-239 mg/dLHigh Cholesterol: greater than 239 mg/dL LDL Cholesterol Calculated 117(H) <100 mg/dL [facility] Comment:Desirable LDL: less than 100 mg/dLNear Optimal/Above Optimal LDL: 110- 129 mg/dLBorderline High LDL: 130-159 mg/dLHigh LDL: 160-189 mg/dLVery High LDL: greater than or equal to 190 mg/dL HDL Cholesterol 55 >40 mg/dL [facility] Comment:Desirable HDL: great er than 40 mg/dL Note: This HDL assay may give artificially low results in patients with liver disease. Blood Venous blood specimen / Unknown 06/07/2023 10:45 AM EST 06/07/2023 11:13 AM EST us Lucía Crawford ANP LAB BLOOD ORDERABLES Final Resul t Performing Organization Address City/[facility]/ZIP Co de Phone Number [facility] [address] [place] [phone] from Last 3 Months or Most Recently Relevant to Health Maintenance Insurance [facility] Care Teams Category Specialist Relationship Specialty Start Date End Date Lucía Crawford ANP [address] [place] [address] PCP - General Family Medicine 06/12/23
--- OUTSIDE RECORDS SUMMARY | 2024-11-04 15:19 | XMS_ITS | Encounter Summary ---
Author Organization [employer] Address [address] [facility] 7t [place] [address] Care Team Providers Care Zoning Technician Name Role Phone Lucía Crawford ARNEL Primary Care Provider [phone] Reason for Visit * Reason Comments Med Refill Encounter Details Date Type Department Care Team ([facility] st Contact Info) Description 05/30/2023 Refill [facility] [address] [place], [place] [phone] Gary Jay MD [address] [place] [address] Social History Tobacco Use Types Packs/Day Years [...] Description 11/26/2024 9:30 AM EDT Office Visit [facility] [address] [place] [address] Lucía Crawford ANP [address] [place] [address] 12/24/2024 1:00 PM EDT Office Visit [facility] OPTOMETRY [address] [place] [address] Tiera Pearce, OD [address] [place] [address] documented as of this encounter Visit Diagnoses Not on filedocumented in this encounter Additional Health Concerns Assessment Noted Time PHQ-9 Depression Total Score: 23 023 1:35 PM EDT documented as of this encounter Care Teams Zoning Technician Relationship Specialty Start Date End Date Lucía Crawford ANP [address] [place] [address] PCP - General Family Medicine 06/12/23 documented as of this encounter
--- OUTSIDE RECORDS SUMMARY | 2024-11-04 15:19 | XMS_ITS | Encounter Summary ---
Author Organization [employer] Address [address] [facility] [address] [place] [address] Care Team Providers Care Apprentice Lineman Third Step Name Role Phone Lucía Crawford ARNEL Primary Care Provider [phone] Encounter Details Date Type Department Care Team (Late st Contact Info) Description 12/24/2023 Orders Only [facility] MEDICINE [address] [place], [place] [phone] Dunia Gee MD [address] [place], [place] [phone] Social History Tobacco Use Types Packs/Day Years [...] Description 11/26/2024 9:30 AM EDT Office Visit [facility] MEDICINE [address] [place] [address] Lucía Crawford ANP [address] [place] [address] 12/24/2024 1:00 PM EDT Office Visit [facility] OPTOMETRY [address] [place], [place] [phone] Tiera Pearce, OD [address] [place] [address] documented as of this encounter Visit Diagnoses Not on filedocumented in this encounter Additional Health Concerns Assessment Noted Time PHQ-9 Depression Total Score: 23 023 1:35 PM EDT documented as of this encounter Care Teams Apprentice Lineman Third Step Relationship Specialty Start Date End Date Lucía Crawford ANP [address] [place] [address] PCP - General Family Medicine 06/12/23 documented as of this encounter
--- OUTSIDE RECORDS SUMMARY | 2024-11-04 15:19 | XMS_ITS | Encounter Summary ---
Author Organization [employer] Address [address] [facility] [address] [place] [address] Care Team Providers Care Manager Epic Name Role Phone Ty Lucía SEALS Primary Care Provider [phone] Reason for Visit * Reason Onset Date Comments New Patient 04/23/2023 Encounter Details Date Type Department Care Team ([facility] st Contact Info) Description 04/23/2023 Telephone [facility] MEDICINE [address] [place], [place] [phone] Santo Leon MD [address] [place] [address] New Patient Social History Tobacco Use Types [...] EDT ERNESTO Bain called pt to Offer PET CREMATORY WORKER appt. Pt demographics and insurance information were verified. Pt states following medical conditions: YES Pt reports taking medications: Yes ( Would speak with provider) Pt given PET CREMATORY WORKER appt with PET CREMATORY WORKER Lucía Crawford on 06/06/2023 @ 10:30 am. Pt will be sent appt reminder card and medical release form and agrees to complete and to return to medical records prior to PET CREMATORY WORKER appt. documented in this encounter Plan of Treatment Upcoming Encounters Date Type Department Care Team (Late st Contact Info) Description 11/26/2024 9:30 AM EDT Office Visit [facility] MEDICINE [address] [place] [address] Lucía Crawford ANP [address] [place] [address] 12/24/2024 1:00 PM EDT Office Visit [facility] OPTOMETRY [address] [place] [address] Tiera Pearce, OD [address] [place] [address] documented as of this encounter Visit Diagnoses Not on filedocumented in this encounter Additional Health Concerns Assessment Noted Time PHQ-9 Depression Total Score: 23 023 1:35 PM EDT documented as of this encounter Care Teams Manager Epic Relationship Specialty Start Date End Date Lucía Crawford ANP [address] [place] [address] PCP - General Family Medicine 06/12/23 documented as of this encounter
[2024-11-04 16:15] LABS: MANUAL DIFF FLAG NO
[2024-11-04 16:21] LABS: Basophils Percent Auto 0.3 % (0-2); Eosinophils Absolute Auto 0.1 X10*3/uL (0.0-0.4); Eosinophils Percent Auto 1.1 % (0-4); Hematocrit 39.2 % (37.0-47.0); Imm Gran Abs Auto 0.02 X10*3/uL (0.00-0.03); Imm Gran Pct Auto 0.3 % (0.0-0.4); Lymphocytes Absolute Auto 2.4 X10*3/uL (1.2-4.9); Lymphocytes Percent Auto 32.7 % (20-40); Mean Corpuscular HGB Conc 33.2 g/dl (31.0-35.0); Mean Corpuscular Hemoglobin 30.5 pg (27.0-33.0); Mean Platelet Volume 9.1 fL (9.4-12.3); Monocytes Absolute Auto 0.6 X10*3/uL (0.1-1.2); Monocytes Percent Auto 7.6 % (2-11); Neutrophils Absolute Auto 4.2 x10*3/uL (2.0-8.3); Platelet Count 317 X10*3/uL (160-400); Red Blood Count 4.26 X10*6/uL (4.20-5.50); Red Cell Distribution Width 14.1 % (11.0-16.0); White Blood Count 7.2 X10*3/uL (4.8-10.8)
[2024-11-04 16:34] LABS: C Reactive Protein < 0.04 mg/dL (< or = 0.50); Rheumatoid Factor < 13.0 IU/mL (<15.0); Uric Acid 4.1 mg/dL (2.4-5.7)
[2024-11-05 08:09] LABS: HBS Num1 > 1000.00 mIU/mL (0-7.99); HBc Num1 0.04 S/CO (0.00-0.79); HBsAGNum1 0.41 S/CO (0.00-0.99); Hepatitis A Antibody IgM 0.16 Index (0-0.79); Hepatitis B Core Antibody Nonreactive (Nonreactive); Hepatitis B Surface Antigen Negative (Negative); ~HepC Num1 0.14 S/CO (0.00-0.79); ~Hepatitis A Antibody IgM Nonreactive (Nonreactive); ~Hepatitis B Surface Antibody REACTIVE (Nonreactive); ~Hepatitis C Antibody Nonreactive (Nonreactive)
[2024-11-10 12:32] LABS: Anti Nuclear Antibody Screen POSITIVE (NEGATIVE)
== END 2024-11-04 15:16 | disposition home or self-care (01) ==
LOC: HO.HHCL 15:15
PROVIDERS: Visit Provider Internal Medicine
DX: M19.041 Primary osteoarthritis, right hand (principal); M19.042 Primary osteoarthritis, left hand
CPT/HCPCS: 36415; 84550; 85025; 86038; 86039; 86140; 86431; 86704; 86706; 86709; 86803; 87340

== ENCOUNTER 2024-11-10 08:26 | Outpatient (REF) | payer MEDICAID, SELFPAY ==
--- NOTE | 2024-11-10 08:29 | EMG_ITS ---
Bilateral median and ulnar motor and sensory studies were performed. Bilateral radial and median and lateral antecubital brachial sensory studies were performed, and paraspinal muscles were tested with a needle. IMPRESSION: Mild left ulnar neuropathy across cubital tunnel. Otherwise no significant abnormality noted on this test. MD JOVANY Doran/ANNIL / [id number]
--- OUTSIDE RECORDS SUMMARY | 2024-11-10 08:33 | XMS_ITS | Encounter Summary ---
Author Organization [employer] Address [address] [facility] 7t [place] [address] Care Team Providers Care C Developer Name Role Phone Ty Lucía SEALS Primary Care Provider [phone] Encounter Details Date Type Department Care Team (Late st Contact Info) Description 12/24/2023 Orders Only [facility] MEDICINE [address] [place], [place] [phone] Dunia Gee MD [address] [place], [place] [phone] Social History Tobacco Use Types Packs/Day Years [...] Description 11/26/2024 9:30 AM EDT Office Visit [facility] MEDICINE [address] [place] [address] Lucía Crawford ANP [address] [place] [address] 12/24/2024 1:00 PM EDT Office Visit [facility] OPTOMETRY [address] [place], [place] [phone] Tiera Pearce, OD [address] [place] [address] documented as of this encounter Visit Diagnoses Not on filedocumented in this encounter Additional Health Concerns Assessment Noted Time PHQ-9 Depression Total Score: 23 023 1:35 PM EDT documented as of this encounter Care Teams C Developer Relationship Specialty Start Date End Date Lucía Crawford ANP [address] [place] [address] PCP - General Family Medicine 06/12/23 documented as of this encounter
--- OUTSIDE RECORDS SUMMARY | 2024-11-10 08:33 | XMS_ITS | Encounter Summary ---
Author Organization [employer] Address [address] [facility] 7[address] [place] [address] Care Team Providers Care Director Of Parks And Recreation Name Role Phone Lucía Crawford ARNEL Primary Care Provider [phone] Reason for Visit * Reason Comments Med Refill Encounter Details Date Type Department Care Team ([facility] st Contact Info) Description 05/30/2023 Refill [facility] MEDICINE [address] [place], [place] [phone] Gary Jay MD [address] [place] [address] Social History Tobacco Use Types Packs/Day Years [...] Description 11/26/2024 9:30 AM EDT Office Visit [facility] MEDICINE [address] [place] [address] Lucía Crawford ANP [address] [place] [address] 12/24/2024 1:00 PM EDT Office Visit [facility] OPTOMETRY [address] [place] [address] Tiera Pearce, OD [address] [place] [address] documented as of this encounter Visit Diagnoses Not on filedocumented in this encounter Additional Health Concerns Assessment Noted Time PHQ-9 Depression Total Score: 23 023 1:35 PM EDT documented as of this encounter Care Teams Director Of Parks And Recreation Relationship Specialty Start Date End Date Lucía Crawford ANP [address] [place] [address] PCP - General Family Medicine 06/12/23 documented as of this encounter
--- OUTSIDE RECORDS SUMMARY | 2024-11-10 08:33 | XMS_ITS | Encounter Summary ---
Author Organization [employer] Address [address] [facility] [address] [place] [address] Care Team Providers Care Journeyman Powerhouse Operator Name Role Phone Ty Lucía SEALS Primary Care Provider [phone] Reason for Visit * Reason Onset Date Comments New Patient 04/23/2023 Encounter Details Date Type Department Care Team ([facility] st Contact Info) Description 04/23/2023 Telephone [facility] MEDICINE [address] [place], [place] [phone] Santo Leon MD [address] [place] [address] New Patient Social History Tobacco Use Types [...] EDT ERNESTO Bain called pt to Offer POUNDMASTER appt. Pt demographics and insurance information were verified. Pt states following medical conditions: YES Pt reports taking medications: Yes ( Would speak with provider) Pt given POUNDMASTER appt with POUNDMASTER Lucía Crawford on 06/06/2023 @ 10:30 am. Pt will be sent appt reminder card and medical release form and agrees to complete and to return to medical records prior to POUNDMASTER appt. documented in this encounter Plan of Treatment Upcoming Encounters Date Type Department Care Team (Late st Contact Info) Description 11/26/2024 9:30 AM EDT Office Visit [facility] MEDICINE [address] [place] [address] Lucía Crawford ANP [address] [place] [address] 12/24/2024 1:00 PM EDT Office Visit [facility] OPTOMETRY [address] [place] [address] Tiera Pearce, OD [address] [place] [address] documented as of this encounter Visit Diagnoses Not on filedocumented in this encounter Additional Health Concerns Assessment Noted Time PHQ-9 Depression Total Score: 23 023 1:35 PM EDT documented as of this encounter Care Teams Journeyman Powerhouse Operator Relationship Specialty Start Date End Date Lucía Crawford ANP [address] [place] [address] PCP - General Family Medicine 06/12/23 documented as of this encounter
--- OUTSIDE RECORDS SUMMARY | 2024-11-10 08:33 | XMS_ITS | Clinical Summary ---
Author Organization [employer] Address [address] [facility] 7t [place] [address] Care Team Providers Care Sushi Chef Name Role Phone Lucía Crawford ARNEL Primary Care Provider [phone] Allergies Active Allergy Reactions Criticality Noted Date [...] Diagnosed Date Arthritis of both hands 11/04/2024 Assessment & Plan (11/04/2024 4:50 PM EDT): Most likely OA, discussed with patient likely diagnosis, gave her reassurance and she will take Tylenol as needed Order labs and follow-up with PCP, she is interested in ruling out other inflammatory arthritis Ingrown toenail of both feet 11/04/2024 Assessment & Plan (11/04/2024 4:50 PM EDT): Advised to inners feet on lukewarm water with Epsom salt 2 or 3 times per day, apply topical antibiotics around the great toenail Refer to podiatry Streptococcal pharyngitis 09/15/2024 Assessment & Plan (09/15/2024 [...] seek support PLAN: 1. Follow up with [facility]: Recommended for follow-up: during Obat appts 2. Patient goal is improve mental health, and become sober 3. Behavioral Recommendations a. Keeping Ind. Therapy with LWALBERTO b. Keeping AUD appt with Dr. Jay c. Connecting with -[place] d. [facility] contact number for extra support [...] to engage. PLAN: 1. Follow up with [facility]: Recommended for follow-up: during AUD appts 2. Patient goal is to become sober and improve mental health 3. Behavioral Recommendations a. Ind. Therapy, referral will be submitted b. Glass Ribbon Machine Operator Assistant, referral will be submitted c. Use of [...] engage, insight PLAN: 1. Follow up with [facility]: Recommended for follow-up: with [facility] for [...] in treatment PLAN: 1. Follow up with [facility]: Recommended for follow-up: during OBAT appts 2. Patient goal is become sober and improve mental health 3. Behavioral Recommendations a. Ind. Therapy, referral submitted on 03/08/23 b. Use of coping skills provided as recommended c. Maintain engagement with -MR bustamante [facility] contact number for support Assessment [...] to engage. PLAN: 1. Follow up with [facility]: Recommended for follow-up: during AUD appts 2. Patient goal is to become sober and improve mental health 3. Behavioral Recommendations a. Ind. Therapy, referral will be submitted b. Glass Ribbon Machine Operator Assistant, referral will be submitted c. Use of coping skills as provide d. Engage in AA meetings for support Encounters * This document contains information received from the source organization and may not represent a complete record from that organization. Date Type Department Care Team Description 11/04/2024 3:00 PM EDT Office Visit [facility] WALK-IN [address] [address] Madiha Bush MD Ingrown toenail of both feet (Primary Dx); Arthritis of both hands 10/28/2024 Orders Only GENERIC EXTERNAL DATA DEPARTMENT Provider, Generic External Data 10/02/2024 Refill [facility] MEDICINE [address] [place], [place] [phone] Gary Jay MD Alcohol use disorder, severe, in early remission (CMS/HCC) 09/15/2024 1:00 PM EDT Office Visit [facility] WALK-IN [address] [address] Dunia Gee MD Throat discomfort (Primary Dx); Dysphagia, unspecified type; Change in voice; Family history of thyroid disease; Streptococcal pharyngitis; Folliculitis 09/04/2024 Population Health Risk Score [facility] () [address] [phone] Provider, Population Health Generic 08/31/2024 Telephone [facility] MEDICINE [address] [place] [phone] Lucía Crawford ANP 08/31/2024 Telephone [facility] MEDICINE [address] [place] [phone] Lucía Crawford ANP Chart Prep 08/21/2024 Patient Outreach [address] [address] Lucía Crawford ANP Pre-visit Planning (Pre-visit planning - PHONE NUMBERS not working ) from Last 3 Months Immunizations Immunization Administration Dates Next Due Hep A, Adult [...] Description 11/26/2024 9:30 AM EDT Office Visit [facility] MEDICINE [address] [place] [address] Lucía Crawford, ANP [address] [place] [address] 12/24/2024 1:00 PM EDT Office Visit [facility] OPTOMETRY [address] [place], [place] [phone] Tiera Pearce, OD [address] [place], [place] [phone] Health Maintenance Due Date Last Done Comments Disability Screening 1985 Hepatitis B Vaccines (2 of 3 - 3-dose series) 02/02/2002 01/05/2002 Pneumococcal Vaccine: Pediatrics (0 to 5 Years) and At-Risk Patients (6 to 49) Years) (2 of 2 - PCV) 09/25/2018 09/25/2017 COVID-19 Vaccine (2023-2 5 season) 2024 11/24/2020, 10/26/2020 SDOH Screening 03/08/2024 03/08/2023 Alcohol/Substance Use Screening 03/06/2025 03/06/2024 Cervical Cancer Screening 03/24/2025 Family Planning (PISQ) 03/24/2025 03/24/2024 HPV/Cotest 03/24/2025 03/24/2024 Pap Smear 03/24/2025 03/24/2024 Depression Screening 09/15/2025 09/15/2024, 09/15/2024 Tobacco Screening 11/04/2025 11/04/2024 Lipid Panel 06/07/2028 06/07/2023 DTaP/Tdap/Td Vaccines (4 - T d or Tdap) 06/06/2033 06/06/2023, 09/25/2017, 01/05/2002 Zoster Vaccines (1 of 2) 09/19/2037 RSV Patients and Patients Aged 60 years or older (1 - 1-dose 75+ series) 09/19/2062 Hepatitis A Vaccines Aged Out 03/26/2023 No long er eligible based on patient's age to complete this topic HIV Screening Completed 03/16/2024, 03/12/2023 Influenza Vaccine Completed 05/31/2024 Hepatitis C Screening Completed 11/04/2024 , 03/16/2024, 03/12/2023 HIB Vaccines Aged Out No longer [...] Procedure Name Priority Date/Time Associated Diagnosis Comments HEPATITIS PANEL, GENERAL Routine 11/04/2024 3:17 PM EDT Arthritis of both hands CBC WITH AUTO DIFFERENTIAL Routine 11/04/2024 3:17 PM EDT Arthritis of both hands URIC ACID Routine 11/04/2024 3:17 PM EDT Arthritis of both hands RHEUMATOID FACTOR Routine 11/04/2024 3:1 7 PM EDT Arthritis of both hands C-REACTIVE PROTEIN Routine 11/04/2024 3: 17 PM EDT Arthritis of both hands DRUG MONITOR, PANEL 1, SCREEN, URINE Routine 10/28/2024 12:49 AM EDT URINALYSIS WITH REFLEX MICROSCOPIC Routine 10/28/2024 12:45 AM EDT TSH W/REFLEX TO FT4 Routine 09/15/2024 1 :43 PM EDT Throat discomfort POCT RAPID STREP A Routine 09/15/2024 1: 10 PM EDT Streptococcal pharyngitis THINPREP IMAGING PAP AND HPV MRNA E6/E7 Routine 03/24/2024 11:39 AM EDT HIV 1/2 ANTIGEN/ANTIBODY, FOURTH GENERATION W/RFL Routine 03/16/2024 2:04 PM EDT Vaginal discharge LIPID PANEL, STANDARD Routine 06/07/2023 10:45 AM EST Lipid screening from Last 3 Months or Most Recently Relevant to Health Maintenance Results * Hepatitis Panel, General (11/04/2024 3:17 PM EDT) Hepatitis A IgM Nonreactive Nonreactive [facility] Comment:IgM antibodies to LLAMAS V not detected; does not exclude earlyacute or recovered HAV infection. ~Hepatitis B Surface Antibody REACTIVE Nonreactive [facility] Comment:REACTIVE: > 11.99 mI U/mL Hepatitis B Core Antibody Nonreactive Nonreactive [facility] Hepatitis C Antibody Nonreactive Nonreactive [facility] Comment:Antibodies to HCV no t detected; does not exclude early acuteHCV infection. Hepatitis B Surface Ag Negative Negative [facility] Blood 11/04/2024 3:17 PM EDT 11/04/2024 4:11 PM EDT us Madiha Bush MD LAB BLOOD ORDERABLES Fin al Result [facility] [address] [place] [phone] * (ABNORMAL) CBC auto differential (11/04/2024 3:17 PM EDT) White Blood Count 7.2 4.8 - 10.8 X10*3/uL [facility] Red Blood Count 4.26 4.20 - 5.50 X10*6/uL [facility] Hemoglobin 13.0 12.0 - 16.0 g/dl [facility] Hematocrit 39.2 37.0 - 47.0 % [facility] Mean Corpuscular Volume 92.0 80.0 - 98.0 fL [facility] Mean Corpuscular Hemoglobin 30.5 27.0 - 33.0 pg [facility] Mean Corpuscular HGB Conc 33.2 31.0 - 35.0 g/dl [facility] Red Cell Distribution Width 14.1 11.0 - 16.0 % [facility] Platelet Count 317 160 - 400 X10*3/uL [facility] Mean Platelet Volume 9.1(L) 9.4 - 12.3 fL [facility] Neutrophils Percent Auto 58.0 45 - 73 % [facility] Imm Gran Pct Auto 0.3 0.0 - 0.4 % [facility] Lymphocytes Percent Auto 32.7 20 - 40 % [facility] Monocytes Percent Auto 7.6 2 - 11 % [facility] Eosinophils Percent Auto 1.1 0 - 4 % [facility] Basophils Percent Auto 0.3 0 - 2 % [facility] NRBC Pct Auto 0.0 0.0 - 0.2 /100WBC [facility] Neutrophils Absolute Auto 4.2 2.0 - 8.3 x10*3/uL [facility] Imm Gran Abs Auto 0.02 0.00 - 0.03 X10*3/uL [facility] Lymphocytes Absolute Auto 2.4 1.2 - 4.9 X10*3/uL [facility] Monocytes Absolute Auto 0.6 0.1 - 1.2 X10*3/uL [facility] Eosinophils Absolute Auto 0.1 0.0 - 0.4 X10*3/uL [facility] Basophils Absolute Auto 0.0 0.0 - 0.2 X10*3/uL [facility] NRBC Abs Auto 0.000 0.0 - 0.012 X10*3/uL [facility] Blood Venous blood specimen / Unknown 11/04/2024 3:17 PM EDT 11/04/2024 4:11 PM EDT us Mdaiha Bush MD LAB BLOOD ORDERABLES Fin al Result [facility] [address] [place] [phone] * Rheumatoid Factor (11/04/2024 3:17 PM EDT) Pathologist [facility] Rheumatoid Factor <13.0 <15.0 IU/mL [facility] Blood Venous blood specimen / Unknown 11/04/2024 3:17 PM EDT 11/04/2024 4:11 PM EDT Madiha Bush MD LAB BLOOD ORDERABLES Fin al Result Performing Organization Address [facility] Co de Phone Number [facility] [address] [place] [phone] * C-reactive Protein (11/04/2024 3:17 PM EDT) [facility] C Reactive Protein <0.04 < or = 0.50 mg/dL [facility] Blood Venous blood specimen / Unknown 11/04/2024 3:17 PM EDT 11/04/2024 4:11 PM EDT Madiha Bush MD LAB BLOOD ORDERABLES Fin al Result Performing Organization Address [facility] Co de Phone Number [facility] [address] [place] [phone] * Uric acid (11/04/2024 3:17 PM EDT) [facility] Uric Acid 4.1 2.4 - 5.7 mg/dL [facility] Blood Venous blood specimen / Unknown 11/04/2024 3:17 PM EDT 11/04/2024 4:11 PM EDT Madiha Bush MD LAB BLOOD ORDERABLES Fin al Result Performing Organization Address [facility] Co de Phone Number [facility] [address] [place] [phone] * (ABNORMAL) Drug Monitoring, Panel 1, Screen, Urine (10/28/2024 12:49 AM EDT) Opiate Screen Urine Not Detected Not Detect [facility] Comment:Opiate cut-off is 30 0 ng/mL.Positive results are unconfirmed and should not be used fornon-medical purposes. Barbiturates, Urine Not Detected Not Detect [facility] Comment:Barbiturate cut-off is 200 ng/mL.Positive results are unconfirmed and should not be used fornon-medical purposes. Phencyclidine Screen Urine Not Detected Not Detect [facility] Comment:Phencyclidine cut-of f is 25 ng/mL.Positive results are unconfirmed and should not be used fornon-medical purposes. Amphetamine Screen Urine Not Detected Not Detect [facility] Comment:Amphetamine cut-off is 1000 ng/mL.Positive results are unconfirmed and should not be used fornon-medical purposes. Benzodiazepines Screen Urine POSITIVE(A) Not Detect [facility] Comment:Benzodiazepine cut-o ff is 200 ng/mL.Positive results are unconfirmed and should not be used fornon-medical purposes. Cocaine Screen Urine Not Detected Not Detect [facility] Comment:Cocaine cut-off is 3 00 ng/mL.Positive results are unconfirmed and should not be used fornon-medical purposes. Cannabinoid Screen Urine POSITIVE(A) Not Detect [facility] Comment:Cannabinoid cut-off is 50 ng/mL.Positive results are unconfirmed and should not be used fornon-medical purposes. Methadone Screen, Urine Not Detected Not Detect ng/mL [facility] Comment:Methadone cut-off is 300 ng/mL.Positive results are unconfirmed and should not be used fornon-medical purposes. FENTANYL URINE Not Detected Not Detect [facility] Comment:Fentanyl cut-off is 1 ng/mL.Positive results are unconfirmed and should not be used fornon-medical purposes. Oxycodone Urine Screen Not Detected Not Detect ng/mL [facility] Comment:Oxycodone cut-off is 100 ng/mL.Positive results are unconfirmed and should not be used fornon-medical purposes. Buprenorphine Screen Not Detected Not Detect ng/mL [facility] Comment:Buprenorphine cut-of f is 5 ng/mL.Positive results are unconfirmed and should not be used fornon-medical purposes. 10/28/2024 12:4 9 AM EDT 10/28/2024 12:52 AM EDT us Generic External Data Provider LAB URINE ORDERAB LES Final Result Performing Organization Address City/[facility] Co de Phone Number [facility] [address] [place] [phone] * Urinalysis w/reflex microscopic (10/28/2024 12:45 AM EDT) Color Urine Yellow [facility] Appearance Urine Clear [facility] PH 5.5 5.0 - 9.0 [facility] Glucose Urine UA Negative Negative mg/dL [facility] Urine Blood Negative Negative [facility] Specific [place] - Urine 1.020 1.005 - 1.025 [facility] Urine Protein Negative Neg-Trace mg/dL [facility] Urine Ketones 40 Negative mg/dL [facility] Nitrite Urine Negative Negative [facility] Leukocyte Esterase Urine Negative Negative [facility] 10/28/2024 12:4 5 AM EDT 10/28/2024 12:52 AM EDT Narrative [facility] - 10/28/2024 12:59 AM EDT Urine, Clean Catch us Generic External Data Provider LAB URINE ORDERAB LES Final Result Performing Organization Address City/[facility]/ZIP Co de Phone Number [facility] [address] [place] [phone] * TSH W/Reflex to FT4 (09/15/2024 1:43 PM EDT) TSH reflex Free T4 0.53 0.32 - 4.0 uIU/mL [facility] Blood Venous blood specimen / Unknown 09/15/2024 1:43 PM EDT 09/15/2024 4:06 PM EDT us Dunia Gee MD LAB BLOOD ORDERABLES Final Result [facility] [address] [place] [phone] * (ABNORMAL) POCT rapid strep A manually resulted (09/15/2024 1:10 PM EDT) Pathologist [facility] Rapid Strep A Screen Positive( A) Negative, None Detected Swab 09/15/2024 1:10 PM EDT us Dunia Gee MD POINT OF CARE TEST ENTER/E DIT ORDERABLES Final Result * [facility] Pap and HPV mRNA E6/E7 (03/24/2024 11:39 AM EDT) [facility] HPV nRNA E6/E7 Not Detected Not Detected [facility] Comment:Methodology: Transcr iption-Mediated AmplificationThis assay detects E6/E7 viral messenger RNA (mRNA) from 14high-risk HPV types (16,18,31,33,35,39,45,51,52,56,58,59,66,68).Cervical sources are required for HPV testing.If a vaginal source from a patient who has had atotal hysterectomy with removal of cervix wassubmitted, please contact the testing laboratoryfor alternative testing options.For additional information, please refer tohttp://education.[employer]/faq/PKF308v3(This link if provided for information/educational purposes only.)THIS TEST WAS PERFORMED AT:[facility] [place] [phone] REYNOSO MD SOURCE: SEE NOTE [facility] Comment:Cervix Report Status: [facility] Clinical Information: SEE NOTE [facility] Comment:None given LMP: SEE NOTE [facility] Comment:NONE GIVEN Prev. PAP: SEE NOTE [facility] Comment:NONE GIVEN Prev. BX: SEE NOTE [facility] Comment:NONE GIVEN Statement Of Adequacy: SEE NOTE [facility] Comment:Satisfactory for juanita luation.Endocervical/transformation zone component absent. General Categorization: [facility] Interpretation/Result: SEE NOTE [facility] Comment:Cytology Results: Ne gative for intraepitheliallesion or malignancy. Cytology Comment SEE NOTE [facility] Comment:This Pap test has be en evaluated with computerassisted technology. Dive Supervisor: SEE NOTE [facility] Comment:MSM, CT(ASCP)CT scre ening location: [place] [address] Review Dive Supervisor: [facility] Pathologist [facility] PAP Infection [facility] See Note SEE NOTE [facility] Comment:EXPLANATORY NOTE:The Pap is a screening test for cervical cancer. It isnot a diagnostic test and is subject to false negativeand false positive results. It is most reliable when asatisfactory sample, regularly obtained, is submittedwith relevant clinical findings and history, and whenthe Pap result is evaluated along with historic andcurrent clinical information. 03/24/2024 11:3 9 AM EDT 03/24/2024 4:30 PM EDT Narrative [facility] - 03/27/2024 2:06 PM EDT SEE SCANNED RESULTS IN EMRCERVIX us Jada PATRICIA LAB PATHOLOGY ORDERABLES Final Result [facility] [address] [place] [phone] * HIV-1/2 Antigen and Antibodies, Fourth Generation, with Reflexes (03/16/2024 2:04 PM EDT) HIV AB/AG Nonreactive Nonreactive [facility] Comment:HIV-1 p24 Ag and/or HIV-1/HIV-2 Ab not detected.A test result that is nonreactive does not exclude thepossibility of exposure to or infection with HIV-1 and/orHIV-2. Nonreactive results in this assay for individualswith prior exposure to HIV-1 and/or HIV-2 may be due toantigen and antibody levels that are below the limit ofdetection of this assay.The [employer] HIV Ag/Ab Combo assay result andsupplemental assay results should be interpreted inconjunction with the patient's clinical presentation,history and other laboratory results. If the results areinconsistent with clinical evidence, additional testing issuggested to confirm the result. Blood Venous blood specimen / Unknown 03/16/2024 2:04 PM EDT 03/16/2024 4:53 PM EDT us Martha Sellers [employer] LAB BLOOD ORDERABLES Final Resul t Performing Organization Address City/[facility] Co de Phone Number [facility] [address] [place] [phone] * (ABNORMAL) Lipid Panel, Standard (06/07/2023 10:45 AM EST) Triglycerides 65 <150 mg/dL [facility] Comment:Desirable Triglyceri de: less than 150 mg/dLBorderline High Triglyceride 150-199 mg/dLHigh Triglyceride: 200-499 mg/dLVery High Triglyceride: greater than or equal to 5OO mg/dL Cholesterol 185 <200 mg/dL [facility] Comment:Desirable Cholestero l: less than 200 mg/dLBorderline High Cholesterol: 200-239 mg/dLHigh Cholesterol: greater than 239 mg/dL LDL Cholesterol Calculated 117(H) <100 mg/dL [facility] Comment:Desirable LDL: less than 100 mg/dLNear Optimal/Above Optimal LDL: 110- 129 mg/dLBorderline High LDL: 130-159 mg/dLHigh LDL: 160-189 mg/dLVery High LDL: greater than or equal to 190 mg/dL HDL Cholesterol 55 >40 mg/dL [facility] Comment:Desirable HDL: great er than 40 mg/dL Note: This HDL assay may give artificially low results in patients with liver disease. Blood Venous blood specimen / Unknown 06/07/2023 10:45 AM EST 06/07/2023 11:13 AM EST us Lucía Crawford ANP LAB BLOOD ORDERABLES Final Resul t [facility] [address] [place] [phone] from Last 3 Months or Most Recently Relevant to Health Maintenance [facility] Care Teams Sushi Chef Relationship Specialty Start Date End Date Lucía Crawford ANP [address] [place] [phone] PCP - General Family Medicine 06/12/23
== END 2024-11-10 08:27 | disposition home or self-care (01) ==
LOC: HO.NEURO 08:26
PROVIDERS: PCP Nurse Practitioner Primary Care
DX: R20.0 Anesthesia of skin (principal); R20.2 Paresthesia of skin
CPT/HCPCS: 95886; 95913

== ENCOUNTER 2024-12-30 13:06 | Outpatient (REF) | payer MEDICAID, SELFPAY ==
--- OUTSIDE RECORDS SUMMARY | 2024-12-30 13:56 | XMS_ITS | Encounter Summary ---
Author Organization [employer] Address [address] [facility] 7t [place] [address] Care Team Providers Care Protection Mgr Name Role Phone Lucía Crawford Primary Care Provider [phone] Encounter Details Date Type Department Care Team ([facility] st Contact Info) Description 11/12/2024 Results Follow-Up [facility] MED[facility] [address] [place], [place] [phone] Madiha Bush MD [address] [place] [address] MADIHA Screen,IFA, with Reflex to Titer and Pattern, C-reactive Protein, Rheumatoid Factor, Additional followed-up results: 3 Social History Tobacco Use Types Packs/Day Years [...] as of this encounter Miscellaneous Notes * Result Encounter Note - Madiha Bush MD - 11/12/2024 4:35 PM EDT Labs 11/04/2024 showed low titer nuclear and fine speckled pattern MADIHA's, no other signs of inflammation, this could be related to recent streptococcal pharyngitis and reactive arthritis, symptoms usually resolve within few weeks and with NSAIDs which were provided to the patient at the time of the visit with me. Please call her and reassured her about the symptoms and to take Tylenol or meloxicamas needed and follow-up with PCP as scheduled, they will probably follow-up on symptoms. documented in this encounter Plan of Treatment Upcoming Encounters Date Type Department Care Team (Late st Contact Info) Description 02/08/2025 2:30 PM EDT Office Visit [facility] MED[facility]INE [address] [place] [phone] Lucía Crawford ANP [address] [place] [address] documented as of this encounter Visit Diagnoses Not on filedocumented in this encounter Additional Health Concerns Assessment Noted Time PHQ-9 Depression Total Score: 10 025 1:08 PM EDT documented as of this encounter Care Teams Protection Mgr Relationship Specialty Start Date End Date Lucía Crawford ANP [address] [place] [address] PCP - General Family Medicine 06/12/23 documented as of this encounter
[2024-12-30 16:57] LABS: Cholesterol 167 mg/dL (<200); HDL Cholesterol 70 mg/dL (>40); Triglycerides 85 mg/dL (<150)
== END 2024-12-30 13:07 | disposition home or self-care (01) ==
LOC: HO.HHCL 13:06
PROVIDERS: Family Medicine; Internal Medicine; PCP Nurse Practitioner Primary Care; Visit Provider Registered Nurse
DX: Z00.00 Encounter for general adult medical examination without abnormal findings (principal); M19.041 Primary osteoarthritis, right hand; M19.042 Primary osteoarthritis, left hand; R07.0 Pain in throat; R13.10 Dysphagia, unspecified; R49.9 Unspecified voice and resonance disorder
CPT/HCPCS: 36415; 80061; 84443; 85652

== ENCOUNTER 2025-01-29 10:32 | Outpatient (AMB) | payer MEDICAID, SELFPAY ==
--- NOTE | 2025-01-29 10:36 | MHC.OFFVIS ---
Intake Visit Reasons: OV-B/L hand EMG review Intake Note: Evonne is a 39 year old right hand dominant female who presents today for a EMG review. Patient expresses her symptoms have worsened. Her right hand greater than left. She feels numbness, tingling and her fingers get cold. Expresses stiffness and cramping. Would like to discuss surgery. Impression 11/10/24: Mild left ulnar neuropathy across cubital tunnel. Otherwise no significant abnormality noted on this test. Allergies amoxicillin Allergy (Verified 01/29/25 11:33) Rash oxycodone (From Percocet) Allergy (Verified 01/29/25 11:33) Vomiting HPI HPI OV-B/L hand EMG review: Details: Evonne is a 39 year old right hand dominant female who presents today for a EMG review. Patient expresses her symptoms have worsened. Her right hand greater than left. She feels numbness, tingling and her fingers get cold. Expresses stiffness and cramping. Would like to discuss surgery. Patient reports that the numbness and tingling in her left hand is present only in the ring and small fingers. Impression 11/10/24: Mild left ulnar neuropathy across cubital tunnel. Otherwise no significant abnormality noted on this test. [facility] Medical History Acute appendicitis with rupture (07/23/23) Surgical History Hx of appendectomy Social History Household Members: Children Housing: Other Housing Other:: long-term Do you presently have visiting nurse or other home services: No Alcohol intake: current Alcohol intake frequency: 0-2 drinks per day Alcohol type: hard liquor Patient Tobacco Use Status: Never used Tobacco Substance Use Type: Marijuana Advance Directives Date on File: 07/29/23 service: No Current occupational status: unemployed Current occupation: right hand dominant Review of Systems Const All systems reviewed & are unremarkable except as noted in HPI and below Physical Exam Extrem Other: Neuro: Normal sensation of the tips of all digits of bilateral hands in the office today No thenar or intrinsic wasting. Good APB muscle firing and good finger cross. Vascular: Capillary refill brisk. ROM: Patient can make a fist and extend all their digits. Skin: No lacerations or abrasions noted. General: No ecchymosis. No erythema or evidence of infection. [] Assessment & Plan Assessment & Plan (1) Cubital tunnel syndrome on left: Code(s): G56.22 - Lesion of ulnar nerve, left upper limb Category: Medical Plan 1. Cubital tunnel syndrome, left Symptoms intermittent, daily, worse at night I educated the patient about the condition. I discussed both operative and nonoperative treatment options. The patient would like to proceed with surgery. The risks and benefits of operative treatment were discussed with the patient and the patient wishes to proceed with surgery. These risks include, but are not limited to, risk of damage to blood vessels, nerves, tendons, infection, recurrence, incomplete relief of preoperative symptoms, persistent pain, possible need for further surgery, and the risks associated with regional blocks and/or anesthesia. Plan is to take the patient to the operating room at some point in the next few weeks for the following procedures: 1. Left cubital tunnel release under general anesthesia All of the preoperative paperwork including the consent was discussed today. All of the patient's questions were answered in the clinic today. The patient understands that they will be in contact with our surgical device sales representative to discuss scheduling their procedure. Patient denies diabetes, blood thinners, asthma, heart issues, lung issues, kidney issues, or current smoking. Coding Level of Care Code New Pt Level 4 (28197) Diagnoses Cubital tunnel syndrome on left G56.22
--- OUTSIDE RECORDS SUMMARY | 2025-01-29 10:36 | XMS_ITS | Encounter Summary ---
Author Organization [employer] Address [address] [facility] 7[address] [place] [address] Care Team Providers Care Production Assembler Name Role Phone Crawford Lucía SEALS Primary Care Provider [phone] Encounter Details Date Type Department Care Team ([facility] Contact Info) Description 12/24/2023 Orders Only [facility] [address] [place] [address] Dunia Gee MD [address] [place] [address] Social History Tobacco Use Types Packs/Day Years [...] Description 02/08/2025 2:30 PM EDT Office Visit [facility] [address] [place] [phone] Lucía Crawford ANP [address] [place] [phone] 03/24/2025 10:30 AM EDT Procedure Visit [address] [phone] Jada Collins CNM [address] [place] [phone] documented as of this encounter Visit Diagnoses Not on filedocumented in this encounter Additional Health Concerns Assessment Noted Time PHQ-9 Depression Total Score: 23 023 1:35 PM EDT documented as of this encounter Care Teams Production Assembler Relationship Specialty Start Date End Date Lucía Crawford ANP [address] [place] [address] [phone] PCP - General Family Medicine 06/12/23 documented as of this encounter
--- OUTSIDE RECORDS SUMMARY | 2025-01-29 10:36 | XMS_ITS | Clinical Summary ---
Author Organization [address] [facility] Address [address] [place] [address] Phone Care Team Providers Care Assessment Manager Name Role Phone Tracie Varela MD Primary Care Provider Social History Tobacco Use Types Packs/Day Years Used Date Smoking Tobacco: Never Assessed Comments Unknown Sex and Gender Information Value Date Recorded Sex Assigned at Not on file Legal Sex Female 5:06 AM EST Gender Identity Not on file Sexual Orientation Not on file Plan of Treatment Health Maintenance Due Date Last Done Comments Hepatitis B Vaccines (2 of 3 - 3-dose series) 02/02/2002 01/05/2002 DTaP,Tdap,and Td Vaccines (1 - Tdap) 09/19/2006 Cervical Cancer Screening: P ap Smear 09/19/2008 Cholesterol Screening (Lipid Panel) 05/27/2022 HIV Screening 05/27/2022 Hepatitis C Screening 05/27/2022 Social Influencers of Health Screening 05/27/2022 Hypertension/CHF/CAD Annual BMP Blood Test 06/09/2022 COVID-19 Vaccine ( - 2023-2 5 season) 2024 Depression Screening 06/24/2024 Influenza Vaccine (#1) 2025 HIB Vaccines Aged Out No longer eligi ble based on patient's age to complete this topic HPV Vaccines Aged Out No longer eligi ble based on patient's age to complete this topic Hepatitis A Vaccines Aged Out No long er eligible based on patient's age to complete this topic IPV Vaccines Aged Out No longer eligi ble based on patient's age to complete this topic MMR Vaccines Aged Out No longer eligi ble based on patient's age to complete this topic Meningococcal ACWY Vaccine Aged Out N o longer eligible based on patient's age to complete this topic Meningococcal B Vaccine Aged Out No l onger eligible based on patient's age to complete this topic Pneumococcal Vaccine: Pediat rics (0 to 5 Years) and At-Risk Patients (6 to 49 Years) Aged Out No longer eligi ble based on patient's age to complete this topic RSV Immunization Patients Un dilip 20 months Aged Out No longer eligible b ased on patient's age to complete this topic Varicella Vaccines Aged Out No longer eligible based on patient's age to complete this topic Insurance MEDICAID - [place] Care Teams Assessment Manager Relationship Specialty Start Date End Date Tracie Varela MD [address] [place] [phone] PCP - General 12/01/01
== END 2025-01-29 10:59 | disposition home or self-care (01) ==
LOC: HO.HOS 10:33
PROVIDERS: PCP Nurse Practitioner Primary Care
DX: G56.22 Lesion of ulnar nerve, left upper limb (principal)
CPT/HCPCS: 99214

== ENCOUNTER → 2025-01-29 10:32 | Outpatient (BNVA) | payer MEDICAID, SELFPAY | PROVIDERS: PCP Nurse Practitioner Primary Care | DX: Z71.2 Person consulting for explanation of examination or test findings (principal); G56.22 Lesion of ulnar nerve, left upper limb | CPT/HCPCS: 99212 ==

== ENCOUNTER 2025-03-09 11:06 | Outpatient (REF) | payer MEDICAID, SELFPAY ==
--- OUTSIDE RECORDS SUMMARY | 2025-02-25 09:40 | XMS_ITS | Encounter Summary ---
Author Organization [employer] Address [address] [facility] [address] [place] [address] Care Team Providers Care Tire Mounter Name Role Phone Ty Lucía SEALS Primary Care Provider [phone] Reason for Visit * Reason Comments Hypertension Palpitations Encounter Details Date Type Department Care Team ([facility] Contact Info) Description 02/25/2025 9:40 AM EDT Office Visit [facility] [address] [place] [address] Dunia Vu MD [address] [place] [address] Intermittent palpitations (Primary Dx); Induration at injection site; Elevated blood pressure reading Social History Tobacco Use Types Packs/Day Years [...] Answer Date Recorded Patient Health Questionnaire-9 Score 13 03/01/2025 Patient Health Questionnaire-9 Score 03/01/2025 Last PHQ-9: Questionnaire Data Not on file 0 03/01/2025 Housing Stability Answer Date Recorded What is your housing situation today? I have erlin rondon 11/19/[address] you li ve. Do you have problems with any of the following? None of the above 11/19/2024 Food Insecurity Answer Date Recorded Within the past 12 months, y ou worried that your food would run out before you got money to buy more: Never True 11/19/2024 Within the past 12 months,th e food you bought just didn't last and you didn't have enough money to get more: Never True Transportation Answer Date Recorded In the past 12 months, has l ack of transportation kept you from medical appts, meetings, work or from getting things needed for daily living? No 11/19/2024 Utilities Answer Date Recorded In the past 12 months, has t he electric, gas, oil or water company threatened to shut off services in your home? No 11/19/2024 Depression Answer Date Recorded Patient Health Questionnaire-2 Score 3 03/01/2025 Internet Access Answer Date Recorded Internet Access Q1 Yes 11/19/2024 Internet Access Q2 Not on file 11/19/2024 Comments No Sex and Gender Information Value Date Recorded Sex Assigned at Female 03/08/2023 11:33 AM EDT Legal Sex Female 1:42 PM EDT Gender Identity Female 03/08/2023 11:33 AM EDT Sexual Orientation Bisexual 03/08/2023 11 :33 AM EDT documented as of this encounter Last Filed Vital Signs Vital Sign Reading Time Taken Comments Blood Pressure 123/79 02/25/2025 9:49 AM EDT Pulse 72 02/25/2025 9:49 AM EDT Temperature 36.4 C (97.6 F) 02/25/2025 9:49 AM EDT Respiratory Rate - - Oxygen Saturation 99% 02/25/2025 9:49 AM EDT Inhaled Oxygen Concentration - - Weight - - Height - - Body Mass Index - - documented in this encounter Functional Status * Over the past 2 weeks, how often have you been bothered by any of the following problems? Question Answer Date of Assessment Author Patient Health Questionnaire-2 Score 3 01/2025 9:50 AM EDT Salomón Romero * Little interest or pleasure in doing things Answer Date of Assessment Author Several days 03/01/2025 9:50 AM Lizette Lomas * Feeling down, depressed, or hopeless Answer Date of Assessment Author More than half the days 03/01/2025 9:50 AM Salomón Jimenez * Trouble falling or staying asleep, or sleeping too much Answer Date of Assessment Author Nearly every day 03/01/2025 9:50 AM Salomón Lomas * Feeling tired or having little energy Answer Date of Assessment Author Nearly every day 03/01/2025 9:50 AM Salomón Lomas * Poor appetite or overeating Answer Date of Assessment Author Several days 03/01/2025 9:50 AM Lizette Lomas * Feeling bad about yourself - or that you are a failure or have let yourself or your family down Answer Date of Assessment Author Not at all 03/01/2025 9:50 AM Lizette Lomas * Trouble concentrating on things, such as reading the newspaper or watching television Answer Date of Assessment Author Nearly every day 03/01/2025 9:50 AM Salomón Lomas * Moving or speaking so slowly that other people could have noticed? Or the opposite - being so fidgety or restless that you have been moving around a lot more than usual. Answer Date of Assessment Author Not at all 03/01/2025 9:50 AM Lizette Lomas * Thoughts that you would be better off or hurting yourself in some way Answer Date of Assessment Author Not at all 03/01/2025 9:50 AM Lizette Lomas * Patient Health Questionnaire-9 Score Answer Date of Assessment Author 13 03/01/2025 9:50 AM Lizette Lomas * How difficult have these problems made it for you to do your work, take care of things at home, or get along with other people? Answer Date of Assessment Author Somewhat difficult 03/01/2025 9:50 AM Salomón Lomas * Over the last 2 weeks, how often have you been bothered by any of the following problems? Question Answer Date of Assessment Author Feeling nervous, anxious, or on edge 2 01/2025 9:51 AM Salomón Lomas Not being able to stop or co ntrol worrying 2 03/01/2025 9:51 AM EDT Salomón Romero Worrying too much about diff erent things 2 03/01/2025 9:51 AM EDT Salomón Romero Trouble relaxing 3 03/01/2025 9:51 AM EDT Salomón Day Being so restless that it is hard to sit still 2 03/01/2025 9:51 AM EDT Salomón Romero Becoming easily annoyed or irritable 2 01/2025 9:51 AM EDT Salomón oRmero Feeling afraid as if somethi ng awful might happen 2 03/01/2025 9:51 AM EDT Salomón Romero JEFFERSON-7 Total Score 15 03/01/2025 9:51 AM EDT Salomón Romero documented as of this encounter Progress Notes * Betzaida Monroy - 02/25/2025 9:40 AM EDT Subjective Patient ID: Evonne Zapata is a 39 y.o. female with past medical history of KARENA, anxiety and depression who presents to walk in clinic for Hypertension and Palpitations. Per nurses notes: Pt reports she has been experiencing heart palpitations at night, denies any sx now. Also she was given Vivitrol injection this week in Left buttocks. Injection site visibly swollen, and warm to touch with small bruise at inj. site. Pt states it is painful and pain is radiating toback and leg. Pt reports she is unsure if its her anxiety, but she has been having palpitations at night since last night and she has recorded her BP being 150/97. She notes her heart would skip a beat and notes the palpitations are intermittent. Pt used to be on heavy caffeine but notes she hedache not been in a long time, until she had a caffeine drink yesterday. Denies any substernal chest pain, SOB, dizziness or syncope. Additionally pt reports she had a Vivitrol injection last week and has been having pain, redness and swelling on her left buttock. This is her 2nd injection, but she reports her last injection was a year ago. She reports she then had similar symptoms that self resolved. Denies fevers, nausea, dizziness, or SOB. Review of Systems Constitutional: Negative for fatigue, fever and unexpected weight change. Respiratory: Negative for chest tightness and shortness of breath. Cardiovascular: Positive for palpitations. Negative for chest pain. Gastrointestinal: Negative for abdominal pain. Genitourinary: Negative for difficulty urinating. Musculoskeletal: Negative for back pain. Neurological: Negative for dizziness and syncope. Objective Visit Vitals BP 123/79 (BP Location: Left arm, Patient Position: Sitting, BP Cuff Size: Adult) Pulse 72 Temp 97.6 ??F (36.4 ??C) (Oral) There is no height or weight on file to calculate BMI. Physical Exam Constitutional: Appearance: Normal appearance. Cardiovascular: Rate and Rhythm: Normal rate and regular rhythm. Heart sounds: Normal heart sounds. Pulmonary: Effort: Pulmonary effort is normal. Breath sounds: Normal breath sounds. Musculoskeletal: Cervical back: Normal range of motion. Skin: Comments: Left buttock: injection site with no erythema, with warmth and induration that spreads out about 10 cm. Neurological: General: No focal deficit present. Mental Status: She is alert. Psychiatric: Behavior: Behavior normal. Assessment & Plan Induration at injection site -No evidence of acute sign of infection. Suspect possible cellulitis. Symptoms mild. -Will treat with abx empirically. Prescribed antihistamine as well. -ER precautions discussed. -Seek medical attention for worsening symptoms. Orders: doxycycline (Vibramycin) 100 MG capsule; Take 1 capsule (100 mg) by mouth 2 times daily for 10 days. Take with at least 8 ounces (large glass) of water, do not lie down for 30 minutes after diphenhydrAMINE (BENADryl) 25 MG tablet; Take 1 tablet (25 mg) by mouth if needed at bedtime for itching for up to 5 days. Intermittent palpitations -No evidence of acute cardiac etiology. Suspect likely due to reintroduction to caffeine. Currentlyasymptomatic. -EKG showed no acute ischemia. -Encouraged her to keep monitoring blood pressure and avoid caffeine. -ER precautions discussed. -Seek medical attention for worsening symptoms. Elevated blood pressure reading -Elevated reading at home, at goal in clinic today. -EKG showed no acute ischemia. -Encouraged her to keep monitoring blood pressure and avoid caffeine. -ER precautions discussed. -Seek medical attention for worsening symptoms. Future Appointments Date Time Provider Department Center 03/01/2025 9:00 AM Salomón Romero [facility] 03/02/2025 9:30 AM Gary Jay MD [facility] 03/09/2025 9:45 AM ARNEL Mckee [facility] 03/24/2025 10:30 AM Jada Collins CNM [facility] I, Betzaida Monroy, am serving as a scribe to document services personally performed by Dr. Osorio, based on the patient's response to questions by provider and providers statements to me. * Megan Robison RN - 02/25/2025 9:40 AM EDT Assessment: Patient presents to Walk- In Center c/o heart palpitations at night, pain in left buttocks where vivitrol injection administered, and pins and needles in fingers at night when doing dishes. Injectionsite visibly swollen. Pt denies site being warm to touch at time of triage. Pt reports warm to touch at night. Pt denies current chest pain, SOB, headache, dizziness. Pt endorses blurred vision, but states this is their baseline. Symptoms have been present for 2 days. VS as follows (if applicable): Temp 97.6 orally HR 72 BP 123/79 left Arm; Device: Automatic Cuff Size: regular O2 sat 99 % on room air Allergies[1] Current Medications[2] Patient Active Problem List Diagnosis Date Noted PTSD (post-traumatic stress disorder) 02/19/2025 JEFFERSON (generalized anxiety disorder) 12/30/2024 Sore throat 12/18/2024 Hand swelling 12/18/2024 Hypertension 12/18/2024 Arthritis of both hands 11/04/2024 Ingrown toenail of both feet 11/04/2024 Streptococcal pharyngitis 09/15/2024 Throat discomfort 09/15/2024 Family history of thyroid disease 09/15/2024 Folliculitis 09/15/2024 Change in voice 09/15/2024 Dysphagia 09/15/2024 Bipolar disorder, in partial remission, most recent episode depressed ([facility]) 07/07/2024 Cannabis use disorder 06/15/2024 Vaginal discharge 03/16/2024 Tobacco dependence 04/19/2023 Cocaine use, unspecified, in remission 03/11/2023 Alcohol dependence with withdrawal ([facility]) 03/08/2023 Megan Robison RN [1] Allergies Allergen Reactions Percocet [Oxycodone-Acetaminophen] Nausea, Vomiting Penicillin G Rash [2] Current Outpatient Medications Medication Sig Dispense Refill acetaminophen (Tylenol 8 Hour) 650 MG ER tablet Take 1 tablet (650 mg) by mouth every 8 (eight) hours if needed (pain or fever). Do not crush, chew, or split. 100 tablet 1 amLODIPine (Norvasc) 5 MG tablet Take 1 tablet (5 mg) by mouth Once per day. (Patient not taking: Reported on 12/30/2024) 30 tablet 1 Blood Pressure kit 1 kit in the morning. 1 kit 0 celecoxib (CeleBREX) 200 MG capsule Take 1 capsule (200 mg) by mouth if needed in the morning and at bedtime (pain or fever). 60 capsule 1 Diclofenac Sodium 1 % gel Apply thin layer by topical route (quantity as directed on package insert) to affected area of pain 3 times daily as needed. 50 g 3 Drospirenone (Slynd) 4 MG tablet Take 1 tab po daily 84 tablet 3 hydrOXYzine HCl (Atarax) 10 MG tablet Take 1-2 tablets (10-20 mg) by mouth if needed at bedtime foranxiety. 30 tablet 1 lidocaine (Lidoderm) 5 % patch APPLY 1 PATCH TOPICALLY TO SKIN IN THE MORNING. LEAVE ON FOR 12 HOURS AND OFF FOR 12 HOURS DIRECTED 30 patch 2 Multiple Vitamin (multivitamin) tablet Take 1 tablet by mouth in the morning. 90 tablet 3 naltrexone (Depade) 50 MG tablet TAKE 1 TABLET BY MOUTH EVERY DAY IN THE MORNING WITH FOOD 30 tablet 5 naltrexone ER (Vivitrol) injection Inject 4 mL (380 mg) into the muscle every 28 (twenty-eight) days. 1.2 each 5 duttvrwd-saeqgkcogx-gwxrqtgxh (Neosporin) 5-400-5000 ointment Apply topically 2 times daily. 14.2 g0 nicotine (Nicoderm CQ) 14 MG/24HR patch Place 1 patch on the skin 1 (one) time each day at the sametime. 30 patch 0 nicotine polacrilex (Nicorette) 2 MG gum Chew 1 each (2 mg) if needed for smoking cessation. 100 each 3 propranolol (Inderal) 10 MG tablet Take 1 tablet (10 mg) by mouth once daily as needed before stress inducing event 30 tablet 1 sertraline (Zoloft) 50 MG tablet Take 50 mg by mouth Once per day. ulipristal (Maryam) 30 mg tablet Take one tablet by mouth up to five days after sex. Do not use more than once per menstrual cycle. If repeat dose is needed in same cycle, please contact prescriber. 1 tablet 11 No current facility-administered medications for this visit. documented in this encounter Miscellaneous Notes * Addendum Note - Dunia Vu MD - 02/25/2025 9:40 AM EDTAddended by: DUNIA VU on: 03/08/2025 07:02 AM Modules accepted: Orders documented in this encounter Plan of Treatment Upcoming Encounters Date Type Department Care Team (Late st Contact Info) Description 03/16/2025 10:15 AM EDT Office Visit [facility] [address] [place] [address] Gary Jay MD [address] [place] [address] 03/24/2025 10:30 AM EDT Procedure Visit [facility] [address] [place] [address] Jada Collins CNM [address] [place] [address] Pending Results Name Type Priority Associated Diagnoses Date /Time ECG 12 lead ECG Routine Intermittent palpitations 02/25/2025 10:39 AM EDT documented as of this encounter Procedures Procedure Name Priority Date/Time Associated Diagnosis Comments ECG 12-LEAD Routine 03/08/2025 7:02 AM EDT Intermittent palpitations documented in this encounter Results * ECG 12 lead (03/08/2025 7:02 AM EDT) Narrative Dunia Vu MD - 03/08/2025 7:02 AM EDT NSR us Dunia Vu MD ECG ORDERABLES Final Resu lt documented in this encounter Visit Diagnoses Diagnosis Intermittent palpitations- Primary Induration at injection site Elevated blood pressure reading Elevated blood pressure reading without diagnosis of hypertension documented in this encounter Additional Health Concerns Assessment Noted Time PHQ-9 Depression Total Score: 16 025 9:48 AM EDT documented as of this encounter Care Teams Tire Mounter Relationship Specialty Start Date End Date Lucía Crawford ANP [address] [place] [address] PCP - General Family Medicine 06/12/23 documented as of this encounter
--- NOTE | ~2025-03-09 | XR_ITS ---
EXAMINATION: XR KNEE, RIGHT CLINICAL INFORMATION: knee injury 2 years ago, ongoing pain COMPARISON: None available. TECHNIQUE: AP, oblique, lateral and sunrise views of the right knee. FINDINGS: No acute cortical disruption or malalignment. Mild asymmetric joint space narrowing, medial compartment. No lytic or blastic lesions. No suprapatellar bursa joint effusion. No metallic or radiopaque foreign body. No soft tissue calcifications. No vascular calcifications. XR/XR knee RT 3V IMPRESSION: Mild medial compartment osteoarthrosis/osteoarthritis. Electronically signed by: Miguel Boyer MD 03/09/2025 12:33 PM EDT
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
--- OUTSIDE RECORDS SUMMARY | 2025-03-09 15:11 | XMS_ITS | Clinical Summary ---
Author Organization [facility] Address [address] [place] [address] Care Team Providers Care Internet Security Specialist Name Role Phone Eriberto Santos MD Primary Care Provider [phone] Source Comments PLEASE NOTE, if this patient is a minor, it may be UNLAWFUL to discuss sensitive information that is contained in these records (such as FAMILY PLANNING, MENTAL HEALTH or SUBSTANCE ABUSE) with the minor patient's parent or other person without the patient's specific authorization.[facility] Allergies No known active allergies Medications VITAMIN 27 mg iron- 0.8 mg tabIndications: 8 weeks gestation of ([facility]) Take 1 Tab by mouth once daily 11 09/03/2018 Active azithromycin (ZITHROMAX Z-SETH) 250 mg tabletIndicatio ns:URI with cough and congestion,Susp ected COVID-19 virus infection Take 2 today then 1 daily for 4 days dispense 6 tablets 6 Tab 10/23/2019 Active acetaminophen (TYLENOL) 500 mg tabletIndicatio ns:URI with cough and congestion,Susp ected COVID-19 virus infection Take 1 Tab by mouth every 6 (six) hours as needed for pain 60 Tab 10/23/2019 Active naproxen (NAPROSYN) 375 mg tabletIndicatio ns:Pain of right middle finger Take 1 Tab by mouth 2 (two) times daily with a meal 60 Tab 1 03/28/2020 Active Active Problems Problem Noted Date Diagnosed Date Adnexal cyst 10/16/2017 Overview (10/16/2017): [facility] 09/30/17 Impression: Adnexal cyst,menorrhagia with irregular cycle,pelvic pain;HTN, unspecified type,urinary tract infection,without hematuria, site unspecified. Immunizations Immunization Administration Dates Next Due Hep B, Adult/Adol (VHDLALK-J-VBDSK/RECOMBIVAX-AD ULT) 01/05/2002 PNEUMOCOCCAL POLYSACCHARIDE PPV23 (Pneumovax 23) 09/25/2017 TDAP 09/25/2017 Td (adult) unspecified 01/05/2002 Family History Medical History Relation Name Comments Diabetes Maternal Uncle Diabetes Paternal Aunt Relation Name Status Comments Brother Alive Father Alive Maternal Uncle Mother Alive Paternal Aunt Social History Tobacco Use Types Packs/Day Years Used Date Smoking Tobacco: Every Day Cigarettes Smokeless Tobacco: Never Tobacco Cessation:Ready to Q uit: Yes; Counseling Given: Yes Comments:2 months ago Alcohol Use Standard Drinks/Week Comments Yes 0 (1 standard drink = 0.6 oz pur e alcohol) soically Social Connections Answer Date Recorded Social Connections and Isolation 0 02/16/2019 Financial Resource Strain Answer Date R ecorded Financial Resource Strain 0 2018 Stress Answer Date Recorded Stress 0 02/16/2019 Physical Activity Answer Date Recorded Physical Activity 0 02/16/2019 Food Insecurity Answer Date Recorded Food 0 02/16/2019 Transportation Needs Answer Date Record ed Transportation 0 02/16/2019 Housing Stability Answer Date Recorded Housing 0 02/16/2019 Safety and Environment Answer Date Jarrell rded Safety 0 02/16/2019 Utilities Answer Date Recorded Utilities 0 02/16/2019 Employment Answer Date Recorded Employment 0 02/16/2019 Comments Unknown Sex and Gender Information Value Date Recorded Sex Assigned at Female 02/23/2025 7:13 AM PDT Legal Sex Female 7:13 AM PDT Gender Identity Female 02/23/2025 7:13 AM PDT Sexual Orientation Straight 03/02/2025 3: 01 PM PDT Last Filed Vital Signs Vital Sign Reading Time Taken Comments Blood Pressure 128/66 03/28/2020 10:38 AM EDT Pulse 88 03/28/2020 10:38 AM EDT Temperature 36.9 C (98.4 F) 03/28/2020 10:38 AM EDT Respiratory Rate 16 03/28/2020 10:3 8 AM EDT Oxygen Saturation - - Inhaled Oxygen Concentration - - Weight 64.8 kg (142 lb 12.8 oz) 020 10:38 AM EDT Height 171.5 cm (5' 7.5 ) 03/28/2020 10 :38 AM EDT Body Mass Index 22.04 03/28/2020 10:38 AM EDT Plan of Treatment Upcoming Encounters Date Type Department Care Team ([facility] st Contact Info) Description 03/30/2025 1:00 PM EDT Behavioral Health Visit [facility] [address] [place] [phone] Jenny Cuevas, FORM COVERER [address] [facility] [place] [phone] Health Maintenance Due Date Last Done Comments Anxiety Screening 1985 HPV Screening 1985 Hepatitis C Screening 1985 Pap + HPV 1985 Tobacco Screening 1985 Imm-Hepatitis B (2 of 3 - 3- dose series) 02/02/2002 01/05/2002 Relationship Safety Screening/Counseling 09/19/2002 Imm-HPV (1 - 3-dose SCDM series) 09/19/2014 Tobacco Cessation Counseling (#1) 08/20/2018 Imm-Pneumococcal (2 of 2 - PCV) 09/25/2018 8 Annual Wellness (Adult): Indicated (All Coverage) 09/30/2019 09/29/2018, 09/25/2017 Cervical Cancer Screening 01/04/2020 Pap Smear 01/04/2020 01/03/2017 (Wen andrea by Outside Provider) Diabetes Screening 09/25/2020 09/25/2017 Hypertension Screening (#1) 03/28/2023 Alcohol and Drug Screen 06/24/2024 09/30/19 19, 09/29/2018, 09/25/2017, Additional history exists Depression Annual Screen 06/24/2024 09/29/2018, 0409/2017 [id number] ( season) 2025 Imm-Influenza (#1) 2025 05/31/2024 Imm-DTaP/Tdap/Td (4 - Td or Tdap) 06/06/2033 06/06/2023, 09/25/2017, 01/05/2002 HIV Screening Completed 03/16/2024, 02/23, 09/25/2017 Cervical Ablation/Cold-Knife Conization Discontinued Cervical Cryotherapy Discontinued Colposcopy Discontinued Endometrial Biopsy Discontinued Excision/Leep Discontinued HPV Genotyping Discontinued Vaginal Pap Discontinued Vulvoscopy Discontinued Procedures Procedure Name Priority Date/Time Associated Diagnosis Comments ANTIBODY HIV-1&HIV-2 SINGLE RESULT Routine 09/25/2017 10:11 AM EDT Health care maintenance COMPREHENSIVE METABOLIC PANEL Routine 09/25/2017 10:11 AM EDT Routine general medical examination at a health care facility from Last 3 Months or Most Recently Relevant to Health Maintenance Results * HIV future (09/25/2017 10:11 AM EDT) HIV 1 AND 2 ANTIBODY SCREEN NEGATIVE NEGATIVE [facility] Comment: This assay is a 4th generation assay allowing for earlier detection of HIV infection by detecting the presence of the HIV-1 p24 antigen as well as the traditional antibodies to HIV type 1 (including group O) and type 2. Use of a 4th generation assay is the current CDC recommendation for HIV screening. Blood specimen (specimen) Blood / Unknown 09/25/2017 10:11 AM EDT 09/25/2017 10:[address] [facility] - 09/25/2017 1:43 PM EDT [employer] [address] [place] [address] PT ID [id number] ORD# [id number] us Eriberto Santos MD LAB - BLOOD DRAW Final Result [facility] [address] [place] [address], * COMPRE METAB PANEL future (09/25/2017 10:11 AM EDT) GLUCOSE 91 70 - 100 mg/dL [facility] Comment:Reference range appl icable to fasting specimens only BUN 11 5 - 25 mg/dL [facility] CREAT 0.84 0.5 - 1.1 mg/dL [facility] GLOMERULAR FILTRATION RATE > 60 [facility] Comment: If patient is -Turkmen, multiply result by 1.21 Chronic Kidney Disease: < 60 ml/min/1.73 square meters Kidney Failure: < 15 ml/min/1.73 square meters SODIUM 138 133 - 145 mmol/L [facility] POTASSIUM 4.2 3.5 - 5.5 mmol/L [facility] CHLORIDE 106 96 - 110 mmol/L [facility] CO2 26 21 - 32 mmol/L [facility] ANION GAP 6 3 - 11 [facility] CALCIUM 9.0 8.5 - 10.5 mg/dL [facility] TOTAL PROTEIN 7.4 6.0 - 8.0 G/dL [facility] ALBUMIN 3.8 3.2 - 5.0 G/dL [facility] BILI, TOTAL 0.7 0.0 - 1.4 mg/dL [facility] SGOT 19 10 - 42 U/L [facility] SGPT 26 10 - 60 U/L [facility] ALK PHOS 81 42 - 121 U/L [facility] Blood specimen (specimen) Blood / Unknown 09/25/2017 10:11 AM EDT 09/25/2017 10:[address] [facility] - 09/25/2017 12:55 PM EDT [facility] [address] [place] [address] PT ID [id number] ORD# [id number] us Eriberto Santos MD LAB - BLOOD DRAW Final Result [facility] [address] [place] [address], from Last 3 Months or Most Recently Relevant to Health Maintenance Insurance [employer] [facility] [employer] Care Teams Internet Security Specialist Relationship Specialty Start Date End Date Eriberto Santos MD [address] [place] [phone] PCP - General Internal Medicine 07/17/17
--- OUTSIDE RECORDS SUMMARY | 2025-03-09 15:11 | XMS_ITS | Clinical Summary ---
Author Organization [employer] Address [address] [facility] [address] [place] [address] Care Team Providers Care Delivery Route Driver Name Role Phone Johanna Mcclain ARNEL Primary Care Provider [phone] Allergies Active Allergy Reactions Criticality Noted Date Comments Penicillin G Rash Low 12/18/2024 Oxycodone-Acetaminophen 03/08/2023 Nausea, Vomiting Medications * This document contains information received from the source organization and may not represent a complete record from that organization. Blood Pressure kitIndications: Elevated blood pressure reading without diagnosis of hypertension 1 kit in the morning. 1 kit 06/06/20 23 Active lidocaine (Lidoderm) 5 % patch APPLY 1 PATCH TOPICALLY TO SKIN IN THE MORNING. LEAVE ON FOR 12 HOURS AND OFF FOR 12 HOURS DIRECTED 30 patch 2 09/26/19 24 Active ulipristal (Maryam) 30 mg tablet Take one tablet by mouth up to five days after sex. Do not use more than once per menstrual cycle. If repeat dose is needed in same cycle, please contact prescriber. 1 tablet 11 03/17/20 24 Active acetaminophen (Tylenol 8 Hour) 650 MG ER tablet Take 1 tablet (650 mg) by mouth every 8 (eight) hours if needed (pain or fever). Do not crush, chew, or split. 100 tablet 1 12/31/19 25 026 Active celecoxib (CeleBREX) 200 MG capsule Take 1 capsule (200 mg) by mouth if needed in the morning and at bedtime (pain or fever). 60 capsule 1 12/31/19 026 Active Diclofenac Sodium 1 % gel Apply thin layer by topical route (quantity as directed on package insert) to affected area of pain 3 times daily as needed. 50 g 3 12/31/19 25 Active hydrOXYzine HCl (Atarax) 10 MG tablet Take 1-2 tablets (10-20 mg) by mouth if needed at bedtime for anxiety. 30 tablet 1 12/31/19 25 026 Active propranolol (Inderal) 10 MG tablet Take 1 tablet (10 mg) by mouth once daily as needed before stress inducing event 30 tablet 1 12/31/19 25 Active naltrexone ER (Vivitrol) injectionIndica tions:Alcohol use disorder, severe, dependence (CMS/HCC) Inject 4 mL (380 mg) into the muscle every 28 (twenty-eight ) days. 1.2 each 5 02/24/20 25 Active Drospirenone (Slynd) 4 MG tabletIndicatio ns:Family planning Take 1 tab po daily 84 tablet 3 03/09/20 25 Active nicotine polacrilex (Nicorette) 2 MG gumIndications: Tobacco dependence Chew 1 each (2 mg) if needed for smoking cessation. 100 each 3 03/09/20 25 025 Active Multiple Vitamin (multivitamin) tabletIndicatio ns:Healthcare maintenance Take 1 tablet by mouth Once per day. 90 tablet 3 03/09/20 25 Active HPV 9-valent (Gardasil-9) suspension prefilled syringe vaccine prefilled syringeIndicati ons:Need for HPV vaccination Inject 0.5 mL into the muscle 1 (one) time for 1 dose. Repeat as directed 0.5 mL 2 03/09/20 25 025 Active Multiple Vitamin (multivitamin) tablet Take 1 tablet by mouth in the morning. 90 tablet 3 05/31/20 23 025 Discontinued(R eorder (will not trigger notification to Pharmacy)) nicotine polacrilex (Nicorette) 2 MG gumIndications: Smoking Chew 1 each (2 mg) if needed for smoking cessation. 100 each 3 06/06/20 23 025 Discontinued(R eorder (will not trigger notification to Pharmacy)) sertraline (Zoloft) 50 MG tablet Take 50 mg by mouth Once per day. 09/03/19 24 025 Discontinued(T herapy completed) Drospirenone (Slynd) 4 MG tabletIndicatio ns:Family planning Take 1 tab po daily 84 tablet 3 06/11/20 24 Discontinued(R eorder (will not trigger notification to Pharmacy)) naltrexone (Depade) 50 MG tabletIndicatio ns:Alcohol use disorder, severe, in early remission (CMS/HCC) TAKE 1 TABLET BY MOUTH EVERY DAY IN THE MORNING WITH FOOD 30 tablet 5 10/03/19 025 Discontinued(T herapy completed) neomycin-bacitr acin-polymyxin (Neosporin) 5-400-5000 ointment Apply topically 2 times daily. 14.2 g 11/05/19 025 Discontinued(T herapy completed) amLODIPine (Norvasc) 5 MG tabletIndicatio ns:Hand swelling,Hypert ension, unspecified type Take 1 tablet (5 mg) by mouth Once per day. 30 tablet 1 12/19/19 025 Discontinued(T herapy completed) nicotine (Nicoderm CQ) 14 MG/24HR patch Place 1 patch on the skin 1 (one) time each day at the same time. 30 patch 12/19/19 Discontinued(T herapy completed) cromolyn (Opticrom) 4 % ophthalmic solution Administer 1 drop into affected eye(s) if needed in the morning, at noon, in the evening, and at bedtime (eye redness and itchiness) for up to 14 days. 10 mL 02/26/20 Discontinued(D iscontinued by another clinician) doxycycline (Vibramycin) 100 MG capsuleIndicati ons:Induration at injection site Take 1 capsule (100 mg) by mouth 2 times daily for 10 days. Take with at least 8 ounces (large glass) of water, do not lie down for 30 minutes after 20 capsule 02/26/20 diphenhydrAMINE (BENADryl) 25 MG tabletIndicatio ns:Induration at injection site Take 1 tablet (25 mg) by mouth if needed at bedtime for itching for up to 5 days. 30 tablet 09/04/20 25 09/16/2 025 Discontinued(T herapy completed) Hospital, Clinic, or Other Facility Administered Medication Ordered Dose Route Frequency Start Date End Date Status naltrexone ER (Vivitrol) injection 380 mgIndications:Alcohol use disorder, severe, dependence (CMS/HCC) 380 mg IM Once 02/23/2025 02/23/2025 Ende d Active Problems Problem Noted Date Diagnosed Date PTSD (post-traumatic stress disorder) 02/19/2025 JEFFERSON (generalized anxiety disorder) 12/30/2024 Assessment & Plan (01/03/2025 3:13 PM EDT): - Excessive worry related to anniversaries of significant past life events - Continue engaging with therapist, on wait list for psychiatrist - TSH within normal limits - Shared decision making to trial as needed medication for anxiety. Plan to trial hydroxyzine nightly as needed and propranolol daily as needed. Reviewed med safety and side effects - See IBH documentation for further details - Follow-up and safety planning reviewed Assessment & Plan (01/01/2025 4:13 PM EDT): During IBH Consult Evonne presenting with excessive worry/anxiety, difficulty controlling worry, anxiety/worry associated to restlessness and/or feeling keyed-up/On edge , easily fatigued , difficulty concentrating and/or mind going blank , irritability, muscle tension , and sleep disturbance difficulty falling asleep, Fear , and sense of dread ; for a period of 18+ mo, for most or all symptoms in the context of family issues and illness or family illness. Evonne felt emotionally overwhelmed and endorsing anxiety currently during session. Pt needed a safe space where she could share her emotions and experiences. She is currently connected with a therapist through [facility] and is on wait list for psychiatry within same agency. Pt with medical conditions: arthritis- which leads to increase of sxs. Sore throat 12/18/2024 Assessment & Plan (12/18/2024 1:44 PM EDT): Likely allergies, and smoking, Neg rapid strep no fever Hand swelling 12/18/2024 Assessment & Plan (12/18/2024 1:44 PM EDT): In the heat and recent move has exacerbated symptoms, Supportive measures reviewed, pt is in care with ortho Renew mobic - take with food Hypertension 12/18/2024 Assessment & Plan (12/18/2024 1:43 PM EDT): Will initiate amlodipine, as pt requesting treatment for frequent high bps, encouraged hydration but if pt develops lightheadedness or ankle swelling may discontinue In care raynauds is occurring in hands, change amlodipine could be helpful Arthritis of both hands 11/04/2024 Assessment & [...] in partial remission, most recent episode depressed 07/07/2024 Cannabis use disorder 06/15/2024 Vaginal discharge 03/16/2024 Assessment & Plan (03/17/2024 6:26 PM EDT): History suggestive of BV. Pt opts for self swab and to treat presumptively. Rx sent, pt is scheduled for nexplanon removal tomorrow. Tobacco dependence 04/19/2023 Assessment & Plan (12/18/2024 1:42 PM EDT): Pt motivated to quit smoking may be contributing to pharyngitis Cocaine use, unspecified, in remission 3 Alcohol dependence with withdrawal 03/08/2023 Assessment & Plan (03/26/2023 10:58 AM [...] seek support PLAN: 1. Follow up with [facility]: Recommended for follow-up: during Obat appts 2. Patient goal is improve mental health, and become sober 3. Behavioral Recommendations a. Keeping Ind. Therapy with LW b. Keeping AUD appt with Dr. Misty stevenson. Connecting with -[facility] d. [facility] contact number for extra support Assessment [...] to engage. PLAN: 1. Follow up with [facility]: Recommended for follow-up: during AUD appts 2. Patient goal is to become sober and improve mental health 3. Behavioral Recommendations a. Ind. Therapy, referral will be submitted b. Technical Documentation Specialist, referral will be submitted c. Use of coping skills as provide d. Engage in AA meetings for support Resolved Problems Problem Noted Date Diagnosed Date Resolved Date Tobacco use 03/09/2025 03/09/2025 Moderate major depression 03/08/2023 Assessment & Plan [...] engage, insight PLAN: 1. Follow up with [facility]: Recommended for follow-up: with [employer] for support when needed 2. Patient goal [...] in treatment PLAN: 1. Follow up with [facility]: Recommended for follow-up: during OBAT appts 2. Patient goal is become sober and improve mental health 3. Behavioral Recommendations a. Ind. Therapy, referral submitted on 03/08/23 b. Use of coping skills provided as recommended c. Maintain engagement with -MR bustamante [facility] contact number for support Assessment & [...] to engage. PLAN: 1. Follow up with [facility]: Recommended for follow-up: during AUD appts 2. Patient goal is to become sober and improve mental health 3. Behavioral Recommendations a. Ind. Therapy, referral will be submitted b. Technical Documentation Specialist, referral will be submitted c. Use of coping skills as provide d. Engage in AA meetings for support Severe anxiety 03/08/2023 02/19/2025 Encounters * This document contains information received from the source organization and may not represent a complete record from that organization. Date Type Department Care Team Description 03/09/2025 9:45 AM EDT Office Visit [facility] [address] [place] [phone] Johanna Mcclain ANP Healthcare maintenance (Primary Dx); Polyarthralgia; Family planning; Tobacco dependence; JEFFERSON (generalized anxiety disorder); Arthritis of both hands; Chronic pain of right knee; History of fracture of nasal bone; Nasal congestion; Need for HPV vaccination 03/09/2025 Patient Outreach [facility] [address] [place] [phone] Jamin Montes 03/09/2025 Results Follow-Up [facility] [address] [place] [phone] Johanna Mcclain ANP XR Knee 3 Views Right 03/09/2025 Travel 03/08/[address] [phone] Johanna Mcclain ANP chart prep 03/03/2025 11:30 AM EDT Office Visit [facility] [address] [place] [phone] Gary Jay MD Alcohol use disorder, severe, dependence (CMS/HCC) (Primary Dx) 03/03/2025 9:00 AM EDT Office Visit [address] [address] Keon Wolf MD Alcohol use disorder, severe, dependence (CMS/HCC) (Primary Dx) 03/03/2025 Travel 03/01/2025 Patient Outreach [address] [address] [facility] 03/01/2025 Patient Outreach [address] [phone] Johanna Mcclain ANP Pre-visit Planning (SDOH screening was completed on 11/19/2024) 02/25/2025 9:40 AM EDT Office Visit [facility] [address] [place] [phone] Dunia Gee MD Intermittent palpitations (Primary Dx); Induration at injection site; Elevated blood pressure reading 02/25/2025 Patient Outreach [address] [address] [facility] 02/25/2025 Travel 02/25/[address] [address] Latasha Boyce, raw material planner 02/24/2025 Orders Only [address] [address] Selina Denis, MANUEL Alcohol use disorder, severe, dependence (CMS/HCC) 02/23/2025 10:30 AM EDT Office Visit [address] [address] Gary Jay MD Alcohol use disorder, severe, dependence (CMS/HCC) (Primary Dx) 02/23/2025 Patient Outreach [address] [address] [facility] 02/23/2025 Travel 02/01/2025 Patient Outreach [facility] [address] [place], [place] [phone] Johanna Mcclain ANP Pre-visit Planning (SDOH unable to reach LVM) 01/18/[address] [place] [address] Jada Collins CNM March recall 01/08/2025 Results Follow-Up [facility] [address] [place], [place] [phone] Adrianna Barnett FNP Lipid Panel, Standard 12/30/2024 10:45 AM EDT Office Visit [facility] [address] [place] [address] Adrianna Barnett FNP JEFFERSON (generalized anxiety disorder) (Primary Dx); Healthcare maintenance; Chest tightness 12/30/2024 Telephone [facility] [address] [place] [address] Johanna Mcclain, ARNEL In person triage 12/30/2024 Travel 12/24/2024 Telephone [facility] [address] [place] [address] Tiera Pearce, OD 12/24/2024 Telephone [facility] [address] [place] [phone] Tiera Pearce, OD 12/18/2024 1:20 PM EDT Office Visit [facility] [address] [place] [address] Martha Sellers NP Hand swelling (Primary Dx); Sore throat; Hypertension, unspecified type; Tobacco dependence 12/18/2024 Travel from Last 3 Months Immunizations Immunization Administration Dates Next Due Hep A, Adult 03/26/2023 Hep B, adult 01/05/2002 Influenza, seasonal, injectable, preservative fr ee 05/31/2024 Pneumococcal Polysaccharide PPSV23 09/25/2017 Td (adult), unspecified 01/05/2002 Tdap 06/06/2023,09/25/2017 Family History Medical History Relation Name Comments [...] 20 03/09/2025 9:43 AM EDT Oxygen Saturation 99% 02/25/2025 9:49 AM EDT Inhaled Oxygen Concentration - - Weight 66.4 kg (146 lb 5 oz) 03/09/2025 9:43 AM EDT Height 172.7 cm (5' 8 ) 03/09/2025 9:43 AM EDT Body Mass Index 22.25 03/09/2025 9:43 AM EDT Plan of Treatment Upcoming Encounters Date Type Department Care Team (Late st Contact Info) Description 03/16/2025 10:15 AM EDT Office Visit [facility] [address] [place] [phone] Gary Jay MD [address] [place] [address] 03/24/2025 10:30 AM EDT Procedure Visit [facility] [address] [place] [address] Jada Collins CNM [address] [place] [address] Health Maintenance Due Date Last Done Comments HPV Vaccines (1 - 3-dose series) 09/19/2002 Pneumococcal Vaccine: Pediatrics (0 to 5 Years) and At-Risk Patients (6 to 49) Years (2 of 2 - PCV) 09/25/2018 09/25/2017 COVID-19 Vaccine ( - 2024-2 6 season) 2025 11/24/2020, 10/26/2020 Influenza Vaccine (#1) 2025 05/31/2024 Cervical Cancer Screening 03/24/2025 Family Planning (PISQ) 03/24/2025 03/24/2024 HPV/Cotest 03/24/2025 03/24/2024 Pap Smear 03/24/2025 03/24/2024 Depression Monitoring 08/29/2025 03/01/2025 , 03/01/2025 SDOH Screening 11/19/2025 11/19/2024 Alcohol/Substance Use Screening 12/30/2025 12/30/2024 Disability Screening 12/30/2025 12/30/2024 Tobacco Screening 03/09/2026 03/09/2025 Lipid Panel 12/30/2029 12/30/2024, 06/07/2023 DTaP/Tdap/Td Vaccines (4 - T d or Tdap) 06/06/2033 06/06/2023, 09/25/2017, 01/05/2002 Zoster Vaccines (1 of 2) 09/19/2037 RSV Patients and Patients Aged 60 years or older (1 - 1-dose 75+ series) 09/19/2062 Hepatitis B Vaccines Discontinued 01/05/2002 Hepatitis A Vaccines Aged Out 03/26/2023 No long er eligible based on patient's age to complete this topic HIV Screening Completed 03/16/2024, 03/12/2023, 09/25/2017 Hepatitis C Screening Completed 11/04/2024 , 03/16/2024, [...] PM EDT Chronic pain of right knee ECG 12-LEAD Routine 03/08/2025 7:02 AM EDT Intermittent palpitations POCT ALCOHOL BREATH TEST Routine 02/23/2025 11:03 AM EDT Alcohol use disorder, severe, dependence (CMS/HCC) POCT BHAKTI-14 URINE DRUG SCREEN Routine 02/23/2025 11:03 AM EDT Alcohol use disorder, severe, dependence (CMS/HCC) LIPID PANEL, STANDARD Routine 12/30/2024 1:12 PM EDT Healthcare maintenance SED RATE BY MODIFIED WESTERGREN Routine 12/30/2024 1:12 PM EDT Arthritis of both hands TSH W/REFLEX TO FT4 Routine 12/30/2024 1 :12 PM EDT Throat discomfort Dysphagia, unspecified type Change in voice POCT RAPID STREP A Routine 12/18/2024 1: 33 PM EDT Sore throat HEPATITIS PANEL, GENERAL Routine 11/04/2024 3:17 PM EDT Arthritis of both hands THINPREP IMAGING PAP AND HPV MRNA E6/E7 Routine 03/24/2024 11:39 AM EDT HIV 1/2 ANTIGEN/ANTIBODY, FOURTH GENERATION W/RFL Routine 03/16/2024 2:04 PM EDT Vaginal discharge from Last 3 Months or Most Recently Relevant to Health Maintenance Results * XR Knee 3 Views Right (03/09/2025 12:26 PM EDT) Anatomical Region Laterality Modality Lower Extremities, Knee Right [facility] 03/09/2025 12:2 6 PM EDT Narrative 03/09/2025 12:35 PM EDT [place] [address] XRay Report Signed Patient: Evonne Zapata MR#: [id number] : 1985 Acct:[id number] Age/Sex: 39 / F ADM Date: 03/09/25 Loc: [facility] Attending Dr: Johanna Mcclain NP Ordering Physician: JOHANNA MCCLAIN NP Date of Service: 03/09/25 Procedure(s): XR knee RT 3V Accession Number(s): [id number] cc: JOHANNA MCCLAIN NP Reason for Exam: [...] Miguel Boyer MD 03/09/2025 12:33 PM EDT RP Dictated By: Miguel Arnett MD Signed By: <Electronically signed by Miguel Garcia MD in OV> 03/09/25 1233 DD/ 1226 TD/TT: 03/09/25 1227 Recruiter Account Manager: Procedure Note Donotuseinterpreter, Image - 03/09/2025 [place] [address] XRay Report Signed Patient: Evonne ZapataMR#: [id number] : 1985Acct:[id number] Age/Sex: 39 / FADM Date: 03/09/25 Loc: [facility] Attending Dr: Johanna Mcclain NP Ordering Physician: JOHANNA MCCLAIN NP Date of Service: 03/09/25 Procedure(s): XR knee RT 3V Accession Number(s): [id number] cc: JOHANNA MCCLAIN NP Reason for Exam: [...] Miguel Boyer MD 03/09/2025 12:33 PM EDT RP Dictated By: Miguel Arnett MD Signed By: <Electronically signed by Miguel Garcia MDin OV> 03/09/25 1233 DD/ 1226 TD/TT: 03/09/25 1227 Recruiter Account Manager: Johanna Mcclain ANP IMG XR PROCEDURES Edited Result - Final * ECG 12 lead (03/08/2025 7:02 AM EDT) Narrative Dunia Gee MD - 03/08/2025 7:02 AM EDT NSR Dunia Gee MD ECG ORDERABLES Final Resu lt * (ABNORMAL) POCT BHAKTI-14 Urine Drug Screen (02/23/2025 11:03 AM EDT) THC Positive(A) Negative Cocaine Screen, Urine Negative Negative Opiate Screen, Urine Negative Negative Methamphetamine Screen Urine Negative Negative Amphetamine Screen, Urine Negative Negative Benzodiazepines Screen, Urine Negative Negative Barbiturate Screen, Urine Negative Negative Methadone Screen, Urine Negative Negative Buprenophine Screen, Urine Negative Negative TCA, Urine Negative Negative MDMA Urine Negative Negative ng/mL Oxycodone Screen, Urine Negative Negative Phencyclidine (PCP), Urine Negative Negative Fentanyl, Urine Negative Negative Urine Urine specimen obtained by clean catch procedure / Unknown 02/23/2025 11:03 AM EDT Gary Jay MD POINT OF CARE TEST ENTER/EDIT ORDERABLES Final Result * POCT alcohol breath test manually resulted (02/23/2025 11:03 AM EDT) Breath Alcohol 0.02 Breath 02/23/2025 11:0 3 AM EDT Result [facility] Gary Jay MD POINT OF CARE TEST ENTER/EDIT ORDERABLES Final Result * TSH W/Reflex to FT4 (12/30/2024 1:12 PM EDT) TSH reflex Free T4 0.48 0.32 - 4.0 uIU/mL [facility] Blood Venous blood specimen / Unknown 12/30/2024 1:12 PM EDT 12/30/2024 4:17 PM EDT us Dunia Gee MD LAB BLOOD ORDERABLES Final Result Performing Organization Address [facility] Co de Phone Number [facility] [address] [place] [phone] * Sed Rate by Modified Janeth (12/30/2024 1:12 PM EDT) Pathologist [facility] Erythrocyte Sedimentation Rate 4 0 - 20 MM/HR [facility] Comment:Patients with polycy themia and many hemoglobin abnormalitiesmay have depressed sed rates whereas patients with anemiamay have elevated sed rates. Blood Venous blood specimen / Unknown 12/30/2024 1:12 PM EDT 12/30/2024 4:17 PM EDT Madiha Bush MD LAB BLOOD ORDERABLES Fin al Result Performing Organization Address [facility] Co de Phone Number [facility] [address] [place] [phone] * Lipid Panel, Standard (12/30/2024 1:12 PM EDT) Triglycerides 85 <150 mg/dL [facility] Comment:Desirable Triglyceri de: less than 150 mg/dLBorderline High Triglyceride 150-199 mg/dLHigh Triglyceride: 200-499 mg/dLVery High Triglyceride: greater than or equal to 5OO mg/dL Cholesterol 167 <200 mg/dL [facility] Comment:Desirable Cholestero l: less than 200 mg/dLBorderline High Cholesterol: 200-239 mg/dLHigh Cholesterol: greater than 239 mg/dL LDL Cholesterol Calculated 80 <100 mg/dL [facility] Comment:Desirable LDL: less than 100 mg/dLNear Optimal/Above Optimal LDL: 110- 129 mg/dLBorderline High LDL: 130-159 mg/dLHigh LDL: 160-189 mg/dLVery High LDL: greater than or equal to 190 mg/dL HDL Cholesterol 70 >40 mg/dL [facility] Comment:Desirable HDL: great er than 40 mg/dL Note: This HDL assay may give artificially low results in patients with liver disease. Blood Venous blood specimen / Unknown 12/30/2024 1:12 PM EDT 12/30/2024 4:17 PM EDT us Adrianna Barnett RELAY CHECKER LAB BLOOD ORDERABLES Final Res ult Performing Organization Address [facility]/ZIP Co de Phone Number [facility] [address] [place] [phone] * POCT rapid strep A manually resulted (12/18/2024 1:33 PM EDT) Pathologist [facility] Rapid Strep A Screen Negative Negative, None Detected Swab 12/18/2024 1:33 PM EDT us Martha Sellers BRASS POLISHER POINT OF CARE TEST ENTER/EDIT OR DERABLES Final Result * Hepatitis Panel, General (11/04/2024 3:17 PM EDT) [facility] Hepatitis A IgM Nonreactive Nonreactive [facility] Comment:IgM antibodies to LLAMAS V not detected; does not exclude earlyacute or recovered HAV infection. ~Hepatitis B Surface Antibody REACTIVE Nonreactive [facility] Comment:REACTIVE: > 11.99 mI U/mL Hepatitis B Core Antibody Nonreactive Nonreactive [facility] Hepatitis C Antibody Nonreactive Nonreactive [facility] Comment:Antibodies to HCV no t detected; does not exclude early acuteHCV infection. Hepatitis B Surface Ag Negative Negative [facility] Blood 11/04/2024 3:17 PM EDT 11/04/2024 4:11 PM EDT us Madiha Bush MD LAB BLOOD ORDERABLES Fin al Result [facility] [address] [place] [phone] * ThinPrep Imaging Pap and HPV mRNA E6/E7 (03/24/2024 11:39 AM EDT) HPV nRNA E6/E7 Not Detected Not Detected [facility] Comment:Methodology: Transcr iption-Mediated AmplificationThis assay detects E6/E7 viral messenger RNA (mRNA) from 14high-risk HPV types (16,18,31,33,35,39,45,51,52,56,58,59,66,68).Cervical sources are required for HPV testing.If a vaginal source from a patient who has had atotal hysterectomy with removal of cervix wassubmitted, please contact the testing laboratoryfor alternative testing options.For additional information, please refer [email or web address](This link if provided for information/educational purposes only.)THIS TEST WAS PERFORMED AT:[employer] [employer] [address] [id number] REYNOSO MD SOURCE: SEE NOTE [facility] Comment:Cervix Report Status: [facility] Clinical Information: SEE NOTE [facility] Comment:None given LMP: SEE [facility] Comment:NONE GIVEN Prev. PAP: SEE NOTE [facility] Comment:NONE GIVEN Prev. BX: SEE NOTE [facility] Comment:NONE GIVEN Statement Of Adequacy: SEE NOTE [facility] Comment:Satisfactory for juanita luation.Endocervical/transformation zone component absent. General Categorization: [facility] Interpretation/Result: SEE NOTE [facility] Comment:Cytology Results: Ne gative for intraepitheliallesion or malignancy. Cytology Comment SEE NOTE [facility] Comment:This Pap test has be en evaluated with computerassisted technology. Side Boss: SEE NOTE [facility] Comment:MSM, CT(ASCP)CT scre ening location: [address] [address] Review Side Boss: [facility] Pathologist [facility] PAP Infection TNP [facility] See Note SEE NOTE [facility] Comment:EXPLANATORY NOTE:The Pap is a [...] AM EDT 03/24/2024 4:30 PM EDT Narrative [facility] - 03/27/2024 2:06 PM EDT SEE SCANNED RESULTS IN EMRCERVIX us Jada Collins CNM LAB PATHOLOGY ORDERABLES Final Result [facility] [address] [place] [phone] * HIV-1/2 Antigen and Antibodies, Fourth Generation, with Reflexes (03/16/2024 2:04 PM EDT) HIV AB/AG Nonreactive Nonreactive [facility] Comment:HIV-1 p24 Ag and/or HIV-1/HIV-2 Ab not detected.A test result that is nonreactive does not exclude thepossibility of exposure to or infection with HIV-1 and/orHIV-2. Nonreactive results in this assay for individualswith prior exposure to HIV-1 and/or HIV-2 may be due toantigen and antibody levels that are below the limit ofdetection of this assay.The OONi HIV Ag/Ab Combo assay result andsupplemental assay results should be interpreted inconjunction with the patient's clinical presentation,history and other laboratory results. If the results areinconsistent with clinical evidence, additional testing issuggested to confirm the result. Blood Venous blood specimen / Unknown 03/16/2024 2:04 PM EDT 03/16/2024 4:53 PM EDT us Martha Graef BRASS POLISHER LAB BLOOD ORDERABLES Final Resul t [facility] [address] [place] [address] [phone] from Last 3 Months or Most Recently Relevant to Health Maintenance Insurance [employer] Care Teams Delivery Route Driver Relationship Specialty Start Date End Date Johanna Mcclain ANP [address] [place] [phone] PCP - General Family Medicine 06/12/23
--- OUTSIDE RECORDS SUMMARY | 2025-03-09 15:11 | XMS_ITS | Encounter Summary ---
Author Organization [employer] Address [address] [facility] 7t [place] [address] Care Team Providers Care Housing Coordinator Name Role Phone Crawford Lucía SEALS Primary Care Provider Encounter Details Date Type Department Care Team ([facility] Contact Info) Description 12/24/2023 Orders Only [facility] [address] [place] [address] Dunia Gee MD [address] [place] [address] Social History Tobacco Use Types Packs/Day Years [...] Description 03/16/2025 10:15 AM EDT Office Visit [facility] [address] [place] [address] Gary Jay MD [address] [place] [address] 03/24/2025 10:30 AM EDT Procedure Visit [facility] [address] [place] [address] Jada Collins CNM [address] [place] [address] documented as of this encounter Visit Diagnoses Not on filedocumented in this encounter Additional Health Concerns Assessment Noted Time PHQ-9 Depression Total Score: 23 023 1:35 PM EDT documented as of this encounter Care Teams Housing Coordinator Relationship Specialty Start Date End Date Lucía Crawford ANP [address] [place] [phone] PCP - General Family Medicine 06/12/23 documented as of this encounter
--- OUTSIDE RECORDS SUMMARY | 2025-03-09 15:11 | XMS_ITS | Encounter Summary ---
Author Organization [employer] Address [address] [place] [address] 7 [place] [address] Care Team Providers Care Advertising Writer Name Role Phone Ty Lucía SEALS Primary Care Provider [phone] Reason for Visit * Reason Onset Date Comments New Patient 04/23/2023 Encounter Details Date Type Department Care Team ([facility] Contact Info) Description 04/23/2023 Telephone [facility] [address] [place] [address] Santo Leon MD [address] [place] [address] New Patient Social History Tobacco Use Types [...] Chris Mcknight - 04/23/2023 1:10 PM EDT PAR Chris Bain called pt to Offer [facility] appt. Pt demographics and insurance information were verified. Pt states following medical conditions: YES Pt reports taking medications: Yes ( Would speak with provider) Pt given [facility] appt with DONG Crawford on 06/06/2023 @ 10:30 am. Pt will be sent appt reminder card and medical release form and agrees to complete and to return to medical records prior to GROUND [facility]WMAN appt. documented in this encounter Plan of Treatment Upcoming Encounters Date Type Department Care Team (Late st Contact Info) Description 03/16/2025 10:15 AM EDT Office Visit [facility] [address] [place] [address] Gary Jay MD [address] [place] [address] 03/24/2025 10:30 AM EDT Procedure Visit [facility] [address] [place] [address] Jada Collins CNM [address] [place] [address] documented as of this encounter Visit Diagnoses Not on filedocumented in this encounter Additional Health Concerns Assessment Noted Time PHQ-9 Depression Total Score: 23 023 1:35 PM EDT documented as of this encounter Care Teams Advertising Writer Relationship Specialty Start Date End Date Lucía Crawford ANP [address] [place] [address] PCP - General Family Medicine 06/12/23 documented as of this encounter
--- OUTSIDE RECORDS SUMMARY | 2025-03-09 15:11 | XMS_ITS | Clinical Summary ---
Author Organization [facility] Address [address] [place] [address] Phone Care Team Providers Care Java Developer Analyst Name Role Phone Tracie Varela MD Primary Care Provider [phone] Social History Tobacco Use Types Packs/Day Years [...] 05/27/2022 Hypertension/CHF/CAD Annual BMP Blood Test 06/09/2022 Depression Screening 06/24/2024 COVID-19 Vaccine (1 - 2023-2 5 season) 2025 Influenza Vaccine (#1) 2025 HIB Vaccines Aged [...] topic Insurance MEDICAID - [place] Care Teams Java Developer Analyst Relationship Specialty Start Date End Date Tracie Varela MD [address] [place] [phone] PCP - General 12/01/01
--- OUTSIDE RECORDS SUMMARY | 2025-03-09 15:12 | XMS_ITS | Encounter Summary ---
Author Organization [employer] Address [address] [facility] 7t [place] [address] Care Team Providers Care Automobile Upholsterer Apprentice Name Role Phone Lucía Crawford ARNEL Primary Care Provider [phone] Encounter Details Date Type Department Care Team ([facility] Contact Info) Description 03/09/2025 Patient Outreach [facility] [address] [place] [address] Jamin Montes Social History Tobacco Use Types Packs/Day Years [...] encounter Progress Notes * Jamin Montes - 03/09/2025 12:44 PM EDT I met with Evonne today. Setting: by phone Recovery Wellness Goals worked on: Social Stability Action taken/next steps: Offered person centered recovery support Additional comments: Jamin Montes documented in this encounter Plan of Treatment Upcoming Encounters Date Type Department Care Team (Late st Contact Info) Description 03/16/2025 10:15 AM EDT Office Visit [facility] [address] [place] [address] Gary Jay MD [address] [place] [address] 03/24/2025 10:30 AM EDT Procedure Visit [facility] [address] [place] [address] Jada Collins CNM [address] [place] [address] documented as of this encounter Visit Diagnoses Not on filedocumented in this encounter Additional Health Concerns Assessment Noted Time PHQ-9 Depression Total Score: 13 025 9:50 AM EDT documented as of this encounter Care Teams Automobile Upholsterer Apprentice Relationship Specialty Start Date End Date Lucía Crawford ANP [address] [place] [address] PCP - General Family Medicine 06/12/23 documented as of this encounter
--- OUTSIDE RECORDS SUMMARY | 2025-03-09 15:12 | XMS_ITS | Encounter Summary ---
Author Organization [employer] Address [address] [place] [address] 7 [place] [address] Care Team Providers Care Diabetic Educator Name Role Phone Lucía Crawford Primary Care Provider [phone] Reason for Visit * Reason Onset Date Comments chart prep 03/08/2025 Encounter Details Date Type Department Care Team ([facility] Contact Info) Description 03/08/2025 Telephone [facility] [address] [place] [address] Lucía Crawford ANP [address] [place] [address] chart prep Social History Tobacco Use Types Packs/Day Years [...] Answer Date Recorded Patient Health Questionnaire-9 Score 03/01/2025 Patient Health Questionnaire-9 Score 03/01/2025 Last [...] encounter Miscellaneous Notes * Telephone Encounter - Rosas Bain [place] - 03/08/2025 1:45 PM EDT Chart Prep Labs: done Images: done Referrals: not applicable Vaccines due: Covid, Flu, PCV20, Hep B, and HPV Screenings: pap smear DUE 03/2025 Overdue care gaps: Not applicable documented in this encounter Plan of Treatment Upcoming Encounters Date Type Department Care Team (Late st Contact Info) Description 03/16/2025 10:15 AM EDT Office Visit [facility]INE [address] [place] [address] Gary Jay MD [address] [place] [address] 03/24/2025 10:30 AM EDT Procedure Visit [facility] [address] [place] [address] Jada Collins CNM [address] [place] [address] documented as of this encounter Visit Diagnoses Not on filedocumented in this encounter Additional Health Concerns Assessment Noted Time PHQ-9 Depression Total Score: 13 025 9:50 AM EDT documented as of this encounter Care Teams Diabetic Educator Relationship Specialty Start Date End Date Lucía Crawford ANP [address] [place] [address] PCP - General Family Medicine 06/12/23 documented as of this encounter
--- OUTSIDE RECORDS SUMMARY | 2025-03-09 15:12 | XMS_ITS | Encounter Summary ---
Author Organization [employer] Address [address] [facility] 7t [place] [address] Care Team Providers Care Freezer Worker Name Role Phone Lucía Crawford Primary Care Provider [phone] Encounter Details Date Type Department Care Team ([facility] Contact Info) Description 03/09/2025 Results Follow-Up [facility] [address] [place] [address] Lucía Crawford ANP [address] [place] [address] XR Knee 3 Views Right Social History Tobacco Use Types Packs/Day Years [...] Miscellaneous Notes * Result Encounter Note - ARNEL Mckee - 03/09/2025 12:41 PM EDT Hi Evonne, X-ray showed mild arthritis in your knee - I recommend still the plan we talked about, taking celecoxib twice daily with food as needed for pain and I placed the referral to physical therapy. Please call our office if you have any questions. Por favor llame a la oficina si tiene preguntas. Take care, Cu??Lucía hess MARKETING SUPPORT ASSISTANT documented in this encounter Plan of Treatment Upcoming Encounters Date Type Department Care Team (Late st Contact Info) Description 03/16/2025 10:15 AM EDT Office Visit [facility] [address] [place] [address] Gary Jay MD [address] [place] [address] 03/24/2025 10:30 AM EDT Procedure Visit [facility] [address] [place], [place] [phone] Jada Collins CNM [address] [place], [place] [phone] documented as of this encounter Visit Diagnoses Not on filedocumented in this encounter Additional Health Concerns Assessment Noted Time PHQ-9 Depression Total Score: 13 025 9:50 AM EDT documented as of this encounter Care Teams Freezer Worker Relationship Specialty Start Date End Date Lucía Crawford ANP [address] [place], [place] [phone] PCP - General Family Medicine 06/12/23 documented as of this encounter
--- OUTSIDE RECORDS SUMMARY | 2025-03-09 15:12 | XMS_ITS | Encounter Summary ---
Author Organization [employer] Address [address] [facility] 7t [place] [address] Care Team Providers Care Business Law Teacher Name Role Phone Lucía Crawford ARNEL Primary Care Provider [phone] Encounter Details Date Type Department Care Team (Latest Contact Info) Description 03/09/2025 Travel Social History Tobacco Use Types Packs/Day [...] Description 03/16/2025 10:15 AM EDT Office Visit [facility] [address] [place] [phone] Gary Jay MD [address] [place] [address] 03/24/2025 10:30 AM EDT Procedure Visit [address] [address] Jada Collins CNM [address] [place] [address] documented as of this encounter Visit Diagnoses Not on filedocumented in this encounter Additional Health Concerns Assessment Noted Time PHQ-9 Depression Total Score: 13 025 9:50 AM EDT documented as of this encounter Care Teams Business Law Teacher Relationship Specialty Start Date End Date Lucía Crawford ANP [address] [place] [address] PCP - General Family Medicine 06/12/23 documented as of this encounter
--- OUTSIDE RECORDS SUMMARY | 2025-03-09 15:12 | XMS_ITS | Encounter Summary ---
Author Organization [employer] Address [address] [place] [address] 7t [place] [address] Care Team Providers Care Bomb Technician Name Role Phone Crawford Lucía SEALS Primary Care Provider [phone] Reason for Visit * Reason Comments Med Refill Encounter Details Date Type Department Care Team ([facility] Contact Info) Description 05/30/2023 Refill [facility] [address] [place] [address] Gary Jay MD [address] [place] [address] Social History Tobacco Use Types Packs/Day Years [...] Description 03/16/2025 10:15 AM EDT Office Visit [facility] [address] [place] [address] Gary Jay MD [address] [place] [address] 03/24/2025 10:30 AM EDT Procedure Visit [facility] [address] [place] [address] Jada Collins CNM [address] [place] [address] documented as of this encounter Visit Diagnoses Not on filedocumented in this encounter Additional Health Concerns Assessment Noted Time PHQ-9 Depression Total Score: 23 023 1:35 PM EDT documented as of this encounter Care Teams Bomb Technician Relationship Specialty Start Date End Date Lucía Crawford ANP [address] [place] [address] PCP - General Family Medicine 06/12/23 documented as of this encounter
[2025-03-11 18:28] LABS: Anti Nuclear Antibody Pattern Nuclear, Speckled; Anti Nuclear Antibody Screen POSITIVE (NEGATIVE); Anti Nuclear Antibody Titer 1:80 titer
== END 2025-03-09 11:07 | disposition home or self-care (01) ==
LOC: HO.HHCL 11:06
PROVIDERS: PCP Nurse Practitioner Primary Care; Visit Provider Nurse Practitioner Primary Care
DX: Z01.84 Encounter for antibody response examination (principal); M25.561 Pain in right knee; G89.29 Other chronic pain
CPT/HCPCS: 36415; 73562; 86038; 86039; 86200

== ENCOUNTER → 2025-03-09 11:52 | Outpatient (BNV) | payer MEDICAID, SELFPAY | PROVIDERS: PCP Nurse Practitioner Primary Care; Visit Provider Radiology Diagnostic Radiology | DX: M25.561 Pain in right knee (principal) | CPT/HCPCS: 73562 ==

== ENCOUNTER 2025-03-24 11:16 | Outpatient (REF) | payer MEDICAID, SELFPAY ==
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
--- OUTSIDE RECORDS SUMMARY | 2025-03-24 10:30 | XMS_ITS | Encounter Summary ---
Author Organization [employer] Address [address] [place] [address] [place] [address] Care Team Providers Care [employer] Assistant Manager Name Role Phone Ty Lucía SEALS Primary Care Provider [phone] Reason for Referral * Imaging (Urgent) - Authorized Specialty Diagnoses / Procedures Referred By Contac t Referred To Contact Radiology Diagnoses Pelvic pain Procedures US Pelvis Transvaginal Jada Collins CNM [address] [place] [address] Phone: tel: fax: [address] Phone: tel: fax: Referral ID Status Reason Start Date Expiration Date V isits Requested Visits Authorized [id number] Authorized 03/24/2025 03/24/2026 1 1 * Imaging (Urgent) - Authorized Specialty Diagnoses / Procedures Referred By Contac t Referred To Contact Radiology Diagnoses Pelvic pain Procedures Us Pelvis complete Jada Collins CNM [address] [place] [address] Phone: tel: fax: [address] Phone: tel: fax: Referral ID Status Reason Start Date Expiration Date V isits Requested Visits Authorized [id number] Authorized 03/24/2025 03/24/2026 1 1 Reason for Visit * Reason Comments pap Encounter Details Date Type Department Care Team (Latest Contact Info) Description 03/24/2025 10:30 AM EDT Procedure Visit [facility] [address] [place] [address] Jada Colilns CNM [address] [place] [address] Cervical cancer screening (Primary Dx); Pelvic pain; Stress incontinence Social History Tobacco Use Types Packs/Day Years [...] Q2 Not on file 11/19/2024 Comments No Intention Date Recorded No desire to become (finding) 1 Sex and Gender Information Value Date Recorded Sex Assigned at Female 03/08/2023 11:33 AM EDT Legal Sex Female 1:42 PM EDT Gender Identity Female 03/08/2023 11:33 AM EDT Sexual Orientation Bisexual 03/08/2023 11 :33 AM EDT documented as of this encounter Last Filed Vital Signs Vital Sign Reading Time Taken Comments Blood Pressure 128/70 03/24/2025 10:43 AM EDT Pulse 90 03/24/2025 10:43 AM EDT Temperature 36.8 C (98.3 F) 03/24/2025 10:43 AM EDT Respiratory Rate 16 03/24/2025 10:43 AM EDT Oxygen Saturation 98% 03/24/2025 10:43 AM EDT Inhaled Oxygen Concentration - - Weight 62.8 kg (138 lb 6.4 oz) 03/24/2025 10:43 AM EDT Height - - Body Mass Index 21.04 03/09/2025 9:43 AM EDT documented in this encounter Progress Notes * Jada Collins CNM - 03/24/2025 10:30 AM EDT Subjective Patient ID: Evonne Zapata is a 39 y.o. female who presents for pap Pap NIL/HPV neg 03/2024. Plan was to cotest this year as unable to get records due to previous abnormal. No worrisome findings on pelvic ultrasound 03/2024. Normal breast imaging 07/2024. She reports cyclical bilateral breast tenderness, no other breast symptoms. Defers breast exam today. Not sexually active, no partners since last visit with me. Does note worsening cramping with menses recently. LMP 03/02/2025 x 7 days. Notes care home stress urinary incontinence, no other urinary symptoms. Review of Systems Genitourinary: Positive for menstrual problem and pelvic pain. Negative for dyspareunia, dysuria, frequency, genital sores, hematuria, urgency, vaginal bleeding, vaginal discharge and vaginal pain. No abnormal pap, no abnormal bleeding, no breast pain, no breast mass, no nipple discharge Objective BP 128/70 (BP Location: Left arm, Patient Position: Sitting, BP Cuff Size: Adult) Pulse 90 Temp98.3 ??F (36.8 ??C) (Oral) Resp 16 Wt 138 lb 6.4 oz (62.8 kg) LMP 03/09/2025 (Exact Date) SpO2 98% BMI 21.04 kg/m?? Physical Exam Exam conducted with a inventory control associate present (Charley Bucio MA). Constitutional: Appearance: Normal appearance. Genitourinary: General: Normal vulva. Labia: Right: No rash, tenderness, lesion or injury. Left: No rash, tenderness, lesion or injury. Vagina: Normal. No signs of injury and foreign body. No vaginal discharge, erythema, tenderness, bleeding or lesions. Cervix: No cervical motion tenderness, discharge, friability, lesion, erythema, cervical bleeding or eversion. Uterus: Normal. Not enlarged and not tender. Adnexa: Right adnexa normal and left adnexa normal. Right: No mass, tenderness or fullness. Left: No mass, tenderness or fullness. Comments: Ovaries non palpable bilaterally. Fair tone with Kegels, cystocele with Valsalva. Neurological: Mental Status: She is alert. Psychiatric: Mood and Affect: Mood normal. Behavior: Behavior normal. Assessment/Plan Diagnoses and all orders for this visit: Cervical cancer screening - Pap Smear Cotest 3 years if normal. Will contact with results. Pelvic pain - Us Pelvis complete; Future - US Pelvis Transvaginal; Future Benign exam today. Will order ultrasound as precaution. Stress incontinence Amorgelruma taught for stress incontinence. Let me know if not helpful in next 1-2m and I will refer to urogyn. documented in this encounter Plan of Treatment Upcoming Encounters Date Type Department Care Team (Late st Contact Info) Description 04/06/2025 10:30 AM EDT Office Visit [facility] [address] [place] [address] Gary Jay MD [address] [place] [address] 04/20/2025 10:30 AM EDT Office Visit [facility] [address] [place] [address] Gary Jay MD [address] [place] [address] 07/15/2025 9:30 AM EST Office Visit [facility] [address] [place] [address] Van Evonne, OD [address] [place] [address] Scheduled Orders Name Type Priority Associated Diagnoses Order Schedule Pap Smear Pathology and Cytology Routine Cervical cancer screening Ordered: 03/24/2025 Us Pelvis complete Imaging Urgent Pelvic pain Expected: 03/24/2025, Expires: 03/24/2026 US Pelvis Transvaginal Imaging Urgent Pelvic pain Expected: 03/24/2025, Expires: 03/24/2026 documented as of this encounter Visit Diagnoses Diagnosis Cervical cancer screening- Primary Screening for malignant neoplasm of the cervix Pelvic pain Stress incontinence Female stress incontinence documented in this encounter Additional Health Concerns Assessment Noted Time PHQ-9 Depression Total Score: 13 03/01/ 025 9:50 AM EDT documented as of this encounter Care Teams [employer] Assistant Manager Relationship Specialty Start Date End Date Lucía Crawford ANP [address] [place] [address] PCP - General Family Medicine 06/12/23 documented as of this encounter
--- OUTSIDE RECORDS SUMMARY | 2025-03-25 10:10 | XMS_ITS | Encounter Summary ---
Author Organization [employer] Address [address] [place] [address] 7 [place] [address] Care Team Providers Care Psychiatric Nursing Aide Name Role Phone Ty Lucía SEALS Primary Care Provider [phone] Reason for Visit * Reason Onset Date Comments New Patient 04/23/2023 Encounter Details Date Type Department Care Team ([facility] Contact Info) Description 04/23/2023 Telephone [facility] [address] [place] [address] Santo Leon MD [address] [place] [address] New Patient Social History Tobacco Use Types [...] PAR Chris Bain called pt to Offer PAPER SAMPLE CLERK appt. Pt demographics and insurance information were verified. Pt states following medical conditions: YES Pt reports taking medications: Yes ( Would speak with provider) Pt given PAPER SAMPLE CLERK appt with DONG Crawford on 06/06/2023 @ 10:30 am. Pt will be sent appt reminder card and medical release form and agrees to complete and to return to medical records prior to PAPER SAMPLE CLERK appt. documented in this encounter Plan of Treatment Upcoming Encounters Date Type Department Care Team (Late st Contact Info) Description 04/06/2025 10:30 AM EDT Office Visit [facility] [address] [place] [phone] Gary Jay MD [address] [place] [address] 04/20/2025 10:30 AM EDT Office Visit [facility] [address] [place] [address] Gary Jay MD [address] [place] [address] 07/15/2025 9:30 AM EST Office Visit [facility] [address] [place], [place] [phone] Evonne Araujo, OD [address] [place] [address] documented as of this encounter Visit Diagnoses Not on filedocumented in this encounter Additional Health Concerns Assessment Noted Time PHQ-9 Depression Total Score: 23 023 1:35 PM EDT documented as of this encounter Care Teams Psychiatric Nursing Aide Relationship Specialty Start Date End Date Lucía Crawford ANP [address] [place], [place] [phone] PCP - General Family Medicine 06/12/23 documented as of this encounter
--- OUTSIDE RECORDS SUMMARY | 2025-03-25 10:10 | XMS_ITS | Encounter Summary ---
Author Organization [employer] Address [address] [facility] 7t [place] [address] Care Team Providers Care Forestry Aid Name Role Phone Ty Lucía SEALS Primary Care Provider [phone] Encounter Details Date Type Department Care Team (Latest Contact Info) Description 03/24/2025 Travel Social History Tobacco Use Types Packs/Day [...] Description 04/06/2025 10:30 AM EDT Office Visit [facility] [address] [place] [address] Gary Jay MD [address] [place] [address] 04/20/2025 10:30 AM EDT Office Visit [facility] [address] [place] [address] Gary Jay MD [address] [place] [address] 07/15/2025 9:30 AM EST Office Visit [facility] OPT[facility] [address] [place] [address] Evonne Araujo, OD [address] [place] [address] documented as of this encounter Visit Diagnoses Not on filedocumented in this encounter Additional Health Concerns Assessment Noted Time PHQ-9 Depression Total Score: 13 03/01/ 025 9:50 AM EDT documented as of this encounter Care Teams Forestry Aid Relationship Specialty Start Date End Date Crawford, Lucía, ANP [address] [place] [address] PCP - General Family Medicine 06/12/23 documented as of this encounter
--- OUTSIDE RECORDS SUMMARY | 2025-03-25 10:10 | XMS_ITS | Encounter Summary ---
Author Organization [employer] Address [address] [facility] 7t [place] [address] Care Team Providers Care Dot Net Architect Name Role Phone Ty Lucía SEALS Primary Care Provider [phone] Encounter Details Date Type Department Care Team ([facility] Contact Info) Description 03/23/2025 Telephone [facility] [address] [place], [place] [phone] Charley Bucio MA Social History Tobacco Use Types Packs/Day Years [...] encounter Miscellaneous Notes * Telephone Encounter - Charley Bucio MA - 03/23/2025 2:33 PM EDT Chart Prep Labs: done Images: ordered 03/09/25 Referrals: appointment pending Vaccines due: Covid, Flu, and PCV20 Screenings: not applicable Overdue care gaps: Not applicable documented in this encounter Plan of Treatment Upcoming Encounters Date Type Department Care Team (Late st Contact Info) Description 04/06/2025 10:30 AM EDT Office Visit [facility] [address] [place] [address] Gary Jay MD [address] [place] [address] 04/20/2025 10:30 AM EDT Office Visit [facility] [address] [place] [address] Gary Jay MD [address] [place] [address] 07/15/2025 9:30 AM EST Office Visit [facility] [address] [place], [place] [phone] Evonne Araujo, OD [address] [place] [address] documented as of this encounter Visit Diagnoses Not on filedocumented in this encounter Additional Health Concerns Assessment Noted Time PHQ-9 Depression Total Score: 13 025 9:50 AM EDT documented as of this encounter Care Teams Dot Net Architect Relationship Specialty Start Date End Date Lucía Crawford ANP [address] [place] [address] PCP - General Family Medicine 06/12/23 documented as of this encounter
--- OUTSIDE RECORDS SUMMARY | 2025-03-25 10:10 | XMS_ITS | Clinical Summary ---
Author Organization [facility] Address [address] [place] [address] Care Team Providers Care Tare Weigher Name Role Phone Eriberto Santos MD Primary Care Provider [phone] Source Comments PLEASE NOTE, if this patient is a minor, it may be UNLAWFUL to discuss sensitive information that is contained in these records (such as FAMILY PLANNING, MENTAL HEALTH or SUBSTANCE ABUSE) with the minor patient's parent or other person without the patient's specific authorization.[facility] Allergies No known active allergies Medications VITAMIN 27 mg iron- 0.8 mg tabIndications: 8 weeks gestation of Take 1 Tab by mouth once daily [...] Diagnosed Date Adnexal cyst 10/16/2017 Overview (10/16/2017): [facility] 09/30/17 Impression: Adnexal cyst,menorrhagia with irregular cycle,pelvic pain;HTN, unspecified type,urinary tract infection,without hematuria, site unspecified. Immunizations Immunization Administration Dates Next Due Hep B, Adult/Adol ([id number] ULT) 01/05/2002 PNEUMOCOCCAL POLYSACCHARIDE PPV23 (Pneumovax 23) [...] Care Team (Late st Contact Info) Description 03/30/2025 1:00 PM EDT Behavioral Health Visit [facility] [address] [place] [phone] Jenny Cuevas, JAY [address] [facility] [place] [phone] Health Maintenance Due Date Last Done Comments [...] exists Depression Annual Screen 06/24/2024 09/29/2018, 0409/2017 [id number] ( season) 2025 Imm-Influenza (#1) 2025 05/31/2024 [...] 1 AND 2 ANTIBODY SCREEN NEGATIVE NEGATIVE [facility] Comment: This assay is a 4th generation [...] AM EDT 09/25/2017 10:22 AM EDT Narrative [facility] - 09/25/2017 1:43 PM EDT [employer] [address] [place] [address] PT ID [id number] ORD# [id number] us Eriberto Santos MD LAB - BLOOD DRAW Final Result [address] [address], * COMPRE METAB PANEL future (09/25/2017 10:11 AM EDT) Pathologist [facility] [place] GLUCOSE 91 70 - 100 mg/dL [facility] Comment:Reference range appl icable to fasting specimens only BUN 11 5 - 25 mg/dL [facility] CREAT 0.84 0.5 - 1.1 mg/dL [facility] GLOMERULAR FILTRATION RATE > 60 [facility] Comment: If patient is -Taiwanese, multiply result by 1.21 Chronic Kidney Disease: < 60 ml/min/1.73 square meters Kidney Failure: < 15 ml/min/1.73 square meters SODIUM 138 133 - 145 mmol/L [facility] POTASSIUM 4.2 3.5 - 5.5 mmol/L [facility] CHLORIDE 106 96 - 110 mmol/L [facility] CO2 26 21 - 32 mmol/L [facility] ANION GAP 6 3 - 11 [facility] CALCIUM 9.0 8.5 - 10.5 mg/dL [facility] TOTAL PROTEIN 7.4 6.0 - 8.0 G/dL [facility] ALBUMIN 3.8 3.2 - 5.0 G/dL [facility] BILI, TOTAL 0.7 0.0 - 1.4 mg/dL [facility] SGOT 19 10 - 42 U/L [facility] SGPT 26 10 - 60 U/L [facility] ALK PHOS 81 42 - 121 U/L [facility] Blood specimen (specimen) Blood / Unknown 09/25/2017 10:11 AM EDT 09/25/2017 10:22 AM EDT Narrative [facility] - 09/25/2017 12:55 PM EDT [facility] [employer] [address] [place] [address] PT ID [id number] ORD# [id number] us Eriberto Santos MD LAB - BLOOD DRAW Final Result [facility] [address] [place] [address], from Last 3 Months or Most Recently Relevant to Health Maintenance Insurance [employer] [facility] [employer] Care Teams Tare Weigher Relationship Specialty Start Date End Date Eriberto Santos MD [address] [place] [phone] PCP - General Internal Medicine 07/17/17
--- OUTSIDE RECORDS SUMMARY | 2025-03-25 10:10 | XMS_ITS | Clinical Summary ---
Author Organization [facility] Address [address] [place] [address] Phone Care Team Providers Care Safety Professional Name Role Phone Tracie Varela MD Primary Care Provider [phone] Social History Tobacco Use Types Packs/Day Years [...] Cervical Cancer Screening: P ap Smear 09/19/2008 HPV Vaccines (1 - 3-dose SCD M series) 09/19/2014 Cholesterol Screening (Lipid Panel) 05/27/2022 HIV Screening 05/27/2022 Hepatitis C Screening 05/27/2022 Social Influencers of Health Screening 05/27/2022 Hypertension/CHF/CAD Annual BMP Blood Test 06/09/2022 Depression Screening 06/24/2024 COVID-19 Vaccine (1 - 2023-2 5 season) 2025 Influenza Vaccine (#1) 2025 RSV Immunization Adult Patie nts (1 - 1-dose 75+ series) 09/19/2062 HIB Vaccines Aged Out No longer eligi [...] topic Insurance MEDICAID - [place] Care Teams Safety Professional Relationship Specialty Start Date End Date Tracie Varela MD [address] [place] [phone] PCP - General 12/01/01
--- OUTSIDE RECORDS SUMMARY | 2025-03-25 10:10 | XMS_ITS | Clinical Summary ---
Author Organization [employer] Address [address] [facility] [address] [place] [address] Care Team Providers Care Mooner Name Role Phone Johanna Mcclain ARNEL Primary Care Provider [phone] Allergies Active Allergy Reactions Criticality Noted Date [...] injectionIndica tions:Alcohol use disorder, severe, dependence (CMS/HCC) ([facility]) Inject 4 mL (380 mg) into the [...] day. 90 tablet 3 03/09/20 25 Active Multiple Vitamin (multivitamin) tablet Take 1 [...] po daily 84 tablet 3 06/11/20 24 025 Discontinued(R eorder (will not trigger notification to Pharmacy)) naltrexone (Depade) 50 MG tabletIndicatio ns:Alcohol use disorder, severe, in early remission (CMS/HCC) (HCC) TAKE 1 TABLET BY MOUTH EVERY DAY [...] at the same time. 30 patch 12/19/19 025 Discontinued(T herapy completed) cromolyn (Opticrom) 4 % ophthalmic solution Administer 1 drop into affected eye(s) if needed in the morning, at noon, in the evening, and at bedtime (eye redness and itchiness) for up to 14 days. 10 mL 02/26/20 025 Discontinued(D iscontinued by another clinician) doxycycline (Vibramycin) 100 MG capsuleIndicati ons:Induration at injection site Take 1 capsule (100 mg) by mouth 2 times daily for 10 days. Take with at least 8 ounces (large glass) of water, do not lie down for 30 minutes after 20 capsule 02/26/20 25 diphenhydrAMINE (BENADryl) 25 MG tabletIndicatio ns:Induration at injection site Take 1 tablet (25 mg) by mouth if needed at bedtime for itching for up to 5 days. 30 tablet 02/26/20 025 Discontinued(T herapy completed) HPV 9-valent (Gardasil-9) suspension prefilled syringe vaccine prefilled syringeIndicati ons:Need for HPV vaccination Inject 0.5 mL into the muscle 1 (one) time for 1 dose. Repeat as directed 0.5 mL 2 03/09/20 25 025 Hospital, Clinic, or Other Facility Administered Medication Ordered Dose Route Frequency Start Date End Date Status naltrexone ER (Vivitrol) injection 380 mgIndications:Alcohol use disorder, severe, dependence (CMS/HCC) (HCC) 380 mg IM Once 02/23/2025 5 Ended naltrexone ER (Vivitrol) injection 380 mgIndications:Alcohol use disorder, severe, dependence (CMS/HCC) (HCC) 380 mg IM Once 03/23/2025 5 Ended Active Problems Problem Noted Date Diagnosed Date [...] is currently connected with a therapist through [facility] and is on wait list for psychiatry [...] in partial remission, most recent episode depressed ([facility]) 07/07/2024 Cannabis use disorder 06/15/2024 [...] seek support PLAN: 1. Follow up with [facility]: Recommended for follow-up: during Obat appts 2. Patient goal is improve mental health, and become sober 3. Behavioral Recommendations a. Keeping Ind. Therapy with [facility] b. Keeping AUD appt with Dr. Misty stevenson. Connecting with -[facility] d. [facility] contact number for extra support Assessment [...] to engage. PLAN: 1. Follow up with [facility]: Recommended for follow-up: during AUD appts 2. Patient goal is to become sober and improve mental health 3. Behavioral Recommendations a. Ind. Therapy, referral will be submitted b. Storage Specialist, referral will be submitted c. Use of coping skills as provide d. Engage in AA meetings for support Resolved Problems Problem Noted Date Diagnosed Date Resolved Date Tobacco use 03/09/2025 03/09/2025 Moderate major depression (CMS/HCC) 03/08/2023 09/15/2024 Assessment & Plan (04/09/2023 8:55 AM EDT): [...] engage, insight PLAN: 1. Follow up with [facility]: Recommended for follow-up: with [place] for support [...] in treatment PLAN: 1. Follow up with [facility]: Recommended for follow-up: during OBAT appts 2. Patient goal is become sober and improve mental health 3. Behavioral Recommendations a. Ind. Therapy, referral submitted on 03/08/23 b. Use of coping skills provided as recommended c. Maintain engagement with [facility] robby [facility] contact number for support Assessment & [...] to engage. PLAN: 1. Follow up with [facility]: Recommended for follow-up: during AUD appts 2. Patient goal is to become sober and improve mental health 3. Behavioral Recommendations a. Ind. Therapy, referral will be submitted b. Storage Specialist, referral will be submitted c. Use of coping skills as provide d. Engage in AA meetings for support Severe anxiety 03/08/2023 02/19/2025 Encounters * This document contains information received from the source organization and may not represent a complete record from that organization. Date Type Department Care Team Description 03/24/2025 10:30 AM EDT Procedure Visit [facility] [address] [place] [phone] Jada Collins CNM Cervical cancer screening (Primary Dx); Pelvic pain; Stress incontinence 03/24/2025 Travel 03/23/2025 10:30 AM EDT Office Visit [facility] [address] [place] [address] [phone] Gary Jay MD Alcohol use disorder, severe, dependence (CMS/HCC) (Primary Dx); Tobacco dependence 03/23/2025 Telephone [facility] [address] [place] [address] [phone] Charley Bucio MA 03/23/2025 Patient Outreach [facility] [address] [place] [phone] Rk Brooks Recovery Supports 03/23/2025 Travel 03/16/2025 Patient Outreach [address] [address] MontesJamin lees Recovery Supports 03/16/2025 Travel 03/15/2025 Patient Outreach [address] [address] Walter Prasad Recovery Supports 03/09/2025 9:45 AM EDT Office Visit [address] [address] Johanna Mcclain ANP Healthcare maintenance (Primary Dx); Polyarthralgia; Family planning; Tobacco dependence; JEFFERSON (generalized anxiety disorder); Arthritis of both hands; Chronic pain of right knee; History of fracture of nasal bone; Nasal congestion; Need for HPV vaccination 03/09/2025 Patient Outreach [address] [address] Apollo Montess 03/09/2025 Patient Outreach [address] [address] Rk Brooks Recovery Supports 03/09/2025 Patient Outreach [address] [address] Apollo Montess 03/09/2025 Results Follow-Up [address] [address] Johanna Mcclain ANP XR Knee 3 Views Right, VENESSA Screen,IFA, with Reflex to Titer and Pattern, Cyclic Citrullinated Peptide (CCP) Antibody (IgG) 03/09/2025 Travel 03/08/[address] [address] Johanna Mcclain ANP chart prep 03/03/2025 11:30 AM EDT Office Visit [address] [address] Gary Jay MD Alcohol use disorder, severe, dependence (CMS/HCC) (Primary Dx) 03/03/2025 9:00 AM EDT Office Visit [address] [address] Keon Wolf MD Alcohol use disorder, severe, dependence (CMS/HCC) (Primary Dx) 03/03/2025 Travel 03/01/2025 Patient Outreach [address] [address] Williams Fisher Recovery Supports 03/01/2025 Patient Outreach [address] [address] Johanna Mcclain ANP Pre-visit Planning (SDOH screening was completed on 11/19/2024) 02/25/2025 9:40 AM EDT Office Visit [facility] [address] [place] [phone] Dunia Gee MD Intermittent palpitations (Primary Dx); Induration at injection site; Elevated blood pressure reading 02/25/2025 Patient Outreach [address] [address] Williams Fisher Recovery Supports 02/25/2025 Travel 02/25/[address] [address] Latasha Boyce, institution director 02/24/2025 Orders Only [address] [address] Selina Denis, MANUEL Alcohol use disorder, severe, dependence (CMS/HCC) 02/23/2025 10:30 AM EDT Office Visit [address] [address] Gary Jay MD Alcohol use disorder, severe, dependence (CMS/HCC) (Primary Dx) 02/23/2025 Patient Outreach [address] [address] Rk Brooks Recovery Supports 02/23/2025 Travel 02/01/2025 Patient Outreach [facility] [address] [place], [place] [phone] Johanna Mcclain ANP Pre-visit Planning (SDOH unable to reach LVM) 01/18/[address] [address] Jada Collins CNM March recall 01/08/2025 Results Follow-Up [facility] [address] [place] [address] Adrianna Barnett FNP Lipid Panel, Standard 12/30/2024 10:45 AM EDT Office Visit [facility] [address] [place] [address] Adrianna Barnett FNP JEFFERSON (generalized anxiety disorder) (Primary Dx); Healthcare maintenance; Chest tightness 12/30/2024 Telephone [facility] [address] [place] [address] Johanna Mcclain ANP In person triage 12/30/2024 Travel 12/24/2024 Telephone [facility] [address] [place] [address] Tiera Pearce, OD 12/24/2024 Telephone [facility] [address] [place] [address] Tiera Pearce, YOJANA from Last 3 Months Immunizations Immunization Administration [...] you have a drink containing alcohol ? 03/06/2024 How many drinks containing a lcohol do you have on a typical day when you are drinking? 03/06/2024 How often do you have six or more drinks on one occasion? 03/06/2024 Depression Answer Date Recorded Patient Health [...] 6.4 oz) 03/24/2025 10:43 AM EDT Height 172.7 cm (5' 8 ) 03/09/2025 9:43 AM EDT Body Mass Index 21.04 03/09/2025 9:43 AM EDT Plan of Treatment Upcoming Encounters Date Type Department Care Team (Late st Contact Info) Description 04/06/2025 10:30 AM EDT Office Visit [facility] [address] [place] [address] Gary Jay MD [address] [place] [address] 04/20/2025 10:30 AM EDT Office Visit [facility] [address] [place] [address] Gary Jay MD [address] [place] [address] 07/15/2025 9:30 AM EST Office Visit [facility] [address] [place] [address] Evonne Araujo, OD [address] [place] [address] Health Maintenance Due Date Last Done Comments HPV Vaccines (1 - 3-dose series) 09/19/2002 Pneumococcal Vaccine: Pediatrics (0 to 5 Years) and At-Risk Patients (6 to 49) Years (2 of 2 - PCV) 09/25/2018 09/25/2017 COVID-19 Vaccine (3 - 2024-2 6 season) 2025 11/24/2020, 10/26/2020 Influenza Vaccine (#1) 2025 05/31/2024 Cervical Cancer Screening 03/24/2025 HPV/Cotest 03/24/2025 03/24/2024 Pap Smear 03/24/2025 03/24/2024 Depression Monitoring 08/29/2025 03/01/2025 , 03/01/2025 SDOH Screening 11/19/2025 11/19/2024 Alcohol/Substance Use Screening 12/30/2025 12/30/2024 Disability Screening 12/30/2025 12/30/2024 Family Planning (PISQ) 03/24/2026 03/24/2025 Tobacco Screening 03/24/2026 03/24/2025 Lipid Panel 12/30/2029 12/30/2024, 06/07/2023 DTaP/Tdap/Td Vaccines [...] EDT Alcohol use disorder, severe, dependence (CMS/HCC) XR KNEE 3 VIEWS RIGHT Routine 03/09/2025 12:26 PM EDT Chronic pain of right knee CYCLIC CITRULLINATED PEPTIDE (CCP) AB (IGG) Routine 03/09/2025 11:20 AM EDT Polyarthralgia VENESSA SCREEN, IFA, W/REFL TITER AND PATTERN Routine 03/09/2025 11:20 AM EDT Polyarthralgia ECG 12-LEAD Routine 03/08/2025 7:02 AM EDT [...] discomfort Dysphagia, unspecified type Change in voice HEPATITIS PANEL, GENERAL Routine 11/04/2024 3:17 PM EDT Arthritis of both hands THINPREP IMAGING PAP AND HPV MRNA E6/E7 Routine 03/24/2024 11:39 AM EDT HIV 1/2 ANTIGEN/ANTIBODY, FOURTH GENERATION W/RFL Routine 03/16/2024 2:04 PM EDT Vaginal discharge from Last 3 Months or Most Recently Relevant to Health Maintenance Results * (ABNORMAL) POCT BHAKTI-14 Urine Drug Screen (03/23/2025 10:16 AM EDT) Only the most recent of2 resultswithin the time period is included. THC Positive(A) Negative Cocaine Screen, Urine Negative [...] procedure / Unknown 03/23/2025 10:16 AM EDT us Gary Jay MD POINT OF CARE TEST ENTER/EDIT ORDERABLES Final Result * XR Knee 3 Views Right (03/09/2025 12:26 PM EDT) Anatomical Region Laterality Modality Lower Extremities, Knee Right Radiogra phic Imaging 03/09/2025 12:2 6 PM EDT Narrative 03/09/2025 12:35 PM EDT [place] [address] XRay Report Signed Patient: Evonne Zapata MR#: [id number] : 1985 Acct:[id number] Age/Sex: 39 / F ADM Date: 03/09/25 Loc: .[facility] Attending Dr: Johanna Mcclain NP Ordering Physician: JOHANNA MCCLAIN NP Date of Service: 03/09/25 Procedure(s): XR knee RT 3V Accession Number(s): [id number] cc: JOHANNA MCCLAIN NP Reason for Exam: [...] 03/09/25 1233 DD/ 1226 TD/TT: 03/09/25 1227 Drophammer Operator: Procedure Note Donotuseinterpreter, Image - 03/09/[address] [address] XRay Report Signed Patient: Evonne ZapataMR#: [id number] : 1985Acct:[id number] Age/Sex: 39 / FADM Date: 03/09/25 Loc: [facility] Attending Dr: Johanna Mcclain NP Ordering Physician: JOHANNA MCCLAIN NP Date of Service: 03/09/25 Procedure(s): XR knee RT 3V Accession Number(s): [id number] cc: JOHANNA MCCLAIN NP Reason for Exam: [...] 03/09/25 1233 DD/ 1226 TD/TT: 03/09/25 1227 Drophammer Operator: Johanna Mcclain ANP [facility] XR PROCEDURES Edited Result - Final * Cyclic Citrullinated Peptide (CCP) Antibody (IgG) (03/09/2025 11:20 AM EDT) Cyclic Citrullinated Peptide <16 UNITS [facility] Comment:Reference RangeNegat teri: <20Weak Positive: 20-39Moderate Positive: 40-59Strong Positive: >59THIS TEST WAS PERFORMED AT:[facility] [place] [id number] REYNOSO MD Blood Venous blood specimen / Unknown 03/09/2025 11:20 AM EDT 03/09/2025 1:13 PM EDT [facility] Mcclain [facility] LAB BLOOD ORDERABLES Final Resul t [facility] [address] [place] [address] [phone] * (ABNORMAL) VENESSA Screen,IFA, with Reflex to Titer and Pattern (03/09/2025 11:20 AM EDT) Anti Nuclear Antibody Screen POSITIVE (A) NEGATIVE [facility] Comment:VENESSA IFA is a first l ine screen for detecting thepresence of up to approximately 150 autoantibodies invarious autoimmune diseases. A positive VENESSA IFA resultis suggestive of autoimmune disease and reflexes totiter and pattern. Further laboratory testing may beconsidered if clinically indicated.For additional information, please refer tohttp://education.[employer]/faq/OOF352(This link is being provided for informational/educational purposes only.) VENESSA Titer 1:80(A) titer [facility] Comment:A low level VENESSA tite r may be present in pre-clinicalautoimmune diseases and normal individuals. Reference Range <1:40 Negative 1:40-1:80 Low Antibody Level >1:80 Elevated Antibody Level VENESSA Pattern Nuclear, Speckled (A) [facility] Comment:Speckled pattern is associated with mixed connectivetissue disease (MCTD), systemic lupus erythematosus(SLE), Sjogren's syndrome, dermatomyositis, andsystemic sclerosis/polymyositis overlap.AC-2,4,5,29: SpeckledInternational Consensus on VENESSA Patterns(https://doi.org/10.1515/uugb-9020-6260)THIS TEST WAS PERFORMED AT:[facility] [place] [phone] REYNOSO MD VENESSA TITER 2 (REF LAB) [facility] V[facility]ESSA [facility] 2 [facility] VENESSA TITER 3 [facility] VENESSA PATTERN 3 [facility] Blood Venous blood specimen / Unknown 03/09/2025 11:20 AM EDT 03/09/2025 1:13 PM EDT Johanna SEALS LAB BLOOD ORDERABLES Final Resul t Performing Organization Address City/[facility]/ZIP Co de Phone Number [facility] [address] [place] [address] [phone] * ECG 12 lead (03/08/2025 7:02 AM EDT) Dunia Hewitt MD - 03/08/2025 7:02 AM EDT NSR Dunia Gee MD ECG ORDERABLES Final Resu lt * POCT alcohol breath test manually resulted (02/23/2025 11:03 AM EDT) Breath Alcohol 0.02 Breath 02/23/2025 11:0 3 AM EDT Gary Jay MD POINT OF CARE TEST ENTER/EDIT ORDERABLES Final Result * TSH W/Reflex to FT4 (12/30/2024 1:12 PM EDT) TSH reflex Free T4 0.48 0.32 - 4.0 uIU/mL [facility] Blood Venous blood specimen / Unknown 12/30/2024 1:12 PM EDT 12/30/2024 4:17 PM EDT Dunia Gee MD LAB BLOOD ORDERABLES Final Result Performing Organization Address City/[facility]/ZIP Co de Phone Number [facility] [address] [place] [address] [phone] * Sed Rate by Bernardo Fowler (12/30/2024 1:12 PM EDT) Erythrocyte Sedimentation Rate 4 0 - 20 MM/HR [facility] Comment:Patients with polycy themia and many hemoglobin abnormalitiesmay have depressed sed rates whereas patients with anemiamay have elevated sed rates. Blood Venous blood specimen / Unknown 12/30/2024 1:12 PM EDT 12/30/2024 4:17 PM EDT us Venessa Bush MD LAB BLOOD ORDERABLES Fin al Result Performing Organization Address [facility]/ZIP Co de Phone Number [facility] [address] [place] [address] [phone] * Lipid Panel, Standard (12/30/2024 1:12 PM EDT) Triglycerides 85 <150 mg/dL [facility] Comment:Desirable Triglyceri de: less than 150 mg/dLBorderline High Triglyceride 150-199 mg/dLHigh Triglyceride: 200-499 mg/dLVery High Triglyceride: greater than or equal to 5OO mg/dL Cholesterol 167 <200 mg/dL [facility] Comment:Desirable Cholestero l: less than 200 mg/dLBorderline High Cholesterol: 200-239 mg/dLHigh Cholesterol: greater than 239 mg/dL LDL Cholesterol Calculated 80 <100 mg/dL [facility] Comment:Desirable LDL: less than 100 mg/dLNear Optimal/Above Optimal LDL: 110- 129 mg/dLBorderline High LDL: 130-159 mg/dLHigh LDL: 160-189 mg/dLVery High LDL: greater than or equal to 190 mg/dL HDL Cholesterol 70 >40 mg/dL [facility] Comment:Desirable HDL: great er than 40 mg/dL Note: This HDL assay may give artificially low results in patients with liver disease. Blood Venous blood specimen / Unknown 12/30/2024 1:12 PM EDT 12/30/2024 4:17 PM EDT us Adrianna GUIDOP LAB BLOOD ORDERABLES Final Res ult Performing Organization Address City/[facility]/ZIP Co de Phone Number [facility] [address] [place] [address] [phone] * Hepatitis Panel, General (11/04/2024 3:17 PM EDT) Hepatitis A IgM Nonreactive Nonreactive [facility] Comment:IgM antibodies to LLAMAS V not detected; does not exclude earlyacute or recovered HAV infection. ~Hepatitis B Surface Antibody REACTIVE Nonreactive [facility] Comment:REACTIVE: > 11.99 mI U/mL Hepatitis B Core Antibody Nonreactive Nonreactive [facility] Hepatitis C Antibody Nonreactive Nonreactive [facility] Comment:Antibodies to HCV no t detected; does not exclude early acuteHCV infection. Hepatitis B Surface Ag Negative Negative [facility] Blood 11/04/2024 3:17 PM EDT 11/04/2024 4:11 PM EDT Venessa Bush MD LAB BLOOD ORDERABLES Fin al Result [facility] [address] [place] [address] [phone] * ThinPrep Imaging Pap and HPV mRNA E6/E7 (03/24/2024 11:39 AM EDT) Pathologist [facility] HPV nRNA E6/E7 Not Detected Not Detected [facility] Comment:Methodology: Transcr iption-Mediated AmplificationThis assay detects E6/E7 viral messenger RNA (mRNA) from 14high-risk HPV types (16,18,31,33,35,39,45,51,52,56,58,59,66,68).Cervical sources are required for HPV testing.If a vaginal source from a patient who has had atotal hysterectomy with removal of cervix wassubmitted, please contact the testing laboratoryfor alternative testing options.For additional information, please refer tohttp://education.Education Everytime/faq/ZSQ396u7(This link if provided for information/educational purposes only.)THIS TEST WAS PERFORMED AT:[facility] [place] [phone] REYNOSO MD SOURCE: SEE NOTE [facility] Comment:Cervix Report Status: TNP [facility] Clinical Information: SEE NOTE [facility] Comment:None given LMP: SEE NOTE [facility] Comment:NONE GIVEN Prev. PAP: SEE NOTE [facility] Comment:NONE GIVEN Prev. BX: SEE NOTE [facility] Comment:NONE GIVEN Statement Of Adequacy: SEE NOTE [facility] Comment:Satisfactory for juanita luation.Endocervical/transformation zone component absent. General Categorization: [facility] Interpretation/Result: SEE NOTE [facility] Comment:Cytology Results: Ne gative for intraepitheliallesion or malignancy. Cytology Comment SEE NOTE [facility] Comment:This Pap test has be en evaluated with computerassisted technology. Petroleum Engineer: SEE NOTE [facility] Comment:MSM, CT(ASCP)CT scre ening location: [place] [address] Review Petroleum Engineer: [facility] Pathologist [facility] PAP Infection [facility] See Note SEE NOTE [facility] Comment:EXPLANATORY NOTE:The Pap is a [...] AM EDT 03/24/2024 4:30 PM EDT Narrative [facility] - 03/27/2024 2:06 PM EDT SEE SCANNED RESULTS IN EMRCERVIX us Jada Collins [facility] PATHOLOGY ORDERABLES Final Result [facility] [address] [place] [phone] [phone] * HIV-1/2 Antigen and Antibodies, Fourth Generation, with Reflexes (03/16/2024 2:04 PM EDT) HIV AB/AG Nonreactive Nonreactive [facility] Comment:HIV-1 p24 Ag and/or HIV-1/HIV-2 Ab not detected.A test result that is nonreactive does not exclude thepossibility of exposure to or infection with HIV-1 and/orHIV-2. Nonreactive results in this assay for individualswith prior exposure to HIV-1 and/or HIV-2 may be due toantigen and antibody levels that are below the limit ofdetection of this assay.The [employer] HIV Ag/Ab Combo assay result andsupplemental assay results should be interpreted inconjunction with the patient's clinical presentation,history and other laboratory results. If the results areinconsistent with clinical evidence, additional testing issuggested to confirm the result. Blood Venous blood specimen / Unknown 03/16/2024 2:04 PM EDT 03/16/2024 4:53 PM EDT us Martha Sellers NP LAB BLOOD ORDERABLES Final Resul t [facility] [address] [place] [phone] from Last 3 Months or Most Recently Relevant to Health Maintenance Insurance [facility] C3 Care Teams Mooner Relationship Specialty Start Date End Date Johanna Mcclain ANP [address] [place] [phone] PCP - General Family Medicine 06/12/23
--- OUTSIDE RECORDS SUMMARY | 2025-03-25 10:10 | XMS_ITS | Encounter Summary ---
Author Organization [email or web address] Address 75 [facility] [place] [address] Care Team Providers Care Tooling Manager Name Role Phone Lucía Crawford Primary Care Provider [phone] Reason for Referral * Consultation (Routine) - Authorized Specialty Diagnoses / Procedures Referred By Contarnaud t Referred To Contact Rheumatology Diagnoses Positive VENESSA (antinuclear antibody) Polyarthralgia Lucía Crawford ANP [address] [place] [address] Phone: tel: fax: [facility] [address] [place] [address] Phone: tel: fax: Referral ID Status Reason Start Date Expiration Date Visits Requested Visits Authorized [id number] Authorized Specialty Services Required 03/15/2025 03/15/2026 12 12 Encounter Details Date Type Department Care Team (Latest Contact Info) Description 03/09/2025 Results Follow-Up [facility] [address] [place] [address] Lucía Crawford ANP [address] [place] [address] XR Knee 3 Views Right, VENESSA Screen,IFA, with Reflex to Titer and Pattern, Cyclic Citrullinated Peptide (CCP) Antibody (IgG) Social History Tobacco Use Types Packs/Day Years [...] Result Encounter Note - ARNEL Mckee - 03/15/2025 11:07 AM EDT [place] Douglass, The VENESSA test which can be a marker for autoimmune or inflammatory conditions is still elevated at 1:80. This is what we call a low titer, so it may not be clinically meaningful, but given that you also have joint pain, I would recommend you see a hvac specialist. I will place the referral. Please call our office if you have any questions. Por favor llame a la oficina si tiene preguntas. Take care, Cu??Lucía hess QUALITY CONTROL SUPERVISOR * Result Encounter Note - ARNEL Mckee - 03/09/2025 12:41 PM EDT [place] Douglass, X-ray showed mild arthritis in your knee - I recommend still the plan we talked about, taking celecoxib twice daily with food as needed for pain and I placed the referral to physical therapy. Please call our office if you have any questions. Por favor llame a la oficina si tiene preguntas. Take care, Cu??Lucía hess QUALITY CONTROL SUPERVISOR documented in this encounter Plan of Treatment Upcoming Encounters Date Type Department Care Team (Late st Contact Info) Description 04/06/2025 10:30 AM EDT Office Visit [facility] [address] [place] [address] Gary Jay MD [address] [place] [address] 04/20/2025 10:30 AM EDT Office Visit [facility] [address] [place] [address] Gary Jay MD [address] [place] [address] 07/15/2025 9:30 AM EST Office Visit [facility] [address] [place] [address] Evonne Araujo, OD [address] [place] [address] Scheduled Referrals Name Type Priority Associated Diagnoses Order Schedule Referral to Rheumatology Outpatient Referral Routine Positive VENESSA (antinuclear antibody) Polyarthralgia Expected: 03/15/2025 (Approximate), Expires: 03/15/2026 documented as of this encounter Visit Diagnoses Diagnosis Positive VENESSA (antinuclear antibody)- Primary Other and unspecified nonspecific immunological findings Polyarthralgia Pain in joint, multiple sites documented in this encounter Additional Health Concerns Assessment Noted Time PHQ-9 Depression Total Score: 13 025 9:50 AM EDT documented as of this encounter Care Teams Tooling Manager Relationship Specialty Start Date End Date Lucía Crawford ANP [address] [place] [address] PCP - General Family Medicine 06/12/23 documented as of this encounter
--- OUTSIDE RECORDS SUMMARY | 2025-03-25 10:10 | XMS_ITS | Encounter Summary ---
Author Organization [employer] Address 75 [facility] 7t [place] [address] Care Team Providers Care Alignment Technician Name Role Phone Ty Lucía SEALS Primary Care Provider [phone] Encounter Details Date Type Department Care Team (Latest Contact Info) Description 03/23/2025 Travel Social History Tobacco Use Types Packs/Day [...] Description 04/06/2025 10:30 AM EDT Office Visit [facility] [address] [place] [address] Gary Jay MD [address] [place] [address] 04/20/2025 10:30 AM EDT Office Visit [facility] [address] [place] [address] Gary Jay MD [address] [place] [address] 07/15/2025 9:30 AM EST Office Visit [facility] [address] [place] [address] Evonne Araujo, OD [address] [place] [address] documented as of this encounter Visit Diagnoses Not on filedocumented in this encounter Additional Health Concerns Assessment Noted Time PHQ-9 Depression Total Score: 13 03/01/ 025 9:50 AM EDT documented as of this encounter Care Teams Alignment Technician Relationship Specialty Start Date End Date Crawford, Lucía, ANP [address] [place] [address] PCP - General Family Medicine 06/12/23 documented as of this encounter
--- OUTSIDE RECORDS SUMMARY | 2025-03-25 10:10 | XMS_ITS | Encounter Summary ---
Author Organization [employer] Address 75 [facility] 7t [place] [address] Care Team Providers Care Envelope Fold Operator Name Role Phone Crawford Lucía SEALS Primary Care Provider [phone] Encounter Details Date Type Department Care Team ([facility] Contact Info) Description 12/24/2023 Orders Only [facility] [address] [place] [address] Dunia Gee MD [address] [place] [address] Social History Tobacco Use Types Packs/Day Years [...] Upcoming Encounters Date Type Department Care Team ([facility] st Contact Info) Description 04/06/2025 10:30 AM EDT Office Visit [facility] [address] [place] [address] Gary Jay MD [address] [place] [address] 04/20/2025 10:30 AM EDT Office Visit [facility] [address] [place] [address] Gary Jay MD [address] [place] [address] 07/15/2025 9:30 AM EST Office Visit [facility] [address] [place] [address] Evonne Araujo, OD [address] [place] [address] documented as of this encounter Visit Diagnoses Not on filedocumented in this encounter Additional Health Concerns Assessment Noted Time PHQ-9 Depression Total Score: 23 023 1:35 PM EDT documented as of this encounter Care Teams Envelope Fold Operator Relationship Specialty Start Date End Date Lucía Crawford ANP [address] [place] [address] PCP - General Family Medicine 06/12/23 documented as of this encounter
--- OUTSIDE RECORDS SUMMARY | 2025-03-25 10:10 | XMS_ITS | Encounter Summary ---
Author Organization [employer] Address [address] [place] [address] 7t [place] [address] Care Team Providers Care Director Of Retail Operations Name Role Phone Lucía Crawford Primary Care Provider [phone] Reason for Visit * Reason Comments Med Refill Encounter Details Date Type Department Care Team ([facility] Contact Info) Description 05/30/2023 Refill [facility] [address] [place] [address] Gary Jay MD [address] [place] [address] Social History Tobacco Use Types Packs/Day Years [...] Description 04/06/2025 10:30 AM EDT Office Visit [facility] [address] [place] [address] Gary Jay MD [address] [place] [address] 04/20/2025 10:30 AM EDT Office Visit [facility] [address] [place] [address] Gary Jay MD [address] [place] [address] 07/15/2025 9:30 AM EST Office Visit [facility] [address] [place] [address] Evonne Araujo, OD [address] [place] [address] documented as of this encounter Visit Diagnoses Not on filedocumented in this encounter Additional Health Concerns Assessment Noted Time PHQ-9 Depression Total Score: 23 023 1:35 PM EDT documented as of this encounter Care Teams Director Of Retail Operations Relationship Specialty Start Date End Date Lucía Crawford ANP [address] [place] [address] PCP - General Family Medicine 06/12/23 documented as of this encounter
--- OUTSIDE RECORDS SUMMARY | 2025-03-25 10:10 | XMS_ITS | Encounter Summary ---
Author Organization [employer] Address [address] [place] [address] 7t [place] [address] Care Team Providers Care Corporate Claims Examiner Name Role Phone Ty Lucía SEALS Primary Care Provider [phone] Reason for Visit * Reason Comments [facility] Recovery Supports Encounter Details Date Type Department Care Team ([facility] Contact Info) Description 03/23/2025 Patient Outreach [facility] [address] [place] [address] Rk Brooks Recovery Supports Social History Tobacco Use Types [...] as of this encounter Progress Notes * Rk Brooks - 03/23/2025 2:15 PM EDT I met with Evonne today. Setting: in person at [facility] Recovery Wellness Goals worked on: Social Stability Action taken/next steps: Attended alcohol and drug free activity Additional comments: Rk Brooks documented in this encounter Plan of Treatment Upcoming Encounters Date Type Department Care Team (Late st Contact Info) Description 04/06/2025 10:30 AM EDT Office Visit [facility] [address] [place] [address] Gary Jay MD [address] [place] [address] 04/20/2025 10:30 AM EDT Office Visit [facility] [address] [place] [address] Gary Jay MD [address] [place] [address] 07/15/2025 9:30 AM EST Office Visit [facility] OPT[facility]ETRY [address] [place], [place] [phone] Evonne Araujo, OD [address] [place] [address] documented as of this encounter Visit Diagnoses Not on filedocumented in this encounter Additional Health Concerns Assessment Noted Time PHQ-9 Depression Total Score: 13 025 9:50 AM EDT documented as of this encounter Care Teams Corporate Claims Examiner Relationship Specialty Start Date End Date Lucía Crawford ANP [address] [place] [address] PCP - General Family Medicine 06/12/23 documented as of this encounter
== END 2025-03-24 11:17 | disposition home or self-care (01) ==
LOC: HO.LNP 11:16
PROVIDERS: Visit Provider Advanced Practice Midwife
DX: Z12.4 Encounter for screening for malignant neoplasm of cervix (principal); R10.20 Pelvic and perineal pain unspecified side
CPT/HCPCS: 87626; 88175

== ENCOUNTER 2025-03-31 09:14 | Outpatient (REF) | payer MEDICAID, SELFPAY ==
[2025-03-31 11:42] LABS: MANUAL DIFF FLAG NO
[2025-03-31 11:46] LABS: Hematocrit 38.1 % (37.0-47.0); Hemoglobin 12.8 g/dl (12.0-16.0); Imm Gran Abs Auto 0.04 X10*3/uL (0.00-0.03); Imm Gran Pct Auto 0.4 % (0.0-0.4); Lymphocytes Absolute Auto 3.3 X10*3/uL (1.2-4.9); Mean Corpuscular HGB Conc 33.6 g/dl (31.0-35.0); Mean Corpuscular Hemoglobin 30.3 pg (27.0-33.0); Mean Corpuscular Volume 90.3 fL (80.0-98.0); NRBC Abs Auto 0.000 X10*3/uL (0.0-0.012); NRBC Pct Auto 0.0 /100WBC (0.0-0.2); Platelet Count 367 X10*3/uL (160-400); Red Blood Count 4.22 X10*6/uL (4.20-5.50); White Blood Count 9.8 X10*3/uL (4.8-10.8)
== END 2025-03-31 09:15 | disposition home or self-care (01) ==
LOC: HO.HHCL 09:14
PROVIDERS: PCP Internal Medicine; Visit Provider Internal Medicine
DX: L50.9 Urticaria, unspecified (principal); J45.21 Mild intermittent asthma with (acute) exacerbation
CPT/HCPCS: 36415; 82785; 85025

== ENCOUNTER 2025-04-16 09:24 | Outpatient (REF) | payer MEDICAID, SELFPAY ==
--- NOTE | ~2025-04-16 | CT_ITS ---
EXAMINATION: CT FACIAL BONES WITHOUT CONTRAST CLINICAL INFORMATION: Old nasal fracture with ongoing facial pain. COMPARISON: None available. TECHNIQUE: Contiguous axial images through the maxillofacial bones using 2 mm collimation with bone and soft tissue algorithm. Sagittal and coronal reformatted images acquired. DLP: [address] examination was performed using dose optimization techniques as appropriate, variously including the following: *Automated exposure control *Adjustment of mA and/or kV according to patient size (this includes techniques or standardized protocols for targeted exams where dose is matched to indication/reason for exam; i.e. extremities or head) *Use of iterative reconstruction technique FINDINGS: Nasal bones, nasal septum and vomer are intact. Orbital rims, orbital fissures and orbital apices are intact. Zygomatic arcs are intact. Maxilla and pterygoid plates are intact. Mandible is intact. No lytic or blastic lesions. Intraconal and extraconal compartments of the orbits demonstrate no gross masses or fluid collections. The eyeballs are intact. Polypoid mucosal thickening throughout the paranasal sinuses without gross air-fluid levels. There is a 4.4 mm loose bone fragment of likely root versus root canal fragment material of the left second maxillary molar dislodged in the inferior left maxillary sinus. Cecilia bullosa, left middle turbinate. Nasal septum is midline. Nasal cavity and vestibule are patent. Skin defect in the left nostril. Temporomandibular joints are intact. Videan canal type III, bilaterally. Foramen rotundum and foramen ovale are intact. Pneumatized right pterygoid recess and anterior left clinoid processes. Tympanic cavities and mastoid cells are aerated. Incomplete fusion of the ethmoid artery notch. . CT/CT facial bones wo IV con IMPRESSION: Concerning 4.4 mm tooth fragment versus root canal material dislodged inferior left maxillary sinus with associated mucosal thickening. Odontogenic sinusitis should be considered. Polypoid paranasal sinus disease. Electronically signed by: Miguel Boyer MD 04/16/2025 10:28 AM EDT
--- OUTSIDE RECORDS SUMMARY | 2025-04-16 10:16 | XMS_ITS | Clinical Summary ---
Author Organization [facility] Address [address] [place] [address] Care Team Providers Care Life Claims Examiner Name Role Phone Eriberto Santos MD Primary Care Provider Source Comments PLEASE NOTE, if this patient [...] Diagnosed Date Adnexal cyst 10/16/2017 Overview (10/16/2017): [facility] 09/30/17 Impression: Adnexal cyst,menorrhagia with irregular cycle,pelvic pain;HTN, unspecified type,urinary tract infection,without hematuria, site unspecified. Immunizations Immunization Administration Dates Next Due Hep B, Adult/Adol ([id number]/RECOMBIVAX-AD ULT) 01/05/2002 PNEUMOCOCCAL POLYSACCHARIDE PPV23 (Pneumovax 23) [...] 03/28/2020 10:38 AM EDT Plan of Treatment Health Maintenance Due Date [...] exists Depression Annual Screen 06/24/2024 09/29/2018, 0409/2017 [id number] ( season) 2025 Imm-Influenza (#1) 2025 05/31/2024 [...] 1 AND 2 ANTIBODY SCREEN NEGATIVE NEGATIVE [facility] Comment: This assay is a 4th [...] AM EDT 09/25/2017 10:22 AM EDT Narrative [facility] - 09/25/2017 1:43 [place] [address] PT ID [id number] ORD# [id number] Eriberto Santos MD LAB - [place] [address], * COMPRE METAB PANEL future (09/25/2017 10:11 AM EDT) GLUCOSE 91 70 - 100 mg/dL [facility] Comment:Reference range appl icable to fasting specimens only BUN 11 5 - 25 mg/dL [facility] CREAT 0.84 0.5 - 1.1 mg/dL [facility] GLOMERULAR FILTRATION RATE > 60 [facility] Comment: If patient is -[place], multiply result by 1.21 Chronic Kidney Disease: < 60 ml/min/1.73 square meters Kidney Failure: < 15 ml/min/1.73 square meters SODIUM 138 133 - 145 mmol/L [facility] POTASSIUM 4.2 3.5 - 5.5 mmol/L [facility] CHLORIDE 106 96 - 110 mmol/L [facility] CO2 26 21 - 32 mmol/L [facility] ANION GAP 6 3 - 11 [facility] CALCIUM 9.0 8.5 - 10.5 mg/dL [facility] TOTAL PROTEIN 7.4 6.0 - 8.0 G/dL [facility] ALBUMIN 3.8 3.2 - 5.0 G/dL [facility] BILI, TOTAL 0.7 0.0 - 1.4 mg/dL [facility] SGOT 19 10 - 42 U/L [facility] SGPT 26 10 - 60 U/L [facility] ALK PHOS 81 42 - 121 U/L [facility] Blood specimen (specimen) Blood / Unknown 09/25/2017 10:11 AM EDT 09/25/2017 10:22 AM EDT [facility] - 09/25/2017 12:55 PM EDT [facility] [employer] [address] [place] [address] PT ID [id number] ORD# [id number] Eriberto Santos MD LAB - BLOOD DRAW Final Result [facility] [address] [place] [address], from Last 3 Months or Most Recently Relevant to Health Maintenance Insurance [employer] [facility] [employer] Care Teams Life Claims Examiner Relationship Specialty Start Date End Date Eriberto Santos MD [address] [place] [phone] PCP - General Internal Medicine 07/17/17
--- OUTSIDE RECORDS SUMMARY | 2025-04-16 10:16 | XMS_ITS | Encounter Summary ---
Author Organization [employer] Address 75 [facility] 7t [place] [address] Care Team Providers Care Site Supervising Technical Operator Name Role Phone Crawford Lucía SEALS Primary Care Provider [phone] Encounter Details Date Type Department Care Team ([facility] Contact Info) Description 12/24/2023 Orders Only [facility] [address] [place] [address] Dunia Gee MD [address] [place] [address] Social History Tobacco Use Types Packs/Day Years [...] Care Team (Late st Contact Info) Description 04/20/2025 10:30 AM EDT Office Visit [facility] [address] [place] [address] Gary Jay MD [address] [place] [address] 07/15/2025 9:30 AM EST Office Visit [facility] [address] [place] [address] [place], [place] [phone] Evonne Araujo, OD [address] [place] [address] documented as of this encounter Visit Diagnoses Not on filedocumented in this encounter Additional Health Concerns Assessment Noted Time PHQ-9 Depression Total Score: 23 023 1:35 PM EDT documented as of this encounter Care Teams Site Supervising Technical Operator Relationship Specialty Start Date End Date Lucía Crawford ANP [address] [place] [address] PCP - General Family Medicine 06/12/23 documented as of this encounter
--- OUTSIDE RECORDS SUMMARY | 2025-04-16 10:17 | XMS_ITS | Encounter Summary ---
Author Organization [employer] Address [address] [place] [address] 7t [place] [address] Care Team Providers Care Health Advisor Name Role Phone Lucía Crawford Primary Care Provider [phone] Reason for Visit * Reason Comments Med Refill Encounter Details Date Type Department Care Team ([facility] Contact Info) Description 05/30/2023 Refill [facility] [address] [place] [address] Gary Jay MD [address] [place] [address] Social History Tobacco Use Types Packs/Day Years [...] Description 04/20/2025 10:30 AM EDT Office Visit [facility] [address] [place] [address] Gary Jay MD [address] [place] [address] 07/15/2025 9:30 AM EST Office Visit [facility] [address] [place] [address] Evonne Araujo, OD [address] [place] [address] documented as of this encounter Visit Diagnoses Not on filedocumented in this encounter Additional Health Concerns Assessment Noted Time PHQ-9 Depression Total Score: 23 023 1:35 PM EDT documented as of this encounter Care Teams Health Advisor Relationship Specialty Start Date End Date Lucía Crawford ANP [address] [place] [address] PCP - General Family Medicine 06/12/23 documented as of this encounter
--- OUTSIDE RECORDS SUMMARY | 2025-04-16 10:17 | XMS_ITS | Encounter Summary ---
Author Organization [employer] Address 75 [facility] [place] [address] Care Team Providers Care Vat Packer Name Role Phone Lucía Crawford Primary Care Provider [phone] Reason for Referral * Consultation (Routine) - Authorized Specialty Diagnoses / Procedures Referred By Contarnaud t Referred To Contact Rheumatology Diagnoses Positive VENESSA (antinuclear antibody) Polyarthralgia Lucía Crawford ANP [address] [place] [address] Phone: tel: fax: [facility] [address] [place] [address] Phone: tel: fax: Referral ID Status Reason Start Date Expiration Date Visits Requested Visits Authorized [id number] Authorized Specialty Services Required 03/15/2025 03/15/2026 12 12 Encounter Details Date Type Department Care Team (Latest Contact Info) Description 03/09/2025 Results Follow-Up [facility] [address] [place] [address] Lucía Crawford ANP [address] [place] [address] XR Knee 3 Views Right, VENESSA Screen,IFA, [...] pain, I would recommend you see a nuclear weapons mechanical specialist. I will place the referral. Please call our office if you have any questions. Por favor llame a la oficina si tiene preguntas. Take care, Cu??Lucía hess SENIOR ENGINEERING ASSOCIATE * Result Encounter Note - ARNEL Mckee [...] si tiene preguntas. Take care, Cu??Lucía hess SENIOR ENGINEERING ASSOCIATE documented in this encounter Plan of Treatment Upcoming Encounters Date Type Department Care Team (Late st Contact Info) Description 04/20/2025 10:30 AM EDT Office Visit [facility] [address] [place] [address] Gary Jay MD [address] [place] [address] 07/15/2025 9:30 AM EST Office Visit [facility] [address] [place] [address] Evonne Araujo, OD [address] [place] [address] Scheduled Referrals Name Type Priority Associated Diagnoses [...] documented as of this encounter Care Teams Vat Packer Relationship Specialty Start Date End Date Lucía Crawford ANP [address] [place] [address] PCP - General Family Medicine 06/12/23 documented as of this encounter
--- OUTSIDE RECORDS SUMMARY | 2025-04-16 10:17 | XMS_ITS | Clinical Summary ---
Author Organization [facility] Address [address] [place] [address] Phone Care Team Providers Care Door Repairman Name Role Phone Tracie Varela MD Primary Care Provider [phone] Social History Tobacco Use Types Packs/Day Years [...] topic Insurance MEDICAID - [place] Care Teams Door Repairman Relationship Specialty Start Date End Date Tracie Varela MD [address] [place] [phone] PCP - General 12/01/01
--- OUTSIDE RECORDS SUMMARY | 2025-04-16 10:17 | XMS_ITS | Clinical Summary ---
Author Organization [employer] Address [address] [place] [address] Care Team Providers Care Repairer Name Role Phone Johanna Mcclain ARNEL Primary Care Provider [phone] Allergies Active Allergy Reactions Criticality Noted Date Comments Penicillin G Rash Low 12/18/2024 Oxycodone-Acetaminophen 03/08/2023 Nausea, Vomiting Medications * This document contains information received from the source organization and may not represent a complete record from that organization. Blood Pressure kitIndications:E levated blood pressure reading without diagnosis of hypertension [...] 1 12/31/19 25 Active naltrexone ER (Vivitrol) injectionIndicat ions:Alcohol use disorder, severe, dependence (CMS/HCC) ([facility]) Inject 4 mL (380 mg) into the muscle every 28 (twenty-eight) days. 1.2 each 5 02/24/20 25 Active Drospirenone (Slynd) 4 MG tabletIndication s:Family planning Take 1 tab po daily 84 tablet 3 03/09/20 25 Active nicotine polacrilex (Nicorette) 2 MG gumIndications:T obacco dependence Chew 1 each (2 mg) if needed for smoking cessation. 100 each 3 03/09/20 25 Active Multiple Vitamin (multivitamin) tabletIndication s:Healthcare maintenance Take 1 tablet by mouth Once per day. 90 tablet 3 03/09/20 25 Active albuterol 108 (90 Base) MCG/ACT inhaler Inhale 2 puffs every 6 (six) hours if needed for wheezing. 18 g 1 03/30/20 25 026 Active levocetirizine (Xyzal) 5 MG tablet Take 1 tablet (5 mg) by mouth in the evening. 90 tablet 04/04/20 25 026 Active methylPREDNISolo ne (Medrol Dospak) 4 MG tablets Follow schedule on package instructions 21 tablet 03/30/20 25 025 Hospital, Clinic, or Other Facility Administered Medication Ordered Dose Route Frequency Start Date End Date Status naltrexone ER (Vivitrol) injection 380 mgIndications:Alcoho l use disorder, severe, dependence (CMS/HCC) (HCC) 380 mg IM Once 03/23/2025 03/23/2025 Ended ipratropium-albutero l (Duo-Neb) 0.5-2.5 mg/3 mL nebulizer solution 3 mgIndications:Shortn ess of breath 3 mg NEBULIZATION Once 03/30/2025 03/30/2025 Ended predniSONE (Deltasone) tablet 40 mgIndications:Urtica alejo 40 mg PO Once 03/30/2025 03/30/2025 Ended Active Problems Problem Noted Date Diagnosed Date Urticaria 03/30/2025 Assessment & Plan (03/30/2025 5:04 PM EDT): It seems to be pressure induced urticaria/dermatographism?. Due to associated asthma exacerbation, I will Rx prednisone taper, start with PRD 30 mg today, will follow-up with PCP, may consider Singulair in the long-term. Referred to gas distribution and emergency clerk, some of the asthma symptoms could be triggered by allergies/rule out bronchospasm? Mild intermittent asthma with exacerbation 03/30 Assessment & Plan (03/30/2025 3:34 PM EDT): Rapid viral test are negative today. Albuterol updraft today, continue albuterol inhaler at home every 6-8 hours x 5 days then as needed shortness of breath. PRD 30 mg today, continue Medrol pack Follow-up with PCP PTSD (post-traumatic stress disorder) 02/19/2025 JEFFERSON (generalized [...] is currently connected with a therapist through [facility] and is on wait list for psychiatry within same agency. Pt with medical conditions: arthritis- which leads to increase of sxs. Hand swelling 12/18/2024 Assessment & Plan (12/18/2024 [...] around the great toenail Refer to podiatry Family history of thyroid disease 09/15/2024 Assessment [...] in partial remission, most recent episode depressed ([facility]) 07/07/2024 Cannabis use disorder 06/15/2024 Vaginal discharge 03/16/2024 Assessment & Plan (03/17/2024 6:26 PM EDT): History suggestive of BV. Pt opts for self swab and to treat presumptively. Rx sent, pt is scheduled for nexplanon removal tomorrow. Tobacco dependence 04/19/2023 Assessment & Plan (12/18/2024 1:42 PM EDT): Pt motivated to quit smoking may be contributing to pharyngitis Cocaine use, unspecified, in remission Alcohol dependence with withdrawal 03/08/2023 Assessment & [...] PLAN: 1. Follow up with [facility]: Recommended for follow-up: during Obat appts 2. Patient goal is improve mental health, and become sober 3. Behavioral Recommendations a. Keeping Ind. Therapy with LWALBERTO b. Keeping AUD appt with Dr. Misty valenzuela [facility]. [facility] contact number for extra support [...] PLAN: 1. Follow up with [facility]: Recommended for follow-up: during AUD appts 2. Patient goal is to become sober and improve mental health 3. Behavioral Recommendations a. Ind. Therapy, referral will be submitted b. Margarine Churn Operator, referral will be submitted c. Use of coping skills as provide d. Engage in AA meetings for support Resolved Problems Problem Noted Date Diagnosed Date Resolved Date Tobacco use 03/09/2025 03/09/2025 Sore throat 12/18/2024 03/30/2025 Assessment & Plan (12/18/2024 1:44 PM EDT): Likely allergies, and smoking, Neg rapid strep no fever Streptococcal pharyngitis 09/15/2024 Assessment & Plan (09/15/2024 1:47 PM EDT): -rapid strep positive -amoxicillin 500mg bid for 10 days -droplet precautions discussed -supportive care discussed Throat discomfort 09/15/2024 03/30/2025 Assessment & Plan (09/15/2024 1:47 PM EDT): Reports throat discomfort , dysphagia and change in voice ongoing for many years. Family history of thyroid disease. -referred to ENT 09/15/24 Moderate major depression (CMS/HCC) 03/08/2023 09/15/2024 Assessment [...] PLAN: 1. Follow up with [facility]: Recommended for follow-up: with Salomón for [...] PLAN: 1. Follow up with [facility]: Recommended for follow-up: during OBAT appts 2. Patient goal is become sober and improve mental health 3. Behavioral Recommendations a. Ind. Therapy, referral submitted on 03/08/23 b. Use of coping skills provided as recommended c. Maintain engagement with -MR d. [facility] contact number for support Assessment [...] PLAN: 1. Follow up with [facility]: Recommended for follow-up: during AUD appts 2. Patient goal is to become sober and improve mental health 3. Behavioral Recommendations a. Ind. Therapy, referral will be submitted b. Margarine Churn Operator, referral will be submitted c. Use of coping skills as provide d. Engage in meetings for support Severe anxiety 03/08/2023 02/19/2025 Encounters * This document contains information received from the source organization and may not represent a complete record from that organization. Date Type Department Care Team Description 04/05/[address] [address] Johanna Mcclain, ANP Results 04/03/2025 Results Follow-Up [address] [address] Venessa Bush MD Immunoglobulin E, CBC auto differential 03/31/2025 9:00 AM EDT Office Visit [address] [address] Keon Wolf MD Alcohol use disorder, severe, dependence (CMS/HCC) (HCC) (Primary Dx) 03/31/2025 Travel 03/30/2025 1:00 PM EDT Office Visit [facility] [address] [place] [phone] Venessa Bush MD Urticaria (Primary Dx); Mild intermittent asthma with exacerbation; Shortness of breath 03/30/2025 Patient Outreach [address] [address] Jamin Montes Recovery Supports 03/30/2025 Travel 03/29/2025 Results Follow-Up [address] [address] Ananda Kwon CNM Pap Smear 03/24/2025 10:30 AM EDT Procedure Visit [address] [address] Ananda Kwon CNM Cervical cancer screening (Primary Dx); Pelvic pain; Stress incontinence 03/24/2025 Orders Only [address] [address] Ananda Kwon CNM 03/24/2025 Travel 03/23/2025 10:30 AM EDT Office Visit [address] [address] Gary Jay MD Alcohol use disorder, severe, dependence (CMS/HCC) (Primary Dx); Tobacco dependence 03/23/2025 Telephone [facility] [address] [place] [phone] Charley Bucio MA 03/23/2025 Patient Outreach [address] [address] Rk Brooks Recovery Supports 03/23/2025 Travel 03/16/2025 Patient Outreach [address] [address] SimonJamin Recovery Supports 03/16/2025 Travel 03/15/2025 Patient Outreach [address] [address] Walter Prasad Recovery Supports 03/09/2025 9:45 AM EDT Office Visit [address] [address] Johanna Mcclain ANP Healthcare maintenance (Primary Dx); Polyarthralgia; Family planning; Tobacco dependence; JEFFERSON (generalized anxiety disorder); Arthritis of both hands; Chronic pain of right knee; History of fracture of nasal bone; Nasal congestion; Need for HPV vaccination 03/09/2025 Patient Outreach [address] [address] Montes, Jamin 03/09/2025 Patient Outreach [address] [address] Rk Brooks Recovery Supports 03/09/2025 Patient Outreach [address] [address] Simon [place] 03/09/2025 Results Follow-Up [address] [address] Johanna Mcclain ANP XR Knee 3 Views Right, VENESSA Screen,IFA, with Reflex to Titer and Pattern, Cyclic Citrullinated Peptide (CCP) Antibody (IgG) 03/09/2025 Travel 03/08/[address] [address] Johanna Mcclain ANP chart prep 03/03/2025 11:30 AM EDT Office Visit [address] [address] Gary Jay MD Alcohol use disorder, severe, dependence (CMS/HCC) (Primary Dx) 03/03/2025 9:00 AM EDT Office Visit [address] [address] Keon Wolf MD Alcohol use disorder, severe, dependence (CMS/HCC) (Primary Dx) 03/03/2025 Travel 03/01/2025 Patient Outreach [address] [address] Williams Fisher Recovery Supports 03/01/2025 Patient Outreach [address] [address] Johanna Mcclain ANP Pre-visit Planning (SDOH screening was completed on 11/19/2024) 02/25/2025 9:40 AM EDT Office Visit [facility] [address] [place] [phone] Dunia Gee MD Intermittent palpitations (Primary Dx); Induration at injection site; Elevated blood pressure reading 02/25/2025 Patient Outreach [address] [address] Williams Fisher Recovery Supports 02/25/2025 Travel 02/25/[address] [address] Latasha Boyce, miter grinder operator 02/24/2025 Orders Only [address] [address] Selina Denis RN Alcohol use disorder, severe, dependence (CMS/HCC) 02/23/2025 10:30 AM EDT Office Visit [address] [address] Gary Jay MD Alcohol use disorder, severe, dependence (CMS/HCC) (Primary Dx) 02/23/2025 Patient Outreach [address] [address] Rk Brooks Recovery Supports 02/23/2025 Travel 02/01/2025 Patient Outreach [facility] [address], [place] [phone] Johanna Mcclain ANP Pre-visit Planning (SDOH unable to reach M) 01/18/[address] [address] Ananda Kwon, ASHVIN March recall from Last 3 Months Immunizations Immunization Administration [...] housing situation today? I have erlinalex rondon 11/19/[address] you [...] Sign Reading Time Taken Comments Blood Pressure 128/81 03/30/2025 11:08 AM EDT Pulse 71 03/30/2025 11:08 AM EDT Temperature 36.8 C (98.3 F) 03/30/2025 11:08 AM EDT Respiratory Rate 20 03/30/2025 11:08 AM EDT Oxygen Saturation 97% 03/30/2025 11:08 AM EDT Inhaled Oxygen Concentration - - Weight 62.8 kg (138 lb 6.4 oz) 03/24/2025 10:43 AM EDT Height 172.7 cm (5' 8 ) 03/09/2025 9:43 AM EDT Body Mass Index 21.04 03/09/2025 9:43 AM EDT Plan of Treatment Upcoming Encounters Date Type Department Care Team (Late st Contact Info) Description 04/20/2025 10:30 AM EDT Office Visit [facility] [address] [place] [address] Gary Jay MD [address] [place] [address] 07/15/2025 9:30 AM EST Office Visit [facility] [address] [place] [address] Evonne Araujo, OD [address] [place] [address] Health Maintenance Due Date Last Done Comments HPV Vaccines (1 - 3-dose series) 09/19/2002 Pneumococcal Vaccine: Pediatrics (0 to 5 Years) and At-Risk Patients (6 to 49) Years (2 of 2 - PCV) 09/25/2018 09/25/2017 COVID-19 Vaccine (3 - 2024-2 6 season) 2025 11/24/2020, 10/26/2020 Influenza Vaccine (#1) 2025 05/31/2024 Depression Monitoring 08/29/2025 03/01/2025 , 03/01/2025 SDOH Screening 11/19/2025 11/19/2024 Alcohol/Substance Use Screening 12/30/2025 12/30/2024 Disability Screening 12/30/2025 12/30/2024 Family Planning (PISQ) 03/24/2026 03/24/2025 Tobacco Screening 03/24/2026 03/24/2025 Cervical Cancer Screening 03/24/2028 HPV/Cotest 03/24/2028 03/24/2025, 03/24/2024 Pap Smear 03/24/2028 03/24/2025, 03/24/2024 Lipid Panel 12/30/2029 12/30/2024, 06/07/2023 DTaP/Tdap/Td Vaccines [...] Procedure Name Priority Date/Time Associated Diagnosis Comments CBC WITH AUTO DIFFERENTIAL Routine 03/31/2025 9:28 AM EDT Urticaria Mild intermittent asthma with exacerbation IMMUNOGLOBULIN E Routine 03/31/2025 9:28 AM EDT Urticaria Mild intermittent asthma with exacerbation POCT COVID-19 AG STEWART ID NOW Routine 03/30/2025 11:37 AM EDT Shortness of breath POCT INFLUENZA A (ID NOW RAPID MOLECULAR) Routine 03/30/2025 11:37 AM EDT Shortness of breath POCT INFLUENZA B (ID NOW RAPID MOLECULAR) Routine 03/30/2025 11:37 AM EDT Shortness of breath PAP SMEAR Routine 03/24/2025 4:15 PM EDT Cervical cancer screening HPV DNA, LOW/HIGH RISK Routine 4:15 PM EDT POCT BHAKTI-14 URINE DRUG SCREEN Routine 03/23/2025 [...] Routine 12/30/2024 1:12 PM EDT Healthcare maintenance HEPATITIS PANEL, GENERAL Routine 11/04/2024 3:17 PM EDT Arthritis of both hands HIV 1/2 ANTIGEN/ANTIBODY, FOURTH GENERATION W/RFL Routine 03/16/2024 2:04 PM EDT Vaginal discharge from Last 3 Months or Most Recently Relevant to Health Maintenance Results * (ABNORMAL) CBC auto differential (03/31/2025 9:28 AM EDT) White Blood Count 9.8 4.8 - 10.8 X10*3/uL [facility] Red Blood Count 4.22 4.20 - 5.50 X10*6/uL [facility] Hemoglobin 12.8 12.0 - 16.0 g/dl [facility] Hematocrit 38.1 37.0 - 47.0 % [facility] Mean Corpuscular Volume 90.3 80.0 - 98.0 fL [facility] Mean Corpuscular Hemoglobin 30.3 27.0 - 33.0 pg [facility] Mean Corpuscular HGB Conc 33.6 31.0 - 35.0 g/dl [facility] Red Cell Distribution Width 13.0 11.0 - 16.0 % [facility] Platelet Count 367 160 - 400 X10*3/uL [facility] Mean Platelet Volume 9.3(L) 9.4 - 12.3 fL [facility] Neutrophils Percent Auto 46.5 45 - 73 % [facility] Imm Gran Pct Auto 0.4 0.0 - 0.4 % [facility] Lymphocytes Percent Auto 34.0 20 - 40 % [facility] Monocytes Percent Auto 4.6 2 - 11 % [facility] Eosinophils Percent Auto 14.2(H) 0 - 4 % [facility] Basophils Percent Auto 0.3 0 - 2 % [facility] NRBC Pct Auto 0.0 0.0 - 0.2 /100WBC [facility] Neutrophils Absolute Auto 4.5 2.0 - 8.3 x10*3/uL [facility] Imm Gran Abs Auto 0.04(H) 0.00 - 0.03 X10*3/uL [facility] Lymphocytes Absolute Auto 3.3 1.2 - 4.9 X10*3/uL [facility] Monocytes Absolute Auto 0.5 0.1 - 1.2 X10*3/uL [facility] Eosinophils Absolute Auto 1.4(H) 0.0 - 0.4 X10*3/uL [facility] Basophils Absolute Auto 0.0 0.0 - 0.2 X10*3/uL [facility] NRBC Abs Auto 0.000 0.0 - 0.012 X10*3/uL [facility] Blood Venous blood specimen / Unknown 03/31/2025 9:28 AM EDT 03/31/2025 11:37 AM EDT Venessa Bush MD LAB BLOOD ORDERABLES Fin al Result [facility] [address] [place] [phone] * (ABNORMAL) Immunoglobulin E (03/31/2025 9:28 AM EDT) Immunoglobulin E 3349(A) <FP=753 kU/L [facility] Comment:THIS TEST WAS PERFOR MED AT:[employer] [place] [id number] REYNOSO MD Blood Venous blood specimen / Unknown 03/31/2025 9:28 AM EDT 03/31/2025 11:24 AM EDT Venessa Bush MD LAB BLOOD ORDERABLES Fin al Result Performing Organization Address [facility]/ZIP Co de Phone Number [facility] [address] [place] [phone] * Influenza B (ID NOW Rapid Molecular) (03/30/2025 11:37 AM EDT) Influenza B Negative Negative, Indeterminate [facility] Swab 03/30/2025 11:3 7 AM EDT Sp Pollack MD POINT OF CARE TEST ENTER/EDIT OR DERABLES Final Result Performing Organization Address [facility] Co de Phone Number [facility] [address] [place] [phone] * Influenza A (ID NOW Rapid Molecular) (03/30/2025 11:37 AM EDT) Influenza A Negative Negative, Indeterminate [facility] Swab 03/30/2025 11:3 7 AM EDT Sp Pollack MD POINT OF CARE TEST ENTER/EDIT OR DERABLES Final Result Performing Organization Address [facility] de Phone Number [facility] [address] [place] [phone] * POCT COVID-19 Ag Stewart ID NOW (03/30/2025 11:37 AM EDT) Pathologist [facility] Coronavirus Antigen PCR Negative Negative, Indeterminate, None Detected, Invalid, Specimen unsatisfactory for evaluation, Weakly Positive, 2+ Swab 03/30/2025 11:3 7 AM EDT Sp Pollack MD POINT OF CARE TEST ENTER/EDIT OR DERABLES Final Result * HPV DNA, Low/High Risk (03/24/2025 4:15 PM EDT) HPV High Risk Negative Negative [facility] HPV Genotype 16 Negative Negative [facility] HPV Genotype 18 Negative Negative [facility] Comment:HPV testing performe d at [facility] (CLIA#[id number]), [address] [place] [id number].Testing for HPV was performed using the Harinder DAVID 6800system. The presence of HPV in the female genital tract isassociated with a number of diseases, including cervicalcarcinoma. The HPV DNA high risk pool tests for HPV 31, 33,35, 39, 45, 51, 52, 56, 58, 59, 66 and 68. The testing forHPV 16 and 18 genotypes has also been performed. A positiveresult indicates detection of nucleic acid sequences fromone or more subtypes, whereas a negative result indicatessuch sequences were not detected. 03/24/2025 4:15 PM EDT 03/25/2025 7:25 AM EDT Ananda PATRICIA LAB BLOOD ORDERABLES Roxie l Result [facility] [address] [place] [phone] * Pap Smear (03/24/2025 4:15 PM EDT) Swab Cervix uteri structure / Unknown 03/24/2025 4:15 PM EDT 03/25/2025 7:25 AM EDT Narrative [facility] - 03/29/2025 1:49 PM EDT ----- ------- Name: Karen Zapataica Age/Sex: 39/F : 1985 Unit#: [id number] Attend Dr: ANANDA KWON CNM Re03/24/25 Status: [facility] Disch: ----- ------- SPEC : [id number] RECD: 03/25/25 STATUS: CORWIN PEREZ NUM: [id number] MOHAMUD: 03/24/[address] [facility] [address]: ANANDA KWON CNM ENTERED: 03/25/25 SP TYPE: Pap Smr OTHR DR: ORDERED: Pap Smear Interpretation Satisfactory for evaluation. Negative for intraepithelial lesion or malignancy. No endocervical cells seen. HPV High Risk: Negative HPV Genotyping 16: Negative HPV Genotyping 18: Negative Clinical Information LMP: Unknown date Previous PAP test: 2023, WNL Other history: Cervical cancer screening Material Received ThinPrep-Vaginal/Cervical PAP Disclaimer As of April 15, 2024, the technical services to include automated prescreening performed by the ThinPrep Imaging System, PAP screening and HPV testing will be performed at [facility] (CLIA #[id number]), [address] [place] [address]. Testing for HPV was performed using the Harinder DAVID 6800 system. The presence of HPV in the female genital tract is associated with a number of diseases, including cervical carcinoma. The HPV DNA high risk pool tests for HPV 31, 33, 35, 39, 45, 51, 52, 56, 58, 59, 66 and 68. The testing for HPV 16 and 18 genotypes has also been performed. A positive result indicates detection of nucleic acid sequences from one or more subtypes, whereas a negative result indicates such sequences were not detected. All professional services are performed by [facility] ([address] [place] [phone]; ; CLIA #[id number]). The PAP Test is a screening procedure with the inherent possibility of both false negative and false positive results. Results should be interpreted in the context of historic and current clinical findings. Reliability of the PAP Test is enhanced by performing the test on a regular repetitive basis. CONTINUED ON NEXT PAGE ----- ------- Name: Evonne Zapata Age/Sex: 39/F : 1985 Unit#: [id number] Attend Dr: ANANDA KWON CNM Re03/24/25 Status: [facility] REF Location: [facility] Disch: ----- ------- SPEC : [id number] RECD: 03/25/25 STATUS: CORWIN PEREZ NUM: [id number] MOHAMUD: 03/24/[address] [facility] [address]: ANANDA KWON CNM ENTERED: 03/25/25 SP TYPE: Pap [place] SUAZO DR: ORDERED: Pap Smear ----- ------- Signed (signature on file) KEN Sy ([facility]) 03/29/25 1349 ----- ------- END OF REPORT us Ananda Kwon [facility] CYTOLOGY ORDERABLES F inal Result [facility] [address] [place] [phone] * (ABNORMAL) POCT BHAKTI-14 Urine Drug Screen [...] PM EDT Narrative 03/09/2025 12:35 PM EDT [address] [address] XRay Report Signed Patient: Evonne Zapata MR#: [id number] : 1985 Acct:[id number] Age/Sex: 39 / F ADM Date: 03/09/25 Loc: [facility] Attending Dr: Johanna Mcclain NP Ordering Physician: JOHANNA MCCLAIN NP Date of Service: 03/09/25 Procedure(s): XR knee RT 3V Accession Number(s): [id number] cc: JOHANNA MCCLAIN NP Reason for Exam: [...] 03/09/25 1233 DD/ 1226 TD/TT: 03/09/25 1227 Cooking Appliance Repair Technician: Procedure Note Donotuseinterpreter, Image - 03/09/2025 [place] [address] XRay Report Signed Patient: Evonne ZapataMR#: [id number] : 1985Acct:[id number] Age/Sex: 39 / FADM Date: 03/09/25 Loc: [facility] Attending Dr: Johanna Mcclain NP Ordering Physician: JOHANNA MCCLAIN NP Date of Service: 03/09/25 Procedure(s): XR knee RT 3V Accession Number(s): [id number] cc: JOHANNA MCCLAIN NP Reason for Exam: [...] 03/09/25 1233 DD/ 1226 TD/TT: 03/09/25 1227 Cooking Appliance Repair Technician: us Johanna SEALS IMG XR PROCEDURES Edited Result - Final * Cyclic Citrullinated Peptide (CCP) Antibody (IgG) (03/09/2025 11:20 AM EDT) Cyclic Citrullinated Peptide <16 UNITS [facility] Comment:Reference RangeNegat teri: <20Weak Positive: 20-39Moderate Positive: 40-59Strong Positive: >59THIS TEST WAS PERFORMED AT:[facility] [facility] [address] [id number] REYNOSO MD Blood Venous blood specimen / Unknown 03/09/2025 11:20 AM EDT 03/09/2025 1:13 PM EDT us Johanna SEALS LAB BLOOD ORDERABLES Final Resul t [facility] [address] [place] [phone] * (ABNORMAL) VENESSA Screen,IFA, with Reflex to Titer and Pattern (03/09/2025 11:20 AM EDT) Anti Nuclear Antibody Screen POSITIVE (A) NEGATIVE [facility] Comment:VENESSA IFA is a first l ine screen for detecting thepresence of up to approximately 150 autoantibodies invarious autoimmune diseases. A positive VENESSA IFA resultis suggestive of autoimmune disease and reflexes totiter and pattern. Further laboratory testing may beconsidered if clinically indicated.For additional information, please refer tohttp://education.Nekst/faq/RCB140(This link is being provided for informational/educational purposes only.) VENESSA Titer 1:80(A) titer [facility] Comment:A low level VENESSA tite r may be present in pre-clinicalautoimmune diseases and normal individuals. Reference Range <1:40 Negative 1:40-1:80 Low Antibody Level >1:80 Elevated Antibody Level VENESSA Pattern Nuclear, Speckled (A) [facility] Comment:Speckled pattern is associated with mixed connectivetissue disease (MCTD), systemic lupus erythematosus(SLE), Sjogren's syndrome, dermatomyositis, andsystemic sclerosis/polymyositis overlap.AC-2,4,5,29: SpeckledInternational Consensus on VENESSA Patterns(https://doi.org/10.1515/zqih-5779-6139)THIS TEST WAS PERFORMED AT:[facility] [address] [id number] REYNOSO MD VENESSA TITER 2 (REF LAB) [facility] Pattern 2 [facility] TITER 3 [facility] PATTERN 3 [facility] Blood Venous blood specimen / Unknown 03/09/2025 11:20 AM EDT 03/09/2025 1:13 PM EDT us Johanna [facility] BLOOD ORDERABLES Final Resul t [facility] [address] [place] [address] [phone] * ECG 12 lead (03/08/2025 7:02 AM EDT) Narrative Dunia Gee MD - 03/08/2025 7:02 AM EDT NSR Dunia Gee MD ECG ORDERABLES Final Resu lt * POCT alcohol breath test manually resulted (02/23/2025 11:03 AM EDT) Breath Alcohol 0.02 Breath 02/23/2025 11:0 3 AM EDT Gary Jay MD POINT OF CARE TEST ENTER/EDIT ORDERABLES Final Result * Lipid Panel, Standard (12/30/2024 1:12 PM EDT) Triglycerides 85 <150 mg/dL [facility] Comment:Desirable Triglyceri de: less than 150 mg/dLBorderline High Triglyceride 150-199 mg/dLHigh Triglyceride: 200-499 mg/dLVery High Triglyceride: greater than or equal to 5OO mg/dL Cholesterol 167 <200 mg/dL [facility] Comment:Desirable Cholestero l: less than 200 mg/dLBorderline High Cholesterol: 200-239 mg/dLHigh Cholesterol: greater than 239 mg/dL LDL Cholesterol Calculated 80 <100 mg/dL [facility] Comment:Desirable LDL: less than 100 mg/dLNear Optimal/Above Optimal LDL: 110- 129 mg/dLBorderline High LDL: 130-159 mg/dLHigh LDL: 160-189 mg/dLVery High LDL: greater than or equal to 190 mg/dL HDL Cholesterol 70 >40 mg/dL [facility] Comment:Desirable HDL: great er than 40 mg/dL Note: This HDL assay may give artificially low results in patients with liver disease. Blood Venous blood specimen / Unknown 12/30/2024 1:12 PM EDT 12/30/2024 4:17 PM EDT Adrianna Barnett [employer] LAB BLOOD ORDERABLES Final Res ult [facility] [address] [place] [phone] * Hepatitis Panel, General (11/04/2024 3:17 PM EDT) Hepatitis A IgM Nonreactive Nonreactive [facility] Comment:IgM antibodies to LLAMAS V not detected; does not exclude earlyacute or recovered HAV infection. ~Hepatitis B Surface Antibody REACTIVE Nonreactive [facility] Comment:REACTIVE: > 11.99 mI U/mL Hepatitis B Core Antibody Nonreactive Nonreactive [facility] Hepatitis C Antibody Nonreactive Nonreactive [facility] Comment:Antibodies to HCV no t detected; does not exclude early acuteHCV infection. Hepatitis B Surface Ag Negative Negative [facility] Blood 11/04/2024 3:17 PM EDT 11/04/2024 4:11 PM EDT us Venessa Bush MD LAB BLOOD ORDERABLES Fin al Result [facility] [address] [place] [phone] * HIV-1/2 Antigen and Antibodies, Fourth Generation, with Reflexes (03/16/2024 2:04 PM EDT) HIV AB/AG Nonreactive Nonreactive [facility] Comment:HIV-1 p24 Ag and/or HIV-1/HIV-2 Ab not detected.A test result that is nonreactive does not exclude thepossibility of exposure to or infection with HIV-1 and/orHIV-2. Nonreactive results in this assay for individualswith prior exposure to HIV-1 and/or HIV-2 may be due toantigen and antibody levels that are below the limit ofdetection of this assay.The Kasenna HIV Ag/Ab Combo assay result andsupplemental assay results should be interpreted inconjunction with the patient's clinical presentation,history and other laboratory results. If the results areinconsistent with clinical evidence, additional testing issuggested to confirm the result. Blood Venous blood specimen / Unknown 03/16/2024 2:04 PM EDT 03/16/2024 4:53 PM EDT us Martha Graef [employer] LAB BLOOD ORDERABLES Final Resul t [facility] [address] [place] [phone] [phone] from Last 3 Months or Most Recently Relevant to Health Maintenance [facility] Care Teams Repairer Relationship Specialty Start Date End Date Johanna Mcclain ANP [address] [place] [phone] PCP - General Family Medicine 06/12/23
--- OUTSIDE RECORDS SUMMARY | 2025-04-16 10:17 | XMS_ITS | Encounter Summary ---
Author Organization [employer] Address [address] [place] [address] 7 [place] [address] Care Team Providers Care Planning And Analysis Manager Name Role Phone Ty Lucía SEALS Primary Care Provider [phone] Reason for Visit * Reason Onset Date Comments New Patient 04/23/2023 Encounter Details Date Type Department Care Team ([facility] Contact Info) Description 04/23/2023 Telephone [facility] [address] [place] [address] Santo Leon MD [address] [place] [address] New Patient Social History Tobacco Use Types [...] PAR Chris Bain called pt to Offer [employer] G[employer]TER appt. Pt demographics and insurance information were verified. Pt states following medical conditions: YES Pt reports taking medications: Yes ( Would speak with provider) Pt given [facility]UM[employer] GASFITTER appt with DONG Crawford on 06/06/2023 @ 10:30 am. Pt will be sent appt reminder card and medical release form and agrees to complete and to return to medical records prior to PLUMBER GASFITTER appt. documented in this encounter Plan of Treatment Upcoming Encounters Date Type Department Care Team (Late st Contact Info) Description 04/20/2025 10:30 AM EDT Office Visit [facility] [address] [place] [address] Gary Jay MD [address] [place] [address] 07/15/2025 9:30 AM EST Office Visit [facility] [address] [place] [address] Evonne Araujo, OD [address] [place] [address] documented as of this encounter Visit Diagnoses Not on filedocumented in this encounter Additional Health Concerns Assessment Noted Time PHQ-9 Depression Total Score: 23 023 1:35 PM EDT documented as of this encounter Care Teams Planning And Analysis Manager Relationship Specialty Start Date End Date Lucía Crawford ANP [address] [place] [address] PCP - General Family Medicine 06/12/23 documented as of this encounter
--- OUTSIDE RECORDS SUMMARY | 2025-04-16 10:17 | XMS_ITS | Encounter Summary ---
Author Organization [employer] Address [address] [facility] 7t [place] [address] Care Team Providers Care Director Of Strategic Marketing Name Role Phone Lucía Crawford ARNEL Primary Care Provider [phone] Encounter Details Date Type Department Care Team ([facility] Contact Info) Description 03/29/2025 Results Follow-Up [facility] [address] [place] [address] Jada Collins, [facility] [address] [place] [address] Pap Smear Social History Tobacco Use Types Packs/Day Years [...] Description 04/20/2025 10:30 AM EDT Office Visit [facility] [address] [place] [address] Gary Jay MD [address] [place] [address] 07/15/2025 9:30 AM EST Office Visit [facility] [address] [place] [address] Evonne Araujo, YOJANA [address] [place] [address] documented as of this encounter Visit Diagnoses Not on filedocumented in this encounter Additional Health Concerns Assessment Noted Time PHQ-9 Depression Total Score: 13 025 9:50 AM EDT documented as of this encounter Care Teams Director Of Strategic Marketing Relationship Specialty Start Date End Date Lucía Crawford ANP [address] [place] [address] PCP - General Family Medicine 06/12/23 documented as of this encounter
== END 2025-04-16 09:25 | disposition home or self-care (01) ==
LOC: HO.CT 09:24
PROVIDERS: PCP Internal Medicine; Visit Provider Nurse Practitioner Primary Care
DX: R09.81 Nasal congestion (principal); Z87.81 Personal history of (healed) traumatic fracture
CPT/HCPCS: 70486

== ENCOUNTER → 2025-04-16 09:26 | Outpatient (BNV) | payer MEDICAID, SELFPAY | PROVIDERS: PCP Internal Medicine; Visit Provider Radiology Diagnostic Radiology | DX: R09.81 Nasal congestion (principal); Z87.81 Personal history of (healed) traumatic fracture | CPT/HCPCS: 70486 ==

== ENCOUNTER 2025-04-16 11:43 | Outpatient (REF) | payer MEDICAID, SELFPAY ==
[2025-04-17 03:26] LABS: Bacterial Vaginosis PCR POSITIVE (Negative); Candida Group PCR NOT DETECTED (Not Detect); Candida glab krusei PCR NOT DETECTED (Not Detect); Trichomonas vaginalis PCR NOT DETECTED (Not Detect)
[2025-04-17 03:36] LABS: Syphilis Screen Nonreactive (Nonreactive)
[2025-04-17 03:56] LABS: CT PCR NOT DETECTED (Not Detect.); NG PCR NOT DETECTED (Not Detect.)
[2025-04-17 04:12] LABS: HIV Num 1 0.06 S/CO (0.00-0.99); ~HepC Num1 0.10 S/CO (0.00-0.79); ~Hepatitis C Antibody Nonreactive (Nonreactive)
== END 2025-04-16 11:44 | disposition home or self-care (01) ==
LOC: HO.HHCL 11:43
PROVIDERS: Visit Provider Family Medicine
DX: B37.31 Acute candidiasis of vulva and vagina (principal); N89.8 Other specified noninflammatory disorders of vagina; R09.81 Nasal congestion; Z87.81 Personal history of (healed) traumatic fracture; Z20.2 Contact with and (suspected) exposure to infections with a predominantly sexual mode of transmission; Z11.4 Encounter for screening for human immunodeficiency virus [HIV]; Z11.59 Encounter for screening for other viral diseases
CPT/HCPCS: 36415; 81515; 86780; 86803; 87389; 87491; 87591

== ENCOUNTER 2025-06-13 17:10 | Emergency (ER) | payer MEDICAID, SELFPAY ==
--- NOTE | ~2025-06-13 | XR_ITS ---
CLINICAL HISTORY: Fall, Pain 3 view, pelvis and left hip Comparison: None provided Findings: The bones are intact. No significant arthritic change of the hips. The soft tissues are unremarkable. IMPRESSION: No acute fracture. This document has been electronically signed by: Doris Bashir MD on 06/13/2025 18:09:41
[2025-06-13 17:17] VITALS: BP 119/65; PULSE 80; RESP 18; TEMP 36.6; O2SAT 98; BMI 20.2
--- NOTE | 2025-06-13 17:17 | ED_ITS ---
HPI - Fall General Chief Complaint: Fall Stated Complaint: W/C Work injury fell left thigh leg pain Time Seen by Provider: 06/13/25 17:26 Source: patient Mode of arrival: ambulatory Limitations: no limitations History of Present Illness ED Provider: Barb Stephens PA-C HPI Narrative: Patient is a 39 year old female with no reported medical history presenting to the emergency department today with left hip pain. 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 Patient denies any head strike or loss of conciousness with the incident. Patient denies any other complaints at this time. Related Data Home Medications ?Medication ?Instructions ?Recorded ?Confirmed bupropion HCl 100 mg tablet,12 hr 100 mg PO QAM 07/23/23 sustained-release doxepin 25 mg capsule 25 mg PO BEDTIME 07/23/23 famotidine 20 mg tablet 20 mg PO DAILY acid reflux 0 07/23/23 07/23/23 multivitamin 1 tab PO QAM 07/23/23 sertraline 50 mg tablet 50 mg PO DAILY 07/23/2306/26 Previous Rx's ?Medication ?Instructions ?Recorded albuterol sulfate 90 mcg/actuation 2 puff inhalation Q ID PRN 04/09/24 aerosol inhaler shortness of breath or wheez ing #6.7 grams azithromycin 250 mg tablet See Rx Instructions PO .COM PLEX #6 04/09/24 tabs prednisone 20 mg tablet 40 mg (2 x 20 mg) PO DAILY 4 days 04/09/24 #8 tabs ondansetron 4 mg disintegrating 4 mg PO Q8H PRN nausea and 05/27/24 tablet vomiting #10 tabs doxycycline hyclate 100 mg capsule 100 mg PO BID #14 c aps 10/17/24 nitrofurantoin 100 mg PO Q12H 5 days #10 ca ps 10/17/24 monohydrate/macrocrystals 100 mg capsule (Macrobid) Allergies Allergy/AdvReac Type Severity Reaction Status Date / Time amoxicillin Allergy Rash Verified 06/13/25 17:18 oxycodone (From Percocet) Allergy Vomiting Verified 06/13/25 17:18 Review of Systems Constitutional: Constitutional: Reports as per HPI Eyes: Eyes: Reports as per HPI ENT: Reports as per HPI Cardiovascular: Cardiovascular: Reports as per HPI Respiratory: Respiratory: Reports as per HPI Gastrointestinal: Gastrointestinal: Reports as per HPI Genitourinary: Genitourinary: Reports as per HPI Musculoskeletal: Musculoskeletal: Reports as per HPI Integumentary/Breasts: Skin/Breast: Reports as per HPI Neurologic: Reports as per HPI Psychiatric: Psychiatric: Reports as per HPI Endocrine: Endocrine: Reports as per HPI Hematologic/Lymphatic: Hematologic/Lymphatic: Reports as per HPI Allergic/Immunologic: Allergic/Immunologic: Reports as per HPI [facility] Past Medical History Attestation statement: The following information was validated with the patient. Source: old records reviewed and nursing notes reviewed Medical History Acute appendicitis with rupture (07/23/23) Surgical History Hx of appendectomy Social History Social History Household Members: Children Housing: Other Housing Other:: mcc Do you presently have visiting nurse or other home services: No Alcohol intake: current Alcohol intake frequency: 0-2 drinks per day Alcohol type: hard liquor Patient Tobacco Use Status: Never used Tobacco Substance Use Type: Marijuana Advance Directives: Yes Advance Directives on File: Yes Advance Directives Date on File: 07/29/23 Do you have a plan to hurt others: No Plan service: No Current occupational status: unemployed Current occupation: right hand dominant Physical Exam Vital Signs: Vital Signs: Last Vital Signs Temp 98 F 06/13/25 17:17 Pulse 80 06/13/25 17:17 Resp 18 06/13/25 17:17 BP 119/65 06/13/25 17:17 Pulse Ox 98 06/13/25 17:17 O2 Del Method Room Air 06/13/25 17:17 BMI result Body Mass Index 20.2 Const: General: cooperative, no acute distress, alert and awake Nutritional Appearance: well nourished Orientation/consciousness: patient oriented x3 HEENT: Head: Yes normal to inspection and Yes atraumatic Ears: hearing grossly normal bilaterally and external ears normal General nose exam: Normal external nose present, no nasal discharge noted and no epistaxis Face and sinus: Yes normal facial exam, No abrasion and No laceration Mouth: Normal oral and palatal mucosa present, no drooling and no muffled voice Eyes: General: appearance normal, both eyes and all related structures Periorbital: periorbital findings normal Eyelids: Yes eyelids normal Conjunctivae: conjunctivae normal Pupils: Equal, round and reactive pupils present EOM: EOMs intact bilaterally Neck: Neck: Yes normal visual inspection and Yes full ROM Resp: Effort & Inspection: normal respiratory effort and able to speak in complete sentences Neuro: General: patient oriented x3, moves all extremities and CN's II-XI intact bilaterally Cranial nerves: Yes Equal, round and reactive pupils present Cognition (Neuro): normal cognition Extrem: General: Yes normal to inspection, Yes full ROM and Yes capillary refill normal Psych: Appearance: grossly normal Mental Status: mental status grossly normal Affect: normal affect Attitude: cooperative Thought process: Normal thought process present Thought content: Normal thought content present Insight: Good insight present (Psych) Course Course Course Narrative: This is a Rapid Medical Examination (RME) performed by Adele Herring NP in triage. Full assessment, plan deferred to manager home healthcare. 39-year-old female patient history of carpal tunnel, presents to the ED with for evaluation reporting a slip and fall yesterday while at work. Patient is complaining of left hip pain. Patient reports that the incident occurred very fast, does not recall any head strike. No headache, neck pain. Patient reports pain is localized only to the left hip. Plan: XR left hip. Medical Decision Making Medical Decision Making MDM Narrative: Patient is a 39 year old female with no reported medical history presenting to the emergency department today with left hip pain. Patient's physical exam was as noted in the physical exam portion of this note. Patient's left hip x-ray showed no acute process. Patient's clinical presentation is most consistent with a left hip contusion. I explained my physical exam findings as well as all test results to the patient. I answered all questions asked by the patient. I stressed the importance of the patient taking her medication as directed (either prescribed or as the over the counter packaging recommends). I stressed the importance of the patient following up with her primary care provider and work connection. I stressed the importance of the patient returning to the emergency department immediately if her symptoms were to worsen or if she were to develop any dizziness, shortness of breath, difficulty breathing, chest pain, blurry vision, loss of vision, nausea, vomiting, abdominal pain, fever, chills, back pain, or any other complaints. Patient verbalized agreement and understanding with this treatment plan and discharge. Differential Diagnosis Differential Diagnoses: The differential diagnosis associated with the presentation includes Left hip contusion Left hip fracture Left hip pain Admission/Observation Consideration of admission/observation: Escalation of care including admission/observation considered Patient would have been admitted to the hospital had her work up had any findings where hospital admission was appropriate and her clinical presentation warranted hospital admission. Independent Interpretation I performed an independent interpretation of an: Plain X-Ray Interpretation: My interpretation is in agreement with the radiologist's impression of this imaging study as written below. CLINICAL HISTORY: Fall, Pain 3 view, pelvis and left hip Comparison: None provided Findings: The bones are intact. No significant arthritic change of the hips. The soft tissues are unremarkable. IMPRESSION: No acute fracture. This document has been electronically signed by: Doris Bashir MD on 06/13/2025 18:09:41 Dictated By: Doris Bashir MD Signed By: Electronically signed by Doris Bashir MD 06/13/25 1811 Radiology Impression Discussion of test interpretation with radiology: I have reviewed the radiologist's reading. Discharge Plan Discharge Clinical Impression: Acute hip pain Qualifiers: Laterality: left Qualified Code(s): M25.552 - Pain in left hip Patient Disposition: Home, Self-Care Instructions: Hip Pain (ED) Additional Instructions: Your left hip x-ray showed no acute fracture / break. You should follow up with the work connection team. Take ibuprofen + tylenol over the counter for pain. IF you are prescribed home medications and/or you are taking over the counter medications at home - it is very important you continue to do so as prescribed / directed unless told otherwise by a healthcare provider. Follow up with your primary care provider. Do your best to stay well hydrated and rest. Return to the emergency department immediately if your symptoms worsen or if you develop any numbness, tingling, dizziness, shortness of breath, difficulty breathing, chest pain, blurry vision, loss of vision, nausea, vomiting, abdominal pain, fever, chills, back pain, or any other complaints. If you do not have a primary care provider - call any of the below numbers to establish and follow up with a primary care provider. [facility] Primary Care ([place]) [phone] [place] [address], [address] [facility] Primary Care (2 HD Advance) [phone] [place] [address], [address] [facility], [address] [facility] Primary Care (10 [address] Advance) [phone] [place] [address], [address] [facility], [address] [facility] Primary Care ([place]) [phone] [place] [address] 2 [facility], [address] [facility] Family Medicine [phone] [place] [address], [address] Please see the information below about our Patient Portal. If you are not yet enrolled in the [facility] Patient Portal, you will receive an enrollment email invitation following your visit to any [facility] setting. You may also self-enroll in the Patient Portal by visiting our website: [email or web address] The following information is required to access the Patient Portal: - Your [facility] Medical Record Number - Your personal home email address (must match what is in your electronic medical record, Registration staff can assist with this) - Name - Date of Capabilities of the Patient Portal: - Message some providers - View upcoming appointments - Access your health summary, medical history, and visit history - View current conditions and allergies - View procedure and lab results - View your medications, including guidelines, side effects, and precautions - Complete pre-appointment questionnaires requested by your provider - Ready summary reports of your office visits and procedures To access the Patient Portal Mobile Brandon, follow these directions: - Search [employer] in the Brandon Store or Google Play Store - Download the Brandon - Search for [facility] - Enter your login/password Prescriptions: No Action ondansetron 4 mg tablet,disintegrating 4 mg PO Q8H PRN (Reason: nausea and vomiting) Qty: 10 0RF multivitamin Tablet 1 tab PO QAM doxepin 25 mg capsule 25 mg PO BEDTIME bupropion HCl 100 mg tablet sustained-release 12 hr 100 mg PO QAM famotidine 20 mg tablet 20 mg PO DAILY sertraline 50 mg tablet 50 mg PO DAILY azithromycin 250 mg tablet See Rx Instructions .ROUTE .COMPLEX Qty: 6 0RF Rx Instructions: For 250 mg dose pack: take 500 mg today (day 1), then 250 mg for 4 days (days 2-5) prednisone 20 mg tablet 40 mg PO DAILY 4 Days Qty: 8 0RF albuterol sulfate 90 mcg/actuation HFA aerosol inhaler 2 puff inhalation QID PRN (Reason: shortness of breath or wheezing) Qty: 6.7 0RF nitrofurantoin monohyd/m-cryst [Macrobid] 100 mg capsule 100 mg PO Q12H 5 Days Qty: 10 0RF Rx Instructions: must administer with a meal/food doxycycline hyclate 100 mg capsule 100 mg PO BID Qty: 14 0RF Referrals: Work Connection [Provider Group] Referral Note: Given this was a work place injury, call to establish and follow up with the work connection team. Lucía Crawford NP [Primary Care Provider, Internal Medicine] Stand Alone Forms: Work/School Release Print Language: Setswana
--- OUTSIDE RECORDS SUMMARY | 2025-06-13 18:14 | XMS_ITS | Encounter Summary ---
Author Organization [employer] Address [address] [facility] 7t [place] [address] Care Team Providers Care Dishcloth Folder Name Role Phone Lcuía Crawford ARNEL Primary Care Provider [phone] Encounter Details Date Type Department Care Team ([facility] Contact Info) Description 04/17/2025 Results Follow-Up [facility] [address] [place] [address] Keon Wolf MD [address] [place] [address] Bacterial Vaginosis, Chlamydia/N. Gonorrhoeae RNA, TMA, Urogenitial, POCT urinalysis dipstick manually resulted (CPT 87097), Additional followed-up results: 4 Social History Tobacco Use Types Packs/Day Years [...] Care Team (Late st Contact Info) Description 07/15/2025 9:30 AM EST Office Visit [facility] [address] [place] [address] Evonne Araujo, OD [address] [place] [address] documented as of this encounter Visit Diagnoses Not on filedocumented in this encounter Additional Health Concerns Assessment Noted Time PHQ-9 Depression Total Score: 13 025 9:50 AM EDT documented as of this encounter Care Teams Dishcloth Folder Relationship Specialty Start Date End Date Lucía Crawford ANP [address] [place] [id number] PCP - General Family Medicine 06/12/23 documented as of this encounter
--- OUTSIDE RECORDS SUMMARY | 2025-06-13 18:14 | XMS_ITS | Clinical Summary ---
Author Organization [address] [facility] Address [address] [place] [address] Phone Care Team Providers Care Gyro Mechanic Name Role Phone Tracie Varela MD Primary Care Provider [phone] Social History Tobacco Use Types Packs/Day Years [...] Test 06/09/2022 Depression Screening 06/24/2024 COVID-19 Vaccine ( - 2024-2 6 season) 2025 Influenza Vaccine (#1) 2025 RSV [...] topic Insurance MEDICAID - [place] Care Teams Gyro Mechanic Relationship Specialty Start Date End Date Tracie Varela MD [address] [place] [id number] PCP - General 12/01/01
--- OUTSIDE RECORDS SUMMARY | 2025-06-13 18:14 | XMS_ITS | Encounter Summary ---
Author Organization [employer] Address [address] [place] [address] 7 [place] [address] Care Team Providers Care Community Service Coordinator Name Role Phone Ty Lucía SEALS Primary Care Provider [phone] Reason for Visit * Reason Onset Date Comments New Patient 04/23/2023 Encounter Details Date Type Department Care Team ([facility] Contact Info) Description 04/23/2023 Telephone [facility] [address] [place] [address] Santo Leon MD [address] [place] [address] New Patient Social History Tobacco Use Types [...] PAR Chris Bain called pt to Offer HOME MANAGEMENT SUPERVISOR appt. Pt demographics and insurance information were verified. Pt states following medical conditions: YES Pt reports taking medications: Yes ( Would speak with provider) Pt given HOME MANAGEMENT SUPERVISOR appt with DONG Crawford on 06/06/2023 @ 10:30 am. Pt will be sent appt reminder card and medical release form and agrees to complete and to return to medical records prior to HOME MANAGEMENT SUPERVISOR appt. documented in this encounter Plan of Treatment Upcoming Encounters Date Type Department Care Team (Late st Contact Info) Description 07/15/2025 9:30 AM EST Office Visit [facility] OPTOM[facility] [address] [place] [address] Evonne Araujo, OD [address] [place] [address] documented as of this encounter Visit Diagnoses Not on filedocumented in this encounter Additional Health Concerns Assessment Noted Time PHQ-9 Depression Total Score: 23 023 1:35 PM EDT documented as of this encounter Care Teams Community Service Coordinator Relationship Specialty Start Date End Date Lucía Crawford ANP [address] [place] [id number] PCP - General Family Medicine 06/12/23 documented as of this encounter
--- OUTSIDE RECORDS SUMMARY | 2025-06-13 18:14 | XMS_ITS | Clinical Summary ---
Author Organization [employer] Address [address] [place] [address] Care Team Providers Care Certified Lactation Educator Name Role Phone Johanna Mcclain ARNEL Primary Care Provider [phone] Allergies Active Allergy Reactions Criticality Noted Date Comments Naltrexone Hives 05/26/2025 Penicillin G Rash Low 12/18/2024 Oxycodone-Acetaminophen 03/08/2023 Nausea, Vomiting Medications * This document contains information received from the source organization and may not represent a complete record from that organization. Blood Pressure kitIndications:El evated blood pressure reading without diagnosis of hypertension 1 kit in the morning. 1 kit 3 Active lidocaine (Lidoderm) 5 % patch APPLY 1 PATCH TOPICALLY TO SKIN IN THE MORNING. LEAVE ON FOR 12 HOURS AND OFF FOR 12 HOURS DIRECTED 30 patch 2 4 Active ulipristal (Maryam) 30 mg tablet Take one tablet by mouth up to five days after sex. Do not use more than once per menstrual cycle. If repeat dose is needed in same cycle, please contact prescriber. 1 tablet 11 4 Active acetaminophen (Tylenol 8 Hour) 650 MG ER tablet Take 1 tablet (650 mg) by mouth every 8 (eight) hours if needed (pain or fever). Do not crush, chew, or split. 100 tablet 1 5 12/31/19 26 Active celecoxib (CeleBREX) 200 MG capsule Take 1 capsule (200 mg) by mouth if needed in the morning and at bedtime (pain or fever). 60 capsule 1 5 12/31/19 26 Active Diclofenac Sodium 1 % gel Apply thin layer by topical route (quantity as directed on package insert) to affected area of pain 3 times daily as needed. 50 g 3 5 Active hydrOXYzine HCl (Atarax) 10 MG tablet Take 1-2 tablets (10-20 mg) by mouth if needed at bedtime for anxiety. 30 tablet 1 5 12/31/19 26 Active propranolol (Inderal) 10 MG tablet Take 1 tablet (10 mg) by mouth once daily as needed before stress inducing event 30 tablet 1 5 Active naltrexone ER (Vivitrol) injectionIndicati ons:Alcohol use disorder, severe, dependence (CMS/HCC) ([facility]) Inject 4 mL (380 mg) into the muscle every 28 (twenty-eight) days. 1.2 each 5 5 Active Drospirenone (Slynd) 4 MG tabletIndications :Family planning Take 1 tab po daily 84 tablet 3 5 Active nicotine polacrilex (Nicorette) 2 MG gumIndications:To bacco dependence Chew 1 each (2 mg) if needed for smoking cessation. 100 each 3 5 Active Multiple Vitamin (multivitamin) tabletIndications :Healthcare maintenance Take 1 tablet by mouth Once per day. 90 tablet 3 5 Active albuterol 108 (90 Base) MCG/ACT inhaler Inhale 2 puffs every 6 (six) hours if needed for wheezing. 18 g 1 05/06/2025 4:29 PM EST 5 03/30/20 26 Active levocetirizine (Xyzal) 5 MG tablet Take 1 tablet (5 mg) by mouth in the evening. 90 tablet 5 04/04/20 26 Active metroNIDAZOLE (Metrogel) 0.75 % vaginal gelIndications:Ba cterial Vaginosis Insert one applicator into vagina at bedtime for 7 nights 45 g 5 Active Nirmatrelvir&Dennis navir 300/100 (Paxlovid, 300/100,) 20 x 150 MG & 10 x 100MG tablet therapy packIndications:C OVID-19 Take 1 Dose by mouth 2 times daily. 30 each 06/07/2025 2:40 PM EST Active acetaminophen (Tylenol Extra Strength) 500 MG tabletIndications :COVID-19 Take 1 tablet (500 mg) by mouth every 6 (six) hours if needed for mild pain for up to 10 days. 30 tablet 06/07/2025 2:40 PM EST 06/17/20 25 Active Active Problems Problem Noted Date Diagnosed Date Urticaria 03/30/2025 Assessment & Plan (03/30/2025 5:04 PM EDT): It seems to be pressure induced urticaria/dermatographism?. Due to associated asthma exacerbation, I will Rx prednisone taper, start with PRD 30 mg today, will follow-up with PCP, may consider Singulair in the long-term. Referred to cement rubber, some of the asthma symptoms could be [...] is currently connected with a therapist through [facility] and is on wait list for psychiatry [...] in partial remission, most recent episode depressed ([facility]) 07/07/2024 Cannabis use disorder 06/15/2024 Vaginal [...] seek support PLAN: 1. Follow up with [facility]: Recommended for follow-up: during Obat appts 2. Patient goal is improve mental health, and become sober 3. Behavioral Recommendations a. Keeping Ind. Therapy with [facility] b. Keeping AUD appt with Dr. Misty stevenson. [facility]. [facility] contact number for extra support [...] to engage. PLAN: 1. Follow up with [facility]: Recommended for follow-up: during AUD appts 2. Patient goal is to become sober and improve mental health 3. Behavioral Recommendations a. Ind. Therapy, referral will be submitted b. Residency Coordinator, referral will be submitted c. Use of [...] for psychiatric medication. I will discuss with [facility], and make referral. Evonne agrees to follow [...] engage, insight PLAN: 1. Follow up with [facility]: Recommended for follow-up: with [facility] for [...] in treatment PLAN: 1. Follow up with [facility]: Recommended for follow-up: during OBAT appts 2. Patient goal is become sober and improve mental health 3. Behavioral Recommendations a. Ind. Therapy, referral submitted on 03/08/23 b. Use of coping skills provided as recommended c. Maintain engagement with -MR d. [facility] contact number for support Assessment [...] to engage. PLAN: 1. Follow up with [facility]: Recommended for follow-up: during AUD appts 2. Patient goal is to become sober and improve mental health 3. Behavioral Recommendations a. Ind. Therapy, referral will be submitted b. Residency Coordinator, referral will be submitted c. Use of coping skills as provide d. Engage in AA meetings for support Severe anxiety 03/08/2023 02/19/2025 Encounters * This document contains information received from the source organization and may not represent a complete record from that organization. Date Type Department Care Team Description 06/13/2025 Orders Only [facility]/07/[facility]25 1:40 PM EST [facility] [address] [address] Pari Harper MD Diarrhea of presumed infectious origin (Primary Dx); COVID-19 06/07/2025 Travel 06/01/2025 Patient Outreach [address] [address] Walter Prasad Recovery [facility]orts 04/27/2025 Patient Outreach [address] [address] Jamin Montes Recovery Supports 04/17/2025 Results [facility] [address] [address] Keon Wolf MD Bacterial Vaginosis, Chlamydia/N. Gonorrhoeae RNA, TMA, Urogenitial, POCT urinalysis dipstick manually resulted (CPT 09996), Additional followed-up results: 4 04/16/2025 11:20 AM EDT Office Visit [address] [address] Keon Wolf MD Bacterial vaginosis (Primary Dx); Vaginal candidiasis 04/16/2025 Travel 04/05/[address] [address] Johanna Mcclain ANP Results 04/03/2025 Results Follow-Up [address] [address] Madiha Bush MD Immunoglobulin E, CBC auto differential 03/31/2025 9:00 AM EDT Office Visit [address] [address] Keon Wolf MD Alcohol use disorder, severe, dependence (CMS/HCC) (HCC) (Primary Dx) 03/31/2025 Travel 03/30/2025 1:00 PM EDT [facility] [address] [address] Mdaiha Bush MD Urticaria (Primary Dx); Mild intermittent asthma with exacerbation; Shortness of breath 03/30/2025 Patient Outreach [address] [address] Jamin Montes [facility] 03/30/2025 Travel 03/29/2025 Results Follow-Up [address] [address] Ananda Kwon CNM Pap Smear 03/24/2025 10:30 AM EDT Procedure Visit [address] [address] Ananda Kwon CNM Cervical cancer screening (Primary Dx); Pelvic pain; Stress incontinence 03/24/2025 Orders Only [address] [address] Ananda Kwon CNM 03/24/2025 Travel 03/23/2025 10:30 AM EDT Office Visit [address] [address] Gary Jay MD Alcohol use disorder, severe, dependence (CMS/HCC) (Primary Dx); Tobacco dependence 03/23/2025 Telephone [facility] [address] [place] [phone] Charley Bucio MA 03/23/2025 Patient Outreach [address] [address] Rk Brooks [facility] 03/23/2025 Travel 03/16/2025 Patient Outreach [address] [address] Jamin Montes [facility] 03/16/2025 Travel 03/15/2025 Patient Outreach [address] [address] Walter Prasad Recovery Supports from Last 3 Months Immunizations Immunization Administration [...] Sign Reading Time Taken Comments Blood Pressure 139/87 06/07/2025 1:26 PM EST Pulse 73 06/07/2025 1:26 PM EST Temperature 37 C (98.6 F) 06/07/2025 1:26 PM EST Respiratory Rate 16 06/07/2025 1:26 PM EST Oxygen Saturation 98% 06/07/2025 1:26 PM EST Inhaled Oxygen Concentration - - Weight 63.2 kg (139 lb 6.4 oz) 06/07/2025 1:26 P M EST Height 172.7 cm (5' 8 ) 06/07/2025 1:26 PM EST Body Mass Index 21.2 06/07/2025 1:26 PM EST Plan of Treatment Upcoming Encounters Date Type Department Care Team (Late st Contact Info) Description 07/15/2025 9:30 AM EST Office Visit [facility] [address], [place] [phone] Evonne Araujo, OD [address] [place] [address] Health Maintenance Due Date Last Done Comments HPV Vaccines (1 - 3-dose series) 09/19/2002 Pneumococcal Vaccine: Pediatrics (0 to 5 Years) and At-Risk Patients (6 to 49) Years (2 of 2 - PCV) 09/25/2018 09/25/2017 COVID-19 Vaccine ( - season) 2025 11/24/2020, 10/26/2020 Influenza Vaccine (#1) 2025 05/31/2024 Depression Monitoring 08/29/2025 03/01/2025, 025 SDOH Screening 11/19/2025 11/19/2024 Alcohol/Substance Use Screening 12/30/2025 12/30/2024 Disability Screening 12/30/2025 12/30/2024 Family Planning (PISQ) 03/24/2026 03/24/2025 Tobacco Screening 06/07/2026 06/07/2025 Cervical Cancer Screening 03/24/2028 HPV/Cotest 03/24/2028 03/24/2025, 03/24/2024 Pap Smear 03/24/2028 03/24/2025, 03/24/2024 Lipid Panel 12/30/2029 12/30/2024, 06/07/2023 DTaP/Tdap/Td Vaccines (4 - Td or Tdap) 06/06/2033 06/06/2023, 09/25/2017, 01/05/2002 Zoster Vaccines (1 of 2) 09/19/2037 RSV Patients and Patients Aged 60 years or older (1 - 1-dose 75+ series) 09/19/2062 Hepatitis B Vaccines Discontinued 01/05/2002 Hepatitis A Vaccines Aged Out 03/26/2023 No long er eligible based on patient's age to complete this topic HIV Screening Completed 04/16/2025, 02/23, 03/12/2023, Additional history exists Hepatitis C Screening Completed 04/16/2025 , 11/04/2024, 03/16/2024, Additional history exists HIB Vaccines Aged Out No longer eligi [...] Name Priority Date/Time Associated Diagnosis Comments XR HIP LEFT WITH PELVIS 1 VIEW Routine 06/13/2025 6:09 PM EST POC STEWART ID NOW STREP A Routine 06/07/2025 1:51 PM EST COVID-19 POCT RAPID COVID ANTIGEN Routine 06/07/2025 1:51 PM EST COVID-19 POCT INFLUENZA B (ID NOW RAPID MOLECULAR) Routine 06/07/2025 1:51 PM EST COVID-19 POCT INFLUENZA A (ID NOW RAPID MOLECULAR) Routine 06/07/2025 1:51 PM EST COVID-19 SYPHILIS SCREEN Routine 04/16/2025 11:46 AM EDT Vaginal candidiasis HIV 1/2 ANTIGEN/ANTIBODY, FOURTH GENERATION W/RFL Routine 04/16/2025 11:46 AM EDT Vaginal candidiasis HEPATITIS C AB W/REFL TO HCV RNA, QN, PCR Routine 04/16/2025 11:46 AM EDT Vaginal candidiasis POCT , URINE Routine 04/16/2025 11:42 AM EDT Vaginal candidiasis POCT URINALYSIS DIPSTICK Routine 04/16/2025 11:31 AM EDT Vaginal candidiasis CHLAMYDIA/N. GONORRHOEAE RNA, TMA, UROGENITAL Routine 04/16/2025 11:21 AM EDT Vaginal candidiasis BACTERIAL VAGINOSIS PANEL Routine 04/16/2025 11:21 AM EDT Vaginal candid[address] CT SINUS FACIAL BONES WO CONTRAST Routine 04/16/2025 9:37 AM EDT History of fracture of nasal bone Nasal congestion AMB REFERRAL TO ALLERGY Routine 04/14/2025 Urticaria Mild intermittent asthma with exacerbation CBC WITH AUTO DIFFERENTIAL Routine 03/31/2025 9:28 [...] Routine 12/30/2024 1:12 PM EDT Healthcare maintenance from Last 3 Months or Most Recently Relevant to Health Maintenance Results * XR Hip left with Pelvis 1 view (06/13/2025 6:09 PM EST) Anatomical Region Laterality Modality Lower Extremities, Hip Bilateral Radiograp hic Imaging 06/13/2025 6:09 PM EST Narrative 06/13/2025 6:12 PM EST [place] [address] XRay Report Signed Patient: Evonne Zapata MR#: [id number] : 1985 Acct:[id number] Age/Sex: 39 / F ADM Date: 06/13/25 Loc: HO.ED Attending Dr: Ordering Physician: Adele Herring Date of Service: 06/13/25 Procedure(s): XR hip LT w PEL1V Accession Number(s): [id number] cc: Adele Herring; JOHANNA MCCLAIN NP Reason for Exam: Fall, Pain CLINICAL HISTORY: Fall, Pain 3 view, pelvis and left hip Comparison: None provided Findings: The bones are intact. No significant arthritic change of the hips. The soft tissues are unremarkable. IMPRESSION: No acute fracture. This document has been electronically signed by: Doris Bashir MD on 06/13/2025 18:09:41 Dictated By: Doris Bashir MD Signed By: <Electronically signed by Doris Bashir MD in OV> 06/13/251810 DD/ 08 TD/TT: 06/13/251808 Layer Out: Procedure Note Donotuseinterpreter, Image - 06/13/[address] [address] XRay Report Signed Patient: Evonne ZapataMR#: [id number] : 1985Acct:[id number] Age/Sex: 39 / FADM Date: 06/13/25 Loc: HO.ED Attending Dr: Ordering Physician: Adele Herring Date of Service: 06/13/25 Procedure(s): XR hip LT w PEL1V Accession Number(s): [id number] cc: Adele Herring; JOHANNA MCCLAIN NP Reason for Exam: Fall, Pain CLINICAL HISTORY: Fall, Pain 3 view, pelvis and left hip Comparison: None provided Findings: The bones are intact. No significant arthritic change of the hips. The soft tissues are unremarkable. IMPRESSION: No acute fracture. This document has been electronically signed by: Doris Bashir MD on 06/13/2025 18:09:41 Dictated By: Doris Bashir MD Signed By: <Electronically signed by Doris Bashir MD in OV> 06/13/251810 DD/ 08 TD/TT: 06/13/251808 Layer Out: [facility] External Provider IMG XR PROCEDURES Edited Result - Final * Influenza B (ID NOW Rapid Molecular) (06/07/2025 1:51 PM EST) Only the most recent of2 resultswithin the time period is included. Influenza B Negative Negative, Indeterminate [facility] Swab 06/07/2025 1:51 PM EST Pari Harper MD POINT OF CARE TEST ENTER/ED IT ORDERABLES Final Result Performing Organization Address City/[facility]/ZIP Co de Phone Number [facility] [address] [place] [phone] * Influenza A (ID NOW Rapid Molecular) (06/07/2025 1:51 PM EST) Only the most recent of2 resultswithin the time period is included. [facility] Influenza A Negative Negative, Indeterminate [facility] Swab 06/07/2025 1:51 PM EST Pari Harper MD POINT OF CARE TEST ENTER/ED IT ORDERABLES Final Result Performing Organization Address City/[facility] Co de Phone Number [facility] [address] [place] [phone] * POCT ID NOW Rapid Strep A manually resulted (06/07/2025 1:51 PM EST) [facility] Rapid Strep A Screen Negative Negative, None Detected Swab 06/07/2025 1:51 PM EST Pari Harper MD POINT OF CARE TEST ENTER/ED IT ORDERABLES Final Result * (ABNORMAL) POCT Rapid COVID Ag (06/07/2025 1:51 PM EST) [facility] Rapid COVID Ag Positive Swab 06/07/2025 1:51 PM EST Pari Harper MD POINT OF CARE TEST ENTER/ED IT ORDERABLES Final Result * Syphilis Screen (04/16/2025 11:46 AM EDT) [facility] Syphilis Screen Nonreactive Nonreactive [facility] Blood 04/16/2025 11:4 6 AM EDT 04/16/2025 4:07 PM EDT Keon Wolf MD LAB BLOOD ORDERABLES Final Resul t Performing Organization Address [facility]/ZIP Co de Phone Number [facility] [address] [place] [phone] * Hepatitis C Antibody with Reflex to HCV, RNA, Quantitative, Real-Time PCR (04/16/2025 11:46 AM EDT) Hepatitis C Antibody Nonreactive Nonreactive [facility] Comment:Antibodies to HCV no t detected; does not exclude early acuteHCV infection. Blood Venous blood specimen / Unknown 04/16/2025 11:46 AM EDT 04/16/2025 4:07 PM EDT Keon Wolf MD LAB BLOOD ORDERABLES Final Resul t Performing Organization Address [facility] Co de Phone Number [facility] [address] [place] [phone] * HIV-1/2 Antigen and Antibodies, Fourth Generation, with Reflexes (04/16/2025 11:46 AM EDT) HIV AB/AG Nonreactive Nonreactive [facility] Comment:HIV-1 p24 Ag and/or HIV-1/HIV-2 Ab not detected.A test result that is nonreactive does not exclude thepossibility of exposure to or infection with HIV-1 and/orHIV-2. Nonreactive results in this assay for individualswith prior exposure to HIV-1 and/or HIV-2 may be due toantigen and antibody levels that are below the limit ofdetection of this assay.The [employer] HIV Ag/Ab Combo assay result andsupplemental assay results should be interpreted inconjunction with the patient's clinical presentation,history and other laboratory results. If the results areinconsistent with clinical evidence, additional testing issuggested to confirm the result. Blood Venous blood specimen / Unknown 04/16/2025 11:46 AM EDT 04/16/2025 4:07 PM EDT us Keon Wolf MD LAB BLOOD ORDERABLES Final Resul t [facility] [address] [place] [phone] [phone] * POCT , urine manually resulted (04/16/2025 11:42 AM EDT) Preg Test, Ur Negative Negative, Indeterminate, None Detected, Invalid, Specimen unsatisfactory for evaluation, Weakly Positive, 2+ Urine 04/16/2025 11:4 2 AM EDT us Keon Wolf MD POINT OF CARE TEST ENTER/EDIT OR DERABLES Final Result * POCT urinalysis dipstick manually resulted (CPT 68745) (04/16/2025 11:31 AM EDT) Color, UA Yellow Comment:Dark Clarity, UA Clear Glucose, UA Negative Bilirubin, UA Negative Ketones, UA Negative Spec Grav, UA 1.020 Blood, UA Negative Negative, None Detected pH, UA 6.5 Protein, UA Negative Urobilinogen, UA 0.2 Leukocytes, UA Negative Negative, Rare, Trace Nitrite, UA Negative Negative, None Detected Appearance, UA OK Urine (Urine, Random) 04/16/2025 11:31 AM EDT us Keon Wolf MD POINT OF CARE TEST ENTER/EDIT OR DERABLES Final Result * (ABNORMAL) Bacterial Vaginosis (04/16/2025 11:21 AM EDT) TRICHOMONAS VAGINALIS DETECTION BY PCR NOT DETECTED Not Detect [facility] BACTERIAL VAGINOSIS DETECTION BY PCR POSITIVE(A) Negative [facility] Comment:The BV organism targ ets of the Xpert Xpress MVP test can becommensal in women; Xpert Xpress MVP positive results forbacterial vaginosis should be considered in conjunction withother clinical and patient information to determine thedisease status. Organisms that are not detected by the XpertXpress MVP test have also been reported to be associatedwith BV and aerobic vaginitis.The Xpert Xpress MVP test performance has not been evaluatedin patients under the age of 14. SRI GROUP DETECTION BY PCR NOT DETECTED Not Detect [facility] Sri glab krusei PCR NOT DETECTED Not Detect [facility] Swab Vaginal structure / Unknown 04/16/2025 11:21 AM EDT 04/16/2025 4:18 PM EDT us Keon Wolf MD LAB MICROBIOLOGY - GENERAL ORDER LOR Final Result [facility] [address] [place] [phone] * Chlamydia/N. Gonorrhoeae RNA, TMA, Urogenitial (04/16/2025 11:21 AM EDT) CT PCR NOT DETECTED Not Detect. [facility] Comment:A not detected test result does not exclude the possibilityof infection because test results can be affected byimproper specimen collection, concurrent antibiotic therapy,or the number of organisms in the specimen which may bebelow the sensitivity of the test. As with many diagnostictests, results from the Xpert CT/NG assay should beinterpreted in conjunction with other laboratory andclinical data available to the clinician.Xpert CT/NG performance has not been evaluated in patientsless than 14 years of age. The assay should not be used forthe evaluationof suspected sexual abuse or for other medico-legalindications. Additional testing is recommended in anycircumstance when false positive or false negative resultscould lead to adverse medical, social or psychologicalconsequences. NG PCR NOT DETECTED Not Detect. [facility] Comment:A not detected test result does not exclude the possibilityof infection because test results can be affected byimproper specimen collection, concurrent antibiotic therapy,or the number of organisms in the specimen which may bebelow the sensitivity of the test. As with many diagnostictests, results from the Xpert CT/NG assay should beinterpreted in conjunction with other laboratory andclinical data available to the clinician.Xpert CT/NG performance has not been evaluated in patientsless than 14 years of age. The assay should not be used forthe evaluationof suspected sexual abuse or for other medico-legalindications. Additional testing is recommended in anycircumstance when false positive or false negative resultscould lead to adverse medical, social or psychologicalconsequences. Swab (Vaginal Swab) 04/16/2025 11:21 AM EDT 04/16/2025 4:18 PM EDT Keon Wolf MD LAB MICROBIOLOGY - GENERAL ORDER LOR Final Result Performing Organization Address City/State/[facility] Co de Phone Number [facility] [address] [place] [phone] * CT Sinus Facial Bones w/o Contrast (04/16/2025 9:37 AM EDT) Anatomical Region Laterality Modality Computed Tomogra phy 04/16/2025 9:37 AM EDT Narrative 04/16/2025 10:31 AM EDT [address] [address] [address] Scan Report Signed Patient: Evonne Zapata MR#: [id number] : 1985 Acct:[id number] Age/Sex: 39 / F ADM Date: 04/16/25 Loc: HO.CT Attending Dr: Johanna Mcclain NP Ordering Physician: JOHANNA MCCLAIN NP Date of Service: 04/16/25 Procedure(s): CT facial bones wo IV con Accession Number(s): [id number] cc: Madiha Bush MD; JOHANNA MCCLAIN NP Report Number: [id number]: Total DLP = 159.00 mGy-cm Reason for Exam: old nasal fx with ongoing facial pain and congestion EXAMINATION: CT FACIAL BONES WITHOUT CONTRAST CLINICAL INFORMATION: Old nasal fracture with ongoing facial pain. COMPARISON: None available. TECHNIQUE: Contiguous axial images through the maxillofacial bones using 2 mm collimation with bone and soft tissue algorithm. Sagittal and coronal reformatted images acquired. DLP: [address] examination was performed using dose optimization techniques as appropriate, variously including the following: *Automated exposure control *Adjustment of mA and/or kV according to patient size (this includes techniques or standardized protocols for targeted exams where dose is matched to indication/reason for exam; i.e. extremities or head) *Use of iterative reconstruction technique FINDINGS: Nasal bones, nasal septum and vomer are intact. Orbital rims, orbital fissures and orbital apices are intact. Zygomatic arcs are intact. Maxilla and pterygoid plates are intact. Mandible is intact. No lytic or blastic lesions. Intraconal and extraconal compartments of the orbits demonstrate no gross masses or fluid collections. The eyeballs are intact. Polypoid mucosal thickening throughout the paranasal sinuses without gross air-fluid levels. There is a 4.4 mm loose bone fragment of likely root versus root canal fragment material of the left second maxillary molar dislodged in the inferior left maxillary sinus. Cecilia bullosa, left middle turbinate. Nasal septum is midline. Nasal cavity and vestibule are patent. Skin defect in the left nostril. Temporomandibular joints are intact. Videan canal type III, bilaterally. Foramen rotundum and foramen ovale are intact. Pneumatized right pterygoid recess and anterior left clinoid processes. Tympanic cavities and mastoid cells are aerated. Incomplete fusion of the ethmoid artery notch. . CT/CT facial bones wo IV con IMPRESSION: Concerning 4.4 mm tooth fragment versus root canal material dislodged inferior left maxillary sinus with associated mucosal thickening. Odontogenic sinusitis should be considered. Polypoid paranasal sinus disease. Electronically signed by: Miguel Boyer MD 04/16/2025 10:28 AM EDT Dictated By: Miguel Arnett MD Signed By: <Electronically signed by Miguel Garcia MD in OV> 04/16/25 1028 DD/ 0937 TD/TT: 04/16/25 0950 Layer Out: Procedure Note Donotuseinterpreter, Image - 04/16/[address] [address] [address] Scan Report Signed Patient: Evonne ZapataMR#: [id number] : 1985Acct:[id number] Age/Sex: 39 / FADM Date: 04/16/25 Loc: HO.CT Attending Dr: Johanna Mcclain NP Ordering Physician: JOHANNA MCCLAIN NP Date of Service: 04/16/25 Procedure(s): CT facial bones wo IV con Accession Number(s): [id number] cc: Madiha Bush MD; JOHANNA MCCLAIN NP Report Number: [id number]: Total DLP = 159.00 mGy-cm Reason for Exam: old nasal fx with ongoing facial pain and congestion EXAMINATION: CT FACIAL BONES WITHOUT CONTRAST CLINICAL INFORMATION: Old nasal fracture with ongoing facial pain. COMPARISON: None available. TECHNIQUE: Contiguous axial images through the maxillofacial bones using 2 mm collimation with bone and soft tissue algorithm. Sagittal and coronal reformatted images acquired. DLP: [address] examination was performed using dose optimization techniques as appropriate, variously including the following: *Automated exposure control *Adjustment of mA and/or kV according to patient size (this includes techniques or standardized protocols for targeted exams where dose is matched to indication/reason for exam; i.e. extremities or head) *Use of iterative reconstruction technique FINDINGS: Nasal bones, nasal septum and vomer are intact. Orbital rims, orbital fissures and orbital apices are intact. Zygomatic arcs are intact. Maxilla and pterygoid plates are intact. Mandible is intact. No lytic or blastic lesions. Intraconal and extraconal compartments of the orbits demonstrate no gross masses or fluid collections. The eyeballs are intact. Polypoid mucosal thickening throughout the paranasal sinuses without gross air-fluid levels. There is a 4.4 mm loose bone fragment of likely root versus root canal fragment material of the left second maxillary molar dislodged in the inferior left maxillary sinus. Cecilia bullosa, left middle turbinate. Nasal septum is midline. Nasal cavity and vestibule are patent. Skin defect in the left nostril. Temporomandibular joints are intact. Videan canal type III, bilaterally. Foramen rotundum and foramen ovale are intact. Pneumatized right pterygoid recess and anterior left clinoid processes. Tympanic cavities and mastoid cells are aerated. Incomplete fusion of the ethmoid artery notch. . CT/CT facial bones wo IV con IMPRESSION: Concerning 4.4 mm tooth fragment versus root canal material dislodged inferior left maxillary sinus with associated mucosal thickening. Odontogenic sinusitis should be considered. Polypoid paranasal sinus disease. Electronically signed by: Miguel Boyer MD 04/16/2025 10:28 AM EDT RP Dictated By: Miguel Arnett MD Signed By: <Electronically signed by Miguel Garcia MDin OV> 04/16/25 1028 DD/ 0937 TD/TT: 04/16/25 0950 Layer Out: us Johanna SEALS IMG CT PROCEDURES Final Result * Referral to Allergy (04/14/2025) us Madiha Bush MD OUTPATIENT REFERRAL JOHN MAO Final Result * (ABNORMAL) CBC auto differential (03/31/2025 9:28 AM EDT) White Blood Count 9.8 4.8 - 10.8 X10*3/uL [facility] Red Blood Count 4.22 4.20 - 5.50 X10*6/uL [facility] Hemoglobin 12.8 12.0 - 16.0 g/dl [facility] Hematocrit 38.1 37.0 - 47.0 % [facility] Mean Corpuscular Volume 90.3 80.0 - 98.0 fL [facility] Mean Corpuscular Hemoglobin 30.3 27.0 - 33.0 pg [facility] Mean Corpuscular HGB Conc 33.6 31.0 - 35.0 g/dl [facility] Red Cell Distribution Width 13.0 11.0 - 16.0 % [facility] Platelet Count 367 160 - 400 X10*3/uL [facility] Mean Platelet Volume 9.3(L) 9.4 - 12.3 fL [facility] Neutrophils Percent Auto 46.5 45 - 73 % [facility] Imm Gran Pct Auto 0.4 0.0 - 0.4 % [facility] Lymphocytes Percent Auto 34.0 20 - 40 % [facility] Monocytes Percent Auto 4.6 2 - 11 % [facility] Eosinophils Percent Auto 14.2(H) 0 - 4 % [facility] Basophils Percent Auto 0.3 0 - 2 % [facility] NRBC Pct Auto 0.0 0.0 - 0.2 /100WBC [facility] Neutrophils Absolute Auto 4.5 2.0 - 8.3 x10*3/uL [facility] Imm Gran Abs Auto 0.04(H) 0.00 - 0.03 X10*3/uL [facility] Lymphocytes Absolute Auto 3.3 1.2 - 4.9 X10*3/uL [facility] Monocytes Absolute Auto 0.5 0.1 - 1.2 X10*3/uL [facility] Eosinophils Absolute Auto 1.4(H) 0.0 - 0.4 X10*3/uL [facility] Basophils Absolute Auto 0.0 0.0 - 0.2 X10*3/uL [facility] NRBC Abs Auto 0.000 0.0 - 0.012 X10*3/uL [facility] Blood Venous blood specimen / Unknown 03/31/2025 9:28 AM EDT 03/31/2025 11:37 AM EDT Madiha Bush MD LAB BLOOD ORDERABLES Fin al Result [facility] [address] [place] [phone] * (ABNORMAL) Immunoglobulin E (03/31/2025 9:28 AM EDT) Immunoglobulin E 3349(A) <LK=144 kU/L [facility] Comment:THIS TEST WAS PERFOR MED AT:[employer] [place] [id number] REYNOSO MD Blood Venous blood specimen / Unknown 03/31/2025 9:28 AM EDT 03/31/2025 11:24 AM EDT Madiha Bush MD LAB BLOOD ORDERABLES Fin al Result Performing Organization Address City/[facility]/ZIP Co de Phone Number [facility] [address] [place] [address] [phone] * POCT COVID-19 Ag Stewart ID NOW (03/30/2025 11:37 AM EDT) Coronavirus Antigen PCR Negative Negative, Indeterminate, None Detected, Invalid, Specimen unsatisfactory for evaluation, Weakly Positive, 2+ Swab 03/30/2025 11:3 7 AM EDT Sp Pollack MD POINT OF CARE TEST ENTER/EDIT OR DERABLES Final Result * HPV DNA, Low/High Risk (03/24/2025 4:15 PM EDT) HPV High Risk Negative Negative [facility] HPV Genotype 16 Negative Negative [facility] HPV Genotype 18 Negative Negative [facility] Comment:HPV testing performe d at [facility] (CLIA#[id number]), [address] [place] [address].Testing for HPV was performed using the Harinder [...] PM EDT 03/25/2025 7:25 AM EDT Ananda Kwon CNM LAB BLOOD ORDERABLES Roxie l Result Performing Organization Address City/[facility]/ZIP Co de Phone Number [facility] [address] [place] [address] [phone] * Pap Smear (03/24/2025 4:15 PM EDT) Swab Cervix uteri structure / Unknown 03/24/2025 4:15 PM EDT 03/25/2025 7:25 AM EDT [facility] - 03/29/2025 1:49 PM EDT ----- ------- Name: Evonne Zapata Age/Sex: 39/F : 1985 Unit#: [id number] Attend Dr: ANANDA KWON CNM Re03/24/25 Status: DEP REF Location: .P Disch: ----- ------- SPEC : [id number] RECD: 03/25/25 STATUS: CORWIN PEREZ NUM: [id number] MOHAMUD: 03/24/25 [facility] DR: ANANDA KWON CNM ENTERED: 03/25/25 SP TYPE: Pap Smr OTHR : ORDERED: Pap Smear Interpretation Satisfactory for evaluation. [...] and HPV testing will be performed at [facility] (CLIA #[id number]), [address] [place] [address]. Testing for HPV was performed using the [employer] DAVID 6800 system. The presence of HPV [...] detected. All professional services are performed by [facility] ([address] [place], [place] [id number]; ; CLIA #[id number]). The PAP Test is a screening procedure with the inherent possibility of both false negative and false positive results. Results should be interpreted in the context of historic and current clinical findings. Reliability of the PAP Test is enhanced by performing the test on a regular repetitive basis. CONTINUED ON NEXT PAGE ----- ------- Name: Evonne Zapata Age/Sex: 39/F : 1985 Unit#: [id number] Attend Dr: ANANDA KWON CNM Re03/24/25 Status: DEP REF Location: [facility] Disch: ----- ------- SPEC : [id number] RECD: 03/25/25 STATUS: CORWIN PEREZ NUM: [id number] MOHAMUD: 03/24/25 [facility] DR: ANANDA KWON CNM ENTERED: 03/25/25 SP TYPE: Pap [place] SUAZO DR: ORDERED: Pap Smear ----- ------- Signed (signature on file) KEN Sy (ASCP) 03/29/25 1349 ----- ------- END OF REPORT Ananda Kwon CNM LAB CYTOLOGY ORDERABLES F inal Result [facility] [address] [place] [phone] * (ABNORMAL) POCT BHAKTI-14 Urine Drug Screen [...] 1:12 PM EDT) Triglycerides 85 <150 mg/dL [facility] Comment:Desirable Triglyceri de: less than 150 mg/dLBorderline High Triglyceride 150-199 mg/dLHigh Triglyceride: 200-499 mg/dLVery High Triglyceride: greater than or equal to 5OO mg/dL Cholesterol 167 <200 mg/dL [facility] Comment:Desirable Cholestero l: less than 200 mg/dLBorderline High Cholesterol: 200-239 mg/dLHigh Cholesterol: greater than 239 mg/dL LDL Cholesterol Calculated 80 <100 mg/dL [facility] Comment:Desirable LDL: less than 100 mg/dLNear Optimal/Above Optimal LDL: 110- 129 mg/dLBorderline High LDL: 130-159 mg/dLHigh LDL: 160-189 mg/dLVery High LDL: greater than or equal to 190 mg/dL HDL Cholesterol 70 >40 mg/dL [facility] Comment:Desirable HDL: great er than 40 mg/dL Note: This HDL assay may give artificially low results in patients with liver disease. Blood Venous blood specimen / Unknown 12/30/2024 1:12 PM EDT 12/30/2024 4:17 PM EDT us Adrianna Barnett MANAGEMENT PLANNER LAB BLOOD ORDERABLES Final Res ult [facility] [address] [place] [phone] from Last 3 Months or Most Recently Relevant to Health Maintenance Insurance [facility] C3 Care Teams Certified Lactation Educator Relationship Specialty Start Date End Date Johanna Mcclain ANP [address] [place] [phone] PCP - General Family Medicine 06/12/23
--- OUTSIDE RECORDS SUMMARY | 2025-06-13 18:14 | XMS_ITS | Encounter Summary ---
Author Organization [employer] Address [address] [place] [address] [address] [place] [address] Care Team Providers Care Plastic Tool Maker Name Role Phone Lucía Crawford Primary Care Provider [phone] Reason for Visit * Reason Comments Med Refill Encounter Details Date Type Department Care Team ([facility] Contact Info) Description 05/30/2023 Refill [facility] [address] [place] [address] Gary Jay MD [address] [place] [address] Social History Tobacco Use Types Packs/Day Years [...] Description 07/15/2025 9:30 AM EST Office Visit [facility] [address] [place] [address] Evonne Araujo, OD [address] [place] [address] documented as of this encounter Visit Diagnoses Not on filedocumented in this encounter Additional Health Concerns Assessment Noted Time PHQ-9 Depression Total Score: 23 023 1:35 PM EDT documented as of this encounter Care Teams Plastic Tool Maker Relationship Specialty Start Date End Date Lucía Crawford ANP [address] [place] [address] PCP - General Family Medicine 06/12/23 documented as of this encounter
--- OUTSIDE RECORDS SUMMARY | 2025-06-13 18:14 | XMS_ITS | Encounter Summary ---
Author Organization [employer] Address [address] [facility] [address] [place] [address] Care Team Providers Care Manager Oracle Database Name Role Phone Crawford Lucía SEALS Primary Care Provider [phone] Encounter Details Date Type Department Care Team ([facility] Contact Info) Description 12/24/2023 Orders Only [facility] [address] [place] [phone] Dunia Gee MD [address] [place] [address] Social History Tobacco Use Types Packs/Day Years [...] Description 07/15/2025 9:30 AM EST Office Visit [facility] [address] [place] [address] Evonne Araujo, OD [address] [place] [address] documented as of this encounter Visit Diagnoses Not on filedocumented in this encounter Additional Health Concerns Assessment Noted Time PHQ-9 Depression Total Score: 23 023 1:35 PM EDT documented as of this encounter Care Teams Manager Oracle Database Relationship Specialty Start Date End Date Lucía Crawford ANP [address] [place] [address] PCP - General Family Medicine 06/12/23 documented as of this encounter
[2025-06-13 18:37] VITALS: BP 119/65; PULSE 80; RESP 18; TEMP 36.6; O2SAT 98
== END 2025-06-13 18:37 | disposition home or self-care (01) ==
PROVIDERS: Emergency Provider Emergency Medicine; PCP Nurse Practitioner Primary Care
DX: Z04.2 Encounter for examination and observation following work accident (principal); G89.11 Acute pain due to trauma; M25.552 Pain in left hip
CPT/HCPCS: 73502; 96372; 99284; J1885

== ENCOUNTER 2025-06-20 21:29 | Emergency (ER) | payer OTHER, MEDICAID, SELFPAY ==
--- NOTE | ~2025-06-20 | CT_ITS ---
CLINICAL HISTORY: trauma 12 , says cant bear weight CT left hip without contrast Comparison: Left hip radiographs 06/13/2025 Findings: No definite acute or displaced fracture. No traumatic subluxation. [id number] left hip osteoarthritis. There is narrowing of femoral acetabular joint space. No intra-articular loose bodies. No apparent joint effusion. Normal osseous mineralization. No lytic or sclerotic osseous lesions. No acute findings within visualized soft tissues of the pelvis. Impression: 1. No evidence of acute fracture or subluxation. 2. Additional findings as above. If patient continues to have persistent or worsening symptoms, consider MRI for further evaluation. This document has been electronically signed by: Goldy Garibay MD on 06/21/2025 00:52:25
[2025-06-20 21:39] VITALS: BP 140/88; PULSE 85; O2SAT 97
[2025-06-20 21:40] VITALS: BP 143/91; PULSE 85; RESP 16; TEMP 36.8; O2SAT 98; BMI 21.0
--- NOTE | 2025-06-20 22:01 | PC.NURSE ---
charger tester notified of SI statement, pt taken to ed16, stand pivot from wheelchair to stretcher. Perlita VALADEZ made aware and at bedside for eval.
[2025-06-20 22:28] LABS: MANUAL DIFF FLAG NO
[2025-06-20 22:29] LABS: Hematocrit 37.7 % (37.0-47.0); Hemoglobin 12.8 g/dl (12.0-16.0); Imm Gran Abs Auto 0.02 X10*3/uL (0.00-0.03); Imm Gran Pct Auto 0.2 % (0.0-0.4); Lymphocytes Absolute Auto 2.7 X10*3/uL (1.2-4.9); Mean Corpuscular HGB Conc 34.0 g/dl (31.0-35.0); Mean Corpuscular Hemoglobin 30.7 pg (27.0-33.0); Mean Corpuscular Volume 90.4 fL (80.0-98.0); NRBC Abs Auto 0.000 X10*3/uL (0.0-0.012); NRBC Pct Auto 0.0 /100WBC (0.0-0.2); Platelet Count 326 X10*3/uL (160-400); Red Blood Count 4.17 X10*6/uL (4.20-5.50); White Blood Count 9.3 X10*3/uL (4.8-10.8)
[2025-06-20 22:42] LABS: Acetaminophen LAB < 3 mcg/mL (<30); Salicylate < 5.0 mg/dL (15-30)
[2025-06-20 22:50] LABS: Alanine Aminotransferase 15 U/L (0-31); Albumin Level 4.0 g/dL (3.5-5.0); Alkaline Phosphatase 55 U/L (39-117); Anion Gap 11 (12-20); Aspartate Amino Transferase 20 U/L (5-31); Blood Urea Nitrogen 13 mg/dL (9-16); Calcium 8.6 mg/dL (8.4-10.2); Carbon Dioxide 21 mmol/L (22-29); Chloride 111 mmol/L (96-108); Creatinine Clr Calc Pharmacy 102.9; Estimated Glomerular Filt Rate > 60; Magnesium 2.0 mg/dL (1.6-2.6); Potassium 3.7 mmol/L (3.3-5.1); Sodium 139 mmol/L (135-145); Total Protein 6.6 g/dL (6.5-8.0)
--- OUTSIDE RECORDS SUMMARY | 2025-06-20 22:56 | XMS_ITS | Encounter Summary ---
Author Organization [employer] Address [address] [place] [address] 7t [place] [address] Care Team Providers Care Belling Machine Operator Name Role Phone Lucía Crawford Primary Care Provider [phone] Veronica Lopez RN Unavailable [phone] Jodi Caceres Unavailable Reason for Visit * Reason Comments Care Coordination CM/CHW outreach Encounter Details Date Type Department Care Team (Latest Contact Info) Description 06/15/2025 Patient Outreach [facility] [address] [place], [place] [phone] Lucía Crawford ANP [address] [place] [address] Care Coordination (CM/CHW outreach) Social History Tobacco Use Types Packs/Day Years [...] as of this encounter Progress Notes * Jodi Caceres - 06/15/2025 11:01 AM EST CHW Jodi Caceres, placed outbound call to patient introducing herself from [facility] CM Department, in regards to offering services. Patient's name and was confirmed. Patient agreesto participate in program. Appt. for initial assessment scheduled for 07/08/25 @ 1PM tele with SANTY Lopez RN. CHW reinforced direct contact information or CM for any additional questions or concerns and extended clinic hours on Mondays and Wednesdays, and Walk-In Urgent Care Located in [facility] of [facility]. Patient provided with after-hours line for [facility], ,which offer night time triage service and option to transfer to composition mixer provider if needed. Patient verbalizes understanding, and able to repeat back to magazine writer. documented in this encounter Plan of Treatment Upcoming Encounters Date Type Department Care Team (Late st Contact Info) Description 07/15/2025 9:30 AM EST Office Visit [facility] [address] [place], [place] [phone] Evonne Araujo, OD [address] [place] [address] documented as of this encounter Visit Diagnoses Not on filedocumented in this encounter Additional Health Concerns Assessment Noted Time PHQ-9 Depression Total Score: 13 025 9:50 AM EDT documented as of this encounter Care Teams Belling Machine Operator Relationship Specialty Start Date End Date Lucía Crawford ANP [address] [place] [address] PCP - General Family Medicine 06/12/23 Veronica Lopez, MANUEL [address] [place] [address] Registered Nurse Family Medicine 06/14/25 Jodi Caceres 06/14/25 documented as of this encounter
--- OUTSIDE RECORDS SUMMARY | 2025-06-20 22:56 | XMS_ITS | Encounter Summary ---
Author Organization [employer] Address [address] [place] [address] [address] [place] [address] Care Team Providers Care Sawmilling Operator Name Role Phone Lucía Crawford Primary Care Provider [phone] Veronica Lopez RN Unavailable [phone] Jodi Caceres Unavailable Reason for Visit * Reason Comments Med Refill Encounter Details Date Type Department Care Team ([facility] st Contact Info) Description 05/30/2023 Refill [facility] [address] [place], [place] [phone] Gary Jay MD [address] [place] [address] Social History Tobacco Use Types Packs/Day Years [...] Description 07/15/2025 9:30 AM EST Office Visit [facility] [address] [place] [address] Evonne Araujo, OD [address] [place] [address] documented as of this encounter Visit Diagnoses Not on filedocumented in this encounter Additional Health Concerns Assessment Noted Time PHQ-9 Depression Total Score: 23 023 1:35 PM EDT documented as of this encounter Care Teams Sawmilling Operator Relationship Specialty Start Date End Date Lucía Crawford ANP [address] [place] [address] PCP - General Family Medicine 06/12/23 Veronica Lopez, MANUEL [address] [facility] [place] [address] Registered Nurse Family Medicine 06/14/25 Jodi Caceres 06/14/25 documented as of this encounter
--- OUTSIDE RECORDS SUMMARY | 2025-06-20 22:56 | XMS_ITS | Encounter Summary ---
Author Organization [employer] Address [address] [place] [address] 7 [place] [address] Care Team Providers Care Motorcycle Fabricator Name Role Phone Lucía Crawford Primary Care Provider [phone] Veronica Lopez RN Unavailable [phone] Jodi Caceres Unavailable Reason for Visit * Reason Onset Date Comments New Patient 04/23/2023 Encounter Details Date Type Department Care Team ([facility] Contact Info) Description 04/23/2023 Telephone [facility] [address] [place], [place] [phone] Santo Leon MD [address] [place], [place] [phone] New Patient Social History Tobacco Use Types [...] EDT ERNESTO Bain called pt to Offer HARVESTING MANAGER appt. Pt demographics and insurance information were verified. Pt states following medical conditions: YES Pt reports taking medications: Yes ( Would speak with provider) Pt given HARVESTING MANAGER appt with HARVESTING MANAGER Lucía Crawford on 06/06/2023 @ 10:30 am. Pt will be sent appt reminder card and medical release form and agrees to complete and to return to medical records prior to HARVESTING MANAGER appt. documented in this encounter Plan of Treatment Upcoming Encounters Date Type Department Care Team (Late st Contact Info) Description 07/15/2025 9:30 AM EST Office Visit [facility] [address] [place] [address] Evonne Araujo, OD [address] [place] [address] documented as of this encounter Visit Diagnoses Not on filedocumented in this encounter Additional Health Concerns Assessment Noted Time PHQ-9 Depression Total Score: 23 023 1:35 PM EDT documented as of this encounter Care Teams Motorcycle Fabricator Relationship Specialty Start Date End Date Lucía Crawford ANP [address] [place] [address] PCP - General Family Medicine 06/12/23 Veronica Lopez RN [address] [place] [address] Registered Nurse Family Medicine 06/14/25 Jodi Caceres 06/14/25 documented as of this encounter
--- OUTSIDE RECORDS SUMMARY | 2025-06-20 22:56 | XMS_ITS | Encounter Summary ---
Author Organization [employer] Address [address] [place] [address] 7t [place] [address] Care Team Providers Care Cisco Network Architect Name Role Phone Lucía Crawford Primary Care Provider [phone] Veronica Lopez RN Unavailable [phone] Jodi Caceres Unavailable Encounter Details Date Type Department Care Team ([facility] st Contact Info) Description 12/24/[address] [facility] [address] [place], [place] [phone] Dunia Gee MD [address] [place], [place] [phone] Social History Tobacco Use Types Packs/Day Years [...] Description 07/15/2025 9:30 AM EST Office Visit [facility] [address] [place] [address] Evonne Araujo, OD [address] [place] [address] documented as of this encounter Visit Diagnoses Not on filedocumented in this encounter Additional Health Concerns Assessment Noted Time PHQ-9 Depression Total Score: 23 023 1:35 PM EDT documented as of this encounter Care Teams Cisco Network Architect Relationship Specialty Start Date End Date Lucía Crawford ANP [address] [place] [address] PCP - General Family Medicine 06/12/23 Veronica Lopez, MANUEL [address] [place] [address] Registered Nurse Family Medicine 06/14/25 Jodi Caceres 06/14/25 documented as of this encounter
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
--- OUTSIDE RECORDS SUMMARY | 2025-06-20 22:56 | XMS_ITS | Clinical Summary ---
Author Organization [address] [facility] Address [address] [place] [address] Phone Care Team Providers Care Mineral Mixer Name Role Phone Tracie Varela MD Primary Care Provider [phone] Social History Tobacco Use Types Packs/Day Years [...] topic Insurance MEDICAID - [place] Care Teams Mineral Mixer Relationship Specialty Start Date End Date Tracie Varela MD [address] [place] [phone] PCP - General 12/01/01
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
--- OUTSIDE RECORDS SUMMARY | 2025-06-20 22:57 | XMS_ITS ---
Author Organization [employer] Address [address] [place] [address] 7 [place] [address] Care Team Providers Care Business Broker Name Role Phone Lucía Crawford Primary Care Provider [phone] Veronica Lopez RN Unavailable [phone] Jodi Caceres Unavailable CHW Complex Status:Outreach In Progress (Enrolling) Start date:06/14/2025 Enrollment reason:ADT Feed Overview ED- Pt went to [facility] ED on 06/13/25. Please outreach for enrollment. Case Team Name Relationship Phone Jodi Caceres(Responsible Staff) [phone] Continued Care and Services Coordination
--- OUTSIDE RECORDS SUMMARY | 2025-06-20 22:57 | XMS_ITS | Encounter Summary ---
Author Organization [employer] Address [address] [facility] [address] [place] [address] Care Team Providers Care Import Coordination And Production Head Name Role Phone Lucía Crawford Primary Care Provider [phone] Veronica Lopez RN Unavailable [phone] Jodi Caceres Unavailable Encounter Details Date Type Department Care Team ([facility] Contact Info) Description 06/15/2025 Patient Outreach [facility] MEDICINE [address] [place], [place] [phone] Lucía Crawford ANP [address] [place] [address] Social History Tobacco Use Types Packs/Day Years [...] Progress Notes * Jodi Caceres - 06/15/2025 11:04 AM EST CHW Jodi Caceres placed call to patient in regards to CM, during conversation patient mentioned having severe back pain and having trouble walking, patient would like to be seen, patient was in [facility] ED on 06/13/25. Please call patient to clarify. * Sylvie Jim RN - 06/15/2025 11:04 AM EST TC placed to patient [phone] in regards to below message. Patient did not answer, RN left requesting CB to baldwin team nurses. TC placed to [phone] however also no answer, RN left requesting CB to green team nurses. Patient to f/u PRN. documented in this encounter Plan of Treatment Upcoming Encounters Date Type Department Care Team (Late st Contact Info) Description 07/15/2025 9:30 AM EST Office Visit [facility] OPTOMETRY [address] [place], [place] [phone] Leslyjoe Evonne, OD [address] [place] [address] documented as of this encounter Visit Diagnoses Not on filedocumented in this encounter Additional Health Concerns Assessment Noted Time PHQ-9 Depression Total Score: 13 025 9:50 AM EDT documented as of this encounter Care Teams Import Coordination And Production Head Relationship Specialty Start Date End Date Lucía Crawford ANP [address] [place] [id number] PCP - General Family Medicine 06/12/23 Veronica Lopez RN [address] [place] [phone] Registered Nurse Family Medicine 06/14/25 Jodi Caceres 06/14/25 documented as of this encounter
--- OUTSIDE RECORDS SUMMARY | 2025-06-20 22:57 | XMS_ITS ---
Author Organization [employer] Address [address] [place] [address] [place] [address] Care Team Providers Care Color Card Maker Name Role Phone Lucía Crawford Primary Care Provider [phone] Veronica Lopez RN Unavailable [phone] Jodi Caceres Unavailable CM Complex Status:Outreach In Progress (Enrolling) Start date:06/14/2025 Enrollment reason:ADT Feed Overview ED- Pt went to [facility] ED on 06/13/25. Case Team Name Relationship Phone Veronica Lopez RN(Responsible Staff) Registered Nurse [phone] Continued Care and Services Coordination
--- OUTSIDE RECORDS SUMMARY | 2025-06-20 22:57 | XMS_ITS | Encounter Summary ---
Author Organization [employer] Address [address] [place] [address] 7t [place] [address] Care Team Providers Care Tax Attorney Name Role Phone Ty Lucía SEALS Primary Care Provider [phone] Veronica Lopez RN Unavailable [phone] Jodi Caceres Unavailable Encounter Details Date Type Department Care Team ([facility] Contact Info) Description 04/17/2025 Results Follow-Up [facility] [address] [place] [address] [phone] Keon Wolf MD [address] [place] [address] Bacterial Vaginosis, Chlamydia/N. Gonorrhoeae RNA, TMA, Urogenitial, POCT urinalysis dipstick manually resulted (CPT 96534), Additional followed-up results: 4 Social History Tobacco [...] 07/15/2025 9:30 AM EST Office Visit [facility] OPTOMETRY [address] [place] [address] Evonne Araujo, YOJANA [address] [place] [address] documented as of this encounter Visit Diagnoses Not on filedocumented in this encounter Additional Health Concerns Assessment Noted Time PHQ-9 Depression Total Score: 13 025 9:50 AM EDT documented as of this encounter Care Teams Tax Attorney Relationship Specialty Start Date End Date Lucía Crawford ANP [address] [place] [address] PCP - General Family Medicine 06/12/23 Veronica Lopez, MANUEL [address] [place] [address] Registered Nurse Family Medicine 06/14/25 Jodi Caceres 06/14/25 documented as of this encounter
--- OUTSIDE RECORDS SUMMARY | 2025-06-20 22:57 | XMS_ITS | Encounter Summary ---
Author Organization [employer] Address [address] [place] [address] 7t [place] [address] Care Team Providers Care French Drawer Name Role Phone Lucía Crawford Primary Care Provider [phone] Veronica Lopez RN Unavailable [phone] Jodi Caceres Unavailable Reason for Visit * Reason Comments Care Coordination CHW chart review Encounter Details Date Type Department Care Team (Latest Contact Info) Description 06/14/[address] [facility] MEDICINE [address] [place], [place] [phone] Lucía Crawford ANP [address] [place], [place] [phone] Care Coordination (CHW chart review) Social History Tobacco Use Types Packs/Day Years [...] encounter Progress Notes * Jodi Caceres - 06/14/2025 8:01 AM EST CM/C3 TRACIE Caceres chart review CHW Jodi Caceres reviewed chart review completed by SANTY Lopez RN, performed chart review, in anticipation of initial assessment with patient, as patient has stratified for C3 Adult Complex Care through the ADT feed. History significant for Patient Active Problem List Diagnosis Date Noted Urticaria 03/30/2025 Mild intermittent asthma with exacerbation 03/30/2025 PTSD (post-traumatic stress disorder) 02/19/2025 JEFFERSON (generalized anxiety disorder) 12/30/2024 Hand swelling 12/18/2024 Hypertension 12/18/2024 Arthritis of both hands 11/04/2024 Ingrown toenail of both feet 11/04/2024 Family history of thyroid disease 09/15/2024 Folliculitis 09/15/2024 Change in voice 09/15/2024 Dysphagia 09/15/2024 Bipolar disorder, in partial remission, most recent episode depressed (CMS/HCC) (HCC) 07/07/2024 Cannabis use disorder 06/15/2024 Vaginal discharge 03/16/2024 Tobacco dependence 04/19/2023 Cocaine use, unspecified, in remission 03/11/2023 Alcohol dependence with withdrawal (HCC) 03/08/2023 Specialists include Oral Surgery, Allergy, Rheumatology, PT, Behavioral Health, Podiatry, [facility] Optometry, and ENT. ED visits within the last 12 months include [facility] 06/[facility]25 Diagnosis work injury/fall-left thigh pain. Last appointment in PCP office on 06/07/25. Next appointment scheduled for 07/15/25 with Optometry. documented in this encounter Plan of Treatment Upcoming Encounters Date Type Department Care Team (Late st Contact Info) Description 07/15/2025 9:30 AM EST Office Visit [facility] OPTOMETRY [address] [place] [address] Evonne Araujo, OD [address] [place] [address] documented as of this encounter Visit Diagnoses Not on filedocumented in this encounter Additional Health Concerns Assessment Noted Time PHQ-9 Depression Total Score: 13 025 9:50 AM EDT documented as of this encounter Care Teams French Drawer Relationship Specialty Start Date End Date Lucía Crawford ANP [address] [place] [address] PCP - General Family Medicine 06/12/23 Veronica Lopez, MANUEL [address] [place] [address] Registered Nurse Family Medicine 06/14/25 Jodi Caceres 06/14/25 documented as of this encounter
--- NOTE | 2025-06-20 23:31 | PC.NURSE ---
This RN assumed care of pt at 2315, pt found in [facility] and reports that following her torodol her L hip pain subsided to 0/10, although she did report an onset of 7/10 L knee pain that started 20 min ago and has been intermittent.
--- NOTE | 2025-06-21 01:05 | ED_ITS ---
HPI - General Adult General Chief complaint: Back Pain/Injury Stated complaint: Fell on hip x1 wk.unable to walk w/o asisst since Time Seen by Provider: 06/20/25 21:59 Source: patient Limitations: no limitations History of Present Illness ED Provider: Deandra Tarango PA-C HPI narrative: 39-year-old female presents with ongoing left hip pain x1 week. 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 Patient was ambulatory after the incident, she has been using ibuprofen and Tylenol without relief from her symptoms. Patient now states she is having radiation of pain down the left lower extremity with paresthesia. Patient made a comment about bowel incontinence, however she states it hurts to push to have a bowel movement. Denies urinary retention or weakness of lower extremity. Patient states that has become increasingly difficult to ambulate secondary to her pain. Patient also verbalized concern about worsening depression and thoughts of ?not wanting to live anymore?. Patient states that ?her job is her therapy, that she has significant emotional stressors, that she works 6 days a week, and that this is very important to her?. Patient states her depression has certainly worsened since her accident, and now with the subsequent inability to work. Related Data Home Medications ?Medication ?Instructions ?Recorded ?Confirmed bupropion HCl 100 mg tablet,12 hr 100 mg PO QAM 07/23/23 sustained-release doxepin 25 mg capsule 25 mg PO BEDTIME 07/23/23 famotidine 20 mg tablet 20 mg PO DAILY acid reflux 0 07/23/23 07/23/23 multivitamin 1 tab PO QAM 07/23/23 sertraline 50 mg tablet 50 mg PO DAILY 07/23/2306/26 Previous Rx's ?Medication ?Instructions ?Recorded albuterol sulfate 90 mcg/actuation 2 puff inhalation Q ID PRN 04/09/24 aerosol inhaler shortness of breath or wheez ing #6.7 grams azithromycin 250 mg tablet See Rx Instructions PO .COM PLEX #6 04/09/24 tabs prednisone 20 mg tablet 40 mg (2 x 20 mg) PO DAILY 4 days 04/09/24 #8 tabs ondansetron 4 mg disintegrating 4 mg PO Q8H PRN nausea and 05/27/24 tablet vomiting #10 tabs doxycycline hyclate 100 mg capsule 100 mg PO BID #14 c aps 10/17/24 nitrofurantoin 100 mg PO Q12H 5 days #10 ca ps 10/17/24 monohydrate/macrocrystals 100 mg capsule (Macrobid) cyclobenzaprine 10 mg tablet 10 mg PO TID PRN muscle s pasm #20 06/21/25 tabs ketorolac 10 mg tablet 10 mg PO Q6H PRN pain #20 ta bs 06/21/25 prednisone 20 mg tablet 40 mg (2 x 20 mg) PO DAILY # 8 tabs 06/21/25 Allergies Allergy/AdvReac Type Severity Reaction Status Date / Time amoxicillin Allergy Rash Verified 06/20/25 21:46 oxycodone (From Percocet) Allergy Vomiting Verified 06/20/25 21:46 Review of Systems 2 Review of Systems: Yes all other systems are reviewed and are negative Constitutional: Constitutional: Denies fatigue and Denies fever(s) Cardiovascular: Cardiovascular: Denies chest pain and Denies dyspnea Respiratory: Respiratory: Denies dyspnea Gastrointestinal: Gastrointestinal: Denies abdominal pain Musculoskeletal: Musculoskeletal: Reports back pain, Reports arthralgias, Denies muscle weakness, Denies numbness, Reports radiating pain into limb and Reports tingling Neurologic: Denies numbness and Reports tingling Endocrine: Endocrine: Denies fatigue PMFSH Past Medical History Attestation statement: The following information was validated with the patient. Medical History Acute appendicitis with rupture (07/23/23) Surgical History Hx of appendectomy Social History Social History Household Members: Children Housing: Other Housing Other:: nursing home Do you presently have visiting nurse or other home services: No Alcohol intake: former Patient Tobacco Use Status: Never used Tobacco Smoked in Last 30 Days: Yes Use of substances other than those prescribed or required for medical reasons: Yes Substance Use Type: Marijuana Substance Use Frequency: Occasionally Advance Directives: Yes Advance Directives on File: Yes Advance Directives Date on File: 07/29/23 Do you have a plan to hurt others: No Plan Patient : No service: No Current occupational status: unemployed Current occupation: right hand dominant Physical Exam ED Vital Signs: Vital Signs - 24 hr 06/20/25 21:40 06/21/25 01:35 06/21/25 02:55 Temperature 98.3 F 97.8 F 98.6 F Pulse Rate 85 84 73 Respiratory Rate 16 15 16 Blood Pressure 143/91 H 134/78 123/78 Pulse Oximetry 98 98 98 Oxygen Delivery Method Room Air Room Air Room Air 06/21/25 05:49 06/21/25 09:42 Temperature 97.6 F 97.6 F Pulse Rate 80 80 Respiratory Rate 16 16 Blood Pressure 128/82 128/82 Pulse Oximetry 99 99 Oxygen Delivery Method Room Air Room Air BMI result Body Mass Index 21.0 Const Other: Alert, tearful, anxious emotionally labile Orientation/consciousness: patient oriented x3 Resp Effort & Inspection: normal respiratory effort Cardio Other: Normal peripheral perfusion GI Other: Sensation over perineum rectal tone intact with a digital exam Skin Other: Warm dry no rash Neuro General: patient oriented x3, no focal motor deficits and CN's II-XI intact bilaterally Extrem Other: Able to move bilateral lower extremities independently, no strength deficit, strength 5/5, although pain significant to the point of the left hip with movement of the left lower extremity.. There was no overlying swelling or ecchymosis any sign of trauma of the left lower extremity. Psych Other: Cooperative Course Reevaluation(s) Reevaluation #1: Time: 05:46 Date: 06/21/25 Provider: RORY Hammer Patient in physician observation for psychiatric evaluation.? No acute events reported overnight. No current complaints. VS stable.? Patient is in bed search status/pending CARE team evaluation. Will continue to monitor. Reevaluation #2: Time: 08:43 Date: 06/21/25 Provider: Marisela Canchola DO Physician observation ended at 843am. Patient has been cleared for discharge by the CARE team. Will follow up as an outpatient. Medications Administered Discontinued Medications Generic Name Dose Route Start Last Admin Trade Name Freq PRN Reason Stop Dose Admin Acetaminophen 975 mg 06/21/25 02:21 06/21/25 02:51 Acetaminophen 325 Mg Tablet PO 06/21/25 02:22 975 mg ONCE ONE Administration Diazepam 5 mg 06/21/25 02:21 06/21/25 02:51 Diazepam 5 Mg Tablet PO 06/21/25 02:22 5 mg ONCE ONE Administration Ketorolac Tromethamine 15 mg 06/20/25 22:23 06/20/25 22:39 Ketorolac Tromethamine 15 Mg/Ml Vial IM 06/20/25 22:24 15 mg ONCE ONE Administration Methocarbamol 1,500 mg 06/20/25 22:23 06/20/25 22:39 Methocarbamol 750 Mg Tablet PO 06/20/25 22:24 1,500 mg ONCE ONE Administration Prednisone 40 mg 06/20/25 22:23 06/20/25 22:39 Prednisone 20 Mg Tablet PO 06/20/25 22:24 40 mg ONCE ONE Administration Medical Decision Making Medical Decision Making MDM Narrative: 39-year-old female presents with ongoing left hip pain x1 week. 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 Patient was ambulatory after the incident, she has been using ibuprofen and Tylenol without relief from her symptoms. Patient now states she is having radiation of pain down the left lower extremity with paresthesia. Patient made a comment about bowel incontinence, however she states it hurts to push to have a bowel movement. Denies urinary retention or weakness of lower extremity. Patient states that has become increasingly difficult to ambulate secondary to her pain. Patient also verbalized concern about worsening depression and thoughts of ?not wanting to live anymore?. Patient states that ?her job is her therapy, that she has significant emotional stressors, that she works 6 days a week, and that this is very important to her?. Patient states her depression has certainly worsened since her accident, and now with the subsequent inability to work. Problem: Emotional stress, recent accident History: Per patient I have considered the following differential diagnoses: Lumbar strain, lumbar radiculopathy, cauda equina, occult fracture/dislocation, musculoskeletal strain, SI, HI, decompensated psychiatric illness, drug/alcohol intoxication Plan: The patient will be referred to the care team, we will screen basic labs serum ethanol and drug screen. In regard to her pain related complaint, perhaps there was an occult fracture that was missed, we will obtain a CT scan. Medicating with steroid anti-inflammatory and a muscle relaxant. To note, she does not have symptoms concerning for cord compression at this time. I have independently reviewed the following tests: Labs: No leukocytosis, not anemic, no electrolyte abnormality, ethanol less than 10, drug screen pending CT left hip without contrast Comparison: Left hip radiographs 06/13/2025 Findings: No definite acute or displaced fracture. No traumatic subluxation. [id number] left hip osteoarthritis. There is narrowing of femoral acetabular joint space. No intra-articular loose bodies. No apparent joint effusion. Normal osseous mineralization. No lytic or sclerotic osseous lesions. No acute findings within visualized soft tissues of the pelvis. Impression: 1. No evidence of acute fracture or subluxation. 2. Additional findings as above. If patient continues to have persistent or worsening symptoms, consider MRI for further evaluation. Differential Diagnosis Differential Diagnoses: The differential diagnosis associated with the presentation includes See [facility] Admission/Observation Consideration of admission/observation: Escalation of care including admission/observation considered Lab Data [facility] Lab Attestation statement: I reviewed the patient's lab results. 06/20/25 22:18 06/20/25 22:18 Labs: Lab Results 06/20/25 Range/Units 22:18 WBC 9.3 (4.8-10.8) X10*3/uL RBC 4.17 L (4.20-5.50) X10*6/uL Hgb 12.8 (12.0-16.0) g/dl Hct 37.7 (37.0-47.0) % MCV 90.4 (80.0-98.0) fL MCH 30.7 (27.0-33.0) pg MCHC 34.0 (31.0-35.0) g/dl RDW 14.2 (11.0-16.0) % Plt Count 326 (160-400) X10*3/uL MPV 8.4 L (9.4-12.3) fL Immature Gran % (Auto) 0.2 (0.0-0.4) % Neut % (Auto) 61.5 (45-73) % Lymph % (Auto) 28.9 (20-40) % Smith % (Auto) 6.9 (2-11) % Eos % (Auto) 2.3 (0-4) % Baso % (Auto) 0.2 (0-2) % Lymph # (Auto) 2.7 (1.2-4.9) X10*3/uL Smith # (Auto) 0.6 (0.1-1.2) X10*3/uL Eos # (Auto) 0.2 (0.0-0.4) X10*3/uL Baso # (Auto) 0.0 (0.0-0.2) X10*3/uL Abs Immat Gran (auto) 0.02 (0.00-0.03) X10*3/uL Absolute Neuts (auto) 5.7 (2.0-8.3) x10*3/uL Absolute Nucleated RBC 0.000 (0.0-0.012) X10*3/uL Nucleated RBC % (auto) 0.0 (0.0-0.2) /100WBC Sodium 139 (135-145) mmol/L Potassium 3.7 (3.3-5.1) mmol/L Chloride 111 H (96-108) mmol/L Carbon Dioxide 21 L (22-29) mmol/L Anion Gap 11 L (12-20) BUN 13 (9-16) mg/dL Creatinine 0.74 (0.5-1.4) mg/dL Estim Creat Clear Calc 102.9 Estimated GFR > 60 Random Glucose 100 (60-115) mg/dL Calcium 8.6 D (8.4-10.2) mg/dL Magnesium 2.0 (1.6-2.6) mg/dL Total Bilirubin 0.5 (0.0-1.0) mg/dL AST 20 (5-31) U/L ALT 15 (0-31) U/L Alkaline Phosphatase 55 (39-117) U/L Total Protein 6.6 (6.5-8.0) g/dL Albumin 4.0 (3.5-5.0) g/dL Beta HCG, Quant < 2 mIU/mL Salicylates < 5.0 L (15-30) mg/dL Acetaminophen < 3 (<30) mcg/mL Ethyl Alcohol < 10 mg/dL Radiology Impression Discussion of test interpretation with radiology: I have reviewed the radiologist's reading. Discharge Plan Discharge Clinical Impression: Acute left lumbar radiculopathy, Suicidal ideation Muscle strain of left hip Qualifiers: Encounter type: subsequent encounter Qualified Code(s): S76.012D - Strain of muscle, fascia and tendon of left hip, subsequent encounter Patient Disposition: Home, Self-Care Instructions: Muscle Strain (ED), Help Prevent Suicide (ED), Back Pain (ED) Additional Instructions: Your labs are reassuring Your CT scan did not show any broken bones Please continue your medications as needed for pain Return for any worsening symptoms or concerns You were seen in our Emergency Department today for treatment of a behavioral health issue. It is important after your visit that you follow up with either your behavioral health provider or a primary care doctor within 7 days.? If you have trouble finding a therapist you can reach out to [place] [phone] [facility] [employer] [facility] can be reached 7 days a week 24 hours a day.? Call [phone] to speak with someone.? Return for any worsening symptoms or concerns such as thoughts of self harm or harm to others. Please call 911 if you feel your mental health is worsening.? Findings: No definite acute or displaced fracture. No traumatic subluxation. [id number] left hip osteoarthritis. There is narrowing of femoral acetabular joint space. No intra-articular loose bodies. No apparent joint effusion. Normal osseous mineralization. No lytic or sclerotic osseous lesions. No acute findings within visualized soft tissues of the pelvis. Impression: 1. No evidence of acute fracture or subluxation. 2. Additional findings as above. If patient continues to have persistent or worsening symptoms, consider MRI for further evaluation. Prescriptions: New cyclobenzaprine 10 mg tablet 10 mg PO TID PRN (Reason: muscle spasm) Qty: 20 0RF prednisone 20 mg tablet 40 mg PO DAILY Qty: 8 0RF ketorolac 10 mg tablet 10 mg PO Q6H PRN (Reason: pain) Qty: 20 0RF Rx Instructions: maximum total duration of 5 days from all oral, intranasal, or parenteral formulations, patient received an intramuscular dose of Toradol here in the emergency No Action ondansetron 4 mg tablet,disintegrating 4 mg PO Q8H PRN (Reason: nausea and vomiting) Qty: 10 0RF multivitamin Tablet 1 tab PO QAM doxepin 25 mg capsule 25 mg PO BEDTIME bupropion HCl 100 mg tablet sustained-release 12 hr 100 mg PO QAM famotidine 20 mg tablet 20 mg PO DAILY sertraline 50 mg tablet 50 mg PO DAILY azithromycin 250 mg tablet See Rx Instructions .ROUTE .COMPLEX Qty: 6 0RF Rx Instructions: For 250 mg dose pack: take 500 mg today (day 1), then 250 mg for 4 days (days 2-5) prednisone 20 mg tablet 40 mg PO DAILY 4 Days Qty: 8 0RF albuterol sulfate 90 mcg/actuation HFA aerosol inhaler 2 puff inhalation QID PRN (Reason: shortness of breath or wheezing) Qty: 6.7 0RF nitrofurantoin monohyd/m-cryst [Macrobid] 100 mg capsule 100 mg PO Q12H 5 Days Qty: 10 0RF Rx Instructions: must administer with a meal/food doxycycline hyclate 100 mg capsule 100 mg PO BID Qty: 14 0RF Stand Alone Forms: Work/School Release Interventions: ED Discharge Assessment Last Done: 06/21/25 09:42 Discharge Date/Time: 06/21/25 09:42 Print Language: Croatian
[2025-06-21 01:35] VITALS: BP 134/78; PULSE 84; RESP 15; TEMP 36.6; O2SAT 98
--- NOTE | 2025-06-21 01:35 | PC.NURSE ---
pt sitting up eating dinner at this time, vss. awaiting care team consult
[2025-06-21 02:55] VITALS: BP 123/78; PULSE 73; RESP 16; TEMP 37; O2SAT 98
[2025-06-21 05:49] VITALS: BP 128/82; PULSE 80; RESP 16; TEMP 36.4; O2SAT 99
--- NOTE | 2025-06-21 08:39 | MHC.CARE ---
Pt does not meet the criteria for a higher level of care and will D/C to follow up with current providers
[2025-06-21 09:42] VITALS: BP 128/82; PULSE 80; RESP 16; TEMP 36.4; O2SAT 99
== END 2025-06-21 09:42 | disposition home or self-care (01) ==
PROVIDERS: Physician Assistant Medical; Emergency Provider Emergency Medicine; PCP Nurse Practitioner Primary Care
DX: M54.16 Radiculopathy, lumbar region (principal); S76.012D Strain of muscle, fascia and tendon of left hip, subsequent encounter; R45.851 Suicidal ideations; M25.552 Pain in left hip; Z79.899 Other long term (current) drug therapy
CPT/HCPCS: 36415; 73700; 80053; 80143; 80179; 80307; 83735; 84702; 85025; 96372; 99285; J1885; S9485

== ENCOUNTER → 2025-06-20 22:06 | Outpatient (BNV) | payer OTHER, SELFPAY | PROVIDERS: Emergency Provider Emergency Medicine; PCP Nurse Practitioner Primary Care; Visit Provider Radiology Diagnostic Radiology | DX: M16.52 Unilateral post-traumatic osteoarthritis, left hip (principal); M25.852 Other specified joint disorders, left hip | CPT/HCPCS: 73700 ==